=== PATIENT | female | born 1960 | race Two or more races ===

== ENCOUNTER 2022-07-31 13:35 | Observation (INO) | payer OTHER, SELFPAY ==
--- NOTE | ~2022-07-31 | US_ITS ---
EXAMINATION: US VENOUS ULTRASOUND WITH DOPPLER LOWER EXTREMITY, BILATERAL CLINICAL INFORMATION: Pain COMPARISON: None TECHNIQUE: Ultrasound of the deep veins is performed from the hip to the calf with compression sonography and color and pulse Doppler assessment. Spectral analysis with color-flow imaging is performed. FINDINGS: RIGHT: There is normal venous compression and respiratory variation and augmented flow. The visualized common femoral vein, superficial femoral vein, profunda femoral vein, popliteal vein, and the trifurcation region shows no evidence of deep venous thrombosis. The right peroneal vein in the calf is not visualized. Status post left [id number] amputation. There is no significant popliteal fossa cyst. LEFT: There is normal venous compression and respiratory variation and augmented flow. The visualized common femoral vein, superficial femoral vein, profunda femoral vein, popliteal vein, and the trifurcation region shows no evidence of deep venous thrombosis. There is no significant popliteal fossa cyst. If the patient's symptoms persist, followup ultrasound in 5 days 7 days might be of value to exclude proximal propagation from a non-visualized calf vein. US/US venous duplex LE BI IMPRESSION: No DVT demonstrated in the bilateral lower extremity.
--- NOTE | 2022-07-31 13:24 | ECG_ITS ---
Test Reason : HYPER K Blood Pressure : / mmHG Vent. Rate : 070 BPM Atrial Rate : 070 BPM P-R Int : 152 ms QRS Dur : 076 ms QT Int : 378 ms P-R-T Axes : 040 069 035 degrees QTc Int : 408 ms Normal sinus rhythm Normal ECG No previous ECGs available Referred By: Etelvina Estes Electronically Signed By:BHARATI MURILLO
--- NOTE | 2022-07-31 13:26 | ED.RECABL ---
HPI - Recheck/Abnormal Lab/Rx General Chief Complaint: Recheck/Abnormal Lab/Rx Stated Complaint: ABNORMAL LABS,INCREASED POTASSIUM Time Seen by Provider: 07/31/22 13:47 Source: patient and EMS Mode of arrival: EMS Limitations: other (poor historian ) History of Present Illness HPI narrative: This is a 61-year-old female hx of diabetes presenting to the emergency department for abnormal labs. According to EMS and patient her potassium yesterday was 6.1 and today was 7.1. Patient tells me she has been feeling more tired than usual, however has no other complaints. She does mention to me that she currently is being treated for right lower extremity cellulitis and she is on antibiotics (bactrim) however not really helping, this is the only new medication she has started recently. Patient tells me that paramedics go to her house and check her blood, and this is how she found out that her potassium was elevated. She also tells me that her doctor has mentioned this to her in the past as well. Patient denies chest pain, shortness of breath, nausea, vomiting, abdominal pain, headache, dizziness, vision changes, changes in urination, changes in bowel habits, palpitations. Patient has no significant cardiac history. To note patient is on ACEI enalapril. Related Data Home Medications Medication Instructions Recorded Confirmed Saccharomyces boulardii 250 mg 1 cap PO BID 07/31/22 capsule (Probiotic (S.boulardii)) albuterol sulfate 90 mcg/actuation 2 puff inhalation Q4-6H PRN 07/31/22 aerosol inhaler Shortness Of Breath aspirin 81 mg chewable tablet 1 tab PO DAILY 07/31/22 betamethasone dipropionate 0.05 % 1 applic topical BID 07/31/22 topical cream betamethasone, augmented 0.05 % 1 appl topical DAILY 07/31/22 topical cream budesonide-formoterol HFA 80 2 puff inhalation BID 07/31/22 mcg-4.5 mcg/actuation aerosol inhaler (Symbicort) clotrimazole 1 % topical cream 1 appl topical BID 07/31/22 diclofenac sodium 1 % topical gel 2 g topical TID 07/31/22 empagliflozin 10 mg tablet 1 tab PO DAILY 07/31/22 (Jardiance) enalapril maleate 20 mg tablet 1 tab PO BID 07/31/22 fexofenadine 180 mg tablet 1 tab PO DAILY 07/31/22 fluticasone furoate 100 1 puff inhalation DAILY 07/31/22 mcg-vilanterol 25 mcg/dose inhalation powder (Breo Ellipta) fluticasone furoate 100 1 puff inhalation DAILY 07/31/22 mcg-vilanterol 25 mcg/dose inhalation powder (Breo Ellipta) gabapentin 300 mg capsule 1 cap PO DAILY 07/31/22 gabapentin 800 mg tablet 800 mg PO BID 07/31/22 hydrocortisone 2.5 % topical 1 appl topical BID 07/31/22 ointment hydroxyzine pamoate 25 mg capsule 1 cap PO TID 07/31/22 insulin aspart U-100 100 unit/mL 10 - 24 unit subcut DIRECTED 07/31/22 subcutaneous solution (Novolog U-100 Insulin aspart) insulin glargine 100 unit/mL (3 70 unit subcut DAILY 07/31/22 mL) subcutaneous pen (Lantus Solostar U-100 Insulin) liraglutide 0.6 mg/0.1 mL (18 mg/3 1.8 mg subcut DAILY 07/31/22 mL) subcutaneous pen injector ([employer] 3-Paco) metformin 500 mg tablet,extended 1 tab PO DAILY 07/31/22 release 24 hr metoprolol succinate 50 mg 1 tab PO DAILY 07/31/22 tablet,extended release 24 hr naproxen 500 mg tablet 1 tab PO Q12H 07/31/22 olopatadine 0.1 % eye drops 1 drp ophthalmic (eye) BID PRN 07/31/22 allergies omeprazole 20 mg capsule,delayed 1 cap PO DAILY 07/31/22 release simvastatin 20 mg tablet 1 tab PO BEDTIME 07/31/22 sulfamethoxazole 800 1 tab PO BID 07/31/22 mg-trimethoprim 160 mg tablet tramadol 50 mg tablet 1 tab PO BID PRN severe pain 07/31/22 trazodone 50 mg tablet 1 tab PO BEDTIME 07/31/22 Allergies Allergy/AdvReac Type Severity Reaction Status Date / Time ciprofloxacin Allergy Severe Anaphylaxis Verified 07/31/22 17:41 kiwi Allergy Severe Angioedema Verified 07/31/22 17:41 morphine Allergy Intermediate Itching Verified 07/31/22 17:41 atorvastatin [From Lipitor] AdvReac Mild myalgia Verified 07/31/22 17:41 metformin AdvReac Mild Abdominal Verified 07/31/22 17:41 Pain Review of Systems Review of Systems: Constitutional : No Weight loss, No Fever, No Chills, + Fatigue, No Malaise ENT/Mouth : No sore throat, No Rhinorrhea Eyes: No Eye Pain, No Swelling, No Redness Cardiovascular : No Chest Pain, No SOB, No Dyspnea on Exertion, No Orthopnea, No Edema, No Palpitations Respiratory : No Cough, No Sputum, No Wheezing Gastrointestinal : No Nausea, No Vomiting, No Diarrhea, No Constipation, No abdominal Pain, No Hematochezia, No Melena Genitourinary : No Dysuria, No Urinary Frequency, No Hematuria, Musculoskeletal : No joint pain, No Myalgias, No Joint Swelling Skin : No Skin Lesions, No rash Neuro : No Weakness, No Numbness, No Dizziness, No Headache Psych : No Anxiety/Panic, No Depression All other systems reviewed and are negative Yes all other systems are reviewed and are negative [facility] Past Medical History Attestation statement: The following information was validated with the patient. Source: old records reviewed and nursing notes reviewed Medical History (Updated 07/31/22 @ 17:19 by Rj Nelson MD) Diabetes mellitus HLD (hyperlipidemia) HTN (hypertension) Morbid obesity Renal tubular acidosis, type 4 Surgical History (Updated 07/31/22 @ 17:19 by Rj Nelson MD) Below-knee amputation of left lower extremity S/P S/P cholecystectomy Family History Family History (Updated 07/31/22 @ 17:20 by Rj Nelson MD) Mother Dementia Diabetes Father Dementia Diabetes Social History Social History (Updated 07/31/22 @ 17:20 by Rj Nelson MD) Alcohol intake: never Patient Tobacco Use Status: Former Tobacco user Quit Date: 2007 Use of substances other than those prescribed or required for medical reasons: No Advance Directives: No Advance Directives Information Provided: Yes Physical Exam Vital Signs: Vital Signs: Last Vital Signs Temp 97.2 F 07/31/22 13:56 Pulse 74 07/31/22 15:30 Resp 16 07/31/22 15:30 BP 122/47 L 07/31/22 13:56 Pulse Ox 97 07/31/22 13:56 O2 Del Method 07/31/22 13:56 BMI result Body Mass Index 43.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 Oriented X3.? No acute distress.? Head: Normocephalic, atraumatic, no step-offs or deformities Eyes: Pupils equal, round and reactive to light.? ENT: Pharynx normal.? Neck: Normal inspection.? Neck supple.? CVS: Normal heart rate and rhythm.? Pulses normal.? Respiratory: No respiratory distress.? Breath sounds normal.? Abdomen: Soft and nontender.? Skin: Skin warm and dry.? Normal skin color.? Normal skin turgor.? Extremities: No lower extremity edema.? No calf ttp. 5/5 strength to bilateral upper and right lower extremity. BKA on LLE. + erythema and warmth to RLE covered w/ dressing. Right lower extremity with 2+ dorsalis pedis, posterior tibialis and anterior tibialis pulses equal bilateral. Normal sensation to lower extremities. Back: No midline tenderness, no C-spine tenderness, full range of motion, no CVA tenderness bilaterally Neuro: Oriented X 3.? No motor deficit.? No sensory deficit. CN 2-12 intact Course Reevaluation(s) Reevaluation #1: CBC without leukocytosis, there is a slight microcytic anemia noted, initial potassium 6.2, repeat potassium 5.4. No EKG changes at this time. Ethanol negative. COVID negative. Due to patients allergies will give vancomycin for right lower extremity cellulitis. Patient tells me that her cellulitis has not improve much after Bactrim. Therefore I believe patient needs to be admitted to the hospitalist team for evaluation of cellulitis and hyperkalemia. Time: 16:45 Reevaluation #2: Patient not meeting any sepsis criteria, will initiate vancomycin. Discuss this case with hospitalist who will admit patient for further evaluation and intervention. Time: 17:21 MDM - Recheck/Abnormal Lab/Rx MDM Narrative Medical decision making narrative: 1350 61-year-old female presents for evaluation of abnormal labs, was told she had an elevated potassium of 7.1 today. Physical examination with significant cellulitis to the right lower extremity. Cellulitis to right lower extremity currently being treated with antibiotics. Upon review of medication list patient on ACEI likely contributing to hyperkalemia as well as bactrim. Plan at this time is to obtain basic labs, EKG, cardiac monitoring. Will rule out the elevated potassium is not secondary to hemolysis. Will treat potassium of still elevated here in the emergency department. Medical Records Attestation: I reviewed the patient's medical records. Lab Data Attestation: I reviewed the patient's lab results. Result diagrams: 07/31/22 13:46 07/31/22 16:18 Labs: Lab Results 07/31/22 07/31/22 07/31/22 Range/Units 13:46 13:46 13:46 WBC 9.3 (4.8-10.8) X10*3/uL RBC 4.64 (4.20-5.50) X10*6/uL Hgb 10.6 L (12.0-16.0) g/dl Hct 35.9 L (37.0-47.0) % MCV 77.4 L (80.0-98.0) fL MCH 22.8 L (27.0-33.0) pg MCHC 29.5 L (31.0-35.0) g/dl RDW 17.7 H (11.0-16.0) % Plt Count 187 (160-400) X10*3/uL MPV 10.1 (9.4-12.3) fL Immature Gran % (Auto) 0.3 (0.0-0.4) % Neut % (Auto) 72.7 (45-73) % Lymph % (Auto) 19.7 L (20-40) % [place] % (Auto) 5.2 (2-11) % Eos % (Auto) 1.6 (0-4) % Baso % (Auto) 0.5 (0-2) % Lymph # (Auto) 1.8 (1.2-4.9) X10*3/uL [place] # (Auto) 0.5 (0.1-1.2) X10*3/uL Eos # (Auto) 0.2 (0.0-0.4) X10*3/uL Baso # (Auto) 0.1 (0.0-0.2) X10*3/uL Abs Immat Gran (auto) 0.03 (0.00-0.03) X10*3/uL Absolute Neuts (auto) 6.7 (2.0-8.3) x10*3/uL Absolute Nucleated RBC 0.000 (0.0-0.012) X10*3/uL Nucleated RBC % (auto) 0.0 (0.0-0.2) /100WBC Sodium 134 L (135-145) mmol/L Potassium 6.2 H* (3.3-5.1) mmol/L Chloride 104 (96-108) mmol/L Carbon Dioxide 24 (22-29) mmol/L Anion Gap 12 (12-20) BUN 19 H (9-16) mg/dL Creatinine 0.99 (0.5-1.4) mg/dL Estim Creat Clear Calc 73.7 Estimated GFR 57 POC Glucose (60-115) mg/dL Random Glucose 250 H (60-115) mg/dL Calcium 9.0 (8.4-10.2) mg/dL Magnesium 1.6 (1.6-2.6) mg/dL Total Bilirubin 0.2 (0.0-1.0) mg/dL AST 23 (5-31) U/L ALT 22 (0-31) U/L Alkaline Phosphatase 128 H (39-117) U/L Troponin I High Sens < 3.5 (<3.5-17.0) ng/L Total Protein 8.3 H (6.5-8.0) g/dL Albumin 3.6 (3.5-5.0) g/dL Ethyl Alcohol < 10 mg/dL COVID-19 (TALIA) (Negative) COVID-19 Clin Com 07/31/22 07/31/22 07/31/22 Range/Units 13:49 15:49 16:18 WBC (4.8-10.8) X10*3/uL RBC (4.20-5.50) X10*6/uL Hgb (12.0-16.0) g/dl Hct (37.0-47.0) % MCV (80.0-98.0) fL MCH (27.0-33.0) pg MCHC (31.0-35.0) g/dl RDW (11.0-16.0) % Plt Count (160-400) X10*3/uL MPV (9.4-12.3) fL Immature Gran % (Auto) (0.0-0.4) % Neut % (Auto) (45-73) % Lymph % (Auto) (20-40) % [place] % (Auto) (2-11) % Eos % (Auto) (0-4) % Baso % (Auto) (0-2) % Lymph # (Auto) (1.2-4.9) X10*3/uL [place] # (Auto) (0.1-1.2) X10*3/uL Eos # (Auto) (0.0-0.4) X10*3/uL Baso # (Auto) (0.0-0.2) X10*3/uL Abs Immat Gran (auto) (0.00-0.03) X10*3/uL Absolute Neuts (auto) (2.0-8.3) x10*3/uL Absolute Nucleated RBC (0.0-0.012) X10*3/uL Nucleated RBC % (auto) (0.0-0.2) /100WBC Sodium 134 L (135-145) mmol/L Potassium 5.4 H (3.3-5.1) mmol/L Chloride 103 (96-108) mmol/L Carbon Dioxide 20 L (22-29) mmol/L Anion Gap 16 (12-20) BUN 18 H (9-16) mg/dL Creatinine 0.95 (0.5-1.4) mg/dL Estim Creat Clear Calc 76.8 Estimated GFR 60 POC Glucose 231 H (60-115) mg/dL Random Glucose 235 H (60-115) mg/dL Calcium 9.1 (8.4-10.2) mg/dL Magnesium (1.6-2.6) mg/dL Total Bilirubin 0.2 (0.0-1.0) mg/dL AST 24 (5-31) U/L ALT 22 (0-31) U/L Alkaline Phosphatase 121 H (39-117) U/L Troponin I High Sens (<3.5-17.0) ng/L Total Protein 8.3 H (6.5-8.0) g/dL Albumin 3.5 (3.5-5.0) g/dL Ethyl Alcohol mg/dL COVID-19 (TALIA) Negative (Negative) COVID-19 Clin Com See Note Critical Care Time Critical Care Time Critical Care Time: No Discharge Plan Discharge Clinical Impression: Acute hyperkalemia, Fatigue, Cellulitis Patient Disposition: Admitted As Inpatient Instructions: Cellulitis (ED), Hyperkalemia (ED), Fatigue (ED) Additional Instructions: Take your medications as prescribed. If you were prescribed antibiotics today, it is important that you take your medication to their entirety, do not skip any doses, do not finish them early. Follow-up with your primary care provider this week. Follow-up with wound care. Return to the emergency department with new or worsening symptoms. Such as fevers, chills, chest pain, shortness of breath, nausea, vomiting, dizziness, headache, vision changes, lethargy In case of emergency call 911 Please stop taking Bactrim. Start taking doxycycline a different antibiotic instead. Prescriptions: No Action trazodone 50 mg tablet 1 tab PO BEDTIME metoprolol succinate 50 mg tablet extended release 24 hr 1 tab PO DAILY enalapril maleate 20 mg tablet 1 tab PO BID betamethasone, augmented 0.05 % cream 1 appl topical DAILY fexofenadine 180 mg tablet 1 tab PO DAILY tramadol 50 mg tablet 1 tab PO BID PRN (Reason: severe pain) gabapentin 800 mg tablet 800 mg PO BID insulin aspart U-100 [Novolog U-100 Insulin aspart] 100 unit/mL solution 10 - 24 unit subcut DIRECTED simvastatin 20 mg tablet 1 tab PO BEDTIME olopatadine 0.1 % drops 1 drp ophthalmic (eye) BID PRN (Reason: allergies) betamethasone dipropionate 0.05 % cream 1 applic topical BID gabapentin 300 mg capsule 1 cap PO DAILY omeprazole 20 mg capsule,delayed release(DR/EC) 1 cap PO DAILY aspirin 81 mg tablet,chewable 1 tab PO DAILY albuterol sulfate 90 mcg/actuation HFA aerosol inhaler 2 puff inhalation Q4-6H PRN (Reason: Shortness Of Breath) hydrocortisone 2.5 % ointment 1 appl topical BID Rx Instructions: apply to affected skin and gently rub in metformin 500 mg tablet extended release 24 hr 1 tab PO DAILY clotrimazole 1 % cream 1 appl topical BID naproxen 500 mg tablet 1 tab PO Q12H hydroxyzine pamoate 25 mg capsule 1 cap PO TID Saccharomyces boulardii [Probiotic (S.boulardii)] 250 mg capsule 1 cap PO BID budesonide-formoterol [Symbicort] 80-4.5 mcg/actuation HFA aerosol inhaler 2 puff inhalation BID insulin glargine [Lantus Solostar U-100 Insulin] 100 unit/mL (3 mL) insulin pen 70 unit subcut DAILY diclofenac sodium 1 % gel 2 g topical TID Rx Instructions: apply topically to affected area Victoza 3-Paco 0.6 mg/0.1 mL (18 mg/3 mL) pen injector 1.8 mg subcut DAILY fluticasone furoate-vilanterol [Breo Ellipta] 100-25 mcg/dose blister with device 1 puff inhalation DAILY fluticasone furoate-vilanterol [Breo Ellipta] 100-25 mcg/dose blister with device 1 puff inhalation DAILY Jardiance 10 mg tablet 1 tab PO DAILY
[2022-07-31 13:43] VITALS: BP 170/64; PULSE 75; O2SAT 98
[2022-07-31 13:47] VITALS: TEMP 36.8; BMI 43.9
[2022-07-31 13:51] LABS: MANUAL DIFF FLAG NO
[2022-07-31 13:56] VITALS: BP 122/47; PULSE 70; TEMP 36.2; O2SAT 97
[2022-07-31 14:09] LABS: Basophils Absolute Auto 0.1 X10*3/uL (0.0-0.2); Basophils Percent Auto 0.5 % (0-2); Eosinophils Absolute Auto 0.2 X10*3/uL (0.0-0.4); Eosinophils Percent Auto 1.6 % (0-4); Hematocrit 35.9 % (37.0-47.0); Hemoglobin 10.6 g/dl (12.0-16.0); Imm Gran Abs Auto 0.03 X10*3/uL (0.00-0.03); Imm Gran Pct Auto 0.3 % (0.0-0.4); Lymphocytes Absolute Auto 1.8 X10*3/uL (1.2-4.9); Lymphocytes Percent Auto 19.7 % (20-40); Mean Corpuscular HGB Conc 29.5 g/dl (31.0-35.0); Mean Corpuscular Hemoglobin 22.8 pg (27.0-33.0); Mean Corpuscular Volume 77.4 fL (80.0-98.0); Mean Platelet Volume 10.1 fL (9.4-12.3); Monocytes Absolute Auto 0.5 X10*3/uL (0.1-1.2); Monocytes Percent Auto 5.2 % (2-11); Neutrophils Absolute Auto 6.7 x10*3/uL (2.0-8.3); Neutrophils Percent Auto 72.7 % (45-73); Platelet Count 187 X10*3/uL (160-400); Red Blood Count 4.64 X10*6/uL (4.20-5.50); Red Cell Distribution Width 17.7 % (11.0-16.0); White Blood Count 9.3 X10*3/uL (4.8-10.8)
[2022-07-31 14:11] LABS: COVID-19 Test Negative (Negative); IDNOW Serial# 16C4AD1C
[2022-07-31 14:23] LABS: Alanine Aminotransferase 22 U/L (0-31); Albumin Level 3.6 g/dL (3.5-5.0); Alkaline Phosphatase 128 U/L (39-117); Anion Gap 12 (12-20); Aspartate Amino Transferase 23 U/L (5-31); Bilirubin Total 0.2 mg/dL (0.0-1.0); Blood Urea Nitrogen 19 mg/dL (9-16); Carbon Dioxide 24 mmol/L (22-29); Chloride 104 mmol/L (96-108); Creatinine Clr Calc Pharmacy 73.7; Estimated Glomerular Filt Rate 57; Ethanol < 10 mg/dL; Glucose Random 250 mg/dL (60-115); Magnesium 1.6 mg/dL (1.6-2.6); Potassium 6.2 mmol/L (3.3-5.1); Sodium 134 mmol/L (135-145); Total Protein 8.3 g/dL (6.5-8.0)
[2022-07-31 14:32] LABS: Troponin-I High Sensitivity < 3.5 ng/L (<3.5-17.0)
[2022-07-31] MEDS: Insulin Regular, Human 100 UNIT/ML 3 ML VIAL 10 UNIT IVPUSH (14:46)
[2022-07-31] MEDS: Sodium Bicarbonate 8.4% 50 MEQ/50 ML SYRINGE IVPUSH (14:46)
[2022-07-31] MEDS: Calcium Gluconate/NaCl,Iso-Osm 1 GM/50 ML PLAST..BAG IV (14:50)
[2022-07-31] MEDS: Dextrose 50 % 25 GM/50 ML SYRINGE IVPUSH (14:50)
[2022-07-31] MEDS: Sodium Zirconium Cyclosilicate 10 GM POWD.PACK PO (14:51)
[2022-07-31] MEDS: Albuterol Sulfate 7.5 MG, Albuterol Sulfate (0.083%) 2.5 MG 10 MG INHALE (15:29)
[2022-07-31 15:30] VITALS: PULSE 74; RESP 16; O2SAT 98
[2022-07-31 15:55] LABS: Glucose, Whole Blood 231 mg/dL (60-115)
[2022-07-31] MEDS: 0.9 % Sodium Chloride 1,000 ML 999 ML IV (16:39)
[2022-07-31 16:44] LABS: Alanine Aminotransferase 22 U/L (0-31); Albumin Level 3.5 g/dL (3.5-5.0); Alkaline Phosphatase 121 U/L (39-117); Anion Gap 16 (12-20); Aspartate Amino Transferase 24 U/L (5-31); Bilirubin Total 0.2 mg/dL (0.0-1.0); Blood Urea Nitrogen 18 mg/dL (9-16); Calcium 9.1 mg/dL (8.4-10.2); Carbon Dioxide 20 mmol/L (22-29); Chloride 103 mmol/L (96-108); Creatinine Clr Calc Pharmacy 76.8; Estimated Glomerular Filt Rate 60; Glucose Random 235 mg/dL (60-115); Potassium 5.4 mmol/L (3.3-5.1); Sodium 134 mmol/L (135-145); Total Protein 8.3 g/dL (6.5-8.0)
[2022-07-31 17:48] LABS: Iron 56 mcg/dL (30-160); Percent Iron Saturation 13 % (15-50); Total Iron Binding Capacity 448 mcg/dL (228-428); Unsaturated Iron Binding 392 ug/dL
--- NOTE | 2022-07-31 17:49 | P.HPHOSP_ITS ---
History of Present Illness Date of Service: 07/31/22 Chief Complaint: hyperkalemia 61F with pmh of DM2, HTN, HLD, LLE BKA, chronic diastolic chf, morbid obesity, copd/asthma, sent in for hyperkalemia on outapatient labs of 7.2. patient has had RLE erythema and ulceration for about 1 month. was recently admitted to [facility], treated with iv vancomycin and zosyn, discharged to follow up with wound care and was started on course of bactrim. patient was also recently started on enalapril. outpatient labs revelaed severe hyperkalemia, so she was sent to ED, in ED potassium was 6.2, no EKG changes, patient was given lokelma, insulin, calcium, sodium bicarb, repeat potassium now 5.4. patient still with RLE erythema, denies fever, chills, sob, chest pain. Review of Systems Review of Systems: Constitutional: Denies fever, denies Chills Eyes: denies blurry vision ENT: denies sore throat CVS: denies chest pain Respiratory: Denies dyspnea GI: no abdominal pain : denies dysuria MSK: denies neck pain Skin: rle erythema Neuro: denies specific motor weakness Psych: denies suicidal ideation Endocrine: denies heat/cold intolerance Hematologic: denies easy bleeding Allergy: denies hives [facility] Medical History Asthma-COPD overlap syndrome Chronic diastolic CHF (congestive heart failure) Diabetes mellitus HLD (hyperlipidemia) HTN (hypertension) Morbid obesity Functional capacity: wheelchair bound (can pivot, has LLE prosthesis but cant ambulate with it) Family History Mother Dementia Diabetes Father Dementia Diabetes Surgical History Below-knee amputation of left lower extremity S/P S/P cholecystectomy Social History Alcohol intake: never Patient Tobacco Use Status: Former Tobacco user Quit Date: 2007 Use of substances other than those prescribed or required for medical reasons: No Advance Directives: No Advance Directives Information Provided: Yes Meds Allergies Allergy/AdvReac Type Severity Reaction Status Date / Time ciprofloxacin Allergy Severe Anaphylaxis Verified 07/31/22 18:12 kiwi Allergy Severe Angioedema Verified 07/31/22 18:12 morphine Allergy Intermediate Itching Verified 07/31/22 18:12 atorvastatin [From Lipitor] AdvReac Mild myalgia Verified 07/31/22 18:12 metformin AdvReac Mild Abdominal Verified 07/31/22 18:12 Pain Active Medications: Current Medications Acetaminophen (Acetaminophen 325 Mg Tablet) 650 mg PO Q6H PRN PRN Reason: Pain, Mild (Pain Scale 1-3) Enoxaparin Sodium (Enoxaparin Sodium 40 Mg/0.4 Ml Syringe) 40 mg SUBCUT Q24H [facility] Vancomycin HCl (Vancomycin/Ns) 2,000 mg in 520 mls @ 260 mls/hr IV ONCE ONE Stop: 07/31/22 19:04 Last Admin: 07/31/22 17:35 Dose: 260 mls/hr Vancomycin HCl 1,000 mg/ (Sodium Chloride) 270 mls @ 270 mls/hr IV Q12H [facility] Pharmacy Consult (Consult Rx Vancomycin Dosing) 1 each MISCELLANE DAILY PRN PRN Reason: Consult order Pharmacy Consult (Consult Rx Perform Med Rec) 1 each MISCELLANE ONCE PRN PRN Reason: Consult order Pharmacy Consult (Consult Rx Vancomycin Dosing) 1 each MISCELLANE DAILY PRN PRN Reason: Consult order Home Medications Medication Instructions Recorded Confirmed Last Taken Type Saccharomyces boulardii 250 mg 1 cap PO BID 07/31/22 07/31/22 07/31/22 History capsule (Probiotic (S.boulardii)) albuterol sulfate 90 mcg/actuation 2 puff inhalation Q4-6H PRN 07/31/22 07/31/22 Unknown History aerosol inhaler Shortness Of Breath aspirin 81 mg chewable tablet 1 tab PO DAILY 07/31/22 07/31/22 07/31/22 History betamethasone dipropionate 0.05 % 1 applic topical BID 07/31/22 07/31/22 07/31/22 History topical cream clotrimazole 1 % topical cream 1 appl topical BID 07/31/22 07/31/22 07/31/22 History diclofenac sodium 1 % topical gel 2 g topical TID 07/31/22 07/31/22 07/31/22 History diphenhydramine HCl 2 % topical 1 appl topical TID PRN Itching 07/31/22 07/31/22 Unknown History gel (Benadryl) enalapril maleate 20 mg tablet 1 tab PO BID 07/31/22 07/31/22 07/31/22 History fexofenadine 180 mg tablet 1 tab PO DAILY 07/31/22 07/31/22 07/31/22 History gabapentin 300 mg capsule 1 cap PO BEDTIME 07/31/22 07/31/22 07/30/22 History gabapentin 800 mg tablet 800 mg PO BID 07/31/22 07/31/22 07/31/22 History hydroxyzine pamoate 25 mg capsule 1 cap PO TID PRN Anxiety 07/31/22 07/31/22 07/31/22 History insulin aspart U-100 100 unit/mL 10 - 24 unit subcut DIRECTED 07/31/22 07/31/22 07/31/22 History subcutaneous solution (Novolog U-100 Insulin aspart) insulin glargine 100 unit/mL (3 45 unit subcut BID 07/31/22 07/31/22 07/31/22 History mL) subcutaneous pen (Lantus Solostar U-100 Insulin) liraglutide 0.6 mg/0.1 mL (18 mg/3 1.8 mg subcut DAILY 07/31/22 07/31/22 07/31/22 History mL) subcutaneous pen injector ([employer]za 3-Paco) metoprolol succinate 50 mg 1 tab PO DAILY 07/31/22 07/31/22 07/31/22 History tablet,extended release 24 hr naproxen 500 mg tablet 1 tab PO Q12H PRN Pain 07/31/22 07/31/22 Unknown History olopatadine 0.1 % eye drops 1 drp ophthalmic (eye) BID PRN 07/31/22 07/31/22 Unknown History allergies omeprazole 20 mg capsule,delayed 1 cap PO DAILY@0630 07/31/22 07/31/22 07/31/22 History release trazodone 50 mg tablet 1 tab PO BEDTIME 07/31/22 07/31/22 07/30/22 History Physical Exam Vital Signs and Narrative: Vital Signs: Last Vital Signs Temp 97.2 F 07/31/22 13:56 Pulse 74 07/31/22 15:30 Resp 16 07/31/22 15:30 BP 122/47 L 07/31/22 13:56 Pulse Ox 97 07/31/22 13:56 O2 Del Method 07/31/22 13:56 BMI result Body Mass Index 43.9 General: no acute distress HEENT: atraumatic Neck: normal to visual inspection CVS: S1, S2, RRR Resp: CTA bilateral Chest: non tender GI: soft, non tender, non distended : no CVA tenderness Skin: RLE erythema, LLE bka (see pic from ED note) Extremities: no edema Neuro: Oriented X3, grossly intact Psych: cooperative Results Labs CBC and Chem 7: 07/31/22 13:46 07/31/22 16:18 Labs: Laboratory Results - last 24 hr 07/31/22 07/31/22 07/31/22 13:46 13:46 13:49 MCV 77.4 L MCH 22.8 L MCHC 29.5 L RDW 17.7 H Plt Count 187 MPV 10.1 Immature Gran % (Auto) 0.3 Neut % (Auto) 72.7 Lymph % (Auto) 19.7 L [place] % (Auto) 5.2 Eos % (Auto) 1.6 Baso % (Auto) 0.5 Lymph # (Auto) 1.8 [place] # (Auto) 0.5 Eos # (Auto) 0.2 Baso # (Auto) 0.1 Abs Immat Gran (auto) 0.03 Absolute Neuts (auto) 6.7 Absolute Nucleated RBC 0.000 Nucleated RBC % (auto) 0.0 Anion Gap 12 Estim Creat Clear Calc 73.7 Estimated GFR 57 POC Glucose Random Glucose 250 H Calcium 9.0 Magnesium 1.6 Iron TIBC % Saturation Unsat Iron Binding Total Bilirubin 0.2 AST 23 ALT 22 Alkaline Phosphatase 128 H Total Protein 8.3 H Albumin 3.6 Ethyl Alcohol < 10 COVID-19 (TALIA) Negative COVID-19 Clin Com See Note 07/31/22 07/31/22 15:49 16:18 MCV MCH MCHC RDW Plt Count MPV Immature Gran % (Auto) Neut % (Auto) Lymph % (Auto) [place] % (Auto) Eos % (Auto) Baso % (Auto) Lymph # (Auto) [place] # (Auto) Eos # (Auto) Baso # (Auto) Abs Immat Gran (auto) Absolute Neuts (auto) Absolute Nucleated RBC Nucleated RBC % (auto) Anion Gap 16 Estim Creat Clear Calc 76.8 Estimated GFR 60 POC Glucose 231 H Random Glucose 235 H Calcium 9.1 Magnesium Iron 56 TIBC 448 H % Saturation 13 L Unsat Iron Binding 392 Total Bilirubin 0.2 AST 24 ALT 22 Alkaline Phosphatase 121 H Total Protein 8.3 H Albumin 3.5 Ethyl Alcohol COVID-19 ([facility]ALIA) COVID-19 Clin Com Assessment and Plan (1) Cellulitis: Status: Acute Plan 61F with pmh of DM2, HTN, HLD, LLE BKA, chronic diastolic chf, morbid obesity, copd/asthma, sent in for hyperkalemia on outapatient labs of 7.2, noted to have RLE cellulitis hyperkalemia due to GUILLERMINA-I, bactrim, possible underlying rta IV now 5.4 stopped guillermina-i, bactrim monitor RLE cellulitis due to DM2 iv [facility] DM2 basal bolus insulin microcytic anemia check iron studies moderate persistent asthma/copd overlap continue inhalers, stable chronic diastolic chf euvolemic, avoid fluid overload HTN stopped guillermina-i continue toprol morbid obesity weight loss hld does not tolerate lipitor can restart zocor on discharge dvt prophylaxis - lovenox full code Quality Stroke Does the patient have a stroke diagnosis?: No VTE Prior VTE?: No VTE Risk Level:: Medical - moderate - high VTE Device Contraindication: Treatment Not Indicated VTE Drug Contraindication: N/A - Med Ordered
[2022-07-31 18:08] LABS: Ferritin 35 ng/mL (10-250)
--- NOTE | 2022-07-31 19:34 | PHA.PROG ---
Admission Date/Time: July 31, 2022 17:46 Indication: Cellulitis Weight in k.12 kg Adjusted body weight in K.2 kg [facility] body weight in K.7 kg Obesity Dosing Indication % IBW: 212% Serum Creatinine - Last 168 Hours 07/31/22 07/31/22 13:46 16:18 Creatinine 0.99 0.95 Estimated CrCl and GFR - Last 168 Hours 07/31/22 07/31/22 13:46 16:18 Estim Creat Clear Calc 73.7 76.8 Estimated GFR 57 60 Vancomycin Loading Dose: 2000 mg Current Vancomycin Dosing Regimen: 750 mg Q12H Date and Time for next Vancomycin Level to be drawn: 08/02/2022 Pharmacist Comments on Vancomycin Plan: Patient is morbidly obese therefore requires careful monitoring Received loading dose vanco 2000 mg on 07/31 @ 1735 Will start maintenance dose vanco 750 mg Q12H on 08/01 @ 0600. Expected AUC 526 with a trough of 16.5 Trough to be drawn prior to 4th dose. Ilana Quesada, ZachariahD Vancomycin dosing will take advantage of [id number] as a clinical decision support tool that uses Bayesian modeling to calculate individual patient's pharmacokinetic parameters and forecast the patient's drug concentration time course with the target goal AUC 24 range of 400 - 600 mg/L/hr.
[2022-07-31 21:42] VITALS: BP 162/65; PULSE 75; RESP 18; TEMP 36.6; O2SAT 97
[2022-07-31 21:44] LABS: Glucose, Whole Blood 178 mg/dL (60-115)
[2022-07-31] MEDS: Gabapentin 400 MG CAPSULE 800 MG PO (21:49)
[2022-07-31] MEDS: hydrOXYzine HCL 25 MG TABLET PO (21:49)
[2022-07-31] MEDS: Ferrous Sulfate 324 MG TABLET.DR PO (21:49)
[2022-07-31] MEDS: Acetaminophen 325 MG TABLET 650 MG PO (21:50)
[2022-07-31] MEDS: Gabapentin 300 MG CAPSULE PO (21:50)
[2022-07-31] MEDS: traZODone HCL 50 MG TABLET PO (21:50)
[2022-07-31] MEDS: Insulin Lispro 100 UNIT/ML 3 ML VIAL SUBCUT ×2 (21:51)
[2022-07-31] MEDS: Insulin Glargine,Hum.rec.anlog 100 UNIT/ML 10 ML VIAL 45 UNIT SUBCUT (21:55)
[2022-07-31 23:55] VITALS: BP 144/49; PULSE 76; RESP 20; O2SAT 96
[2022-08-01] MEDS: Ketorolac Tromethamine 15 MG/ML VIAL IVPUSH (02:05)
[2022-08-01 04:43] VITALS: BP 142/76; PULSE 77; RESP 18; O2SAT 98
--- NOTE | 2022-08-01 05:24 | PC.NURSE ---
Patient transfers self onto the commode easily. She sat upright in chair for a few hours in the evening. Patient wrapped and dressed her leg wounds independently at her request but later removed dressing. Slept the majority of the overnight. medicated x1 for burning sensation in right calf with good effect as evidence by falling asleep shortly after.
[2022-08-01] MEDS: vancomycin HCL 750 MG in 0.9 % Sodium Chloride 250 ML 265 MG IV (06:41)
[2022-08-01] MEDS: Omeprazole 20 MG CAPSULE.DR PO (06:42)
[2022-08-01] MEDS: Enoxaparin Sodium 40 MG/0.4 ML SYRINGE SUBCUT (06:42)
[2022-08-01 07:05] LABS: Hematocrit 35.6 % (37.0-47.0); Hemoglobin 10.3 g/dl (12.0-16.0); Mean Corpuscular HGB Conc 28.9 g/dl (31.0-35.0); Mean Corpuscular Hemoglobin 22.6 pg (27.0-33.0); Mean Corpuscular Volume 78.1 fL (80.0-98.0); Mean Platelet Volume 10.2 fL (9.4-12.3); Platelet Count 192 X10*3/uL (160-400); Red Blood Count 4.56 X10*6/uL (4.20-5.50); Red Cell Distribution Width 17.8 % (11.0-16.0); White Blood Count 7.8 X10*3/uL (4.8-10.8)
[2022-08-01 07:25] VITALS: BP 159/61; PULSE 68; TEMP 36.6; O2SAT 94
[2022-08-01 07:34] LABS: Glucose, Whole Blood 110 mg/dL (60-115)
[2022-08-01 07:36] LABS: Anion Gap 15 (12-20); Blood Urea Nitrogen 16 mg/dL (9-16); Calcium 8.9 mg/dL (8.4-10.2); Carbon Dioxide 22 mmol/L (22-29); Chloride 107 mmol/L (96-108); Creatinine Clr Calc Pharmacy 87.9; Estimated Glomerular Filt Rate > 60; Glucose Fasting 121 mg/dL (60-99); Potassium 5.3 mmol/L (3.3-5.1); Sodium 139 mmol/L (135-145)
--- NOTE | 2022-08-01 07:57 | PHA.MEDREC ---
Pharmacy Consult ? Medication Reconciliation Pharmacy has completed the medication reconciliation.
--- NOTE | 2022-08-01 08:20 | PC.NURSE ---
Pt reports discomfort and pain to the right leg as sheets and bed linen rub against the leg. Dressing applied to right leg to decrease discomfort.
[2022-08-01 08:47] LABS: Appearance Urine Clear; Color Urine Yellow; Glucose Urine UA Negative (Negative); Leukocyte Esterase Urine Moderate (2+) (Negative); Nitrite Urine Negative (Negative); Specific Gravity - Urine 1.015 (1.005-1.025); UMIC TRIGGER UACC YES; Urine Blood Negative (Negative); Urine Ketones Negative (Negative); Urine Protein Negative (Neg-Trace)
[2022-08-01 08:52] LABS: Bacteria Urine None Seen (None Seen); Hyaline Casts Urine 0-2 /LPF (0-2); RBC Urine 0-2 /HPF (0-2); Squamous Epithelial Cell Urine 0-2 /HPF (0-2); UACC Culture Trigger YES
[2022-08-01 09:00] LABS: Amphetamine Screen Urine Not Detected (Not Detect); Barbiturates, Urine Not Detected (Not Detect); Benzodiazepines Screen Urine Not Detected (Not Detect); Cannabinoid Screen Urine Not Detected (Not Detect); Cocaine Screen Urine Not Detected (Not Detect); Fentanyl, urine POSITIVE (Not Detect); Opiate Screen Urine Not Detected (Not Detect); Phencyclidine Screen Urine Not Detected (Not Detect)
--- NOTE | 2022-08-01 09:36 | P.DS_ITS ---
DS: Providers Provider Date of Service: 08/01/22 Date of admission: 07/31/22 17:46 Primary care physician: Milady Carmne MD DS: Diagnosis Discharge Diagnosis (1) Cellulitis: Status: Acute DS: Summary Hospital Course Hospital Course: from initial hpi: Chief Complaint: hyperkalemia 61F with pmh of DM2, HTN, HLD, LLE BKA, chronic diastolic chf, morbid obesity, copd/asthma, sent in for hyperkalemia on outapatient labs of 7.2. patient has had RLE erythema and ulceration for about 1 month. was recently admitted [place] [facility] treated with iv vancomycin and zosyn, discharged to follow up with wound care and was started on course of bactrim. patient was also recently started on enalapril. outpatient labs revelaed severe hyperkalemia, so she was sent to ED, in ED potassium was 6.2, no EKG changes, patient was given lokelma, insulin, calcium, sodium bicarb, repeat potassium now 5.4. patient still with RLE erythema, denies fever, chills, sob, chest pain. 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 GUILLERMINA-inhibitor has been held, Bactrim discontinued. She received potassium lowering medications as above. Potassium discharge is 5.3. Will continue to hold GUILLERMINA-inhibitor for another couple days and then restart at discretion of primary care physician with close lab monitoring. For her right lower extremity cellulitis due to diabetes mellitus type 2 she was given IV vancomycin, local care, she will be discharged on 7 more days of p.o. doxycycline. Patient was also found to have microcytic anemia due to iron deficiency, she was started on p.o. iron, she will be referred to GI for further workup. For diabetes she was continue basal bolus insulin, for moderate persistent asthma/COPD overlap she was continued on inhalers. For chronic diastolic CHF she appeared euvolemic. For hypertension she will continue on Toprol, and can restart enalapril in about 2 days with close monitoring. For morbid obesity weight loss is recommended. For hyperlipidemia she can restart Zocor on discharge. Time Spent with Patient Time attestation: Total time spent providing and/or coordinating discharge services: Discharge coordination time: Greater than 30 minutes Quality: Safe Use of Opioids Does Pt have an Active Cancer Diagnosis on the Problem List?: No Quality: Stroke Does the patient have a stroke diagnosis?: No Physical Exam Vital Signs: Vital Signs: Last Vital Signs Temp 97.8 F 08/01/22 07:25 Pulse 68 08/01/22 07:25 Resp 18 08/01/22 04:43 BP 159/61 H 08/01/22 07:25 Pulse Ox 94 08/01/22 07:25 O2 Del Method 08/01/22 07:25 BMI result Body Mass Index 43.9 General: AO X 3, no acute distress Resp: CTA bilateral, no accessory muscles used CVS: S1,S2,RRR GI: soft, non tender, non distended Neuro: motor grossly intact, alert Psych: appropriate affect, appropriate insight LLE BKA RLE erythema, mostly chronic changes DS: Data Data Completed and Pending Labs on day of discharge: Laboratory Results - last 24 hr 07/31/22 07/31/22 07/31/22 13:46 13:46 13:46 WBC 9.3 RBC 4.64 Hgb 10.6 L Hct 35.9 L MCV 77.4 L MCH 22.8 L MCHC 29.5 L RDW 17.7 H Plt Count 187 MPV 10.1 Immature Gran % (Auto) 0.3 Neut % (Auto) 72.7 Lymph % (Auto) 19.7 L [place] % (Auto) 5.2 Eos % (Auto) 1.6 Baso % (Auto) 0.5 Lymph # (Auto) 1.8 [place] # (Auto) 0.5 Eos # (Auto) 0.2 Baso # (Auto) 0.1 Abs Immat Gran (auto) 0.03 Absolute Neuts (auto) 6.7 Absolute Nucleated RBC 0.000 Nucleated RBC % (auto) 0.0 Sodium 134 L Potassium 6.2 H* Chloride 104 Carbon Dioxide 24 Anion Gap 12 BUN 19 H Creatinine 0.99 Estim Creat Clear Calc 73.7 Estimated GFR 57 POC Glucose Random Glucose 250 H Fasting Glucose Calcium 9.0 Magnesium 1.6 Iron TIBC % Saturation Unsat Iron Binding Ferritin Total Bilirubin 0.2 AST 23 ALT 22 Alkaline Phosphatase 128 H Troponin I High Sens < 3.5 Total Protein 8.3 H Albumin 3.6 Urine Color Urine Appearance Urine pH Ur Specific [place] Urine Protein Urine Glucose (UA) Urine Ketones Urine Blood Urine Nitrite Ur Leukocyte Esterase Urine RBC Urine WBC Ur Squamous Epith Cells Urine Bacteria Hyaline Casts Urine Opiates Screen Urine Fentanyl Screen Ur Barbiturates Screen Ur Phencyclidine Scrn Ur Amphetamines Screen U Benzodiazepines Scrn Urine Cocaine Screen U Marijuana (THC) Screen Ethyl Alcohol < 10 COVID-19 ([facility]ALIA) COVID-19 Clin Com 07/31/22 07/31/22 07/31/22 13:49 15:49 16:18 WBC RBC Hgb Hct MCV MCH MCHC RDW Plt Count MPV Immature Gran % (Auto) Neut % (Auto) Lymph % (Auto) [place] % (Auto) Eos % (Auto) Baso % (Auto) Lymph # (Auto) [place] # (Auto) Eos # (Auto) Baso # (Auto) Abs Immat Gran (auto) Absolute Neuts (auto) Absolute Nucleated RBC Nucleated RBC % (auto) Sodium 134 L Potassium 5.4 H Chloride 103 Carbon Dioxide 20 L Anion Gap 16 BUN 18 H Creatinine 0.95 Estim Creat Clear Calc 76.8 Estimated GFR 60 POC Glucose 231 H Random Glucose 235 H Fasting Glucose Calcium 9.1 Magnesium Iron 56 TIBC 448 H % Saturation 13 L Unsat Iron Binding 392 Ferritin 35 Total Bilirubin 0.2 AST 24 ALT 22 Alkaline Phosphatase 121 H Troponin I High Sens Total Protein 8.3 H Albumin 3.5 Urine Color Urine Appearance Urine pH Ur Specific [place] Urine Protein Urine Glucose (UA) Urine Ketones Urine Blood Urine Nitrite Ur Leukocyte Esterase Urine RBC Urine WBC Ur Squamous Epith Cells Urine Bacteria Hyaline Casts Urine Opiates Screen Urine Fentanyl Screen Ur Barbiturates Screen Ur Phencyclidine Scrn Ur Amphetamines Screen U Benzodiazepines Scrn Urine Cocaine Screen U Marijuana (THC) Screen Ethyl Alcohol COVID-19 (TALIA) Negative COVID-19 Clin Com See Note 07/31/22 08/01/22 08/01/22 21:40 05:51 05:51 WBC 7.8 RBC 4.56 Hgb 10.3 L Hct 35.6 L MCV 78.1 L MCH 22.6 L MCHC 28.9 L RDW 17.8 H Plt Count 192 MPV 10.2 Immature Gran % (Auto) Neut % (Auto) Lymph % (Auto) [place] % (Auto) Eos % (Auto) Baso % (Auto) Lymph # (Auto) [place] # (Auto) Eos # (Auto) Baso # (Auto) Abs Immat Gran (auto) Absolute Neuts (auto) Absolute Nucleated RBC 0.000 Nucleated RBC % (auto) 0.0 Sodium 139 Potassium 5.3 H Chloride 107 Carbon Dioxide 22 Anion Gap 15 BUN 16 Creatinine 0.83 Estim Creat Clear Calc 87.9 Estimated GFR > 60 POC Glucose 178 H Random Glucose Fasting Glucose 121 H Calcium 8.9 Magnesium Iron TIBC % Saturation Unsat Iron Binding Ferritin Total Bilirubin AST ALT Alkaline Phosphatase Troponin I High Sens Total Protein Albumin Urine Color Urine Appearance Urine pH Ur Specific [place] Urine Protein Urine Glucose (UA) Urine Ketones Urine Blood Urine Nitrite Ur Leukocyte Esterase Urine RBC Urine WBC Ur Squamous Epith Cells Urine Bacteria Hyaline Casts Urine Opiates Screen Urine Fentanyl Screen Ur Barbiturates Screen Ur Phencyclidine Scrn Ur Amphetamines Screen U Benzodiazepines Scrn Urine Cocaine Screen U Marijuana (THC) Screen Ethyl Alcohol COVID-19 ([place]IA) COVIDCrunchbutton 08/01/22 08/01/22 08/01/22 07:27 08:38 08:38 WBC RBC Hgb Hct MCV MCH MCHC RDW Plt Count MPV Immature Gran % (Auto) Neut % (Auto) Lymph % (Auto) [place] % (Auto) Eos % (Auto) Baso % (Auto) Lymph # (Auto) [place] # (Auto) Eos # (Auto) Baso # (Auto) Abs Immat Gran (auto) Absolute Neuts (auto) Absolute Nucleated RBC Nucleated RBC % (auto) Sodium Potassium Chloride Carbon Dioxide Anion Gap BUN Creatinine Estim Creat Clear Calc Estimated GFR POC Glucose 110 Random Glucose Fasting Glucose Calcium Magnesium Iron TIBC % Saturation Unsat Iron Binding Ferritin Total Bilirubin AST ALT Alkaline Phosphatase Troponin I High Sens Total Protein Albumin Urine Color Yellow Urine Appearance Clear Urine pH 6.0 Ur Specific [place] 1.015 Urine Protein Negative Urine Glucose (UA) Negative Urine Ketones Negative Urine Blood Negative Urine Nitrite Negative Ur Leukocyte Esterase Moderate (2+) H Urine RBC 0-2 Urine WBC 6-10 H Ur Squamous Epith Cells 0-2 Urine Bacteria None Seen Hyaline Casts 0-2 Urine Opiates Screen Not Detected Urine Fentanyl Screen POSITIVE H Ur Barbiturates Screen Not Detected Ur Phencyclidine Scrn Not Detected Ur Amphetamines Screen Not Detected U Benzodiazepines Scrn Not Detected Urine Cocaine Screen Not Detected U Marijuana (THC) Screen Not Detected Ethyl Alcohol COVID-19 (TALIA) COVID-19 [facility] Com Discharge Plan Discharge Patient Disposition: Home, Self-Care Discharge Diagnosis: hyperkalemia, iron defeciency anemia, RLE cellulitis Referrals: Milady Carmen MD [Primary Care Provider] - 1 Week Aminata Cook MD [Physician] - 1 Week (iron defeciency anemia) Discharge Medications: New ferrous sulfate 324 mg (65 mg iron) Tablet,Delayed Release (Dr/Ec) 324 mg PO DAILY Qty: 30 0RF doxycycline hyclate 100 mg capsule 100 mg PO BID Qty: 14 0RF Continued trazodone 50 mg tablet 1 tab PO BEDTIME metoprolol succinate 50 mg tablet extended release 24 hr 1 tab PO DAILY fexofenadine 180 mg tablet 1 tab PO DAILY gabapentin 800 mg tablet 800 mg PO BID insulin aspart U-100 [Novolog U-100 Insulin aspart] 100 unit/mL solution 10 - 24 unit subcut DIRECTED Rx Instructions: SLIDING SCALE; before meals olopatadine 0.1 % drops 1 drp ophthalmic (eye) BID PRN (Reason: allergies) betamethasone dipropionate 0.05 % cream 1 applic topical BID gabapentin 300 mg capsule 1 cap PO BEDTIME omeprazole 20 mg capsule,delayed release(DR/EC) 1 cap PO DAILY@0630 aspirin 81 mg tablet,chewable 1 tab PO DAILY albuterol sulfate 90 mcg/actuation HFA aerosol inhaler 2 puff inhalation Q4-6H PRN (Reason: Shortness Of Breath) clotrimazole 1 % cream 1 appl topical BID naproxen 500 mg tablet 1 tab PO Q12H PRN (Reason: Pain) hydroxyzine pamoate 25 mg capsule 1 cap PO TID PRN (Reason: Anxiety) Saccharomyces boulardii [Probiotic (S.boulardii)] 250 mg capsule 1 cap PO BID insulin glargine [Lantus Solostar U-100 Insulin] 100 unit/mL (3 mL) insulin pen 45 unit subcut BID diclofenac sodium 1 % gel 2 g topical TID Rx Instructions: apply topically to affected area Victoza 3-Paco 0.6 mg/0.1 mL (18 mg/3 mL) pen injector 1.8 mg subcut DAILY Benadryl 2 % Gel 1 appl TOPICAL TID PRN (Reason: Itching) Held enalapril maleate 20 mg tablet 1 tab PO BID Hold Instructions: Resume on 08/03/22. follow up with pcp for restarting enalpril, will need close lab monitoring Discharge Orders: Discharge Order (Routine); Ordered 08/01/22 Ordered By: Rj Nelson Diet: Diabetic diet Activity on Discharge: As tolerated Stand Alone Forms: Patient Portal Discharge page Care Plan Goals: recovery Health Concerns: iron defeciency, cellulitis, hyperkalemia Plan of Treatment: iron supplement, follow up with gi, 7 days doxy, wound care, hold enealpril, restart with direction of pcp and close lab monitoring Assessment: see above Patient Instructions: Cellulitis (ED), Hyperkalemia (ED), Fatigue (ED)
[2022-08-01] MEDS: Aspirin 81 MG TAB.CHEW PO (09:41)
[2022-08-01] MEDS: Metoprolol Succinate ER 50 MG TAB.ER.24H PO (09:41)
[2022-08-01] MEDS: Insulin Glargine,Hum.rec.anlog 100 UNIT/ML 10 ML VIAL 45 UNIT SUBCUT (09:41)
[2022-08-01] MEDS: Ferrous Sulfate 324 MG TABLET.DR PO (09:41)
[2022-08-01] MEDS: Gabapentin 400 MG CAPSULE 800 MG PO (09:41)
[2022-08-01] MEDS: Sodium Zirconium Cyclosilicate 10 GM POWD.PACK PO (09:42)
--- NOTE | 2022-08-01 12:21 | MHC.CM.PN ---
Patient discharged home before being seen by case management.
== END 2022-08-01 10:10 | disposition home or self-care (01) ==
LOC: HO.ED 17:43 → HO.EDOVER 17:55
PROVIDERS: Physician Assistant; Admitting Provider Internal Medicine; Emergency Provider Internal Medicine; PCP Internal Medicine; Visit Provider Internal Medicine
DX: L03.115 Cellulitis of right lower limb (principal); D50.9 Iron deficiency anemia, unspecified; E23.2 Diabetes insipidus; R60.0 Localized edema; M79.662 Pain in left lower leg; M79.661 Pain in right lower leg; E11.9 Type 2 diabetes mellitus without complications; I10 Essential (primary) hypertension; J44.9 Chronic obstructive pulmonary disease, unspecified; Z20.822 Contact with and (suspected) exposure to COVID-19; Z79.899 Other long term (current) drug therapy; Z79.4 Long term (current) use of insulin
CPT/HCPCS: 36415; 80048; 80053; 80307; 81001; 82077; 82728; 82947; 83540; 83735; 84484; 85025; 85027; 87086; 87635; 93005; 93970; 94640; 96365; 96375; 96376; 99219; 99285; J0610; J1650; J1885; J3370

== ENCOUNTER 2023-02-02 10:00 | Outpatient (RCR) | payer OTHER, SELFPAY | END 2023-04-05 13:46 | disposition home or self-care (01) | LOC: HO.PTCHIC 10:00 | PROVIDERS: PCP Internal Medicine; Visit Provider Internal Medicine | DX: R26.89 Other abnormalities of gait and mobility (principal); Z89.512 Acquired absence of left leg below knee | CPT/HCPCS: 97110; 97116; 97162; 97530 ==

== ENCOUNTER → 2024-02-03 08:53 | Outpatient (BNVA) | payer OTHER, SELFPAY | PROVIDERS: PCP Internal Medicine; Visit Provider Physician Assistant ==

== ENCOUNTER 2024-03-03 16:19 | Inpatient (IN) | payer OTHER, SELFPAY ==
[2024-03-03] VITALS (9 sets, daily range): BP systolic 120–166; BP diastolic 42–75; PULSE 84–105; RESP 16–20; TEMP 36.7–37.8; O2SAT 88–94; BMI 25.6
--- NOTE | ~2024-03-03 | XR_ITS ---
EXAMINATION: XR CHEST CLINICAL INFORMATION: Cough, shortness of breath COMPARISON: None available. TECHNIQUE: 2 views of the chest were obtained. FINDINGS: The cardiac silhouette is normal. There is mild diffuse bronchial wall thickening. There are no areas of consolidation. There are no pleural effusions or pneumothoraces. The bones and soft tissues are unremarkable for the patient's age. XR/XR chest 2V IMPRESSION: Bronchial wall thickening may be infectious and/or inflammatory in etiology.
--- NOTE | 2024-03-03 16:25 | ED.URI ---
HPI - URI/Sore Throat General Chief Complaint: Asthma Stated Complaint: Asthma Time Seen by Provider: 03/03/24 18:07 Source: patient Mode of arrival: ambulatory Limitations: no limitations History of Present Illness HPI Narrative: Patient comes to the emergency room complaining of 4 days of cough, productive cough. Patient states that she has been using her nebulization treatments with minimal relief. Patient states that her daughter at home who has pneumonia. Patient denies any shortness of breath, patient states that she has simultaneous chest pain and back pain when she coughs only. No lower extremity edema. No nausea vomiting or diarrhea. Related Data Home Medications ?Medication ?Instructions ?Recorded ?Confirmed Saccharomyces boulardii 250 mg 1 cap PO BID 07/31/22 07/31/22 capsule (Probiotic (S.boulardii)) albuterol sulfate 90 mcg/actuation 2 puff inhalation Q4-6H PRN 07/31/22 07/31/22 aerosol inhaler Shortness Of Breath aspirin 81 mg chewable tablet 1 tab PO DAILY 07/31/22 07/31/22 betamethasone dipropionate 0.05 % 1 applic topical BID 07/31/22 07/31/22 topical cream clotrimazole 1 % topical cream 1 appl topical BID 07/31/22 07/31/22 diclofenac sodium 1 % topical gel 2 g topical TID 07/31/22 07/31/22 diphenhydramine HCl 2 % topical 1 appl topical TID PRN Itching 07/31/22 07/31/22 gel (Benadryl) enalapril maleate 20 mg tablet 1 tab PO BID 07/31/22 07/31/22 fexofenadine 180 mg tablet 1 tab PO DAILY 07/31/22 07/31/22 gabapentin 300 mg capsule 1 cap PO BEDTIME 07/31/22 07/31/22 gabapentin 800 mg tablet 800 mg PO BID 07/31/22 07/31/22 hydroxyzine pamoate 25 mg capsule 1 cap PO TID PRN Anxiety 07/31/22 07/31/22 insulin aspart U-100 100 unit/mL 10 - 24 unit subcut DIRECTED 07/31/22 07/31/22 subcutaneous solution (Novolog U-100 Insulin aspart) insulin glargine 100 unit/mL (3 45 unit subcut BID 07/31/22 07/31/22 mL) subcutaneous pen (Lantus Solostar U-100 Insulin) liraglutide 0.6 mg/0.1 mL (18 mg/3 1.8 mg subcut DAILY 07/31/22 07/31/22 mL) subcutaneous pen injector (Victoza 3-Paco) naproxen 500 mg tablet 1 tab PO Q12H PRN Pain 07/31/22 07/31/22 olopatadine 0.1 % eye drops 1 drp ophthalmic (eye) BID PRN 07/31/22 07/31/22 allergies omeprazole 20 mg capsule,delayed 1 cap PO DAILY@0630 07/31/22 07/31/22 release trazodone 50 mg tablet 1 tab PO BEDTIME 07/31/22 07/31/22 metoprolol succinate 50 mg 100 mg PO DAILY 01/24/23 tablet,extended release 24 hr Previous Rx's ?Medication ?Instructions ?Recorded doxycycline hyclate 100 mg capsule 100 mg PO BID #14 caps 08/01/22 ferrous sulfate 324 mg (65 mg 324 mg PO DAILY #30 tabs 08/01/22 iron) tablet,delayed release cephalexin 500 mg capsule 500 mg PO QID 7 days #28 caps 01/24/23 erythromycin 5 mg/gram (0.5 %) eye 0.5 inch ophthalmic (eye) BID 7 01/24/23 ointment days #3.5 grams Allergies Allergy/AdvReac Type Severity Reaction Status Date / Time ciprofloxacin Allergy Severe Anaphylaxis Verified 03/03/24 16:29 kiwi Allergy Severe Angioedema Verified 03/03/24 16:29 morphine Allergy Intermediate Itching Verified 03/03/24 16:29 atorvastatin [From Lipitor] AdvReac Mild myalgia Verified 03/03/24 16:29 metformin AdvReac Mild Abdominal Verified 03/03/24 16:29 Pain Review of Systems Review of Systems: Constitutional : No Weight loss, No Fever, No Chills, No Night Sweats, No Fatigue, No Malaise ENT/Mouth : No Hearing loss, No Ear Pain, No Nasal Congestion, No Sinus Pain, No Hoarseness, No sore throat, No Rhinorrhea, No Swallowing Difficulty Eyes: No Eye Pain, No Swelling, No Redness, No Foreign Body, No Discharge, No Vision Changes Cardiovascular : No Chest Pain, No SOB, No Dyspnea on Exertion, No Orthopnea, No Edema, No Palpitations Respiratory : Complaining of productive cough, complaining of Wheezing, No Smoke Exposure, No Dyspnea Gastrointestinal : No Nausea, No Vomiting, No Diarrhea, No Constipation, No abdominal Pain, No Hematochezia, No Melena Genitourinary : no irregular bleeding, No Dysuria, No Urinary Frequency, No Hematuria, No Urinary Incontinence, No Urgency, No Flank Pain, No Urinary Flow Changes, No Hesitancy Musculoskeletal : No joint pain, No Myalgias, No Joint Swelling Skin : No Skin Lesions, No rash Neuro : No Weakness, No Numbness, No Paresthesias, No Loss of Consciousness, No Dizziness, No Headache Psych : No Anxiety/Panic, No Depression, No SI/HI/AH/VH, No Social Issues, Heme/Lymph: No Bruising, No Bleeding,No Lymphadenopathy Endocrine : No Polyuria, No Polydipsia, No Temperature Intolerance PMFSH Past Medical History Medical History Asthma-COPD overlap syndrome Chronic diastolic CHF (congestive heart failure) HLD (hyperlipidemia) HTN (hypertension) Morbid obesity Diabetes mellitus Surgical History Below-knee amputation of left lower extremity S/P S/P cholecystectomy Family History Family History Mother Dementia Diabetes Father Dementia Diabetes Social History Social History Alcohol intake: never Comment: D/C to home Patient Tobacco Use Status: Former Tobacco user Quit Date: 2007 Advance Directives: No Advance Directives Information Provided: No Physical Exam Vital Signs: Vital Signs: Last Vital Signs Temp 99.8 F 03/03/24 20:08 Pulse 100 03/03/24 20:57 Resp 20 03/03/24 20:57 BP 120/42 L 03/03/24 20:08 Pulse Ox 93 03/03/24 20:40 O2 Del Method Nasal Cannula 03/03/24 20:40 O2 Flow Rate 2 03/03/24 20:40 BMI result Body Mass Index 25.6 Const: Other: Appearance: Alert. Oriented X3. No acute distress. Eyes: Pupils equal, round and reactive to light. ENT: Pharynx normal. Neck: Normal inspection. Neck supple. No lymph nodes noted. No crepitus CVS: Normal heart rate and rhythm. Pulses normal. Normal S1 and S2 Respiratory: No respiratory distress. Bilateral rales and wheezing, no crackles, moderate air movement Abdomen: Soft and nontender. No rigidity. No distention. Skin: Skin warm and dry. Normal skin color. Normal skin turgor. Extremities: No lower extremity edema. No Lacerations. No Rash Neuro: Oriented X 3. No motor deficit. No sensory deficit. Moving all extremities. No slurred speech. CN 2 through 12 grossly intact Psych: calm, cooperative, normal affect Course Course Course Narrative: This is a rapid medical exam. Deferred additional HPI, ROS, PE to primary provider. 63 yo female with history of asthma, COPD, CHF, HLD, HTN, DM here with complaints of cough, shortness of breath. No CP. Granddaughter has PNA at home. Will obtain labs, viral testing, CXR VSS Medications Administered Generic Name Dose Route Start Last Admin Trade Name Freq PRN Reason Stop Dose Admin Magnesium Sulfate 2 gm in 50 mls @ 25 mls/hr 03/03/24 20:10 03/03/24 20:32 Magnesium Sulfate/H2o IV 03/03/24 22:09 25 mls/hr ONCE ONE Administration Discontinued Medications Generic Name Dose Route Start Last Admin Trade Name Freq PRN Reason Stop Dose Admin Albuterol Sulfate 5 mg 03/03/24 18:12 03/03/24 18:25 Albuterol Sulfate (0.083%) 2.5 Mg/3 Ml Vial.Neb INHALE 03/03/24 18:13 5 mg ONCE ONE Administration Albuterol Sulfate 2.5 mg/ 5 mg 03/03/24 20:53 03/03/24 20:56 Albuterol Sulfate 2.5 mg INHALE 03/03/24 20:54 5 mg ONCE ONE Administration Benzonatate 100 mg 03/03/24 18:12 03/03/24 18:17 Benzonatate 100 Mg Capsule PO 03/03/24 18:13 100 mg ONCE ONE Administration Methylprednisolone Sodium Succinate 125 mg 03/03/24 20:10 03/03/24 20:32 Methylprednisolone Sod Succ 125 Mg/2 Ml Vial IVPUSH 03/03/24 20:11 125 mg ONCE ONE Administration Prednisone 60 mg 03/03/24 18:12 03/03/24 18:17 Prednisone 20 Mg Tablet PO 03/03/24 18:13 60 mg ONCE ONE Administration Medical Decision Making Medical Decision Making [facility] Narrative: -initially, patient was given p.o. prednisone and a nebulization treatment. However, patient's oxygen saturation dropped to 88% on room air without exertion. Patient can not be ambulated, has a BKA and is wheelchair dependent. -patient is now on 2 L of oxygen. Patient receiving no IV magnesium, steroids and more nebulization treatments. -given patient's past medical history, we will empirically treat with antibiotics. Sepsis is not suspected. -discussed the patient with Dr. Silva from the Medicine team, patient being admitted Differential Diagnosis Differential Diagnoses: The differential diagnosis associated with the presentation includes (Asthma, CHF, chronic lung disease) Admission/Observation Consideration of admission/observation: Escalation of care including admission/observation considered Consult Healthcare Provider Management of the patient was discussed with: Hospitalist Lab Data [facility] Lab Attestation statement: I reviewed the patient's lab results. 03/03/24 17:26 03/03/24 17:26 Labs: Lab Results 03/03/24 03/03/24 Range/Units 17:26 20:10 WBC 5.8 (4.8-10.8) X10*3/uL RBC 5.08 (4.20-5.50) X10*6/uL Hgb 11.8 L (12.0-16.0) g/dl Hct 39.2 (37.0-47.0) % MCV 77.2 L (80.0-98.0) fL MCH 23.2 L (27.0-33.0) pg MCHC 30.1 L (31.0-35.0) g/dl RDW 16.5 H (11.0-16.0) % Plt Count 188 (160-400) X10*3/uL MPV 10.0 (9.4-12.3) fL Immature Gran % (Auto) 0.5 H (0.0-0.4) % Neut % (Auto) 69.7 (45-73) % Lymph % (Auto) 17.3 L (20-40) % Campbell % (Auto) 7.9 (2-11) % Eos % (Auto) 4.3 H (0-4) % Baso % (Auto) 0.3 (0-2) % Lymph # (Auto) 1.0 L (1.2-4.9) X10*3/uL Campbell # (Auto) 0.5 (0.1-1.2) X10*3/uL Eos # (Auto) 0.3 (0.0-0.4) X10*3/uL Baso # (Auto) 0.0 (0.0-0.2) X10*3/uL Abs Immat Gran (auto) 0.03 (0.00-0.03) X10*3/uL Absolute Neuts (auto) 4.1 (2.0-8.3) x10*3/uL Absolute Nucleated RBC 0.000 (0.0-0.012) X10*3/uL Nucleated RBC % (auto) 0.0 (0.0-0.2) /100WBC Sodium 141 (135-145) mmol/L Potassium 4.5 (3.3-5.1) mmol/L Chloride 107 (96-108) mmol/L Carbon Dioxide 27 (22-29) mmol/L Anion Gap 12 (12-20) BUN 13 (9-16) mg/dL Creatinine 0.78 (0.5-1.4) mg/dL Estim Creat Clear Calc 74.5 Estimated GFR > 60 POC Glucose 121 H (60-115) mg/dL Random Glucose 99 (60-115) mg/dL Calcium 9.6 D (8.4-10.2) mg/dL Total Bilirubin 0.2 (0.0-1.0) mg/dL Direct Bilirubin < 0.2 (0.0-0.5) mg/dL AST 24 (5-31) U/L ALT 21 (0-31) U/L Alkaline Phosphatase 128 H (39-117) U/L B-Natriuretic Peptide 19 (<100) pg/mL Total Protein 7.9 (6.5-8.0) g/dL Albumin 3.8 (3.5-5.0) g/dL Influenza Type A (PCR) NEGATIVE (Negative) Influenza Type B (PCR) NEGATIVE (Negative) RSV RNA Qual (PCR) NEGATIVE (Negative) SARS-CoV-2 RNA (RT-PCR) NEGATIVE (Negative) Independent Interpretation I performed an independent interpretation of an: Plain X-Ray Radiology Impression Discussion of test interpretation with radiology: I have reviewed the radiologist's reading. Radiologist Impression: The cardiac silhouette is normal. There is mild diffuse bronchial wall thickening. There are no areas of consolidation. There are no pleural effusions or pneumothoraces. The bones and soft tissues are unremarkable for the patient's age. XR/XR chest 2V IMPRESSION: Bronchial wall thickening may be infectious and/or inflammatory in etiology. Critical Care Time Critical Care Time Critical Care Time: Yes Total Critical Care Time: 75 Attestation: I have personally provided critical care time. Time includes review of lab data, radiology results, discussion with consultants, and monitoring for potential decompensation. Intervention performed as documented. Discharge Plan Discharge Clinical Impression: Asthma-COPD overlap syndrome Patient Disposition: Admitted As Inpatient Prescriptions: No Action trazodone 50 mg tablet 1 tab PO BEDTIME enalapril maleate 20 mg tablet 1 tab PO BID Hold Instructions: Resume on 08/03/22. follow up with pcp for restarting enalpril, will need close lab monitoring fexofenadine 180 mg tablet 1 tab PO DAILY gabapentin 800 mg tablet 800 mg PO BID insulin aspart U-100 [Novolog U-100 Insulin aspart] 100 unit/mL solution 10 - 24 unit subcut DIRECTED Rx Instructions: SLIDING SCALE; before meals olopatadine 0.1 % drops 1 drp ophthalmic (eye) BID PRN (Reason: allergies) betamethasone dipropionate 0.05 % cream 1 applic topical BID gabapentin 300 mg capsule 1 cap PO BEDTIME omeprazole 20 mg capsule,delayed release(DR/EC) 1 cap PO DAILY@0630 aspirin 81 mg tablet,chewable 1 tab PO DAILY albuterol sulfate 90 mcg/actuation HFA aerosol inhaler 2 puff inhalation Q4-6H PRN (Reason: Shortness Of Breath) clotrimazole 1 % cream 1 appl topical BID naproxen 500 mg tablet 1 tab PO Q12H PRN (Reason: Pain) hydroxyzine pamoate 25 mg capsule 1 cap PO TID PRN (Reason: Anxiety) Saccharomyces boulardii [Probiotic (S.boulardii)] 250 mg capsule 1 cap PO BID insulin glargine [Lantus Solostar U-100 Insulin] 100 unit/mL (3 mL) insulin pen 45 unit subcut BID diclofenac sodium 1 % gel 2 g topical TID Rx Instructions: apply topically to affected area Victoza 3-Paco 0.6 mg/0.1 mL (18 mg/3 mL) pen injector 1.8 mg subcut DAILY Benadryl 2 % Gel 1 appl TOPICAL TID PRN (Reason: Itching) ferrous sulfate 324 mg (65 mg iron) Tablet,Delayed Release (Dr/Ec) 324 mg PO DAILY Qty: 30 0RF doxycycline hyclate 100 mg capsule 100 mg PO BID Qty: 14 0RF metoprolol succinate 50 mg tablet extended release 24 hr 100 mg PO DAILY cephalexin 500 mg capsule 500 mg PO QID 7 Days Qty: 28 0RF erythromycin 5 mg/gram (0.5 %) ointment 0.5 inch ophthalmic (eye) BID 7 Days Qty: 3.5 0RF Print Language: Montserratian
[2024-03-03 17:32] LABS: MANUAL DIFF FLAG NO
[2024-03-03 17:59] LABS: Basophils Percent Auto 0.3 % (0-2); Eosinophils Absolute Auto 0.3 X10*3/uL (0.0-0.4); Eosinophils Percent Auto 4.3 % (0-4); Hematocrit 39.2 % (37.0-47.0); Hemoglobin 11.8 g/dl (12.0-16.0); Imm Gran Abs Auto 0.03 X10*3/uL (0.00-0.03); Imm Gran Pct Auto 0.5 % (0.0-0.4); Lymphocytes Percent Auto 17.3 % (20-40); Mean Corpuscular HGB Conc 30.1 g/dl (31.0-35.0); Mean Corpuscular Hemoglobin 23.2 pg (27.0-33.0); Mean Corpuscular Volume 77.2 fL (80.0-98.0); Monocytes Absolute Auto 0.5 X10*3/uL (0.1-1.2); Monocytes Percent Auto 7.9 % (2-11); Neutrophils Absolute Auto 4.1 x10*3/uL (2.0-8.3); Neutrophils Percent Auto 69.7 % (45-73); Platelet Count 188 X10*3/uL (160-400); Red Blood Count 5.08 X10*6/uL (4.20-5.50); Red Cell Distribution Width 16.5 % (11.0-16.0); White Blood Count 5.8 X10*3/uL (4.8-10.8)
[2024-03-03 18:12] LABS: Alanine Aminotransferase 21 U/L (0-31); Albumin Level 3.8 g/dL (3.5-5.0); Alkaline Phosphatase 128 U/L (39-117); Anion Gap 12 (12-20); Aspartate Amino Transferase 24 U/L (5-31); Bilirubin Direct < 0.2 mg/dL (0.0-0.5); Bilirubin Total 0.2 mg/dL (0.0-1.0); Blood Urea Nitrogen 13 mg/dL (9-16); Calcium 9.6 mg/dL (8.4-10.2); Carbon Dioxide 27 mmol/L (22-29); Chloride 107 mmol/L (96-108); Creatinine Clr Calc Pharmacy 74.5; Estimated Glomerular Filt Rate > 60; Glucose Random 99 mg/dL (60-115); Potassium 4.5 mmol/L (3.3-5.1); Sodium 141 mmol/L (135-145); Total Protein 7.9 g/dL (6.5-8.0)
[2024-03-03 18:15] LABS: B Type Natriuretic Peptide 19 pg/mL (<100)
[2024-03-03] MEDS: Benzonatate 100 MG CAPSULE PO (18:17)
[2024-03-03] MEDS: predniSONE 20 MG TABLET 60 MG PO (18:17)
[2024-03-03] MEDS: Albuterol Sulfate (0.083%) 2.5 MG/3 ML VIAL.NEB 5 MG INHALE (18:25)
[2024-03-03 18:49] LABS: Influenza A PCR NEGATIVE (Negative); Influenza B PCR NEGATIVE (Negative); Resp Syncy Virus RNA Qual PCR NEGATIVE (Negative); SARS COV2 PCR INHOUSE NEGATIVE (Negative)
[2024-03-03 20:14] LABS: Glucose, Whole Blood 121 mg/dL (60-115)
[2024-03-03] MEDS: Magnesium Sulfate/H2O 2 GM/50 ML PIGGYBACK IV (20:32)
[2024-03-03] MEDS: methylPREDNISolone Sod Succ 125 MG/2 ML VIAL IVPUSH (20:32)
--- NOTE | 2024-03-03 20:41 | PC.NURSE ---
patient awake and alert. skin pwd, resp even and non labored. speaking in full, clear sentences. non productive cough noted, i/e wheezes throughout. O2 sat 88% on air, provider aware. supplemental O2 placed on patient w/ order from physician. IV established and patient medicated as ordered.
[2024-03-03] MEDS: Albuterol Sulfate 2.5 MG, Albuterol Sulfate (0.083%) 2.5 MG 5 MG INHALE (20:56)
[2024-03-03 22:53] LABS: Glucose, Whole Blood 217 mg/dL (60-115)
[2024-03-03] MEDS: cefTRIAXone sodium 1 GM in 0.9 % Sodium Chloride 50 ML IV (22:53)
[2024-03-03] MEDS: Insulin Glargine,Hum.rec.anlog 100 UNIT/ML 10 ML VIAL 50 UNIT SUBCUT (22:54)
[2024-03-03] MEDS: Insulin Lispro 100 UNIT/ML 3 ML VIAL SUBCUT (23:01)
[2024-03-03] MEDS: Azithromycin 500 MG in 0.9 % Sodium Chloride 250 ML 125 MG IV (23:56)
[2024-03-04] VITALS (12 sets, daily range): BP systolic 136–176; BP diastolic 41–83; PULSE 65–91; RESP 16–20; TEMP 36.1–37.1; O2SAT 93–97; BMI 42.3
--- NOTE | 2024-03-04 00:21 | P.HPHOSP_ITS ---
History of Present Illness Date of Service: 03/03/24 Attending physician on admission: Christina Nunez Chief Complaint: Shortness on breath Yolanda Arshad is a 63 years old woman with past medical history significant for CHF, asthma -no home oxygen, essential hypertension, morbid obesity, type 2 diabetes diabetes on insulin and hyperlipidemia presents to the emergency department complaining of 4 days' history of worsening shortness of breath, wheezing and mildly productive cough of clear sputum. She denies fevers or chills. She did report headache. Denies dizziness, palpitations or chest pain. Patient denied any acute gastrointestinal or genitourinary pain. She denied tobacco smoking, alcohol abuse or illicit drug use. In the ED, she was found to have mild degree of tachycardia, tachypnea and low oxygen saturation, 88% on room air. Blood pressure is stable. Max temperature is 100 degrees. Blood workup showed no leukocytosis. Hemoglobin is at baseline. There is no thrombocytopenia or bandemia. There are no electrolyte imbalances. LFTs are unremarkable. Troponin is negative and BNP is normal. Viral testing is negative for COVID-19, influenza or RSV. CXR showed bronchial wall thickening. ED tx: Prednisone cystic, Solu-Medrol 125, this alone 100 mg p.o., ceftriaxone 1 g IV, azithromycin 5 mg IV, albuterol X2 Review of Systems 2 Review of Systems: All 12 systems were reviewed and normal except as noted in HPI. REPLACED BY [facility] Medical History Asthma-COPD overlap syndrome Chronic diastolic CHF (congestive heart failure) HLD (hyperlipidemia) HTN (hypertension) Morbid obesity Diabetes mellitus Family History Mother Dementia Diabetes Father Dementia Diabetes Surgical History Below-knee amputation of left lower extremity S/P S/P cholecystectomy Social History Alcohol intake: never Comment: D/C to home Patient Tobacco Use Status: Former Tobacco user Quit Date: 2007 Advance Directives: No Advance Directives Information Provided: No Meds Allergies Allergy/AdvReac Type Severity Reaction Status Date / Time ciprofloxacin Allergy Severe Anaphylaxis Verified 03/03/24 16:29 kiwi Allergy Severe Angioedema Verified 03/03/24 16:29 morphine Allergy Intermediate Itching Verified 03/03/24 16:29 atorvastatin [From Lipitor] AdvReac Mild myalgia Verified 03/03/24 16:29 metformin AdvReac Mild Abdominal Verified 03/03/24 16:29 Pain Active Medications: Current Medications Acetaminophen (Acetaminophen 325 Mg Tablet) 975 mg PO Q6H PRN PRN Reason: mild pain, fever and headche Albuterol/Ipratropium (Albuterol/Iprat 2.5/0.5mg 3 Ml Ampul.Neb) 3 ml INHALE RQ4H WHILE AWAKE [facility] Last Admin: 03/03/24 22:34 Dose: Not Given Aspirin (Aspirin 81 Mg Tab.Chew) 81 mg PO DAILY [facility] Azithromycin (Azithromycin 500 Mg Tablet) 500 mg PO Q24H [facility] Fluticasone Propionate (Fluticasone Propionate Nasal 16 Gm [place]) 50 spray NOSTRIL-B BID [facility] Fluticasone/Vilanterol (Fluticasone/Vilanterol 100/25 Blst.W.Dev) 1 puff INHALE RDAILY [facility] Gabapentin (Gabapentin 400 Mg Capsule) 800 mg PO BID [facility] Glucose (Glucose Gel 15 Gm Gel..Gram.) 15 gm PO Q15M PRN; Protocol PRN Reason: per Hypoglycemia Standing Ord. Dextrose (D10) 250 mls @ 750 mls/hr IV Q15M PRN; Protocol PRN Reason: per Hypoglycemia Standing Ord. Insulin Glargine (Insulin Glargine,Hum.Rec.Anlog 100 Unit/Ml 10 Ml Vial) 50 unit SUBCUT BID [facility] Last Admin: 03/03/24 22:54 Dose: 50 unit Insulin Human Lispro (Insulin Lispro 100 Unit/Ml 3 Ml Vial) 0 unit SUBCUT QIDACHS [facility]; Protocol Last Admin: 03/03/24 23:01 Dose: 6 unit Loratadine (Loratadine 10 Mg Tablet) 10 mg PO DAILY [facility] Methylprednisolone Sodium Succinate (Methylprednisolone Sod Succ 40 Mg/Ml Vial) 40 mg IVPUSH Q12H [facility] Metoprolol Succinate (Metoprolol Succinate Er 100 Mg Tab.Er.24h) 100 mg PO DAILY [facility]; Protocol Non-Formulary Medication (Liraglutide [Victoza 3-Paco]) 1.8 mg SUBCUT DAILY [facility] Non-Formulary Medication (Rosuvastatin) 20 mg PO BEDTIME [facility] Sacubitril/Valsartan (Sacubitril/Valsartan 1 Tab Tablet) 1 tab PO BID [facility]; Protocol Sodium Chloride (0.9 % Sodium Chloride Flush 3 Ml Syringe) 3 ml IVFLUSH QSHIFT [facility] Home Medications ?Medication ?Instructions ?Recorded ?Confirmed ?Last Taken ?Type Saccharomyces boulardii 250 mg 1 cap PO BID 07/31/22 07/31/22 07/31/22 History capsule (Probiotic (S.boulardii)) albuterol sulfate 90 mcg/actuation 2 puff inhalation Q4-6H PRN 07/31/22 03/03/24 Unknown History aerosol inhaler Shortness Of Breath aspirin 81 mg chewable tablet 1 tab PO DAILY 07/31/22 03/03/24 07/31/22 History betamethasone dipropionate 0.05 % 1 applic topical BID 07/31/22 07/31/22 07/31/22 History topical cream clotrimazole 1 % topical cream 1 appl topical BID 07/31/22 07/31/22 07/31/22 History diclofenac sodium 1 % topical gel 2 g topical TID 07/31/22 07/31/22 07/31/22 History diphenhydramine HCl 2 % topical 1 appl topical TID PRN Itching 07/31/22 07/31/22 Unknown History gel (Benadryl) enalapril maleate 20 mg tablet 1 tab PO BID 07/31/22 07/31/22 07/31/22 History fexofenadine 180 mg tablet 1 tab PO DAILY 07/31/22 07/31/22 07/31/22 History gabapentin 300 mg capsule 1 cap PO BEDTIME 07/31/22 07/31/22 07/30/22 History gabapentin 800 mg tablet 800 mg PO BID 07/31/22 07/31/22 07/31/22 History hydroxyzine pamoate 25 mg capsule 1 cap PO TID PRN Anxiety 07/31/22 07/31/22 07/31/22 History insulin aspart U-100 100 unit/mL 10 - 24 unit subcut DIRECTED 07/31/22 07/31/22 07/31/22 History subcutaneous solution (Novolog U-100 Insulin aspart) insulin glargine 100 unit/mL (3 45 unit subcut BID 07/31/22 07/31/22 07/31/22 History mL) subcutaneous pen (Lantus Solostar U-100 Insulin) liraglutide 0.6 mg/0.1 mL (18 mg/3 1.8 mg subcut DAILY 07/31/22 07/31/22 07/31/22 History mL) subcutaneous pen injector (Victoza 3-Paco) naproxen 500 mg tablet 1 tab PO Q12H PRN Pain 07/31/22 07/31/22 Unknown History olopatadine 0.1 % eye drops 1 drp ophthalmic (eye) BID PRN 07/31/22 07/31/22 Unknown History allergies omeprazole 20 mg capsule,delayed 1 cap PO DAILY@0630 07/31/22 07/31/22 07/31/22 History release trazodone 50 mg tablet 1 tab PO BEDTIME 07/31/22 07/31/22 07/30/22 History metoprolol succinate 50 mg 100 mg PO DAILY 01/24/23 Unknown History tablet,extended release 24 hr fexofenadine 180 mg tablet 180 mg PO DAILY 03/03/24 03/03/24 Unknown History fluticasone furoate 100 1 ea inhalation DAILY 03/03/24 03/03/24 Unknown History mcg-vilanterol 25 mcg/dose inhalation powder (Breo Ellipta) fluticasone propionate 50 50 spray intranasal BID 03/03/24 03/03/24 Unknown History mcg/actuation nasal spray,suspension gabapentin 800 mg tablet 800 mg PO BID 03/03/24 03/03/24 Unknown History insulin glargine 100 unit/mL 50 unit subcut BID 03/03/24 03/03/24 Unknown History subcutaneous solution (Lantus U-100 Insulin) liraglutide 0.6 mg/0.1 mL (18 mg/3 See Rx Instructions .Route .COMPLEX 03/03/24 03/03/24 Unknown History mL) subcutaneous pen injector (Victoza 3-Paco) metoprolol succinate 100 mg 100 mg PO DAILY 03/03/24 03/03/24 Unknown History tablet,extended release 24 hr rosuvastatin 20 mg tablet 20 mg PO BEDTIME 03/03/24 03/03/24 Unknown History sacubitril 24 mg-valsartan 26 mg 1 tab PO BID 03/03/24 03/03/24 Unknown History tablet (Entresto) Physical Exam 2 Vital Signs and Narrative: Vital Signs: Last Vital Signs Temp 99.0 F 03/03/24 22:45 Pulse 91 03/03/24 22:45 Resp 16 03/03/24 22:45 BP 141/64 H 03/03/24 22:45 Pulse Ox 93 03/03/24 22:45 O2 Del Method Nasal Cannula 03/03/24 22:45 O2 Flow Rate 2 03/03/24 22:45 BMI result Body Mass Index 25.6 Constitutional - Awake and Alert, No apparent distress. Obese. HEENT - PERRLA, EOMI. Dry oral mucosa. Heart - S1S2, RRR. Lungs - Normal lung expansion, Normal respiratory effort, No respiratory distress. Tachypnea. Bilateral wheezing. No rhonchi. No crackles. Abdomen - NT / ND; +BS; No rebound or guarding Extremities - Right leg: no calf tenderness bilaterally, no swelling. Left BKA. Musculoskeletal - Normal inspection, normal ROM Skin - Warm/Dry. No pallor. No jaundice. Neurological - Alert & oriented x3. No focal weakness. Normal speech. Psychological - Appropriate affect Results Labs 03/03/24 17:26 03/03/24 17:26 Labs: Laboratory Results - last 24 hr 03/03/24 03/03/24 03/03/24 17:26 20:10 22:50 MCV 77.2 L MCH 23.2 L MCHC 30.1 L RDW 16.5 H Plt Count 188 MPV 10.0 Immature Gran % (Auto) 0.5 H Neut % (Auto) 69.7 Lymph % (Auto) 17.3 L [place] % (Auto) 7.9 Eos % (Auto) 4.3 H Baso % (Auto) 0.3 Lymph # (Auto) 1.0 L [place] # (Auto) 0.5 Eos # (Auto) 0.3 Baso # (Auto) 0.0 Abs Immat Gran (auto) 0.03 Absolute Neuts (auto) 4.1 Absolute Nucleated RBC 0.000 Nucleated RBC % (auto) 0.0 Anion Gap 12 Estim Creat Clear Calc 74.5 Estimated GFR > 60 POC Glucose 121 H 217 H Random Glucose 99 Calcium 9.6 D Total Bilirubin 0.2 Direct Bilirubin < 0.2 AST 24 ALT 21 Alkaline Phosphatase 128 H B-Natriuretic Peptide 19 Total Protein 7.9 Albumin 3.8 Influenza Type A (PCR) NEGATIVE Influenza Type B (PCR) NEGATIVE RSV RNA Qual (PCR) NEGATIVE SARS-CoV-2 RNA (RT-PCR) NEGATIVE Imaging Radiologist's Impressions: Impressions Chest X-Ray 03/03/24 16:40 IMPRESSION: Bronchial wall thickening may be infectious and/or inflammatory in etiology. Assessment and Plan (1) Hypoxic respiratory failure: Qualifiers: Chronicity: acute Qualified Code(s): J96.01 - Acute respiratory failure with hypoxia Status: Acute (2) Chronic diastolic CHF (congestive heart failure): Status: Acute (3) HLD (hyperlipidemia): Qualifiers: Hyperlipidemia type: unspecified Qualified Code(s): E78.5 - Hyperlipidemia, unspecified Status: Acute (4) HTN (hypertension): Qualifiers: Hypertension type: primary hypertension Qualified Code(s): I10 - Essential (primary) hypertension Status: Acute (5) Morbid obesity: Status: Acute (6) Diabetes mellitus: Qualifiers: Diabetes mellitus type: type 2 Diabetes mellitus guest experience specialist insulin use: with guest experience specialist use Diabetes mellitus complication status: with other specified complication Qualified Code(s): E11.69 - Type 2 diabetes mellitus with other specified complication; Z79.4 - raise miner (current) use of insulin Status: Acute Plan Yolanda Arshad is a 63 years old woman admitted with: * Hypoxic respiratory failure secondary to acute asthma exacerbation + acute bronchitis in the setting of obesity + likely underlying obstructive sleep apnea. Admit to hospitalist service. Telemetry. Pulse oximetry. Supplemental O2 to keep O2 sats > 90%. Continue bronchodilator therapy, IV steroids and azithromycin. Continue loratadine. * Type 2 diabetes mellitus. BG monitoring before meals at bedtime. Lantus, insulin sliding scale, Victoza (NF, pt will bring her own). * Essential hypertension. Continue metoprolol. * Hyperlipidemia. Continue statin. * Neuropathy. Continue gabapentin. * CHF. Not decompensated. Continue Entresto. Not taking furosemide. * Morbid obesity. BMI 42.3 kg/m2. Weight loss. * Left BKA. DVT prophylaxis: Heparin Code status: Full Patient will need hospitalization for at least 2 midnights for hypoxic respiratory failure secondary to asthma exacerbation treatment with supplemental oxygen, bronchodilator therapy and IV antibiotics. She will need also close monitoring of vital signs. Quality Stroke Does the patient have a stroke diagnosis?: No VTE Prior VTE?: No VTE Risk Level:: Medical - moderate - high VTE Device Contraindication: N/A - Device Ordered VTE Drug Contraindication: N/A - Med Ordered
--- NOTE | 2024-03-04 00:33 | MHC.EDTECH ---
This tech took over care of patient at 2300,hourly rounds and vitals completed.patient refused to put gown on for admission,RN made aware Belongings list completed.
[2024-03-04 01:25] LABS: Glucose, Whole Blood 391 mg/dL (60-115)
[2024-03-04] MEDS: Insulin Lispro 100 UNIT/ML 3 ML VIAL 10 UNIT SUBCUT (02:05)
[2024-03-04] MEDS: Acetaminophen 325 MG TABLET 975 MG PO (02:06)
[2024-03-04 02:43] LABS: Glucose, Whole Blood 460 mg/dL (60-115)
[2024-03-04] MEDS: Insulin Regular, Human 100 UNIT/ML 3 ML VIAL 10 UNIT IVPUSH (03:10)
[2024-03-04] MEDS: traZODone HCL 50 MG TABLET PO ×2 (03:11→20:56)
[2024-03-04] MEDS: 0.9 % Sodium Chloride 1,000 ML 999 ML IV (03:11)
[2024-03-04 05:25] LABS: Glucose, Whole Blood 349 mg/dL (60-115)
[2024-03-04 07:03] LABS: Glucose, Whole Blood 377 mg/dL (60-115)
[2024-03-04 07:15] LABS: Basophils Percent Auto 0.2 % (0-2); Eosinophils Percent Auto 0.2 % (0-4); Hematocrit 34.9 % (37.0-47.0); Hemoglobin 10.6 g/dl (12.0-16.0); Imm Gran Abs Auto 0.02 X10*3/uL (0.00-0.03); Imm Gran Pct Auto 0.3 % (0.0-0.4); Lymphocytes Absolute Auto 0.9 X10*3/uL (1.2-4.9); Lymphocytes Percent Auto 14.5 % (20-40); MANUAL DIFF FLAG SCAN; Mean Corpuscular HGB Conc 30.4 g/dl (31.0-35.0); Mean Corpuscular Hemoglobin 23.2 pg (27.0-33.0); Mean Corpuscular Volume 76.4 fL (80.0-98.0); Mean Platelet Volume 10.7 fL (9.4-12.3); Monocytes Absolute Auto 0.1 X10*3/uL (0.1-1.2); Monocytes Percent Auto 2.3 % (2-11); Neutrophils Percent Auto 82.5 % (45-73); PLT CLUMP 1; Red Blood Count 4.57 X10*6/uL (4.20-5.50); Red Cell Distribution Width 16.4 % (11.0-16.0); SCAN SMEAR FLAG 1
[2024-03-04 07:40] LABS: Anion Gap 13 (12-20); Blood Urea Nitrogen 17 mg/dL (9-16); Calcium 8.7 mg/dL (8.4-10.2); Carbon Dioxide 20 mmol/L (22-29); Chloride 107 mmol/L (96-108); Creatinine Clr Calc Pharmacy 75.2; Estimated Glomerular Filt Rate 56; Platelet Count 160 X10*3/uL (160-400); Potassium 4.7 mmol/L (3.3-5.1); Sodium 135 mmol/L (135-145)
[2024-03-04 07:41] LABS: SLIDE REVIEW VERIFIED
[2024-03-04] MEDS: Albuterol/Iprat 2.5/0.5MG 3 ML AMPUL.NEB INHALE ×4 (07:41→19:49)
[2024-03-04 07:53] LABS: Estimated Average Glucose 192 mg/dL; Hemoglobin A1c % 8.3 % (<6.0)
[2024-03-04] MEDS: Insulin Lispro 100 UNIT/ML 3 ML VIAL SUBCUT ×4 (07:55→20:39)
[2024-03-04] MEDS: Insulin Lispro 100 UNIT/ML 3 ML VIAL 7 UNIT SUBCUT ×4 (07:56→20:39)
[2024-03-04] MEDS: 0.9 % Sodium Chloride Flush 3 ML SYRINGE IVFLUSH ×3 (07:57→20:46)
[2024-03-04 08:08] LABS: Glucose Random 433 mg/dL (60-115)
--- NOTE | 2024-03-04 08:11 | MHC.CM.PN ---
CM met with Patient at bedside and addressed IMM with her, providing Patient with the original and a copy has been placed on the chart. CM assisted Patient with the completion of a HCP; she named her Daughter/RICHARD/Milady as her Agent. 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 Milady Carmen.
[2024-03-04] MEDS: Fluticasone Propionate Nasal 16 GM SPRAY 50 SPRAY NOSTRIL-B ×2 (09:40→20:38)
[2024-03-04] MEDS: Metoprolol Succinate ER 100 MG TAB.ER.24H PO (09:41)
[2024-03-04] MEDS: Sacubitril/Valsartan 24/26 1 TAB TABLET PO ×2 (09:41→20:37)
[2024-03-04] MEDS: Insulin Glargine,Hum.rec.anlog 100 UNIT/ML 10 ML VIAL 50 UNIT SUBCUT ×2 (09:42→20:40)
[2024-03-04] MEDS: Loratadine 10 MG TABLET PO (09:42)
[2024-03-04] MEDS: methylPREDNISolone Sod Succ 40 MG/ML VIAL IVPUSH (09:42)
[2024-03-04] MEDS: Gabapentin 400 MG CAPSULE 800 MG PO ×2 (09:42→20:38)
[2024-03-04] MEDS: Aspirin 81 MG TAB.CHEW PO (09:42)
--- NOTE | 2024-03-04 10:17 | PHA.MEDREC ---
Pharmacy Consult ? Medication Reconciliation Pharmacy has completed the medication reconciliation. Patient states that they have stopped taking statin medications because of a reaction she had with rosuvastatin (muscle shaking).
[2024-03-04 10:53] LABS: Glucose, Whole Blood 388 mg/dL (60-115)
[2024-03-04] MEDS: Fluticasone/Vilanterol 100/25 BLST.W.DEV 1 PUFF INHALE (11:40)
--- NOTE | 2024-03-04 13:29 | HO.PM.IMPN ---
Subjective Subjective Date of Service: 03/04/24 Interval History: seen and examined this morning follow up for bronchitis breathing better still with productive cough, has not been ambulating much no fever +chills Review of Systems Review of Systems: Yes all other systems are reviewed and are negative Constitutional Constitutional: Denies chills and Denies fever(s) Cardiovascular Cardiovascular: Denies chest pain and Denies dyspnea Respiratory Respiratory: Reports cough and Denies dyspnea Gastrointestinal Gastrointestinal: Denies abdominal pain Physical Exam Vital Signs: Vital Signs: Last Vital Signs Temp 97.6 F 03/04/24 10:52 Pulse 74 03/04/24 11:41 Resp 18 03/04/24 11:41 BP 168/77 H 03/04/24 10:52 Pulse Ox 94 03/04/24 10:52 O2 Del Method Room Air 03/04/24 10:52 O2 Flow Rate 2 03/04/24 02:33 BMI result Body Mass Index 42.3 Const: General: comfortable, no acute distress, alert, awake and Physically active Nutritional Appearance: obese Orientation/consciousness: patient oriented x3 Resp: Effort & Inspection: normal respiratory effort, able to speak in complete sentences, no respiratory distress and no use of accessory muscles Cardio: Rate: regular rate Heart sounds: S1 normal heart sound present and S2 normal heart sound present GI: Inspection: No distended Palpation (GI): Soft to palpation and nontender Neuro: General: patient oriented x3, moves all extremities and CN's II-XI intact bilaterally Extrem: General: Yes no pedal edema Objective Data Active Medications Acetaminophen (Acetaminophen 325 Mg Tablet) 975 mg PO Q6H PRN PRN Reason: mild pain, fever and headche Last Admin: 03/04/24 02:06 Dose: 975 mg Documented By: LUIS Albuterol/Ipratropium (Albuterol/Iprat 2.5/0.5mg 3 Ml Ampul.Neb) 3 ml INHALE RQ4H WHILE AWAKE [facility] Last Admin: 03/04/24 11:40 Dose: 3 ml Documented By: SHANTAL Aspirin (Aspirin 81 Mg Tab.Chew) 81 mg PO DAILY [facility] Last Admin: 03/04/24 09:42 Dose: 81 mg Documented By: ASH Azithromycin (Azithromycin 500 Mg Tablet) 500 mg PO Q24H [facility] Fluticasone Propionate (Fluticasone Propionate Nasal 16 Gm [place]) 50 spray NOSTRIL-B BID [facility] Last Admin: 03/04/24 09:40 Dose: 50 spray Documented By: ASH Fluticasone/Vilanterol (Fluticasone/Vilanterol 100/25 Blst.W.Dev) 1 puff INHALE RDAILY [facility] Last Admin: 03/04/24 11:40 Dose: 1 puff Documented By: SHANTAL Gabapentin (Gabapentin 400 Mg Capsule) 800 mg PO BID [facility] Last Admin: 03/04/24 09:42 Dose: 800 mg Documented By: ASH Glucose (Glucose Gel 15 Gm Gel..Gram.) 15 gm PO Q15M PRN; Protocol PRN Reason: per Hypoglycemia Standing Ord. Hydroxyzine HCl (Hydroxyzine Hcl 25 Mg Tablet) 25 mg PO TID PRN PRN Reason: Anxiety Dextrose (D10) 250 mls @ 750 mls/hr IV Q15M PRN; Protocol PRN Reason: per Hypoglycemia Standing Ord. Insulin Glargine (Insulin Glargine,Hum.Rec.Anlog 100 Unit/Ml 10 Ml Vial) 50 unit SUBCUT BID [facility] Last Admin: 03/04/24 09:42 Dose: 50 unit Documented By: ASH Insulin Human Lispro (Insulin Lispro 100 Unit/Ml 3 Ml Vial) 0 unit SUBCUT QIDACHS [facility]; Protocol Last Admin: 03/04/24 11:26 Dose: 12 unit Documented By: ASH Insulin Human Lispro (Insulin Lispro 100 Unit/Ml 3 Ml Vial) 7 unit SUBCUT QIDACHS [facility] Last Admin: 03/04/24 11:26 Dose: 7 unit Documented By: ASH Loratadine (Loratadine 10 Mg Tablet) 10 mg PO DAILY [facility] Last Admin: 03/04/24 09:42 Dose: 10 mg Documented By: ASH Methylprednisolone Sodium Succinate (Methylprednisolone Sod Succ 40 Mg/Ml Vial) 40 mg IVPUSH DAILY [facility] Metoprolol Succinate (Metoprolol Succinate Er 100 Mg Tab.Er.24h) 100 mg PO DAILY [facility]; Protocol Last Admin: 03/04/24 09:41 Dose: 100 mg Documented By: ASH Montelukast Sodium (Montelukast Sodium 10 Mg Tablet) 10 mg PO DAILY [facility] Omeprazole (Omeprazole 20 Mg Capsule.Dr) 20 mg PO DAILY@0630 [facility] Sacubitril/Valsartan (Sacubitril/Valsartan 1 Tab Tablet) 1 tab PO BID [facility]; Protocol Last Admin: 03/04/24 09:41 Dose: 1 tab Documented By: ASH Sodium Chloride (0.9 % Sodium Chloride Flush 3 Ml Syringe) 3 ml IVFLUSH QSHIFT [facility] Last Admin: 03/04/24 07:57 Dose: 3 ml Documented By: ASH Trazodone HCl (Trazodone Hcl 50 Mg Tablet) 50 mg PO BEDTIME [facility] Last Admin: 03/04/24 03:11 Dose: 50 mg Documented By: GABRIEL Labs 03/04/24 06:22 03/04/24 06:22 Labs: Laboratory Results - last 24 hr 03/03/24 03/03/24 03/03/24 17:26 20:10 22:50 MCV 77.2 L MCH 23.2 L MCHC 30.1 L RDW 16.5 H Plt Count 188 MPV 10.0 Immature Gran % (Auto) 0.5 H Neut % (Auto) 69.7 Lymph % (Auto) 17.3 L [place] % (Auto) 7.9 Eos % (Auto) 4.3 H Baso % (Auto) 0.3 Lymph # (Auto) 1.0 L [place] # (Auto) 0.5 Eos # (Auto) 0.3 Baso # (Auto) 0.0 Abs Immat Gran (auto) 0.03 Absolute Neuts (auto) 4.1 Absolute Nucleated RBC 0.000 Nucleated RBC % (auto) 0.0 Smear Tech's Comments Anion Gap 12 Estim Creat Clear Calc 74.5 Estimated GFR > 60 POC Glucose 121 H 217 H Random Glucose 99 Estimat Average Glucose Hemoglobin A1c % Calcium 9.6 D Total Bilirubin 0.2 Direct Bilirubin < 0.2 AST 24 ALT 21 Alkaline Phosphatase 128 H B-Natriuretic Peptide 19 Total Protein 7.9 Albumin 3.8 Influenza Type A (PCR) NEGATIVE Influenza Type B (PCR) NEGATIVE RSV RNA Qual (PCR) NEGATIVE SARS-CoV-2 RNA (RT-PCR) NEGATIVE 03/04/24 03/04/24 03/04/24 00:55 02:39 05:21 MCV MCH MCHC RDW Plt Count MPV Immature Gran % (Auto) Neut % (Auto) Lymph % (Auto) [place] % (Auto) Eos % (Auto) Baso % (Auto) Lymph # (Auto) [place] # (Auto) Eos # (Auto) Baso # (Auto) Abs Immat Gran (auto) Absolute Neuts (auto) Absolute Nucleated RBC Nucleated RBC % (auto) Smear Tech's Comments Anion Gap Estim Creat Clear Calc Estimated GFR POC Glucose 391 H* 460 H* 349 H Random Glucose Estimat Average Glucose Hemoglobin A1c % Calcium Total Bilirubin Direct Bilirubin AST ALT Alkaline Phosphatase B-Natriuretic Peptide Total Protein Albumin Influenza Type A (PCR) Influenza Type B (PCR) RSV RNA Qual (PCR) SARS-CoV-2 RNA (RT-PCR) 03/04/24 03/04/24 03/04/24 06:22 06:53 10:46 MCV 76.4 L MCH 23.2 L MCHC 30.4 L RDW 16.4 H Plt Count 160 MPV 10.7 Immature Gran % (Auto) 0.3 Neut % (Auto) 82.5 H Lymph % (Auto) 14.5 L [place] % (Auto) 2.3 Eos % (Auto) 0.2 Baso % (Auto) 0.2 Lymph # (Auto) 0.9 L [place] # (Auto) 0.1 Eos # (Auto) 0.0 Baso # (Auto) 0.0 Abs Immat Gran (auto) 0.02 Absolute Neuts (auto) 5.0 Absolute Nucleated RBC 0.000 Nucleated RBC % (auto) 0.0 Smear Tech's Comments VERIFIED Anion Gap 13 Estim Creat Clear Calc 75.2 Estimated GFR 56 POC Glucose 377 H* 388 H* Random Glucose 433 H* Estimat Average Glucose 192 Hemoglobin A1c % 8.3 H Calcium 8.7 D Total Bilirubin Direct Bilirubin AST ALT Alkaline Phosphatase B-Natriuretic Peptide Total Protein Albumin Influenza Type A (PCR) Influenza Type B (PCR) RSV RNA Qual (PCR) SARS-CoV-2 RNA (RT-PCR) Microbiology Microbiology Results: Microbiology 03/03/24 22:35 Blood Culture - Final Blood - Venous 03/03/24 22:43 Blood Culture - Final Blood - Venous Assessment and Plan (1) Morbid obesity: Status: Acute (2) Asthma-COPD overlap syndrome: Status: Acute Plan This is a 63 year old woman with history of CHF, hypertension, hyperlipidemia, diabetes Hypoxic respiratory failure secondary to acute asthma exacerbation + acute bronchitis in the setting of obesity + likely underlying obstructive sleep apnea pt reports h/o of allergic asthma Supplemental O2 to keep O2 sats > 90%. wean as tolerated Continue bronchodilator therapy, IV steroids and azithromycin Type 2 diabetes mellitus with hyperglycemia due to steroids SSI, POCs, ADA diet Lantus, insulin sliding scale, Victoza NF and unable to be continued inpatient as it needs to be refrigerated scheduled premeal insulin Essential hypertension. Continue metoprolol. Hyperlipidemia. Continue statin. Neuropathy. Continue gabapentin. CHF, unspecified compensated. Continue Entresto. Not taking furosemide. Morbid obesity. BMI 42.3 kg/m2. Weight loss encouraged likely contributing to current respiratory symptoms and hypoxia DVT prophylaxis: Heparin Code status: Full Patient will need hospitalization for at least 2 midnights for hypoxic respiratory failure secondary to asthma exacerbation treatment with supplemental oxygen, bronchodilator therapy and IV antibiotics. She will need also close monitoring of vital signs. Quality Stroke Does the patient have a stroke diagnosis?: No VTE Prior VTE?: No VTE Risk Level:: Medical - moderate - high VTE Device Contraindication: N/A - Device Ordered VTE Drug Contraindication: N/A - Med Ordered
[2024-03-04] MEDS: Heparin Sodium,Porcine 5,000 UNIT/ML VIAL 5000 UNIT SUBCUT (13:56)
[2024-03-04 15:37] LABS: Glucose, Whole Blood 405 mg/dL (60-115)
[2024-03-04 16:04] LABS: Glucose, Whole Blood 407 mg/dL (60-115)
--- NOTE | 2024-03-04 17:21 | PC.NURSE ---
BS [address] PA [place] notified
[2024-03-04 19:47] LABS: Glucose, Whole Blood 486 mg/dL (60-115)
[2024-03-04] MEDS: Azithromycin 500 MG TABLET PO (20:37)
[2024-03-05] VITALS (12 sets, daily range): BP systolic 151–173; BP diastolic 59–81; PULSE 59–76; RESP 18–20; TEMP 36.1–36.7; O2SAT 93–100
[2024-03-05] MEDS: Heparin Sodium,Porcine 5,000 UNIT/ML VIAL 5000 UNIT SUBCUT ×2 (02:13→14:16)
[2024-03-05] MEDS: guaiFENesin DM 200/20/10 ML 10 ML SYRUP PO ×4 (03:41→20:31)
[2024-03-05] MEDS: Albuterol Sulfate (0.083%) 2.5 MG/3 ML VIAL.NEB INHALE (03:44)
[2024-03-05] MEDS: Omeprazole 20 MG CAPSULE.DR PO (05:44)
[2024-03-05 07:14] LABS: Adenovirus PCR Not Detected (Not Detect.); Bordetella parapertussis PCR Not Detected (Not Detect.); Bordetella pertussis PCR Not Detected (Not Detect.); Chlamydia pneumoniae PCR Not Detected (Not Detect.); Coronavirus 229E PCR Not Detected (Not Detect.); Coronavirus HKU1 PCR Not Detected (Not Detect.); Coronavirus NL63 PCR Not Detected (Not Detect.); Coronavirus OC43 PCR Not Detected (Not Detect.); Human metapneumovirus PCR Detected (Not Detect.); Influenza A PCR Not Detected (Not Detect.); Influenza B PCR Not Detected (Not Detect.); Mycoplasma pneumoniae PCR Not Detected (Not Detect.); Parainfluenza 1 PCR Not Detected (Not Detect.); Parainfluenza 2 PCR Not Detected (Not Detect.); Parainfluenza 3 PCR Not Detected (Not Detect.); Parainfluenza 4 PCR Not Detected (Not Detect.); RSV PCR Not Detected (Not Detect.); Rhino/Enterovirus PCR Not Detected (Not Detect.); SARS-CoV-2 PCR Not Detected (Not Detect.)
[2024-03-05 07:26] LABS: Glucose, Whole Blood 273 mg/dL (60-115)
[2024-03-05] MEDS: Fluticasone/Vilanterol 100/25 BLST.W.DEV 1 PUFF INHALE (07:30)
[2024-03-05] MEDS: Albuterol/Iprat 2.5/0.5MG 3 ML AMPUL.NEB INHALE ×4 (07:30→19:55)
[2024-03-05] MEDS: methylPREDNISolone Sod Succ 40 MG/ML VIAL IVPUSH (08:49)
[2024-03-05] MEDS: Gabapentin 400 MG CAPSULE 800 MG PO ×2 (08:49→20:31)
[2024-03-05] MEDS: Insulin Lispro 100 UNIT/ML 3 ML VIAL 7 UNIT SUBCUT ×4 (08:50→20:33)
[2024-03-05] MEDS: Insulin Lispro 100 UNIT/ML 3 ML VIAL SUBCUT ×4 (08:50→20:32)
[2024-03-05] MEDS: Montelukast Sodium 10 MG TABLET PO (08:50)
[2024-03-05] MEDS: Sacubitril/Valsartan 24/26 1 TAB TABLET PO ×2 (08:50→20:32)
[2024-03-05] MEDS: Metoprolol Succinate ER 100 MG TAB.ER.24H PO (08:50)
[2024-03-05] MEDS: Loratadine 10 MG TABLET PO (08:50)
[2024-03-05] MEDS: Aspirin 81 MG TAB.CHEW PO (08:50)
[2024-03-05] MEDS: 0.9 % Sodium Chloride Flush 3 ML SYRINGE IVFLUSH ×3 (08:51→20:34)
[2024-03-05] MEDS: Insulin Glargine,Hum.rec.anlog 100 UNIT/ML 10 ML VIAL 50 UNIT SUBCUT ×2 (08:51→20:33)
[2024-03-05] MEDS: Fluticasone Propionate Nasal 16 GM SPRAY 50 SPRAY NOSTRIL-B ×2 (09:00→20:34)
[2024-03-05 11:24] LABS: Glucose, Whole Blood 331 mg/dL (60-115)
--- NOTE | 2024-03-05 11:41 | HO.PM.IMPN ---
Subjective Subjective Date of Service: 03/05/24 Interval History: seen and examined this morning follow up for bronchitis breathing better still with productive cough, has not been ambulating much no fever +chills Review of Systems Review of Systems: Yes all other systems are reviewed and are negative Constitutional Constitutional: Denies chills and Denies fever(s) Cardiovascular Cardiovascular: Denies chest pain and Denies dyspnea Respiratory Respiratory: Reports cough and Denies dyspnea Gastrointestinal Gastrointestinal: Denies abdominal pain Physical Exam Vital Signs: Vital Signs: Last Vital Signs Temp 98.0 F 03/05/24 11:12 Pulse 75 03/05/24 11:25 Resp 18 03/05/24 11:25 BP 163/73 H 03/05/24 11:12 Pulse Ox 93 03/05/24 11:12 O2 Del Method Room Air 03/05/24 11:12 O2 Flow Rate 2 03/04/24 02:33 BMI result Body Mass Index 42.3 Appearing in no acute distress lung sounds are clear to auscultation heart regular rate rhythm, clear S1, S2 positive bowel sounds, abdomen is soft, nontender neuro patient is alert x3, no focal deficits Objective Data Active Medications Acetaminophen (Acetaminophen 325 Mg Tablet) 975 mg PO Q6H PRN PRN Reason: mild pain, fever and headche Last Admin: 03/04/24 02:06 Dose: 975 mg Documented By: LUIS Albuterol Sulfate (Albuterol Sulfate (0.083%) 2.5 Mg/3 Ml Vial.Neb) 2.5 mg INHALE Q3H PRN PRN Reason: Shortness of Breath/Wheezing Last Admin: 03/05/24 03:44 Dose: 2.5 mg Documented By: JEFFREY Albuterol/Ipratropium (Albuterol/Iprat 2.5/0.5mg 3 Ml Ampul.Neb) 3 ml INHALE RQ4H WHILE AWAKE [facility] Last Admin: 03/05/24 11:23 Dose: 3 ml Documented By: SAL Aspirin (Aspirin 81 Mg Tab.Chew) 81 mg PO DAILY [facility] Last Admin: 03/05/24 08:50 Dose: 81 mg Documented By: ART Azithromycin (Azithromycin 500 Mg Tablet) 500 mg PO Q24H [facility] Last Admin: 03/04/24 20:37 Dose: 500 mg Documented By: KAREN Fluticasone Propionate (Fluticasone Propionate Nasal 16 Gm Tarkio) 50 spray NOSTRIL-B BID [facility] Last Admin: 03/05/24 09:00 Dose: 50 spray Documented By: ART Fluticasone/Vilanterol (Fluticasone/Vilanterol 100/25 Blst.W.Dev) 1 puff INHALE RDAILY [facility] Last Admin: 03/05/24 07:30 Dose: 1 puff Documented By: ROMELIA Gabapentin (Gabapentin 400 Mg Capsule) 800 mg PO BID [facility] Last Admin: 03/05/24 08:49 Dose: 800 mg Documented By: ART Glucose (Glucose Gel 15 Gm Gel..Gram.) 15 gm PO Q15M PRN; Protocol PRN Reason: per Hypoglycemia Standing Ord. Guaifenesin/Dextromethorphan (Guaifenesin Dm 200/20/10 Ml 10 Ml Syrup) 10 ml PO Q6H [facility] Last Admin: 03/05/24 08:50 Dose: 10 ml Documented By: ART Heparin Sodium (Porcine) (Heparin Sodium,Porcine 5,000 Unit/Ml Vial) 5,000 unit SUBCUT Q12H [facility] Last Admin: 03/05/24 02:13 Dose: 5,000 unit Documented By: KAREN Hydroxyzine HCl (Hydroxyzine Hcl 25 Mg Tablet) 25 mg PO TID PRN PRN Reason: Anxiety Dextrose (D10) 250 mls @ 750 mls/hr IV Q15M PRN; Protocol PRN Reason: per Hypoglycemia Standing Ord. Insulin Glargine (Insulin Glargine,Hum.Rec.Anlog 100 Unit/Ml 10 Ml Vial) 50 unit SUBCUT BID [facility] Last Admin: 03/05/24 08:51 Dose: 50 unit Documented By: ART Insulin Human Lispro (Insulin Lispro 100 Unit/Ml 3 Ml Vial) 0 unit SUBCUT QIDACHS [facility]; Protocol Last Admin: 03/05/24 11:28 Dose: 10 unit Documented By: ART Insulin Human Lispro (Insulin Lispro 100 Unit/Ml 3 Ml Vial) 7 unit SUBCUT QIDACHS [facility] Last Admin: 03/05/24 11:27 Dose: 7 unit Documented By: ART Loratadine (Loratadine 10 Mg Tablet) 10 mg PO DAILY [facility] Last Admin: 03/05/24 08:50 Dose: 10 mg Documented By: RAT Methylprednisolone Sodium Succinate (Methylprednisolone Sod Succ 40 Mg/Ml Vial) 40 mg IVPUSH DAILY [facility] Last Admin: 03/05/24 08:49 Dose: 40 mg Documented By: ART Metoprolol Succinate (Metoprolol Succinate Er 100 Mg Tab.Er.24h) 100 mg PO DAILY [facility]; Protocol Last Admin: 03/05/24 08:50 Dose: 100 mg Documented By: ART Montelukast Sodium (Montelukast Sodium 10 Mg Tablet) 10 mg PO DAILY [facility] Last Admin: 03/05/24 08:50 Dose: 10 mg Documented By: ART Omeprazole (Omeprazole 20 Mg Capsule.Dr) 20 mg PO DAILY@0630 [facility] Last Admin: 03/05/24 05:44 Dose: 20 mg Documented By: KAREN Sacubitril/Valsartan (Sacubitril/Valsartan 1 Tab Tablet) 1 tab PO BID [facility]; Protocol Last Admin: 03/05/24 08:50 Dose: 1 tab Documented By: ART Sodium Chloride (0.9 % Sodium Chloride Flush 3 Ml Syringe) 3 ml IVFLUSH QSHIFT [facility] Last Admin: 03/05/24 08:51 Dose: 3 ml Documented By: ART Trazodone HCl (Trazodone Hcl 50 Mg Tablet) 50 mg PO BEDTIME [facility] Last Admin: 03/04/24 20:56 Dose: 50 mg Documented By: KAREN Labs 03/04/24 06:22 03/04/24 06:22 Labs: Laboratory Results - last 24 hr 03/04/24 03/04/24 03/04/24 14:00 15:06 16:00 POC Glucose 405 H* 407 H* Respiratory Panel [facility] See Note Adenovirus (Rapid PCR) Not Detected B.pert (TEM-PCR) Not Detected B.parapertussis DNA PCR Not Detected C. pneumoniae DNA (PCR) Not Detected Coronavirus OC43 (PCR) Not Detected Coronavirus HKU1 (PCR) Not Detected Coronavirus 229E (PCR) Not Detected Coronavirus NL63 (PCR) Not Detected Human Metapneumovir PCR Detected A Influenza A (RT-PCR) Not Detected Influenza B (RT-PCR) Not Detected M. pneumoniae (PCR) Not Detected Parainfluenza 1 (PCR) Not Detected Parainfluenza 2 (PCR) Not Detected Parainfluenza 3 (PCR) Not Detected Parainfluenza 4 (PCR) Not Detected RSV (PCR) Not Detected Entero/Rhino (PCR) Not Detected SARS-CoV-2 RNA (RT-PCR) Not Detected 03/04/24 03/05/24 03/05/24 19:40 07:20 11:10 POC Glucose 486 H* 273 H 331 H Respiratory Panel [facility] Adenovirus (Rapid PCR) B.pert (TEM-PCR) B.parapertussis DNA PCR C. pneumoniae DNA (PCR) Coronavirus OC43 (PCR) Coronavirus HKU1 (PCR) Coronavirus 229E (PCR) Coronavirus NL63 (PCR) Human Metapneumovir PCR Influenza A (RT-PCR) Influenza B (RT-PCR) M. pneumoniae (PCR) Parainfluenza 1 (PCR) Parainfluenza 2 (PCR) Parainfluenza 3 (PCR) Parainfluenza 4 (PCR) RSV (PCR) Entero/Rhino (PCR) SARS-CoV-2 RNA (RT-PCR) Microbiology Microbiology Results: Microbiology 03/03/24 22:43 Blood Culture - Preliminary Blood - Venous Prelim: GPC Gram Stain only 03/03/24 22:35 Blood Culture - Final Blood - Venous 03/03/24 22:35 Blood Culture - Preliminary Blood - Venous No growth after 24 hours. 03/03/24 Unknown Blood Culture - Final Blood - Venous Assessment and Plan (1) Morbid obesity: Status: Acute (2) Asthma-COPD overlap syndrome: Status: Acute Plan This is a 63 year old woman with history of CHF, hypertension, hyperlipidemia, diabetes GPC positive blood cx 1/2 check nasal MRSA swab follow final cx Hypoxic respiratory failure secondary to acute asthma exacerbation + acute bronchitis in the setting of obesity + likely underlying obstructive sleep apnea pt reports h/o of allergic asthma Supplemental O2 to keep O2 sats > 90%. wean as tolerated Continue bronchodilator therapy, IV steroids and azithromycin Type 2 diabetes mellitus with hyperglycemia due to steroids SSI, POCs, ADA diet Lantus, insulin sliding scale, Victoza NF and unable to be continued inpatient as it needs to be refrigerated scheduled premeal insulin Essential hypertension. Continue metoprolol. Hyperlipidemia. Continue statin. Neuropathy. Continue gabapentin. CHF, unspecified compensated. Continue Entresto. Not taking furosemide. Morbid obesity. BMI 42.3 kg/m2. Weight loss encouraged likely contributing to current respiratory symptoms and hypoxia DVT prophylaxis: Heparin Attending Dr. Roman Code status: Full continue hospital stay for hypoxic respiratory failure secondary to asthma exacerbation treatment with supplemental oxygen, bronchodilator therapy and IV antibiotics. She will need also close monitoring of vital signs. Quality Stroke Does the patient have a stroke diagnosis?: No VTE Prior VTE?: No VTE Risk Level:: Medical - moderate - high VTE Device Contraindication: N/A - Device Ordered VTE Drug Contraindication: N/A - Med Ordered
--- NOTE | 2024-03-05 15:32 | MHC.CM.PN ---
EMR reviewed and per MD rounds, pt is not medically cleared for D/C due to management of hypoxic respiratory failure secondary to asthma exacerbation, and PT eval pending.
[2024-03-05 15:55] LABS: MRSA Nasal PCR NEGATIVE (Negative); SA Nasal PCR NEGATIVE (Negative)
[2024-03-05 16:21] LABS: Glucose, Whole Blood 397 mg/dL (60-115)
[2024-03-05 20:06] LABS: Glucose, Whole Blood 436 mg/dL (60-115)
[2024-03-05] MEDS: Azithromycin 500 MG TABLET PO (20:31)
[2024-03-05] MEDS: traZODone HCL 50 MG TABLET PO (20:32)
[2024-03-06] VITALS: BP 155/64; PULSE 73; RESP 20; TEMP 36.3; O2SAT 92
[2024-03-06 00:07] LABS: Glucose, Whole Blood 297 mg/dL (60-115)
[2024-03-06] MEDS: Heparin Sodium,Porcine 5,000 UNIT/ML VIAL 5000 UNIT SUBCUT (03:35)
[2024-03-06] MEDS: guaiFENesin DM 200/20/10 ML 10 ML SYRUP PO ×2 (03:35→08:54)
[2024-03-06 03:43] VITALS: BP 153/79; PULSE 77; RESP 20; TEMP 36.3; O2SAT 96
[2024-03-06] MEDS: Omeprazole 20 MG CAPSULE.DR PO (05:53)
[2024-03-06 07:32] LABS: Glucose, Whole Blood 130 mg/dL (60-115)
[2024-03-06 07:34] VITALS: BP 162/74; PULSE 62; RESP 19; TEMP 36.3; O2SAT 95
[2024-03-06] MEDS: Albuterol/Iprat 2.5/0.5MG 3 ML AMPUL.NEB INHALE ×2 (08:20→12:05)
[2024-03-06 08:22] VITALS: PULSE 71; RESP 17; O2SAT 97
[2024-03-06] MEDS: Insulin Lispro 100 UNIT/ML 3 ML VIAL SUBCUT ×2 (08:53→12:31)
[2024-03-06] MEDS: methylPREDNISolone Sod Succ 40 MG/ML VIAL IVPUSH (08:54)
[2024-03-06] MEDS: Insulin Glargine,Hum.rec.anlog 100 UNIT/ML 10 ML VIAL 50 UNIT SUBCUT (08:54)
[2024-03-06] MEDS: Sacubitril/Valsartan 24/26 1 TAB TABLET PO (08:55)
[2024-03-06] MEDS: Montelukast Sodium 10 MG TABLET PO (08:55)
[2024-03-06] MEDS: Loratadine 10 MG TABLET PO (08:55)
[2024-03-06] MEDS: Metoprolol Succinate ER 100 MG TAB.ER.24H PO (08:55)
[2024-03-06] MEDS: 0.9 % Sodium Chloride Flush 3 ML SYRINGE IVFLUSH (08:55)
[2024-03-06] MEDS: Gabapentin 400 MG CAPSULE 800 MG PO (08:55)
[2024-03-06] MEDS: Fluticasone Propionate Nasal 16 GM SPRAY 50 SPRAY NOSTRIL-B (09:04)
--- NOTE | 2024-03-06 10:30 | P.CDIM_ITS ---
PROVIDER RESPONSE TEXT: To clarify, the appropriate diagnosis supported by the clinical indicators: Acute QUERY TEXT: PHYSICIAN'S DOCUMENTATION REQUEST Date of Query: 03/06/2024 09:28 AM EDT Patient Name: Yolanda Nash Admit Date: 03/04/2024 Dear Stephie Grey, A review of the medical record indicates additional documentation may be needed. Please review below and update the documentation accordingly. Clinical Indicators: Per Hospitalist Progress Note 03/05/24: hypoxic respiratory failure secondary to asthma exacerbation treatment with supplemental oxygen, bron chodilator therapy and IV antibiotics. She will need also close monitoring of vital signs. Clarify which of the following accurately represents the acuity of the hypoxic respiratory failure. Possible options might include: Acute Acute on chronic Compensated Chronic stable condition Remission Other (explain) Clinically unable to determine (explain) Thank you, Fanta Brito RN Use of terms such as suspected, likely, concern for, or probable (associated with a specific diagnosi s that is being evaluated, monitored, or treated as if it exists) are acceptable and can be coded in the inpatient se tting, when documented at the time of discharge. Please use your independent medical judgment in providing your response. THIS QUERY IS PART OF THE PERMANENT MEDICAL RECORD
--- NOTE | 2024-03-06 11:48 | P.DS_ITS ---
DS: Providers Provider Date of Service: 03/06/24 Date of admission: 03/03/24 22:26 Primary care physician: Milady Carmen MD DS: Diagnosis Discharge Diagnosis (1) Morbid obesity: Status: Acute (2) Asthma-COPD overlap syndrome: Status: Acute DS: Summary Hospital Course Hospital Course: History and physical as per admitting provider. Yolanda Arshad is a 63 years old woman with past medical history significant for CHF, asthma -no home oxygen, essential hypertension, morbid obesity, type 2 diabetes diabetes on insulin and hyperlipidemia presents to the emergency department complaining of 4 days' history of worsening shortness of breath, wheezing and mildly productive cough of clear sputum. She denies fevers or chills. She did report headache. Denies dizziness, palpitations or chest pain. Patient denied any acute gastrointestinal or genitourinary pain. She denied tobacco smoking, alcohol abuse or illicit drug use. In the ED, she was found to have mild degree of tachycardia, tachypnea and low oxygen saturation, 88% on room air. Blood pressure is stable. Max temperature is 100 degrees. Blood workup showed no leukocytosis. Hemoglobin is at baseline. There is no thrombocytopenia or bandemia. There are no electrolyte imbalances. LFTs are unremarkable. Troponin is negative and BNP is normal. Viral testing is negative for COVID-19, influenza or RSV. CXR showed bronchial wall thickening.ED tx: Prednisone cystic, Solu-Medrol 125, this alone 100 mg p.o., ceftriaxone 1 g IV, azithromycin 5 mg IV, albuterol X2 63-year-old woman treated for acute hypoxic respiratory failure secondary to asthma exacerbation and acute bronchitis. Treated with scheduled DuoNebs and IV steroids as well as azithromycin. Patient was initially on supplemental oxygen but was able to wean successfully, now on room air. Plan is to send home with very short course of prednisone and 2 more days of azithromycin. Patient is in agreement with this. Patient requested updraft machine, ordered through [employer]. Albuterol neb medication sent to patient's pharmacy. Type 2 diabetes mellitus with hyperglycemia. Secondary to IV steroids. Treated with sliding scale and mealtime insulin successfully. Continue home insulin Hypertension. Continue metoprolol Hyperlipidemia. Continue statin Neuropathy. Continue gabapentin Congestive heart failure, unspecified. Compensated, no exacerbation during hos pitalization. Continue Entresto Morbid obesity. Discussed importance of weight management as this may be contributing to worsening of other comorbidities Time Attestation Discharge Coordination Time (in mins): 40 Quality: Safe Use of Opioids Does Pt have an Active Cancer Diagnosis on the Problem List?: No Quality: Stroke Does the patient have a stroke diagnosis?: No Physical Exam Vital Signs: Vital Signs: Last Vital Signs Temp 97.4 F 03/06/24 07:34 Pulse 71 03/06/24 08:22 Resp 17 03/06/24 08:22 BP 162/74 H 03/06/24 07:34 Pulse Ox 95 03/06/24 07:34 O2 Del Method Room Air 03/06/24 07:34 O2 Flow Rate 2 03/04/24 02:33 BMI result Body Mass Index 42.3 Appearing in no acute distress head is normocephalic atraumatic eyes pupils are PERRLA sclera is anicteric mouth throat mucous membranes are intact and moist neck is supple no lymphadenopathy, no JVD noted lung sounds are clear to auscultation heart regular rate rhythm, clear S1, S2 positive bowel sounds, abdomen is soft, nontender neuro patient is alert x3, no focal deficits DS: Data Data Completed and Pending Labs on day of discharge: Laboratory Results - last 24 hr 03/05/24 03/05/24 03/05/24 14:21 16:15 20:01 POC Glucose 397 H* 436 H* Nasal Screen MRSA (PCR) NEGATIVE Nasal S. aureus Screen NEGATIVE Nasal MRSA/S.aureus Interp SEE NOTE 03/05/24 03/06/24 23:59 07:08 POC Glucose 297 H 130 H Nasal Screen MRSA (PCR) Nasal S. aureus Screen Nasal MRSA/S.aureus Interp Preliminary micro results at discharge 03/03/24 22:35 Blood Culture - Preliminary Blood - Venous No growth after 48 hours. Discharge Plan Discharge Anticipated Discharge Date/Time: 03/06/24 11:40 Patient Disposition: Home, Self-Care Discharge Diagnosis: Acute hypoxic respiratory failure secondary to acute asthma exacerbation, acute bronchitis Hyperglycemia secondary to steroids Referrals: Milady Carmen MD [Primary Care Provider] - 1 Week Discharge Medications: New ipratropium-albuterol 0.5 mg-3 mg(2.5 mg base)/3 mL Solution For Nebulization 3 ml inhalation RQ4H WHILE AWAKE Qty: 180 0RF azithromycin 500 mg Tablet 500 mg PO Q24H Qty: 2 0RF prednisone 10 mg tablet 40 mg PO DIRECTED Qty: 20 0RF Rx Instructions: see taper instructions Continued insulin aspart U-100 [Novolog U-100 Insulin aspart] 100 unit/mL solution 1 sliding scale dose subcut TIDAC Rx Instructions: SLIDING SCALE; before meals olopatadine 0.1 % drops 1 drp ophthalmic (eye) BID PRN (Reason: allergies) gabapentin 300 mg capsule 1 cap PO BEDTIME omeprazole 20 mg capsule,delayed release(DR/EC) 1 cap PO DAILY@0630 aspirin 81 mg tablet,chewable 1 tab PO DAILY albuterol sulfate 90 mcg/actuation HFA aerosol inhaler 2 puff inhalation Q4-6H PRN (Reason: Shortness Of Breath) hydroxyzine pamoate 25 mg capsule 1 cap PO TID PRN (Reason: Anxiety) Saccharomyces boulardii [Probiotic (S.boulardii)] 250 mg capsule 1 cap PO DAILY diclofenac sodium 1 % gel 2 g topical TID PRN (Reason: Inflammation) Rx Instructions: apply topically to affected area Victoza 3-Paco 0.6 mg/0.1 mL (18 mg/3 mL) pen injector 1.8 mg subcut DAILY Benadryl 2 % Gel 1 appl TOPICAL TID PRN (Reason: Itching) fluticasone furoate-vilanterol [Breo Ellipta] 100-25 mcg/dose blister with device 1 ea inhalation DAILY Entresto 24-26 mg tablet 1 tab PO BID fexofenadine 180 mg tablet 180 mg PO DAILY fluticasone propionate 50 mcg/actuation spray,suspension 1 spray intranasal BID PRN (Reason: Allergy Symptoms) gabapentin 800 mg tablet 800 mg PO BID insulin glargine [Lantus U-100 Insulin] 100 unit/mL solution 50 unit subcut BID metoprolol succinate 100 mg tablet extended release 24 hr 100 mg PO DAILY trazodone 50 mg tablet 50 mg PO BEDTIME acetaminophen 325 mg tablet 650 mg PO Q6H PRN (Reason: Pain) naproxen 375 mg tablet 375 mg PO DAILY PRN (Reason: Pain) montelukast 10 mg tablet 10 mg PO DAILY Discharge Orders: Discharge Order (Routine); Ordered 03/06/24 Ordered By: Stephie Grey Diet: Advance to usual diet Activity on Discharge: As tolerated Stand Alone Forms: Patient Portal Discharge page Print Language: Urdu Care Plan Goals: Complete 4 more days of prednisone and 2 more days of azithromycin A [employer] machine has been ordered and will be delivered through [employer] Concerns: Acute hypoxic respiratory failure secondary to acute asthma exacerbation, acute bronchitis Hyperglycemia secondary to steroids Plan of Treatment: Follow-up with primary care provider as needed Take all medications as prescribed Assessment: See discharge summary
[2024-03-06 11:56] VITALS: BP 162/79; PULSE 70; RESP 19; TEMP 36.5; O2SAT 95
[2024-03-06 12:05] LABS: Glucose, Whole Blood 269 mg/dL (60-115)
[2024-03-06] MEDS: Fluticasone/Vilanterol 100/25 BLST.W.DEV 1 PUFF INHALE (12:07)
[2024-03-06 12:08] VITALS: PULSE 70; RESP 19; O2SAT 96
--- NOTE | 2024-03-06 12:18 | MHC.CM.PN ---
Pt is medically cleared for D/C home self-care with resumption of previous [employer] services, pts daughter will transport her home.
[2024-03-06] MEDS: Insulin Lispro 100 UNIT/ML 3 ML VIAL 7 UNIT SUBCUT (12:31)
== END 2024-03-06 14:24 | disposition home or self-care (01) | DRG 190 ==
LOC: HO.ED 21:30 → HO.EDOVER 22:28 → HO.IMC 03-04 00:15
PROVIDERS: Nurse Practitioner Family; Physician Assistant Medical; Admitting Provider Internal Medicine; Emergency Provider Emergency Medicine; PCP Internal Medicine; Visit Provider Nurse Practitioner Acute Care
DX: J44.0 Chronic obstructive pulmonary disease with (acute) lower respiratory infection (principal); J96.01 Acute respiratory failure with hypoxia; I50.32 Chronic diastolic (congestive) heart failure; Z68.41 Body mass index [BMI] 40.0-44.9, adult; J45.901 Unspecified asthma with (acute) exacerbation; E11.65 Type 2 diabetes mellitus with hyperglycemia; J20.9 Acute bronchitis, unspecified; G47.33 Obstructive sleep apnea (adult) (pediatric); E11.40 Type 2 diabetes mellitus with diabetic neuropathy, unspecified; Z71.3 Dietary counseling and surveillance; I11.0 Hypertensive heart disease with heart failure; E66.01 Morbid (severe) obesity due to excess calories; E78.5 Hyperlipidemia, unspecified; Z20.822 Contact with and (suspected) exposure to COVID-19; Z89.512 Acquired absence of left leg below knee; Z79.51 Long term (current) use of inhaled steroids; Z79.82 Long term (current) use of aspirin; Z79.899 Other long term (current) drug therapy
CPT/HCPCS: 0241U; 36415; 71046; 80048; 80076; 82947; 83036; 83880; 85025; 87040; 87147; 87205; 87633; 87640; 87641; 94640; 99285; J0456; J0696; J1644; J2919; J3475

== ENCOUNTER → 2024-03-03 22:26 | Outpatient (BNV) | payer OTHER, SELFPAY | PROVIDERS: Admitting Provider Internal Medicine; Emergency Provider Emergency Medicine; PCP Internal Medicine; Visit Provider Internal Medicine | DX: J96.01 Acute respiratory failure with hypoxia (principal); J02.9 Acute pharyngitis, unspecified; E66.01 Morbid (severe) obesity due to excess calories; Z68.41 Body mass index [BMI] 40.0-44.9, adult | CPT/HCPCS: 99223; 99232; 99239; 99499 ==

== ENCOUNTER 2024-03-23 08:01 | Outpatient (AMB) | payer OTHER, SELFPAY ==
--- NOTE | 2024-03-23 10:41 | MHC.OFFVISWM ---
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 Allergies ciprofloxacin Allergy (Severe, Verified 03/23/24 10:41) Anaphylaxis kiwi Allergy (Severe, Verified 03/23/24 10:41) Angioedema morphine Allergy (Intermediate, Verified 03/23/24 10:41) Itching atorvastatin [From Lipitor] Adverse Reaction (Mild, Verified 03/23/24 10:41) myalgia metformin Adverse Reaction (Mild, Verified 03/23/24 10:41) Abdominal Pain Medication List - Last Reconciled 03/23/24 by Josh Patton MD acetaminophen 650 mg PO Q6H PRN albuterol sulfate 90 mcg/actuation 2 puffs inhalation Q4-6H PRN diclofenac sodium 1% 2 grams topical TID PRN diphenhydramine HCl 2% (Benadryl) 1 appl topical TID PRN fexofenadine 180 mg PO DAILY fluticasone furoate-vilanterol 100-25 mcg/dose (Breo Ellipta) 1 ea inhalation DAILY fluticasone propionate 50 mcg/actuation 1 spray intranasal BID PRN gabapentin 1 cap PO BEDTIME gabapentin 800 mg PO BID hydroxyzine pamoate 1 cap PO TID PRN insulin aspart U-100 (Novolog U-100 Insulin aspart) 1 sliding scale dose subcut TIDAC insulin glargine (Lantus U-100 Insulin) 50 units subcut BID ipratropium-albuterol 0.5 mg-3 mg(2.5 mg base)/3 mL 3 mL inhalation RQ4H WHILE AWAKE liraglutide (Victoza 3-Paco) 1.8 mg subcut DAILY metoprolol succinate ER 100 mg PO DAILY montelukast 10 mg PO DAILY naproxen 375 mg PO DAILY PRN olopatadine 0.1% 1 drp ophthalmic (eye) BID PRN omeprazole 1 cap PO DAILY@0630 Saccharomyces boulardii (Probiotic (S.boulardii)) 1 cap PO DAILY sacubitril-valsartan 24-26 mg (Entresto) 1 tab PO BID trazodone 50 mg PO BEDTIME HPI 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: Details: Start time: 10.30am, End time: 11.22am ?I spent 47 minutes speaking with the patient on the phone plus an additional 5 minutes reviewing and updating records for a total of 52 minutes HPI Comments Details: Previous weight loss efforts: protein shakes Wakes up: 7am, Sleeps: 12am Breakfast: 9-10am (eggs and bread, juice) Lunch: 2pm (rice, pasta) Dinner: 5-6pm (rice, pasta, potatoes) Exercise: has a bike Fluids: Coffee (1 cup/day milk and cream), tea: occasionally, soda: none, juice: daily, ETOH: none PFSH Medical History (Updated 03/23/24 @ 10:52 by Josh Patton MD) Asthma-COPD overlap syndrome Chronic diastolic CHF (congestive heart failure) HTN (hypertension) Morbid obesity Carpal tunnel syndrome GERD (gastroesophageal reflux disease) Insomnia Neuropathy Sleep apnea Insulin dependent type 2 diabetes mellitus HLD (hyperlipidemia) Diabetes mellitus Surgical History S/P S/P cholecystectomy Below-knee amputation of left lower extremity Family History Mother Dementia Diabetes Father Dementia Diabetes Social History Household Members: Children Housing: Apartment Do you presently have visiting nurse or other home services: No Alcohol intake: never Comment: D/C to home Patient Tobacco Use Status: Former Tobacco user Quit Date: 2007 service: No Telehealth Telehealth Telehealth Platform: Telephone Location of provider rendering services: practice address Location of patient: address on file Patient Identification confirmed using: Name, : Yes Telehealth method: voice only Patient verbally consented to treatment: Yes Patient verbally consented to billing insurance company: Yes Patient informed of any privacy concerns related to visit: Yes Minutes spent on Phone/Video with Pt.: 52 Assessment & Plan Assessment & Plan (1) Morbid obesity: Code(s): E66.01 - Morbid (severe) obesity due to excess calories Category: Medical Plan: 1.? Plan for lap sleeve gastrectomy. If diaphragmatic or ventral hernias are present at time of surgery, these will be repaired laparoscopically as well. Risks and complications were discussed in detail including possible conversion to an open procedure, anastomotic leak, bleeding requiring transfusion, small bowel obstruction, , DVT and pulmonary embolism, cardiac, or pulmonary complications, as salvage determiner complications such as anastomotic ulcer, insufficient weight loss and vitamin deficiencies. I emphasized the importance of close follow-up, adherence to instructions and good communication. 2. Nutritional counseling. Start with 2 CELEBRATE REBUILD protein (buy at [facility] [employer]) shakes (ONE scoop EACH in 8oz low fat unsweetened almond milk each) at 8am-10am and 11am-1pm, 1 protein bar (CELEBRATE protein bars, buy at [facility] [employer]) at 2pm-4pm, dinner at 5pm (10 forks of protein and 10 forks of salad/vegetables) AND TWO more protein bars after dinner at 7pm-9pm and 10pm-12am. So you do 2 protein shakes, 3 protein bars and one meal per day. Meal to include lean meat (beef, fish, pork, turkey, chicken), or turkmen yogurt, or egg whites, or beans with a salad with olive oil and fruits (berries, pears, apples, kiwi). Avoid salt, breads, potatoes, rice, pasta, desserts. 3. Each shake would be drunk slowly, like coffee in a period of 2 hours. 4. Cut each bar in 4 pieces and eat each piece in 30min ?to make each bar last 2 hours. 5. I emphasized the importance of measuring accurately the food portion and measure it when serving the food in plate 6. The meal portions include 10 full-size forks of meat and 10 full-size forks of salad. You always eat the meat portion but you can replace up to 5 forks for salad/vegetables with rice, potatoes or pasta, or a fruit ?if you like. The less you do it the better weight loss will be. 7. One full-size fork is what it can be scooped on the fork without falling aside and not what can be bit with the fork. Use regular forks like those you find in a typical restaurant. 8.? Please send me weight measurements as soon as possible and then once a week. Always include your diet and exercise plan. 9. Start using the bike you have daily, 3 times per day for 20 minutes at a time for a total of 1 hour per day 10. Check your blood sugar daily and let me know immediately if it is below 100 11. Buy a blood pressure monitor and check your blood pressure daily in the morning and let me know if it is below 120/70 12. Goal is to lose at least 1.5-2lbs per week 13. Goal to lose 10% of your weight before surgery, which is about 26lbs. Ultimate weight goal: 236lbs before surgery 14. Please follow the diet plan exactly without any change. If you don't like something about the plan or you feel hungry you need to communicate with me so I can help you revise the plan. You should not change the plan yourself. Orders: Orders Insulin Today E11.9 - Type 2 diabetes mellitus without complications, E66.01 - Morbid (severe) obesity due to excess calories, G47.30 - Sleep apnea, unspecified, I10 - Essential (primary) hypertension, I50.32 - Chronic diastolic (congestive) heart failure, J44.9 - Chronic obstructive pulmonary disease, unspecified, K21.9 - Gastro-esophageal reflux disease without esophagitis, Z79.4 - ocean transportation intermediary (current) use of insulin Hemoglobin A1c Today E11.9 - Type 2 diabetes mellitus without complications, E66.01 - Morbid (severe) obesity due to excess calories, G47.30 - Sleep apnea, unspecified, I10 - Essential (primary) hypertension, I50.32 - Chronic diastolic (congestive) heart failure, J44.9 - Chronic obstructive pulmonary disease, unspecified, K21.9 - Gastro-esophageal reflux disease without esophagitis, Z79.4 - ocean transportation intermediary (current) use of insulin Complete Blood Count Auto Diff Today E11.9 - Type 2 diabetes mellitus without complications, E66.01 - Morbid (severe) obesity due to excess calories, G47.30 - Sleep apnea, unspecified, I10 - Essential (primary) hypertension, I50.32 - Chronic diastolic (congestive) heart failure, J44.9 - Chronic obstructive pulmonary disease, unspecified, K21.9 - Gastro-esophageal reflux disease without esophagitis, Z79.4 - senior care (current) use of insulin Lipid Panel Today E11.9 - Type 2 diabetes mellitus without complications, E66.01 - Morbid (severe) obesity due to excess calories, G47.30 - Sleep apnea, unspecified, I10 - Essential (primary) hypertension, I50.32 - Chronic diastolic (congestive) heart failure, J44.9 - Chronic obstructive pulmonary disease, unspecified, K21.9 - Gastro-esophageal reflux disease without esophagitis, Z79.4 - ocean transportation intermediary (current) use of insulin Vitamin B12 and Folate Today E11.9 - Type 2 diabetes mellitus without complications, E66.01 - Morbid (severe) obesity due to excess calories, G47.30 - Sleep apnea, unspecified, I10 - Essential (primary) hypertension, I50.32 - Chronic diastolic (congestive) heart failure, J44.9 - Chronic obstructive pulmonary disease, unspecified, K21.9 - Gastro-esophageal reflux disease without esophagitis, Z79.4 - ocean transportation intermediary (current) use of insulin Vitamin B1 Today E11.9 - Type 2 diabetes mellitus without complications, E66.01 - Morbid (severe) obesity due to excess calories, G47.30 - Sleep apnea, unspecified, I10 - Essential (primary) hypertension, I50.32 - Chronic diastolic (congestive) heart failure, J44.9 - Chronic obstructive pulmonary disease, unspecified, K21.9 - Gastro-esophageal reflux disease without esophagitis, Z79.4 - ocean transportation intermediary (current) use of insulin ECG 12 lead EKG Today E11.9 - Type 2 diabetes mellitus without complications, E66.01 - Morbid (severe) obesity due to excess calories, G47.30 - Sleep apnea, unspecified, I10 - Essential (primary) hypertension, I50.32 - Chronic diastolic (congestive) heart failure, J44.9 - Chronic obstructive pulmonary disease, unspecified, K21.9 - Gastro-esophageal reflux disease without esophagitis, Z79.4 - senior care (current) use of insulin H Pylori Breath Test Today E11.9 - Type 2 diabetes mellitus without complications, E66.01 - Morbid (severe) obesity due to excess calories, G47.30 - Sleep apnea, unspecified, I10 - Essential (primary) hypertension, I50.32 - Chronic diastolic (congestive) heart failure, J44.9 - Chronic obstructive pulmonary disease, unspecified, K21.9 - Gastro-esophageal reflux disease without esophagitis, Z79.4 - senior care (current) use of insulin IRON PROFILE Today E11.9 - Type 2 diabetes mellitus without complications, E66.01 - Morbid (severe) obesity due to excess calories, G47.30 - Sleep apnea, unspecified, I10 - Essential (primary) hypertension, I50.32 - Chronic diastolic (congestive) heart failure, J44.9 - Chronic obstructive pulmonary disease, unspecified, K21.9 - Gastro-esophageal reflux disease without esophagitis, Z79.4 - ocean transportation intermediary (current) use of insulin Comprehensive Met. Panel Today E11.9 - Type 2 diabetes mellitus without complications, E66.01 - Morbid (severe) obesity due to excess calories, G47.30 - Sleep apnea, unspecified, I10 - Essential (primary) hypertension, I50.32 - Chronic diastolic (congestive) heart failure, J44.9 - Chronic obstructive pulmonary disease, unspecified, K21.9 - Gastro-esophageal reflux disease without esophagitis, Z79.4 - ocean transportation intermediary (current) use of insulin Zinc Today E11.9 - Type 2 diabetes mellitus without complications, E66.01 - Morbid (severe) obesity due to excess calories, G47.30 - Sleep apnea, unspecified, I10 - Essential (primary) hypertension, I50.32 - Chronic diastolic (congestive) heart failure, J44.9 - Chronic obstructive pulmonary disease, unspecified, K21.9 - Gastro-esophageal reflux disease without esophagitis, Z79.4 - senior care (current) use of insulin C Reactive Protein Today E11.9 - Type 2 diabetes mellitus without complications, E66.01 - Morbid (severe) obesity due to excess calories, G47.30 - Sleep apnea, unspecified, I10 - Essential (primary) hypertension, I50.32 - Chronic diastolic (congestive) heart failure, J44.9 - Chronic obstructive pulmonary disease, unspecified, K21.9 - Gastro-esophageal reflux disease without esophagitis, Z79.4 - senior care (current) use of insulin Vitamin A Today E11.9 - Type 2 diabetes mellitus without complications, E66.01 - Morbid (severe) obesity due to excess calories, G47.30 - Sleep apnea, unspecified, I10 - Essential (primary) hypertension, I50.32 - Chronic diastolic (congestive) heart failure, J44.9 - Chronic obstructive pulmonary disease, unspecified, K21.9 - Gastro-esophageal reflux disease without esophagitis, Z79.4 - ocean transportation intermediary (current) use of insulin TSH reflex Free T4 Today E11.9 - Type 2 diabetes mellitus without complications, E66.01 - Morbid (severe) obesity due to excess calories, G47.30 - Sleep apnea, unspecified, I10 - Essential (primary) hypertension, I50.32 - Chronic diastolic (congestive) heart failure, J44.9 - Chronic obstructive pulmonary disease, unspecified, K21.9 - Gastro-esophageal reflux disease without esophagitis, Z79.4 - senior care (current) use of insulin Ferritin Today E11.9 - Type 2 diabetes mellitus without complications, E66.01 - Morbid (severe) obesity due to excess calories, G47.30 - Sleep apnea, unspecified, I10 - Essential (primary) hypertension, I50.32 - Chronic diastolic (congestive) heart failure, J44.9 - Chronic obstructive pulmonary disease, unspecified, K21.9 - Gastro-esophageal reflux disease without esophagitis, Z79.4 - ocean transportation intermediary (current) use of insulin Vitamin D 25-OH Total Today E11.9 - Type 2 diabetes mellitus without complications, E66.01 - Morbid (severe) obesity due to excess calories, G47.30 - Sleep apnea, unspecified, I10 - Essential (primary) hypertension, I50.32 - Chronic diastolic (congestive) heart failure, J44.9 - Chronic obstructive pulmonary disease, unspecified, K21.9 - Gastro-esophageal reflux disease without esophagitis, Z79.4 - ocean transportation intermediary (current) use of insulin US abdomen comp w elastography Today E11.9 - Type 2 diabetes mellitus without complications, E66.01 - Morbid (severe) obesity due to excess calories, G47.30 - Sleep apnea, unspecified, I10 - Essential (primary) hypertension, I50.32 - Chronic diastolic (congestive) heart failure, J44.9 - Chronic obstructive pulmonary disease, unspecified, K21.9 - Gastro-esophageal reflux disease without esophagitis, Z79.4 - senior care (current) use of insulin XR chest 2V Today E11.9 - Type 2 diabetes mellitus without complications, E66.01 - Morbid (severe) obesity due to excess calories, G47.30 - Sleep apnea, unspecified, I10 - Essential (primary) hypertension, I50.32 - Chronic diastolic (congestive) heart failure, J44.9 - Chronic obstructive pulmonary disease, unspecified, K21.9 - Gastro-esophageal reflux disease without esophagitis, Z79.4 - ocean transportation intermediary (current) use of insulin FL upper GI w air Today E11.9 - Type 2 diabetes mellitus without complications, E66.01 - Morbid (severe) obesity due to excess calories, G47.30 - Sleep apnea, unspecified, I10 - Essential (primary) hypertension, I50.32 - Chronic diastolic (congestive) heart failure, J44.9 - Chronic obstructive pulmonary disease, unspecified, K21.9 - Gastro-esophageal reflux disease without esophagitis, Z79.4 - ocean transportation intermediary (current) use of insulin Referrals Nutrition/Dietitian Referral E11.9 - Type 2 diabetes mellitus without complications, E66.01 - Morbid (severe) obesity due to excess calories, G47.30 - Sleep apnea, unspecified, I10 - Essential (primary) hypertension, I50.32 - Chronic diastolic (congestive) heart failure, J44.9 - Chronic obstructive pulmonary disease, unspecified, K21.9 - Gastro-esophageal reflux disease without esophagitis, Z79.4 - ocean transportation intermediary (current) use of insulin Behavioral Health Referral E11.9 - Type 2 diabetes mellitus without complications, E66.01 - Morbid (severe) obesity due to excess calories, G47.30 - Sleep apnea, unspecified, I10 - Essential (primary) hypertension, I50.32 - Chronic diastolic (congestive) heart failure, J44.9 - Chronic obstructive pulmonary disease, unspecified, K21.9 - Gastro-esophageal reflux disease without esophagitis, Z79.4 - senior care (current) use of insulin
[2024-03-23 11:02] VITALS: BMI 43.0
== END 2024-03-23 11:23 | disposition home or self-care (01) ==
PROVIDERS: PCP Internal Medicine; Visit Provider Surgery
DX: E66.01 Morbid (severe) obesity due to excess calories (principal); Z68.41 Body mass index [BMI] 40.0-44.9, adult
CPT/HCPCS: 99443

== ENCOUNTER → 2024-03-23 08:01 | Outpatient (BNVA) | payer OTHER, SELFPAY | PROVIDERS: PCP Internal Medicine; Visit Provider Surgery ==

== ENCOUNTER 2024-04-17 10:36 | Outpatient (REF) | payer OTHER, SELFPAY ==
[2024-04-17 10:58] LABS: MANUAL DIFF FLAG NO
[2024-04-17 11:16] LABS: Basophils Absolute Auto 0.1 X10*3/uL (0.0-0.2); Basophils Percent Auto 0.7 % (0-2); Eosinophils Absolute Auto 0.1 X10*3/uL (0.0-0.4); Eosinophils Percent Auto 1.6 % (0-4); Hematocrit 36.4 % (37.0-47.0); Hemoglobin 11.3 g/dl (12.0-16.0); Imm Gran Abs Auto 0.05 X10*3/uL (0.00-0.03); Imm Gran Pct Auto 0.7 % (0.0-0.4); Lymphocytes Absolute Auto 1.8 X10*3/uL (1.2-4.9); Lymphocytes Percent Auto 26.3 % (20-40); Mean Corpuscular Hemoglobin 24.1 pg (27.0-33.0); Mean Corpuscular Volume 77.8 fL (80.0-98.0); Mean Platelet Volume 10.1 fL (9.4-12.3); Monocytes Absolute Auto 0.5 X10*3/uL (0.1-1.2); Monocytes Percent Auto 6.6 % (2-11); Neutrophils Absolute Auto 4.4 x10*3/uL (2.0-8.3); Neutrophils Percent Auto 64.1 % (45-73); Platelet Count 220 X10*3/uL (160-400); Red Blood Count 4.68 X10*6/uL (4.20-5.50); Red Cell Distribution Width 16.1 % (11.0-16.0); White Blood Count 6.9 X10*3/uL (4.8-10.8)
[2024-04-17 11:27] LABS: Estimated Average Glucose 200 mg/dL; Hemoglobin A1c % 8.6 % (<6.0)
[2024-04-17 11:58] LABS: Alanine Aminotransferase 25 U/L (0-31); Albumin Level 3.6 g/dL (3.5-5.0); Alkaline Phosphatase 109 U/L (39-117); Anion Gap 11 (12-20); Aspartate Amino Transferase 31 U/L (5-31); Bilirubin Total 0.2 mg/dL (0.0-1.0); Blood Urea Nitrogen 12 mg/dL (9-16); C Reactive Protein 0.98 mg/dL (< or = 0.50); Calcium 9.4 mg/dL (8.4-10.2); Carbon Dioxide 27 mmol/L (22-29); Chloride 108 mmol/L (96-108); Cholesterol 174 mg/dL (<200); Estimated Glomerular Filt Rate > 60; Glucose Random 144 mg/dL (60-115); HDL Cholesterol 44 mg/dL (>40); Iron 45 mcg/dL (30-160); LDL Cholesterol Calculated 99 mg/dL (<100); Percent Iron Saturation 12 % (15-50); Sodium 142 mmol/L (135-145); Total Iron Binding Capacity 378 mcg/dL (228-428); Total Protein 6.9 g/dL (6.5-8.0); Triglycerides 156 mg/dL (<150); Unsaturated Iron Binding 333 ug/dL
[2024-04-17 12:07] LABS: Ferritin 26 ng/mL (10-250); Insulin 96 uU/mL (2-29); TSH reflex Free T4 1.35 uIU/mL (0.32-4.0); Vitamin D 25-OH Total 19.5 ng/mL (>30)
[2024-04-17 12:17] LABS: Folate 14.1 ng/mL (> or = 4.0); Vitamin B12 690 pg/mL (200-900)
[2024-04-20 13:38] LABS: Zinc 63 mcg/dL (60-130)
[2024-04-21 20:24] LABS: Vitamin A 39 mcg/dL (38-98)
[2024-04-22 15:13] LABS: Vitamin B1 9 nmol/L (8-30)
== END 2024-04-17 10:37 | disposition home or self-care (01) ==
LOC: HO.LAB 10:36
PROVIDERS: PCP Internal Medicine; Visit Provider Surgery
DX: E66.01 Morbid (severe) obesity due to excess calories (principal); I10 Essential (primary) hypertension; I50.32 Chronic diastolic (congestive) heart failure; K21.9 Gastro-esophageal reflux disease without esophagitis; E11.9 Type 2 diabetes mellitus without complications; Z79.4 Long term (current) use of insulin; G47.30 Sleep apnea, unspecified
CPT/HCPCS: 36415; 80053; 80061; 82306; 82607; 82728; 82746; 83036; 83525; 83540; 84425; 84443; 84590; 84630; 85025; 86140

== ENCOUNTER 2024-04-18 10:22 | Outpatient (AMB) | payer OTHER, SELFPAY ==
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
== END 2024-04-18 11:00 | disposition home or self-care (01) ==
LOC: HO.HBST 10:22
PROVIDERS: PCP Internal Medicine; Visit Provider Counselor Mental Health
DX: F43.25 Adjustment disorder with mixed disturbance of emotions and conduct (principal); F50.9 Eating disorder, unspecified
CPT/HCPCS: 90837

== ENCOUNTER → 2024-04-18 10:22 | Outpatient (BNVA) | payer OTHER, SELFPAY | PROVIDERS: PCP Internal Medicine; Visit Provider Counselor Mental Health ==

== ENCOUNTER 2024-05-02 10:17 | Outpatient (REF) | payer OTHER, SELFPAY ==
--- NOTE | ~2024-05-02 | XR_ITS ---
EXAMINATION: XR CHEST CLINICAL INFORMATION: Severe morbid obesity due to excess calories. COMPARISON: 03/03/2024 TECHNIQUE: 2 views of the chest were obtained. FINDINGS: There is no gross pneumothorax. Heart size within normal limits. No pleural effusion. Redemonstration of mild diffuse interstitial opacities with mild diffuse bronchial wall thickening. Redemonstration of prominent bilateral perihilar regions. Mild degenerative changes in the thoracic spine. XR/XR chest 2V IMPRESSION: Redemonstration of mild diffuse interstitial opacities with mild diffuse bronchial wall thickening. Redemonstration of prominent bilateral perihilar regions.
--- NOTE | ~2024-05-02 | US_ITS ---
EXAMINATION: US COMPLETE ABDOMEN WITH LIVER ELASTOGRAPHY CLINICAL INFORMATION: Morbid obesity. COMPARISON: None available. TECHNIQUE: Real-time imaging of the abdominal viscera. Noninvasive ultrasound liver fibrosis assessment is performed using Kyle ElastPQ point quantification shear wave elastography (2D-SWE) with a C5-2 MHz transducer. Multiple elastography samples are obtained. FINDINGS: PANCREAS: . The visualized pancreatic head and body are normal in appearance. The remainder of the pancreas is obscured from visualization by the overlying bowel gas. ABDOMINAL AORTA: The proximal, middle, and distal aortic segments are normal in caliber. INFERIOR VENA CAVA: Visualized portions are normal. LIVER: The liver is enlarged at 20 cm with increased echogenicity consistent with hepatic steatosis. No focal lesion or intrahepatic biliary duct dilatation. The right lobe measures 20.0 cm in length. The left lobe measures 15.0 cm in length. Portal flow is towards the liver (hepatopetal). Shear wave liver elastography median stiffness is 1.74 m/s (reference: normal median stiffness is 1.3 m/s or less). IQR/median stiffness to assess sampling precision is 0.08 (reference: good quality data set is IQR/median stiffness of 0.15 or less). GALLBLADDER: Status post cholecystectomy. COMMON BILE DUCT: Normal in caliber measuring 0.4 cm in diameter. RIGHT KIDNEY: No hydronephrosis. No renal calculi or focal parenchymal lesions. The kidney measures 11.6 cm in maximum dimension. LEFT KIDNEY: No hydronephrosis. No renal calculi or focal parenchymal lesions. The kidney measures 10.5 cm in maximum dimension. SPLEEN:. The spleen is mildly enlarged measuring 12.8 cm in maximum dimension. FREE FLUID: None. US/US abdomen comp w elastography IMPRESSION: 1. Enlarged fatty liver 2. Liver elastography: Although measurements are suggestive of compensated advanced chronic liver disease, there is statistical variability of the sampling which decreases accuracy. REFERENCE: Society of Radiologists in Ultrasound Liver Stiffness Thresholds (2020): LIVER STIFFNESS THRESHOLDS: *Liver Stiffness equal or less than 1.3 m/s: High probability of being normal. *Liver Stiffness less than 1.7 m/s: In the absence of other known clinical signs, rules out compensated advanced chronic liver disease. *Liver Stiffness 1.7-2.1 m/s: Suggestive of compensated advanced chronic liver disease but need further test for confirmation. *Liver Stiffness over 2.1 m/s: Rules in compensated advanced chronic liver disease. *Liver Stiffness over 2.4 m/s: Suggestive of clinically significant portal hypertension. QUALITY OF DATA SET: *IQR/Median value equal or less than 0.15 implies a quality data set. *IQR/Median value over 0.15 implies a poor quality data set. SIGNIFICANT CHANGE FROM PRIOR EXAM: Significant change if liver stiffness measurement is 10% or greater from prior exam. OTHER CONSIDERATIONS: The stage of liver fibrosis may be overestimated in the setting of acute hepatitis, liver inflammation, elevated liver function tests, hepatic vascular congestion, obstructive cholestasis, non-fasting state, and infiltrative diseases such as amyloidosis and lymphoma. In some patients with NAFLD, the liver stiffness thresholds for compensated advanced chronic liver disease may be lower. In causes other than viral hepatitis and NAFLD, liver stiffness thresholds are not well established.
== END 2024-05-02 10:18 | disposition home or self-care (01) ==
LOC: HO.US 10:17
PROVIDERS: PCP Internal Medicine; Visit Provider Surgery
DX: E66.01 Morbid (severe) obesity due to excess calories (principal); J44.9 Chronic obstructive pulmonary disease, unspecified; I11.0 Hypertensive heart disease with heart failure; I50.32 Chronic diastolic (congestive) heart failure; K21.9 Gastro-esophageal reflux disease without esophagitis; E11.9 Type 2 diabetes mellitus without complications; Z79.4 Long term (current) use of insulin; G47.30 Sleep apnea, unspecified
CPT/HCPCS: 71046; 76700; 76981

== ENCOUNTER 2024-05-08 09:44 | Outpatient (AMB) | payer OTHER, SELFPAY ==
--- NOTE | 2024-05-08 09:46 | A.OFFVIS_ITS ---
Vital Signs 05/08/24 09:49 Height 5 ft 5.5 in BMI Reason not done Patient refused/unable BP 162/80 H Pulse 78 Intake Visit Reasons: Type 2 DM-confirmed Intake Note: NEW Patient presents today to established treatment for Type 2 DM: Most recent Eye Exam: 12/2023 Most recent Podriatry Exam: Does not see a Food And Beverage Operations Manager Most recent HbA1c: 8.6% 04/17/2024 Random Glucose- 163 mg/dL Today Ballet Soloist Required: No Allergies ciprofloxacin Allergy (Severe, Verified 03/23/24 10:41) Anaphylaxis kiwi Allergy (Severe, Verified 03/23/24 10:41) Angioedema morphine Allergy (Intermediate, Verified 03/23/24 10:41) Itching atorvastatin [From Lipitor] Adverse Reaction (Mild, Verified 03/23/24 10:41) myalgia metformin Adverse Reaction (Mild, Verified 03/23/24 10:41) Abdominal Pain HPI Comments Details: [63] YO [M/F] who is seen in consultation for T2DM at the request of PCP. Most recent Eye Exam: 12/2023 Most recent Podriatry Exam: Does not see a Food And Beverage Operations Manager Most recent A1C 04/17/24 8.6% Random Glucose- 163 mg/dL Initially diagnosed with T2DM in 1980 with gestational . Was initially started on treatment with insulin while in [place]. 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 She was recently seen by the Bariatric Surgeon at [facility]. She followed the prescribed bariatric diet for a week and then stopped. Current regimen . Lantus 50 units bid Novolog sliding scale: 20-35 units since stating steroids this past spring 6-12 units if she is on bariatric diet of 3 protein bars, 2 shakes and a small supper of 10 bites of protein/10 bites of salad/veg Victoza 1.8mg daily Checks sugars 2 times per day over last week Prior to this she was on a G7 which she will resume today when she picks up the sensor. Average sugar: [240] Range: [167-225] Per the CGM:Data not available. Patient to restart sensor today. The patient's blood sugars were in target[22% of the time, above target 78% of the time, and below target 0% of the time Reports low sugars [none]. Treats lows with 3 tablets. Checks sugar after to ensure it is rising. Has eyes checked yearly, last eye exam [01/07], [denies] retinopathy. [Denies ] neuropathy, does not sees podiatry. No protein on random urine. Will need microalbumin ordered at next visit. She is on valsartan. She is not on a statin.LDL:She has a history of CHF and is followed by cardiology at [facility]. She denies CAD.She would like to transfer her care to [facility]. Last LDL [99] as measured on [05/07]. Diet: [as above] She denies CP, cramps in her legs. She has some minimal swelling. She has been tired since starting new cardiac med. No recent diabetes education. [facility] Medical History Asthma-COPD overlap syndrome Chronic diastolic CHF (congestive heart failure) HTN (hypertension) Morbid obesity Carpal tunnel syndrome GERD (gastroesophageal reflux disease) Insomnia Neuropathy Sleep apnea Insulin dependent type 2 diabetes mellitus HLD (hyperlipidemia) Diabetes mellitus Surgical History S/P S/P cholecystectomy Below-knee amputation of left lower extremity Family History Mother Dementia Diabetes Father Dementia Diabetes Social History Household Members: Children Housing: Apartment Do you presently have visiting nurse or other home services: No Alcohol intake: never Comment: D/C to home Patient Tobacco Use Status: Former Tobacco user service: No Physical Exam Vital Signs: Last Vital Signs Pulse 78 05/08/24 09:49 BP 162/80 H 05/08/24 09:49 Absence of Cushingoid features. Absence of acromegalic features. Neck exam reveals nl size thyroid about 15 gms. No thyroid nodules palpable. No carotid bruits present. Lungs CTA. Heart S1 S2, Reg R/R. No M/R/ G. Skin exam reveals absence of vitiligo or acanthosis nigricans. Abdominal exam reveals Soft NT/ND with NA BS. No organomegaly present. Const General: cooperative and no acute distress Nutritional Appearance: overweight Orientation/consciousness: oriented to person Limitations: wheelchair Neck Other: Acanthosis nigricans Neck: Yes positive Kernig's sign Neuro General: oriented to person Extrem Other: Visual exam of foot performed. No ulcerations or open lesions. No onchomycosis, no callouses. Sensation intact to monofilament exam. Vibratory sensation is normal with 128 Hz tuning fork. Minimal edema. Results Reviewed Results Reviewed: Laboratory Last Values Glucose (Clinic) 163 mg/dL (60-115) H 05/08/24 10:11 Laboratory Tests 04/17/24 10:55 Creatinine 0.73 Estimated GFR > 60 Triglycerides 156 H Cholesterol 174 LDL Cholesterol, Calc 99 HDL Cholesterol 44 25-OH Vitamin D Total 19.5 L Folate 14.1 TSH 1.35 Assessment & Plan Assessment & Plan (1) Insulin dependent type 2 diabetes mellitus: Code(s): E11.9 - Type 2 diabetes mellitus without complications; Z79.4 - terminal make up operator (current) use of insulin Category: Medical Plan: She will attempt to restart the bariatric diet. She will be continue Lantus 50 units b.i.d. she will continue her sliding scale at the lower doses while she has following the bariatric diet. Discontinue Victoza 1.8 and start on Mounjaro. She was advised to continue Victoza until Mounjaro is received and she was given training on Mounjaro pen and possible side effects. She will meet with both the diabetic chef concierge and Kristen LOW. She is potentially interested in going on a pump. She will restart her Dexcom. She was advised to contact her current cooler tender to discuss the side effects she is having on her new medication (2) Low vitamin D level: Comment: will prescribe tablet daily 25 mcg. Code(s): R79.89 - Other specified abnormal findings of blood chemistry Category: Medical Plan: see above Orders: Referrals Compensation Manager Nutrition Referral E11.9 - Type 2 diabetes mellitus without complications, Z79.4 - retirement (current) use of insulin Diabetes Education Referral E11.9 - Type 2 diabetes mellitus without complications, Z79.4 - retirement (current) use of insulin Medications: New tirzepatide (Mounjaro) 2.5 mg (0.5 mL) subcut QWEEK 2 mL 0RF 4 weeks E11.9 - Type 2 diabetes mellitus without complications, Z79.4 - terminal make up operator (current) use of insulin cholecalciferol (vitamin D3) 25 mcg PO DAILY 30 caps 0RF 1 month Coding Level of Care Code New Pt Level 5 (88593) Complex EM visit Add On G2211 Diagnoses Insulin dependent type 2 diabetes mellitus E11.9; Z79.4 Low vitamin D level R79.89 Time Spent (min) 75 Comment I spent 75 minutes reviewing labs and diagnostic reports, reviewing notes and documenting
[2024-05-08 09:49] VITALS: BP 162/80; PULSE 78
[2024-05-08 10:16] LABS: Glucose, Whole Blood 163 mg/dL (60-115)
== END 2024-05-08 10:55 | disposition home or self-care (01) ==
PROVIDERS: PCP Internal Medicine; Visit Provider Nurse Practitioner Adult Health
DX: E11.9 Type 2 diabetes mellitus without complications (principal); Z79.4 Long term (current) use of insulin; R79.89 Other specified abnormal findings of blood chemistry
CPT/HCPCS: 99205; G2211; G2212

== ENCOUNTER → 2024-05-08 09:44 | Outpatient (BNVA) | payer OTHER, SELFPAY | PROVIDERS: PCP Internal Medicine; Visit Provider Nurse Practitioner Adult Health | DX: E11.9 Type 2 diabetes mellitus without complications (principal); E55.9 Vitamin D deficiency, unspecified; Z79.4 Long term (current) use of insulin | CPT/HCPCS: 82947; 99202 ==

== ENCOUNTER 2024-05-23 11:00 | Outpatient (RCR) | payer OTHER, SELFPAY | END 2024-08-20 11:41 | disposition home or self-care (01) | LOC: HO.PT 11:00 | PROVIDERS: PCP Internal Medicine; Visit Provider Registered Nurse | DX: R26.89 Other abnormalities of gait and mobility (principal) | CPT/HCPCS: 97110; 97112; 97116; 97162 ==

== ENCOUNTER 2024-05-24 10:40 | Outpatient (AMB) | payer OTHER, SELFPAY ==
--- NOTE | 2024-05-24 10:57 | A.OFFVIS_ITS ---
VS Expanded 05/31/24 09:26 Height 5 ft 5.5 in Weight 266 lb BMI 43.6 Intake Visit Reasons: T2DM/CONFIRMED Allergies ciprofloxacin Allergy (Severe, Verified 05/29/24 14:50) Anaphylaxis kiwi Allergy (Severe, Verified 05/29/24 14:50) Angioedema morphine Allergy (Intermediate, Verified 05/29/24 14:50) Itching atorvastatin [From Lipitor] Adverse Reaction (Mild, Verified 05/29/24 14:50) myalgia metformin Adverse Reaction (Mild, Verified 05/29/24 14:50) Abdominal Pain Nutrition Presentation Details: PT presents for MNT for T2DM, insulin dependent. Pt was referred by Franky Drake , internet application developer specialist Pt reports doing well typical meal 7 am : fruits crackers 2pm: Mc and cheese or white and cornbeef and water or ice tea regular 6pm : rice/chicken or sand , water or tea reg physical activity: sedentary etoh/smoking: denies BS Monitoring Most Recent Diabetes Results: Creatinine 0.84 mg/dL (0.5-1.4) 05/29/24 Blood Urea Nitrogen 20 mg/dL (9-16) H 05/29/24 Sodium 141 mmol/L (135-145) 05/29/24 Potassium 4.7 mmol/L (3.3-5.1) 05/29/24 Chloride 113 mmol/L (96-108) H 05/29/24 Carbon Dioxide 17 mmol/L (22-29) L 05/29/24 Calcium 8.8 mg/dL (8.4-10.2) 05/29/24 AST 33 U/L (5-31) H 05/29/24 ALT 21 U/L (0-31) 05/29/24 Total Protein 7.1 g/dL (6.5-8.0) 05/29/24 Albumin 3.5 g/dL (3.5-5.0) 05/29/24 ZOK-Taejxeb-Kz.Jeor Equation Height: 5 ft 5.5 in Weight: 266 lb Resting Metabolic Rate: 1769.28 Calculated Activity Level: Sedentary Calories Needed to Maintain Weight: 2123.14 Diagnosis Nutrition problem #1: food nutri know defi (related to high fiber foods) As related to (etiology) #1: diagnosis As evidenced by (sign/symptom) #1: knowledge deficit of diet [facility] Medical History Asthma-COPD overlap syndrome Chronic diastolic CHF (congestive heart failure) HTN (hypertension) Morbid obesity Carpal tunnel syndrome GERD (gastroesophageal reflux disease) Insomnia Neuropathy Sleep apnea Insulin dependent type 2 diabetes mellitus HLD (hyperlipidemia) Diabetes mellitus Surgical History S/P S/P cholecystectomy Below-knee amputation of left lower extremity Family History Mother Dementia Diabetes Father Dementia Diabetes Social History Household Members: Children Housing: Apartment Do you presently have visiting nurse or other home services: No Alcohol intake: never Comment: D/C to home Patient Tobacco Use Status: Former Tobacco user Advance Directives: Yes Advance Directives on File: Yes Advance Directives Date on File: 03/07/24 Do you have a plan to hurt others: No Plan service: No Assessment & Plan Assessment & Plan (1) Insulin dependent type 2 diabetes mellitus: Code(s): E11.9 - Type 2 diabetes mellitus without complications; Z79.4 - snf (current) use of insulin Category: Medical Plan: Wt: 121 Kg ( ) Est kcal needs as per MSJ: 2100 (40% carb, 30% protein/fat) Est fluid needs as per 25-30 ml/d: 3600 Est prot per day as per 1 g/kg bw: 121 Recommend fiber intake : 8-10 g per day and gradually increase to 25-28 g per day for women and 35-38 g for men or as tolerated Recommend sodium intake per day : less than 2000 mg Educated patient on: ( R = reviewed V = verbalizes understanding N/R = needs review N/A = not applicable * Food sources of carbohydrate, adequate serving sizes and its role in various health conditions: R V N/R * Differences between complex carbohydrates a simple carbohydrates, role of fiber in diet: R V N/R * Lean protein sources of foods: R V NR * Differences between types of fats and role in diet (mono on saturated fat fatty acids, saturated fatty acids, trans fats): R V N/R * Food sources of sodium in salt and healthy modifications for heart health in kidney health: R V R/V * Vitamins and minerals: R V N/R * Healthy plate method concept: R V N/R * Physical activity: Benefits a precaution: R V N/R * Hypoglycemia protocol (rule of 15): R V N/R * Dietary prevention of Hyperglycemia: R V R/V Patient Instructions: Choose whole grain foods , increasing on fiber in your diet Reduce total carb at meal to 60 or less at dinner by -having a fruit in place of sugary beverages (est 20 g carb) -Reduce portion of starch (pasta/rice/root veg) to 2/3 cup serving (est 30 g carb) -Include 1 cup of non starchy vegetable (10 g carb) Have 3-4 oz of lean protein of your choice Coding Level of Care Code Nutr Indiv Intake (04391) Diagnoses Insulin dependent type 2 diabetes mellitus E11.9; Z79.4 Time Spent (min) 30
[2024-05-31 09:26] VITALS: BMI 43.6
== END 2024-05-24 13:12 | disposition home or self-care (01) ==
PROVIDERS: PCP Internal Medicine; Visit Provider Dietitian, Registered
DX: E11.9 Type 2 diabetes mellitus without complications (principal); Z79.4 Long term (current) use of insulin

== ENCOUNTER → 2024-05-24 10:40 | Outpatient (BNVA) | payer OTHER, SELFPAY | PROVIDERS: PCP Internal Medicine; Visit Provider Dietitian, Registered | DX: E11.9 Type 2 diabetes mellitus without complications (principal); Z79.4 Long term (current) use of insulin | CPT/HCPCS: 97802 ==

== ENCOUNTER 2024-05-29 12:36 | Outpatient (AMB) | payer OTHER, SELFPAY ==
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
[2024-05-29 13:33] VITALS: BP 142/84; PULSE 96
[2024-05-29 13:52] LABS: Glucose, Whole Blood 89 mg/dL (60-115)
== END 2024-05-29 14:08 | disposition home or self-care (01) ==
PROVIDERS: PCP Internal Medicine; Visit Provider Nurse Practitioner Adult Health
DX: E11.9 Type 2 diabetes mellitus without complications (principal); Z79.4 Long term (current) use of insulin
CPT/HCPCS: 99214; G2211

== ENCOUNTER 2024-05-29 12:36 | Outpatient (AMB) | payer OTHER, SELFPAY ==
--- NOTE | 2024-05-29 13:24 | A.OFFVIS_ITS ---
Intake Intake Visit Reasons: Type 2 DM/CONFIRMED Account Support Analyst Required: No Accompanied by: Self / Same As Patient Allergies ciprofloxacin Allergy (Severe, Verified 05/29/24 14:50) Anaphylaxis kiwi Allergy (Severe, Verified 05/29/24 14:50) Angioedema morphine Allergy (Intermediate, Verified 05/29/24 14:50) Itching atorvastatin [From Lipitor] Adverse Reaction (Mild, Verified 05/29/24 14:50) myalgia metformin Adverse Reaction (Mild, Verified 05/29/24 14:50) Abdominal Pain HPI Comprehensive Diabetes Asmnt Most Recent Diabetes Results: No Data to Display [facility] Medical History Asthma-COPD overlap syndrome Chronic diastolic CHF (congestive heart failure) HTN (hypertension) Morbid obesity Carpal tunnel syndrome GERD (gastroesophageal reflux disease) Insomnia Neuropathy Sleep apnea Insulin dependent type 2 diabetes mellitus HLD (hyperlipidemia) Diabetes mellitus Surgical History S/P S/P cholecystectomy Below-knee amputation of left lower extremity Family History Mother Dementia Diabetes Father Dementia Diabetes Social History Household Members: Children Housing: Apartment Do you presently have visiting nurse or other home services: No Alcohol intake: never Comment: D/C to home Patient Tobacco Use Status: Former Tobacco user Do you have a plan to hurt others: No Plan service: No Assessment & Plan Assessment & Plan (1) Insulin dependent type 2 diabetes mellitus: Code(s): E11.9 - Type 2 diabetes mellitus without complications; Z79.4 - nursing home (current) use of insulin Plan: Pump Assessment: Type of DM: Type 2 Dx at age: 20 y/o Previous DKA: Denies Current Insulin Rx: MDI Patient takes insulin as prescribed: yes Patient? checks BG Dexcom G7 Downloaded meter today? yes Patient's average glucose for the past 14 days 212 mg/dL Patient above target 58% Patient at target 42% Patient below target 0% Patient? reports glycemic control as: fair Most recent Hgb A1C: 8.6% on 04/17/2024 Frequency of low BG: Rare Low BG treatment: Glucose tabs Frequency of high BG: Daily Does patient check Ketones? No, reviewed rules for testing for ketones Has pt been on a pump in the past? no, patient did mention that she had cartridge is sent to her house, with a monitor. Instructed patient to bring in what she has, if it is an insulin pump she may not be able to change to a different insulin pump for 5 years Reviewed insulin pump basics today with Patient. Explained pros and cons of insulin pumps. Showed pt various pumps, infusion sets, and cgms currently available. Reviewed need to wear pump / and need to change infusion set every 3 days. Also stressed importance of frequent BG checks, 4x daily minimum or use pump that is integrated with CGM.? TDD:145 units Patient demonstrated motivation for continued insulin pump education and understands the need to complete education prior to starting insulin pump for best outcome. Patient will follow-up with gem cutter in 1 week Portions of this note were created using voice recognition software, please excuse any words or phrases that may have been misinterpreted. Patient Instructions: DIABETES PROBLEMS HOMECARE INSTRUCTIONS? for High Blood Sugar and When to Test for Ketones Hyperglycemia is the technical term for high blood glucose (blood sugar). High blood sugar happens when the body has too little insulin or when the body can't use insulin properly. What causes hyperglycemia? A number of things can cause hyperglycemia: * If you have type 1, you may not have given yourself enough insulin. ? If you have type 2, your body may have enough insulin, but it is not as effective as it should be. * You ate more than planned or exercised less than planned. * You have stress from an illness, such as a cold or flu. * You have other stress, such as family conflicts or school or dating problems. How to lower your blood sugar level. ? Take medications as directed by physician. ? Drink extra water or noncaffeinated, nonsugared drinks to prevented hydration. ? Exercise if you are not sick However, if your blood sugar is above 250 mg/dl, check your urine for ketones. If you have ketones, do not exercise Exercising when ketones are present may make your blood sugar level go even higher. You'll need to work with your doctor to find the safest way for you to lower your blood sugar level. Regularly check blood sugar or urine for sugar and acetone during illness. Diabetic ketoacidosis (DKA) Is serious condition that can lead to diabetic coma (passing out for a long time) or even . When your cells don't get the glucose they need for energy, your body begins to burn fat for energy, which produces ketones. Ketones are chemicals that the body creates when it breaks down fat to use for energy. The body does this when it doesn?t have enough insulin to use glucose, the body?s normal source of energy. When ketones build up in the blood, they make it more acidic. They are a warning sign that your diabetes is out of control or that you are getting sick. Symptoms of Diabetic Ketoacidosis (DKA) ? DKA usually develops slowly. But when vomiting occurs, this life- threatening condition can develop in a few hours. Early symptoms include the following: ? Thirst or a very dry mouth ? Frequent urination ? High blood glucose (blood sugar) levels ? High levels of ketones in the urine ? Then, other symptoms appear: ? Constantly feeling tired ? Dry or flushed skin ? Nausea, vomiting, or abdominal pain ? (Vomiting can be caused by many illnesses, not just ketoacidosis. If vomiting continues for more than 2 hours, contact your health care provider.) ? Difficulty breathing ? Fruity odor on breath ? A hard time paying attention, or confusion When should you test for ketones? It is advisable to check for ketones under the following conditions when: Your blood glucose is higher than 250mg/dl. Feeling nauseated, throwing up, or have pains in your abdominal region. Have a cold or flu. Have general body fatigue. Feel thirsty or have a very dry mouth. Have flushed skin. Have a fruity breath or a hard time breathing. You feel perplexed or in fog. How to Test Urine for Ketones You can detect ketones with a simple urine test using a test strip, similar to a blood testing strip. Ask your health care provider when and how you should test for ketones. Many experts advise to check your urine for ketones when your blood glucose is more than 250 mg/dl. When you are ill (when you have a cold or the flu, for example), check for ketones every 4 to 6 hours. And check every 4 to 6 hours when your blood sugar is more than 250 mg/dl. Also, check for ketones when you have any symptoms of DKA. How to lower your blood sugar level. ? Take medications as directed by physician. ? Drink extra water or noncaffeinated, nonsugared drinks to prevented hydration. ? Exercise if you are not sick However, if your blood sugar is above 250 mg/dl, check your urine for ketones. If you have ketones, do not exercise Exercising when ketones are present may make your blood sugar level go even higher. You'll need to work with your doctor to find the safest way for you to lower your blood sugar level. Regularly check blood sugar or urine for sugar and acetone during illness Coding Level of Care Code Est Pt Level 1 (35046) Diagnoses Insulin dependent type 2 diabetes mellitus E11.9; Z79.4
== END 2024-05-29 14:07 | disposition home or self-care (01) ==
PROVIDERS: PCP Internal Medicine; Visit Provider Registered Nurse Diabetes Educator
DX: E11.9 Type 2 diabetes mellitus without complications (principal); Z79.4 Long term (current) use of insulin

== ENCOUNTER → 2024-05-29 12:36 | Outpatient (BNVA) | payer OTHER, SELFPAY | PROVIDERS: PCP Internal Medicine; Visit Provider Registered Nurse Diabetes Educator | DX: E11.9 Type 2 diabetes mellitus without complications (principal); Z79.4 Long term (current) use of insulin | CPT/HCPCS: 82947; 99211; 99212 ==

== ENCOUNTER 2024-05-29 14:37 | Emergency (ER) | payer OTHER, SELFPAY ==
--- NOTE | ~2024-05-29 | XR_ITS ---
EXAMINATION: XR CHEST CLINICAL INFORMATION: Chest pain COMPARISON: 05/02/2024 TECHNIQUE: Frontal view of the chest was obtained. FINDINGS: Increased interstitial markings bilaterally with mild peribronchial thickening. No evidence of consolidation. There is low lung volume. Cardiomediastinal silhouette is mildly prominent. XR/XR chest 1V IMPRESSION: There is interstitial markings. No acute abnormality
--- NOTE | 2024-05-29 14:38 | ECG_ITS ---
Test Reason : CHEST PAIN Blood Pressure : / mmHG Vent. Rate : 066 BPM Atrial Rate : 066 BPM P-R Int : 148 ms QRS Dur : 078 ms QT Int : 416 ms P-R-T Axes : 037 004 072 degrees QTc Int : 436 ms Normal sinus rhythm Cannot rule out Anterior infarct , age undetermined Abnormal ECG When compared to the previous EKG of Poor R wave progression present, ? lead placement Referred By: Generic ED Physician Electronically Signed By:LAUREEN MEI MD
--- NOTE | 2024-05-29 14:47 | ED.CHESTPAIN ---
HPI - Chest Pain General Chief Complaint: Chest Pain Stated Complaint: CP Time Seen by Provider: 05/29/24 16:47 Source: patient, RN notes reviewed and old records reviewed Mode of arrival: ambulatory Limitations: no limitations History of Present Illness ED Provider: Jonathan HPI narrative: 63-year-old female with past medical history significant for GERD, COPD, congestive heart failure, diabetes, sleep apnea, hypertension morbid obesity presents for evaluation of chest pain. Patient reports burning epigastric pain that radiates to her chest no started very early this morning She reports she has still having the burning pain. Denies any nausea vomiting. She states that she also has associated pressure in her chest Patient endorses leg swelling on the right side, she has a left BKA The patient states that she was recently put on Lasix 40 mg daily due to leg swelling She denies any history of DVT/PE Currently the patient rates her chest pain and abdominal pain as 6/10 and burning in nature. Related Data Home Medications ?Medication ?Instructions ?Recorded ?Confirmed Saccharomyces boulardii 250 mg 1 cap PO DAILY 07/31/22 03/23/24 capsule (Probiotic (S.boulardii)) albuterol sulfate 90 mcg/actuation 2 puff inhalation Q4-6H PRN 07/31/22 03/23/24 aerosol inhaler Shortness Of Breath diclofenac sodium 1 % topical gel 2 g topical TID PRN Inflammation 07/31/22 03/23/24 diphenhydramine HCl 2 % topical 1 appl topical TID PRN Itching 07/31/22 03/23/24 gel (Benadryl) gabapentin 300 mg capsule 1 cap PO BEDTIME 07/31/22 03/23/24 hydroxyzine pamoate 25 mg capsule 1 cap PO TID PRN Anxiety 07/31/22 03/23/24 olopatadine 0.1 % eye drops 1 drp ophthalmic (eye) BID PRN 07/31/22 03/23/24 allergies omeprazole 20 mg capsule,delayed 1 cap PO DAILY@0630 07/31/22 03/23/24 release fexofenadine 180 mg tablet 180 mg PO DAILY 03/03/24 03/23/24 fluticasone furoate 100 1 ea inhalation DAILY 03/03/24 03/23/24 mcg-vilanterol 25 mcg/dose inhalation powder (Breo Ellipta) fluticasone propionate 50 1 spray intranasal BID PRN Allergy 03/03/24 03/23/24 mcg/actuation nasal Symptoms spray,suspension gabapentin 800 mg tablet 800 mg PO BID 03/03/24 03/23/24 insulin glargine 100 unit/mL 50 unit subcut BID 03/03/24 03/23/24 subcutaneous solution (Lantus U-100 Insulin) metoprolol succinate 100 mg 100 mg PO DAILY 03/03/24 03/23/24 tablet,extended release 24 hr sacubitril 24 mg-valsartan 26 mg 1 tab PO BID 03/03/24 03/23/24 tablet (Entresto) acetaminophen 325 mg tablet 650 mg PO Q6H PRN Pain 03/04/24 03/23/24 montelukast 10 mg tablet 10 mg PO DAILY 03/04/24 03/23/24 naproxen 375 mg tablet 375 mg PO DAILY PRN Pain 03/04/24 03/23/24 trazodone 50 mg tablet 50 mg PO BEDTIME 03/04/24 03/23/24 carvedilol 12.5 mg tablet 12.5 mg PO BID 05/08/24 spironolactone 25 mg tablet 25 mg PO DAILY 05/08/24 insulin aspart U-100 100 unit/mL See Rx Instructions .Route .COMPLEX 05/29/24 subcutaneous solution (Novolog U-100 Insulin aspart) Previous Rx's ?Medication ?Instructions ?Recorded ipratropium 0.5 mg-albuterol 3 mg 3 ml inhalation RQ4H WHILE AWAKE 03/06/24 (2.5 mg base)/3 mL nebulization #180 mL soln cholecalciferol (vitamin D3) 25 25 mcg PO DAILY 1 month #30 caps 05/08/24 mcg (1,000 unit) capsule tirzepatide 2.5 mg/0.5 mL 2.5 mg (0.5 mL) subcut QWEEK 4 05/08/24 subcutaneous pen injector weeks #2 mL (Amalia) Allergies Allergy/AdvReac Type Severity Reaction Status Date / Time ciprofloxacin Allergy Severe Anaphylaxis Verified 05/29/24 14:50 kiwi Allergy Severe Angioedema Verified 05/29/24 14:50 morphine Allergy Intermediate Itching Verified 05/29/24 14:50 atorvastatin [From Lipitor] AdvReac Mild myalgia Verified 05/29/24 14:50 metformin AdvReac Mild Abdominal Verified 05/29/24 14:50 Pain Review of Systems Constitutional: Constitutional: Denies body ache(s), Denies chills, Denies fever(s) and Denies headache(s) Eyes: Eyes: Denies blurry vision ENT: Denies headache(s) and Denies sore throat Cardiovascular: Cardiovascular: Reports chest pain and Denies dyspnea Respiratory: Respiratory: Denies cough and Denies dyspnea Gastrointestinal: Gastrointestinal: Reports abdominal pain, Denies nausea and Denies vomiting Musculoskeletal: Musculoskeletal: Denies back pain Integumentary/Breasts: Skin/Breast: Denies rash Neurologic: Denies headache(s) Psychiatric: Psychiatric: Denies anxiety PMFSH Past Medical History Medical History Asthma-COPD overlap syndrome Chronic diastolic CHF (congestive heart failure) HTN (hypertension) Morbid obesity Carpal tunnel syndrome GERD (gastroesophageal reflux disease) Insomnia Neuropathy Sleep apnea Insulin dependent type 2 diabetes mellitus HLD (hyperlipidemia) Diabetes mellitus Surgical History S/P S/P cholecystectomy Below-knee amputation of left lower extremity Family History Family History Mother Dementia Diabetes Father Dementia Diabetes Social History Social History Household Members: Children Housing: Apartment Do you presently have visiting nurse or other home services: No Alcohol intake: never Comment: D/C to home Patient Tobacco Use Status: Former Tobacco user Advance Directives: Yes Advance Directives on File: Yes Advance Directives Date on File: 03/07/24 Do you have a plan to hurt others: No Plan service: No Physical Exam Vital Signs: Vital Signs: Last Vital Signs Temp 97.6 F 05/29/24 16:12 Pulse 72 05/29/24 16:12 Resp 14 05/29/24 16:12 BP 152/54 H 05/29/24 16:12 Pulse Ox 93 05/29/24 16:12 O2 Del Method Room Air 05/29/24 16:12 BMI result Body Mass Index 42.9 Const: General: healthy appearing, comfortable, no acute distress, alert and awake Nutritional Appearance: well nourished Orientation/consciousness: patient oriented x3 HEENT: Head: Yes normocephalic and Yes atraumatic Eyes: Eyelids: Yes eyelids normal Conjunctivae: conjunctivae normal Sclerae: sclerae normal Corneas: corneas normal Pupils: Equal, round and reactive pupils present EOM: EOMs intact bilaterally Neck: Neck: Yes full ROM Resp: Effort & Inspection: normal respiratory effort, able to speak in complete sentences, no audible wheezes and not labored Auscultation: clear to auscultation bilaterally Cardio: Other: 2+ pitting edema to the right lower extremity. Rate: regular rate Rhythm: regular rhythm GI: Inspection: No distended Palpation (GI): Soft to palpation, not firm, nontender, no guarding and not rigid Skin: General skin exam: elasticity normal Neuro: General: patient oriented x3 Cranial nerves: Yes Equal, round and reactive pupils present and Yes Bilaterally intact EOM present Cognition (Neuro): normal cognition Extrem: Other: Left BKA Course Course Course Narrative: This is a Rapid Medical Examination (RME) performed by Devang Klein PA-C in triage. Full HPI, ROS, assessment and treatment plan per primary provider in the Main ED. 63 yo female with history of DAVEY, GERD, CHF, HTN, morbid obesity, DM2 w/ neuropathy who presents to the ER for evaluation of intermittent central, nonradiating chest pains that started yesterday at 3am & burning upper abdominal pains. +SOB. No N/V. She reports headache. Plan: Medical Decision Making Medical Decision Making [facility] Narrative: 63-year-old female with past medical history as documented above presents for evaluation of burning abdominal pain with associated chest pain. Clinically her symptoms are most likely related to GERD. The patient does not believe this is the cause of her pain and she has never been diagnosed with GERD in the past. Her lungs are clear to auscultation, she has not hypoxic. Her chest x-ray shows no acute pathology. Patient's EKG shows a sinus rhythm with a rate of 66 beats per minute, no ST segment elevations or depressions to suggest ischemic event. Patient's troponin is negative at 3.6 and she rules out for ACS since her symptoms started around 3:00 a.m., over 12 hours prior to labs being drawn. Patient's BNP is upper limits of normal at 91, but there are no pleural effusions on x-ray. She does have lower extremity edema and will encourage her to continue her Lasix. Differential Diagnosis Differential Diagnoses: The differential diagnosis associated with the presentation includes Chest pain ACS PE less likely CHF Bronchitis Chest wall pain GERD Admission/Observation Consideration of admission/observation: Escalation of care including admission/observation considered 63-year-old female with multiple comorbidities presents for evaluation of chest pain. She ruled out for ACS vitals are stable and she is ultimately stable for discharge Lab Data MDM Lab Attestation statement: I reviewed the patient's lab results. No leukocytosis. The patient does have chronic anemia with a hemoglobin today of 9.4 hematocrit 31.9. This is a normocytic anemia with an MCV of 82.4. Platelet count is just below normal at 138 K. There is no left shift. Patient's chemistries are significant for a chloride elevated to 113 CO2 which was low at 17. Sodium potassium within normal limits. There is no anion gap. The patient's BUN is very slightly elevated 20 with a normal creatinine 0.84. Glucose is elevated to 175. She has a known diabetic. As mentioned above, troponin negative, BNP upper limits of normal. LFTs within limits with exception of an AST that is just barely above normal at 33 05/29/24 15:47 05/29/24 15:47 Labs: Lab Results 05/29/24 Range/Units 15:47 WBC 7.0 (4.8-10.8) X10*3/uL RBC 3.87 L (4.20-5.50) X10*6/uL Hgb 9.4 L (12.0-16.0) g/dl Hct 31.9 L (37.0-47.0) % MCV 82.4 (80.0-98.0) fL MCH 24.3 L (27.0-33.0) pg MCHC 29.5 L (31.0-35.0) g/dl RDW 17.4 H (11.0-16.0) % Plt Count 138 L D (160-400) X10*3/uL MPV 11.1 (9.4-12.3) fL Immature Gran % (Auto) 0.9 H (0.0-0.4) % Neut % (Auto) 70.7 (45-73) % Lymph % (Auto) 18.8 L (20-40) % [place] % (Auto) 6.3 (2-11) % Eos % (Auto) 2.9 (0-4) % Baso % (Auto) 0.4 (0-2) % Lymph # (Auto) 1.3 (1.2-4.9) X10*3/uL [place] # (Auto) 0.4 (0.1-1.2) X10*3/uL Eos # (Auto) 0.2 (0.0-0.4) X10*3/uL Baso # (Auto) 0.0 (0.0-0.2) X10*3/uL Abs Immat Gran (auto) 0.06 H (0.00-0.03) X10*3/uL Absolute Neuts (auto) 4.9 (2.0-8.3) x10*3/uL Absolute Nucleated RBC 0.000 (0.0-0.012) X10*3/uL Nucleated RBC % (auto) 0.0 (0.0-0.2) /100WBC Sodium 141 (135-145) mmol/L Potassium 4.7 (3.3-5.1) mmol/L Chloride 113 H (96-108) mmol/L Carbon Dioxide 17 L (22-29) mmol/L Anion Gap 16 (12-20) BUN 20 H (9-16) mg/dL Creatinine 0.84 (0.5-1.4) mg/dL Estim Creat Clear Calc 89.5 Estimated GFR > 60 Random Glucose 175 H (60-115) mg/dL Calcium 8.8 D (8.4-10.2) mg/dL Magnesium 2.0 (1.6-2.6) mg/dL Total Bilirubin 0.5 (0.0-1.0) mg/dL Direct Bilirubin 0.1 (0.0-0.5) mg/dL AST 33 H (5-31) U/L ALT 21 (0-31) U/L Alkaline Phosphatase 109 (39-117) U/L Troponin I High Sens 3.6 (<3.5-17.0) ng/L B-Natriuretic Peptide 91 (<100) pg/mL Total Protein 7.1 (6.5-8.0) g/dL Albumin 3.5 (3.5-5.0) g/dL Lipase 27 (8-78) U/L Discharge Plan Discharge Clinical Impression: Chest pain Patient Disposition: Home, Self-Care Instructions: Chest Pain (ED) Additional Instructions: Your workup in the ER today was reassuring. This includes your vital signs, blood work, EKG, chest x-ray. I do recommend taking all of your medications as prescribed including her Lasix This will help with her leg swelling Avoid excessive salt and fluid consumption Follow-up with your outpatient providers, return for new or worsening symptoms Prescriptions: No Action olopatadine 0.1 % drops 1 drp ophthalmic (eye) BID PRN (Reason: allergies) gabapentin 300 mg capsule 1 cap PO BEDTIME omeprazole 20 mg capsule,delayed release(DR/EC) 1 cap PO DAILY@0630 albuterol sulfate 90 mcg/actuation HFA aerosol inhaler 2 puff inhalation Q4-6H PRN (Reason: Shortness Of Breath) hydroxyzine pamoate 25 mg capsule 1 cap PO TID PRN (Reason: Anxiety) Saccharomyces boulardii [Probiotic (S.boulardii)] 250 mg capsule 1 cap PO DAILY diclofenac sodium 1 % gel 2 g topical TID PRN (Reason: Inflammation) Rx Instructions: apply topically to affected area Benadryl 2 % Gel 1 appl TOPICAL TID PRN (Reason: Itching) insulin aspart U-100 [Novolog U-100 Insulin aspart] 100 unit/mL solution See Rx Instructions .ROUTE .COMPLEX Rx Instructions: SLIDING SCALE; before meals; fluticasone furoate-vilanterol [Breo Ellipta] 100-25 mcg/dose blister with device 1 ea inhalation DAILY Entresto 24-26 mg tablet 1 tab PO BID fexofenadine 180 mg tablet 180 mg PO DAILY fluticasone propionate 50 mcg/actuation spray,suspension 1 spray intranasal BID PRN (Reason: Allergy Symptoms) gabapentin 800 mg tablet 800 mg PO BID insulin glargine [Lantus U-100 Insulin] 100 unit/mL solution 50 unit subcut BID metoprolol succinate 100 mg tablet extended release 24 hr 100 mg PO DAILY trazodone 50 mg tablet 50 mg PO BEDTIME acetaminophen 325 mg tablet 650 mg PO Q6H PRN (Reason: Pain) naproxen 375 mg tablet 375 mg PO DAILY PRN (Reason: Pain) montelukast 10 mg tablet 10 mg PO DAILY ipratropium-albuterol 0.5 mg-3 mg(2.5 mg base)/3 mL Solution For Nebulization 3 ml inhalation RQ4H WHILE AWAKE Qty: 180 0RF spironolactone 25 mg tablet 25 mg PO DAILY carvedilol 12.5 mg tablet 12.5 mg PO BID Mounjaro 2.5 mg/0.5 mL pen injector 2.5 mg subcut QWEEK 28 Days Qty: 2 0RF cholecalciferol (vitamin D3) 25 mcg (1,000 unit) capsule 25 mcg PO DAILY 30 Days Qty: 30 0RF Print Language: [place]
[2024-05-29 14:50] VITALS: BP 174/67; PULSE 71; RESP 18; TEMP 37; O2SAT 92; BMI 42.9
[2024-05-29 15:53] LABS: MANUAL DIFF FLAG NO
[2024-05-29 15:57] LABS: Basophils Percent Auto 0.4 % (0-2); Eosinophils Absolute Auto 0.2 X10*3/uL (0.0-0.4); Eosinophils Percent Auto 2.9 % (0-4); Hematocrit 31.9 % (37.0-47.0); Hemoglobin 9.4 g/dl (12.0-16.0); Imm Gran Abs Auto 0.06 X10*3/uL (0.00-0.03); Imm Gran Pct Auto 0.9 % (0.0-0.4); Lymphocytes Absolute Auto 1.3 X10*3/uL (1.2-4.9); Lymphocytes Percent Auto 18.8 % (20-40); Mean Corpuscular HGB Conc 29.5 g/dl (31.0-35.0); Mean Corpuscular Hemoglobin 24.3 pg (27.0-33.0); Mean Corpuscular Volume 82.4 fL (80.0-98.0); Mean Platelet Volume 11.1 fL (9.4-12.3); Monocytes Absolute Auto 0.4 X10*3/uL (0.1-1.2); Monocytes Percent Auto 6.3 % (2-11); Neutrophils Absolute Auto 4.9 x10*3/uL (2.0-8.3); Neutrophils Percent Auto 70.7 % (45-73); Platelet Count 138 X10*3/uL (160-400); Red Blood Count 3.87 X10*6/uL (4.20-5.50); Red Cell Distribution Width 17.4 % (11.0-16.0)
[2024-05-29 16:12] VITALS: BP 152/54; PULSE 72; RESP 14; TEMP 36.4; O2SAT 93
[2024-05-29 16:15] LABS: Alanine Aminotransferase 21 U/L (0-31); Albumin Level 3.5 g/dL (3.5-5.0); Alkaline Phosphatase 109 U/L (39-117); Anion Gap 16 (12-20); Aspartate Amino Transferase 33 U/L (5-31); Bilirubin Direct 0.1 mg/dL (0.0-0.5); Bilirubin Total 0.5 mg/dL (0.0-1.0); Blood Urea Nitrogen 20 mg/dL (9-16); Calcium 8.8 mg/dL (8.4-10.2); Carbon Dioxide 17 mmol/L (22-29); Chloride 113 mmol/L (96-108); Creatinine Clr Calc Pharmacy 89.5; Estimated Glomerular Filt Rate > 60; Glucose Random 175 mg/dL (60-115); Lipase 27 U/L (8-78); Potassium 4.7 mmol/L (3.3-5.1); Sodium 141 mmol/L (135-145); Total Protein 7.1 g/dL (6.5-8.0)
[2024-05-29 16:19] LABS: B Type Natriuretic Peptide 91 pg/mL (<100)
[2024-05-29 16:21] LABS: Troponin-I High Sensitivity 3.6 ng/L (<3.5-17.0)
--- NOTE | 2024-05-29 17:21 | PC.NURSE ---
pt ambulated independently. Stand-by assist their for precautions. No walker or cane, pt with steady gait
[2024-05-29 17:55] VITALS: BP 150/62; PULSE 75; RESP 18; TEMP 36.6; O2SAT 94
== END 2024-05-29 17:56 | disposition home or self-care (01) ==
PROVIDERS: Physician Assistant; Emergency Provider Emergency Medicine; PCP Internal Medicine
DX: R07.89 Other chest pain (principal); R06.02 Shortness of breath; Z79.899 Other long term (current) drug therapy
CPT/HCPCS: 36415; 71045; 80048; 80076; 83690; 83735; 83880; 84484; 85025; 93005; 99283; 99284

== ENCOUNTER → 2024-05-29 14:38 | Outpatient (BNV) | payer OTHER, SELFPAY | PROVIDERS: Emergency Provider Emergency Medicine; PCP Internal Medicine; Visit Provider Internal Medicine Cardiovascular Disease | DX: R94.31 Abnormal electrocardiogram [ECG] [EKG] (principal); R07.9 Chest pain, unspecified | CPT/HCPCS: 93010 ==

== ENCOUNTER → 2024-06-18 11:58 | Outpatient (BNVA) | payer OTHER, SELFPAY | PROVIDERS: PCP Internal Medicine; Visit Provider Registered Nurse Diabetes Educator ==

== ENCOUNTER 2024-06-29 13:48 | Outpatient (AMB) | payer OTHER, SELFPAY ==
--- NOTE | 2024-06-29 13:49 | A.OFFVIS_ITS ---
Vital Signs 06/29/24 13:50 Height 5 ft 6 in BMI Reason not done Patient refused/unable BP 148/78 H Blood Pressure Location Rt brachial Pulse 96 Pulse Source Pulse Oximeter Intake Visit Reasons: T2DM Intake Note: Patient presents today for a follow-up on Diabetes Type 2: Most recent Eye Exam: DUE Most recent Podiatry Exam: Does not see a Tobacco Sorter Most recent HbA1c: 8.6%, 04/17/2024 Random Glucose- 141mg/dL, Today Director Orange Required: No Accompanied by: Self / Same As Patient Allergies ciprofloxacin Allergy (Severe, Verified 05/29/24 14:50) Anaphylaxis kiwi Allergy (Severe, Verified 05/29/24 14:50) Angioedema morphine Allergy (Intermediate, Verified 05/29/24 14:50) Itching atorvastatin [From Lipitor] Adverse Reaction (Mild, Verified 05/29/24 14:50) myalgia metformin Adverse Reaction (Mild, Verified 05/29/24 14:50) Abdominal Pain Medication List - Last Reconciled 06/29/24 by Destinee Drake NP acetaminophen 650 mg PO Q6H PRN acetone (urine) test (Ketone Urine Test strips) As directed: When should you test for ketones? It is advisable to check for ketones under the following con ditions when: Your blood glucose is higher than 250mg/dl. Feeling nauseated, throwing up, or have pains in your abdominal region. Have a cold or flu. Have general body fatigue. Feel thirsty or have a very dry mouth. Have flushed skin. Have a fruity breath or a hard time breathing. You feel perplexed or in fog. albuterol sulfate 90 mcg/actuation 2 puffs inhalation Q4-6H PRN carvedilol 12.5 mg PO BID cholecalciferol (vitamin D3) 25 mcg PO DAILY 1 month diclofenac sodium 1% 2 grams topical TID PRN diphenhydramine HCl 2% (Benadryl) 1 appl topical TID PRN dulaglutide (Trulicity) 0.75 mg (0.5 mL) subcut QWEEK 30 days fexofenadine 180 mg PO DAILY fluticasone furoate-vilanterol 100-25 mcg/dose (Breo Ellipta) 1 ea inhalation DAILY fluticasone propionate 50 mcg/actuation 1 spray intranasal BID PRN gabapentin 1 cap PO BEDTIME gabapentin 800 mg PO BID glucagon 3 mg/actuation (Baqsimi) 3 mg intranasal .prn PRN 30 days MDD 6mg hydroxyzine pamoate 1 cap PO TID PRN insulin aspart U-100 (Novolog U-100 Insulin aspart) 120 units (1.2 mL) continuous subcutaneous infusion QAM 30 days insulin aspart U-100 (Novolog U-100 Insulin aspart) SLIDING SCALE; before meals; insulin glargine (Lantus U-100 Insulin) 50 units subcut BID ipratropium-albuterol 0.5 mg-3 mg(2.5 mg base)/3 mL 3 mL inhalation RQ4H WHILE AWAKE lisinopril 20 mg PO DAILY metoprolol succinate ER 100 mg PO DAILY montelukast 10 mg PO DAILY naproxen 375 mg PO DAILY PRN olopatadine 0.1% 1 drp ophthalmic (eye) BID PRN omeprazole 1 cap PO DAILY@0630 Saccharomyces boulardii (Probiotic (S.boulardii)) 1 cap PO DAILY spironolactone 25 mg PO DAILY trazodone 50 mg PO BEDTIME HPI Comments Details: 63 year old female presents for follow-up visit. She was last seen 3 weeks ago at which time she started back on a G7 sensor. Initially diagnosed with T2DM in 1980 with gestational . Was initially started on treatment with insulin while in [place]. 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 She has been seen by the Bariatric Surgeon at [facility]. She followed the prescribed bariatric diet for a week and then stopped. At her last visit she was changed from Victoza 1.8 mg daily to Mounjaro 0.25 mg weekly. She has not yet started the Mounjaro as she is finishing up with her previous Victoza prescription and was not able to get mounjaro. She plans to try to go back on a bariatric diet. She had pump supplies shipped to her in the past which she did not use. She has met with Kristen LOW and he is interested in going on a pump. She reports she understands how to count carbohydrates. Current regimen:Lantus 50 units am 54 units pm Novolog sliding scale: 20-30 unit tid and at times takes a 4th shot in the evening She reports no recent lows. She ran out of sensors and has been checking her sugars 1.7 times per day with a average of 197. Sugars are running higher after lunch. [facility] Medical History (Updated 06/07/24 @ 15:00 by Destinee Drake NP) Type 2 diabetes mellitus Asthma-COPD overlap syndrome Chronic diastolic CHF (congestive heart failure) HTN (hypertension) Morbid obesity Carpal tunnel syndrome GERD (gastroesophageal reflux disease) Insomnia Neuropathy Sleep apnea Insulin dependent type 2 diabetes mellitus HLD (hyperlipidemia) Diabetes mellitus Surgical History S/P S/P cholecystectomy Below-knee amputation of left lower extremity Family History Mother Dementia Diabetes Father Dementia Diabetes Social History Household Members: Children Housing: Apartment Do you presently have visiting nurse or other home services: No Alcohol intake: never Comment: D/C to home Patient Tobacco Use Status: Former Tobacco user Advance Directives Date on File: 03/07/24 service: No Physical Exam Vital Signs: Last Vital Signs Pulse 96 06/29/24 13:50 BP 148/78 H 06/29/24 13:50 Const Other: Absence of Cushingoid features. Absence of acromegalic features. Neck exam reveals nl size thyroid about 15 gms. No thyroid nodules palpable. No carotid bruits present. Lungs CTA. Wearing home O2 Heart S1 S2, Reg R/R. No M/R G. Skin exam reveals absence of vitiligo or acanthosis nigricans. Minimal edema. Results Reviewed Results Reviewed: Laboratory Last Values Glucose (Clinic) 141 mg/dL (60-115) H 06/29/24 13:56 Assessment & Plan Assessment & Plan (1) Type 2 diabetes mellitus: Code(s): E11.9 - Type 2 diabetes mellitus without complications Category: Medical Plan: Type 2 diabetic on basal bolus insulin and Victoza with poor control. Her average sugar has shown some improvement. She is working with the simulation educator for pre pump pump training. She will contact [employer] to arrange for replacement of several sensors that fell off early. She was advised to increase her insulin dosing for lunch by 4 units and was also asked to record all doses of insulin until she sees Kristen LOW so that we have a better understanding of her insulin requirements. She has been unable to get Mounjaro and requires a PA. She has been on Victoza for an extended timeframe. Will try for Trulicity. She is not appropriate to be on metformin due to her cardiac status. Medications: New dulaglutide (Trulicity) 0.75 mg (0.5 mL) subcut QWEEK 30 days 2.5 mL 6RF E11.9 - Type 2 diabetes mellitus without complications Discontinued tirzepatide (Mounjaro) Discontinued Reason: Insurance Denied 2.5 mg (0.5 mL) subcut QWEEK 4 weeks 2 mL 0RF E11.9 - Type 2 diabetes mellitus without complications, Z79.4 - jail (current) use of insulin tirzepatide (Mounjaro) Discontinued Reason: Insurance Denied 5 mg (0.5 mL) subcut QWEEK 30 days 2.5 mL 2RF E11.9 - Type 2 diabetes mellitus without complications Coding Level of Care Code Est Pt Level 4 (36998) Complex EM visit Add On G2211 Diagnoses Type 2 diabetes mellitus E11.9
[2024-06-29 13:50] VITALS: BP 148/78; PULSE 96
[2024-06-29 14:01] LABS: Glucose, Whole Blood 141 mg/dL (60-115)
== END 2024-06-29 14:54 | disposition home or self-care (01) ==
PROVIDERS: PCP Internal Medicine; Visit Provider Nurse Practitioner Adult Health
DX: E11.9 Type 2 diabetes mellitus without complications (principal)
CPT/HCPCS: 99214; G2211

== ENCOUNTER → 2024-06-29 13:48 | Outpatient (BNVA) | payer OTHER, SELFPAY | PROVIDERS: PCP Internal Medicine; Visit Provider Nurse Practitioner Adult Health | DX: E11.9 Type 2 diabetes mellitus without complications (principal); Z79.4 Long term (current) use of insulin | CPT/HCPCS: 82947; 99212 ==

== ENCOUNTER 2024-07-09 15:00 | Outpatient (AMB) | payer OTHER, SELFPAY ==
--- NOTE | 2024-07-09 15:38 | A.OFFVIS_ITS ---
Intake Intake Visit Reasons: Pump training-call back again later Vertical Roll Operator Required: No Accompanied by: Self / Same As Patient Allergies ciprofloxacin Allergy (Severe, Verified 05/29/24 14:50) Anaphylaxis kiwi Allergy (Severe, Verified 05/29/24 14:50) Angioedema morphine Allergy (Intermediate, Verified 05/29/24 14:50) Itching atorvastatin [From Lipitor] Adverse Reaction (Mild, Verified 05/29/24 14:50) myalgia metformin Adverse Reaction (Mild, Verified 05/29/24 14:50) Abdominal Pain HPI Comprehensive Diabetes Asmnt Most Recent Diabetes Results: Creatinine 0.84 mg/dL (0.5-1.4) 05/29/24 Blood Urea Nitrogen 20 mg/dL (9-16) H 05/29/24 Sodium 141 mmol/L (135-145) 05/29/24 Potassium 4.7 mmol/L (3.3-5.1) 05/29/24 Chloride 113 mmol/L (96-108) H 05/29/24 Carbon Dioxide 17 mmol/L (22-29) L 05/29/24 Calcium 8.8 mg/dL (8.4-10.2) 05/29/24 AST 33 U/L (5-31) H 05/29/24 ALT 21 U/L (0-31) 05/29/24 Total Protein 7.1 g/dL (6.5-8.0) 05/29/24 Albumin 3.5 g/dL (3.5-5.0) 05/29/24 [facility] Medical History (Updated 06/07/24 @ 15:00 by Destinee Drake NP) Type 2 diabetes mellitus Asthma-COPD overlap syndrome Chronic diastolic CHF (congestive heart failure) HTN (hypertension) Morbid obesity Carpal tunnel syndrome GERD (gastroesophageal reflux disease) Insomnia Neuropathy Sleep apnea Insulin dependent type 2 diabetes mellitus HLD (hyperlipidemia) Diabetes mellitus Surgical History S/P S/P cholecystectomy Below-knee amputation of left lower extremity Family History Mother Dementia Diabetes Father Dementia Diabetes Social History Household Members: Children Housing: Apartment Do you presently have visiting nurse or other home services: No Alcohol intake: never Comment: D/C to home Patient Tobacco Use Status: Former Tobacco user Advance Directives Date on File: 03/07/24 service: No Assessment & Plan Assessment & Plan (1) Insulin dependent type 2 diabetes mellitus: Code(s): E11.9 - Type 2 diabetes mellitus without complications; Z79.4 - half-way (current) use of insulin Plan: Patient presents for pump training for t-Slim X2 pump and Dexcom G7 training today. The following topics were reviewed today: -Pump therapy basic concepts: Basal/bolus, insulin to carb ratio, correction factor, insulin on board -Device settings: Bluetooth/mobile connection (if applicable), correct date and time, sound volume -CGM settings(if integrated system): CGM graft views and trend arrows, alerts and alarms, Start new sensor ??? High Alert: 250 mg/dl ??? Low Alert: 70 mg/dl ? Insulin delivery settings Program insulin to carb ratio, correction factor, target blood glucose, suspend or resume insulin delivery, bolus limit and basal limit settings Instructed patient to only use room temperature insulin, how to load cartridge or fill pod, with insulin. Fill tubing and cannula (if applicable) Inserting infusion set or starting pod Troubleshooting after starting new pod or inserting new insulin set: Occlusion, adhesive tape sensitivity, redness Check BG 2 hours after site change Safety information: Importance of a backup plan, for manual injections, proper prescriptions and emergency supplies ketone strips, and rules for testing for ketones Patient was able to insert insulin set today without difficulty. Patient understands the basic concepts of pump therapy, how to give insulin for meals and snacks, how to troubleshoot for hyper and hypoglycemia. Setting verified by [facility] Basal rate(s) (units/hour) : 12 AM? to 12 AM? 2.3 units / hr Bolus setting Insulin Carbohydrate Ratio (s) 12 AM? to 12 AM? 1:4 Correction Factor / Sensitivity Factor 12 AM? to 12 AM? 1:14 Active Insulin Time:?5 hours Target(s): 12 AM? to 12 AM? 110 mg/dL Patient will follow up with [facility] as instructed Patient will contact [facility] with questions or concerns, patient given IT number to support in any technical issues related to insulin pump Portions of this note were created using voice recognition software, please excuse any words or phrases that may have been misinterpreted. Coding Level of Care Code Est Pt Level 1 (19866) Diagnoses Insulin dependent type 2 diabetes mellitus E11.9; Z79.4
== END 2024-07-09 16:35 | disposition home or self-care (01) ==
PROVIDERS: PCP Internal Medicine; Visit Provider Registered Nurse Diabetes Educator
DX: E11.9 Type 2 diabetes mellitus without complications (principal); Z79.4 Long term (current) use of insulin

== ENCOUNTER → 2024-07-09 15:00 | Outpatient (BNVA) | payer OTHER, SELFPAY | PROVIDERS: PCP Internal Medicine; Visit Provider Registered Nurse Diabetes Educator | DX: E11.9 Type 2 diabetes mellitus without complications (principal); Z79.4 Long term (current) use of insulin; Z96.41 Presence of insulin pump (external) (internal); Z46.81 Encounter for fitting and adjustment of insulin pump | CPT/HCPCS: 99211 ==

== ENCOUNTER 2024-07-27 12:02 | Outpatient (AMB) | payer OTHER, SELFPAY ==
--- NOTE | 2024-07-27 09:21 | A.OFFVIS_ITS ---
Vital Signs 07/27/24 12:47 Height 5 ft 6 in BMI Reason not done Patient refused/unable BP 120/60 Blood Pressure Location Lt brachial Position Sitting Pulse 71 Pulse Source Pulse Oximeter Intake Visit Reasons: T2DM (NEEDS ROOM 5)/CONFIRMED Intake Note: Patient presents today for a follow-up on Type 2 Diabetes Mellitus: Last Diabetic eye exam was on: DUE Last Podiatry exam was on: Does not see a Loom Fixer Most recent HbA1c: 8.0%, 07/27/2024 Random Glucose- 191 mg/dL, Today Milling Machine Operator Gear Required: Yes Milling Machine Operator Gear Language: [place] Worker Services: Milling Machine Operator Gear Offered & Declined Accompanied by: Self / Same As Patient Allergies ciprofloxacin Allergy (Severe, Verified 05/29/24 14:50) Anaphylaxis kiwi Allergy (Severe, Verified 05/29/24 14:50) Angioedema morphine Allergy (Intermediate, Verified 05/29/24 14:50) Itching atorvastatin [From Lipitor] Adverse Reaction (Mild, Verified 05/29/24 14:50) myalgia metformin Adverse Reaction (Mild, Verified 05/29/24 14:50) Abdominal Pain HPI Comments Details: 63 year old female presents for follow-up visit for type 2 diabetes. She was last seen by Kristen LOW see on 07/09/24 to initiate tandem insulin pump. I saw her in clinic earlier in June. Initially diagnosed with T2DM in 1980 with gestational . Was initially started on treatment with insulin while in [place]. 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 She has been seen by the Bariatric Surgeon at [facility] earlier this year and followed the diet for 1 week but had difficulties with this. Current regimen: Tandem insulin pump Mounjaro 5 mg weekly Backup insulin plan for pump failure: Lantus 50 units am 54 units pm Novolog sliding scale: 20-30 Dexcom average glucose: [192 ] 14 day continuous glucose monitor report reviewed Glucose Managment indicator [ ] % Days with CGM data 65% TIme in ranges: [ 21] % very high (above 250) Twenty % high ?(181-250) 51 % in range ?(70-180] 0 % low (69-55) 0 % ?very low (below 54) [ 71] Standard Deviation Interpretation [average overnight in reasonable range numbers increase after 12 meal ] Average daily dose of insulin 130 In addition to this she has been self injecting with humalog once daily 20 units to bring her glucose down Basal 54.7 units 42% Bolus 75 0.47 58% Total daily carb g 229 Settings had been changed since last visit Basal rate(s) (units/hour) : 12 AM? to 12 AM? 2.0 units / hr NEW 2.2 Bolus setting Insulin Carbohydrate Ratio (s) 12 AM? to 12 AM? 1:14 new 1:10 Correction Factor / Sensitivity Factor 12 AM? to 12 AM? 1:4.0 Active Insulin Time:?5 hours new 4 hours Target(s): 12 AM? to 12 AM? 110 mg/dL Last eye exam: due Nephropathy: None last EGFR > 60 measured on 06/06 no microalbumin in EHR Neuropathy: on gabapentin numbness, tingling, cramping podiatry: HLD: on statin last LDL 99 measured on 04/17/24 CHF: Followed by Cardiology Seen by GI today and will be having upcoming endoscopy/colonscopy [facility] Prior Imaging: Date of Service: 05/02/24 EXAMINATION: US COMPLETE ABDOMEN WITH LIVER ELASTOGRAPHY Real-time imaging of the abdominal viscera. Noninvasive ultrasound liver fibrosis assessment is performed using Kyle ElastPQ point quantification shear wave elastography (2D-SWE) with a C5-2 MHz transducer. Multiple elastography samples are obtained. FINDINGS: LIVER: The liver is enlarged at 20 cm with increased echogenicity consistent with hepatic steatosis. No focal lesion or intrahepatic biliary duct dilatation. The right lobe measures 20.0 cm in length. The left lobe measures 15.0 cm in length. Portal flow is towards the liver (hepatopetal). Shear wave liver elastography median stiffness is 1.74 m/s (reference: normal median stiffness is 1.3 m/s or less). IQR/median stiffness to assess sampling precision is 0.08 (reference: good quality data set is IQR/median stiffness of 0.15 or less). GALLBLADDER: Status post cholecystectomy. COMMON BILE DUCT: Normal in caliber measuring 0.4 cm in diameter. RIGHT KIDNEY: No hydronephrosis. No renal calculi or focal parenchymal lesions. The kidney measures 11.6 cm in maximum dimension. LEFT KIDNEY: No hydronephrosis. No renal calculi or focal parenchymal lesions. The kidney measures 10.5 cm in maximum dimension. SPLEEN:. The spleen is mildly enlarged measuring 12.8 cm in maximum dimension. FREE FLUID: None. US/US abdomen comp w elastography IMPRESSION: 1. Enlarged fatty liver 2. Liver elastography: Although measurements are suggestive of compensated advanced chronic liver disease, there is statistical variability of the sampling which decreases accuracy. Action Plan: [] rescreen two years from date of screening labs[ ] [facility] Medical History (Updated 06/07/24 @ 15:00 by Destinee Drake NP) Type 2 diabetes mellitus Asthma-COPD overlap syndrome Chronic diastolic CHF (congestive heart failure) HTN (hypertension) Morbid obesity Carpal tunnel syndrome GERD (gastroesophageal reflux disease) Insomnia Neuropathy Sleep apnea Insulin dependent type 2 diabetes mellitus HLD (hyperlipidemia) Diabetes mellitus Surgical History S/P S/P cholecystectomy Below-knee amputation of left lower extremity Family History Mother Dementia Diabetes Father Dementia Diabetes Social History Household Members: Children Housing: Apartment Do you presently have visiting nurse or other home services: No Alcohol intake: never Comment: D/C to home Patient Tobacco Use Status: Former Tobacco user Advance Directives Date on File: 03/07/24 service: No Physical Exam Vital Signs: Last Vital Signs Pulse 71 07/27/24 12:47 BP 120/60 07/27/24 12:47 Const Other: Absence of Cushingoid features. Absence of acromegalic features. Neck exam reveals nl size thyroid about 15 gms. No thyroid nodules palpable. Heart S1 S2, Reg R/R. No M/R G. Skin exam reveals absence of vitiligo or acanthosis nigricans. + edema prosthesis left leg Office Procedures Glucose Monitoring Details Details: see hpi [id number] - Glucose monitoring, continuous-physician I&R Procedure code (CPT) selection complete Results AMB Hemoglobin A1c AMB Hemoglobin A1c 8.0 % Last Edit by PAULINO Jimenez on 07/27/24 12:56 Results Reviewed Results Reviewed: Laboratory Last Values Glucose (Clinic) 191 mg/dL (60-115) H 07/27/24 12:43 Hgb A1c (Clinic) 8.0 % (4.0-6.0) H 07/27/24 12:48 Laboratory Tests 03/04/24 04/17/24 05/29/24 06:22 10:55 15:47 Plt Count 160 220 D 138 L D Potassium 4.7 Creatinine 0.84 Estim Creat Clear Calc 89.5 Estimated GFR > 60 Calcium 8.8 D AST 33 H ALT 21 Triglycerides 156 H Cholesterol 174 LDL Cholesterol, Calc 99 HDL Cholesterol 44 25-OH Vitamin D Total 19.5 L TSH 1.35 Assessment & Plan Assessment & Plan (1) Type 2 diabetes mellitus: Code(s): E11.9 - Type 2 diabetes mellitus without complications Category: Medical Plan: Type 2 diabetic with complications of neuropathy presents for initial follow up pump visit. Her glucose average is 192 and she has been needing to supplement her pump with a an extra 20 units by injection x1 per day. I advised her that she should no longer need this unless she is concerned she has a insert problem in needed to change her site. Today I reduced active insulin time to 4 hours, increase the background basal rate and adjusted the correction factor to lower her glucose readings. She was asked to closely track her sugars and if having any lows contact us immediately. She will continue Mounjaro. She has an appointment with the Kristen LOW in 2 weeks and I will see you back 2 weeks after that. Orders: Orders AMB Hemoglobin A1c Today E11.9 - Type 2 diabetes mellitus without complications AMB Glucose Monitoring Today E11.9 - Type 2 diabetes mellitus without complications Medications: Changed From insulin aspart U-100 (Novolog U-100 Insulin aspart) 120 units (1.2 mL) continuous subcutaneous infusion QAM 30 days 40 mL 11RF E11.9 - Type 2 diabetes mellitus without complications To insulin aspart U-100 (Novolog U-100 Insulin aspart) up to 150 units per day via continuous infusion via continuous subcutaneous infusion every morning; 50 mL 11RF 30 days MDD 150 units E11.9 - Type 2 diabetes mellitus without complications Coding Level of Care Code Est Pt Level 4 (37649) Complex EM visit Add On G2211 Diagnoses Type 2 diabetes mellitus E11.9 CPT Codes Details - CPT: 55824 - Glucose monitoring, continuous-physician I&R ([id number]) Time Spent (min) 30 Comment Reviewing labs/provider notes, glucose sensor/pump reports, face to face, chart doc
[2024-07-27 12:47] VITALS: BP 120/60; PULSE 71
[2024-07-27 12:48] LABS: Glucose, Whole Blood 191 mg/dL (60-115)
== END 2024-07-27 12:54 | disposition home or self-care (01) ==
PROVIDERS: PCP Internal Medicine; Visit Provider Nurse Practitioner Adult Health
DX: E11.9 Type 2 diabetes mellitus without complications (principal)
CPT/HCPCS: 95251; 99214; G2211

== ENCOUNTER → 2024-07-27 12:02 | Outpatient (BNVA) | payer OTHER, SELFPAY | PROVIDERS: PCP Internal Medicine; Visit Provider Nurse Practitioner Adult Health | DX: E11.9 Type 2 diabetes mellitus without complications (principal); Z46.81 Encounter for fitting and adjustment of insulin pump; Z79.4 Long term (current) use of insulin | CPT/HCPCS: 82947; 83036; 99212 ==

== ENCOUNTER 2024-08-17 11:08 | Outpatient (AMB) | payer OTHER, SELFPAY ==
--- NOTE | 2024-08-17 07:17 | A.OFFVIS_ITS ---
Intake Visit Reasons: T2DM/TH ok per Destinee Intake Note: Patient presents today via video call for a follow-up on Type 2 Diabetes Mellitus: Last Diabetic eye exam was on: DUE Last Podiatry exam was on: Does not see a Industrial Energy Engineer Most recent HbA1c: 8.0%, 07/27/2024 Order To Delivery Supervisor Required: Yes Order To Delivery Supervisor Language: Engineering Job Titles Services: Order To Delivery Supervisor Offered & Declined Accompanied by: Self / Same As Patient Allergies ciprofloxacin Allergy (Severe, Verified 05/29/24 14:50) Anaphylaxis kiwi Allergy (Severe, Verified 05/29/24 14:50) Angioedema morphine Allergy (Intermediate, Verified 05/29/24 14:50) Itching atorvastatin [From Lipitor] Adverse Reaction (Mild, Verified 05/29/24 14:50) myalgia metformin Adverse Reaction (Mild, Verified 05/29/24 14:50) Abdominal Pain HPI Comments Details: 64 year old female presents for telehealth visit for type 2 diabetes via [employer]ximity. She was last seen by Kristen LOW see on 07/09/24 to initiate tandem insulin pump. I saw her in clinic 3 weeks ago and adjusted insulin pump settings (active insulin time decreased, changed carb ratio and sensitivity to give more pre meal and correction insulin) to bring her in target range. A1C was 8.6% 04/24/24, 8% 07/25/24 Initially diagnosed with T2DM in 1980 with gestational . Was initially started on treatment with insulin while in [place]. 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 She has been seen by the Bariatric Surgeon at [facility] earlier this year and followed the diet for 1 week but had difficulties with this. Current regimen: Tandem insulin pump Mounjaro 5 mg weekly Backup insulin plan for pump failure: Lantus 50 units am 54 units pm Novolog sliding scale: 20-30 Dexcom average glucose: 218 14 day continuous glucose monitor report reviewed TIme in ranges: Thirty % very high (above 250) 35 % high ?(181-250) 35 % in range ?(70-180] 0 % low (69-55) 0 % ?very low (below 54) Sensory use 71% of the time Interpretation [readings overall 40 points over target with increase sugars after lunch and dinner ] Basal rate(s) (units/hour) : 12 AM? to 12 AM? 2.2 units Bolus setting Insulin Carbohydrate Ratio (s) 12 AM? to 12 AM? 1:4 Correction Factor / Sensitivity Factor 12 AM? to 12 AM? 1:14 1:12 new Active Insulin Time:?4 hours Target(s): 12 AM? to 12 AM? 110 mg/dL Last eye exam: due Nephropathy: None last EGFR > 60 measured on 06/06 no microalbumin in EHR Neuropathy: on gabapentin numbness, tingling, cramping podiatry: HLD:not on statin had myalgias to atorvastatin, last LDL 99 measured on 04/17/24 CHF: Followed by Cardiology Followed by GI Medicine [facility] Prior Imaging: Date of Service: 05/02/24 EXAMINATION: US COMPLETE ABDOMEN WITH LIVER ELASTOGRAPHY Real-time imaging of the abdominal viscera. Noninvasive ultrasound liver fibrosis assessment is performed using Kyle ElastPQ point quantification shear wave elastography (2D-SWE) with a C5-2 MHz transducer. Multiple elastography samples are obtained. FINDINGS: LIVER: The liver is enlarged at 20 cm with increased echogenicity consistent with hepatic steatosis. No focal lesion or intrahepatic biliary duct dilatation. The right lobe measures 20.0 cm in length. The left lobe measures 15.0 cm in length. Portal flow is towards the liver (hepatopetal). Shear wave liver elastography median stiffness is 1.74 m/s (reference: normal median stiffness is 1.3 m/s or less). IQR/median stiffness to assess sampling precision is 0.08 (reference: good quality data set is IQR/median stiffness of 0.15 or less). GALLBLADDER: Status post cholecystectomy. COMMON BILE DUCT: Normal in caliber measuring 0.4 cm in diameter. RIGHT KIDNEY: No hydronephrosis. No renal calculi or focal parenchymal lesions. The kidney measures 11.6 cm in maximum dimension. LEFT KIDNEY: No hydronephrosis. No renal calculi or focal parenchymal lesions. The kidney measures 10.5 cm in maximum dimension. SPLEEN:. The spleen is mildly enlarged measuring 12.8 cm in maximum dimension. FREE FLUID: None. US/US abdomen comp w elastography IMPRESSION: 1. Enlarged fatty liver 2. Liver elastography: Although measurements are suggestive of compensated advanced chronic liver disease, there is statistical variability of the sampling which decreases accuracy. Patient is on GLP-1 agonist. [facility] Medical History (Updated 06/07/24 @ 15:00 by Destinee Drake NP) Type 2 diabetes mellitus Asthma-COPD overlap syndrome Chronic diastolic CHF (congestive heart failure) HTN (hypertension) Morbid obesity Carpal tunnel syndrome GERD (gastroesophageal reflux disease) Insomnia Neuropathy Sleep apnea Insulin dependent type 2 diabetes mellitus HLD (hyperlipidemia) Diabetes mellitus Surgical History S/P S/P cholecystectomy Below-knee amputation of left lower extremity Family History Mother Dementia Diabetes Father Dementia Diabetes Social History Household Members: Children Housing: Apartment Do you presently have visiting nurse or other home services: No Alcohol intake: never Comment: D/C to home Patient Tobacco Use Status: Former Tobacco user Advance Directives Date on File: 03/07/24 service: No Office Procedures Glucose Monitoring Details Details: See HPI [id number] - Glucose monitoring, continuous-physician I&R Procedure code (CPT) selection complete Telehealth Telehealth Telehealth [facility]: [facility] Location of provider rendering services: practice address Patient Identification confirmed using: Name, : Yes Telehealth method: video Patient verbally consented to treatment: Yes Patient verbally consented to billing insurance company: Yes Patient informed of any privacy concerns related to visit: Yes Minutes spent on Phone/Video with Pt.: 30 Results Reviewed Results Reviewed: Laboratory Tests 04/17/24 05/29/24 07/27/24 10:55 15:47 12:48 Potassium 4.7 Creatinine 0.84 Estimated GFR > 60 Hgb A1c (Clinic) 8.0 H Calcium 8.8 D Triglycerides 156 H Cholesterol 174 LDL Cholesterol, Calc 99 HDL Cholesterol 44 Laboratory Tests 04/17/24 10:55 TSH 1.35 Assessment & Plan Assessment & Plan (1) Type 2 diabetes mellitus: Code(s): E11.9 - Type 2 diabetes mellitus without complications Category: Medical Plan: Type 2 diabetic with an average glucose of 218 on an insulin pump along with Mounjaro 5 mg. Insulin pump settings were adjusted to give her more correction when she is high. She will schedule another telehealth visit next week so that we can review her continuous glucose sensor. And Orders: Orders AMB Glucose Monitoring Today E11.9 - Type 2 diabetes mellitus without complications Coding Level of Care Code Tele Est Pt Level 4 (84532) Diagnoses Type 2 diabetes mellitus E11.9 CPT Codes Details - CPT: 70298 - Glucose monitoring, continuous-physician I&R ([id number])
== END 2024-08-17 12:31 | disposition home or self-care (01) ==
LOC: HO.ENCR 11:08
PROVIDERS: PCP Internal Medicine; Visit Provider Nurse Practitioner Adult Health
DX: E11.9 Type 2 diabetes mellitus without complications (principal)
CPT/HCPCS: 95251; 99214

== ENCOUNTER → 2024-08-17 11:08 | Outpatient (BNVA) | payer OTHER, SELFPAY | PROVIDERS: PCP Internal Medicine; Visit Provider Nurse Practitioner Adult Health ==

== ENCOUNTER 2024-08-23 14:39 | Outpatient (AMB) | payer OTHER, SELFPAY ==
--- NOTE | 2024-08-23 14:40 | A.OFFVIS_ITS ---
Intake Visit Reasons: T2DM/TH ok per Destinee/CONFIRMED Intake Note: Patient presents today via video call for a follow-up on Type 2 Diabetes Mellitus: Last Diabetic eye exam was on: DUE Last Podiatry exam was on: Does not see a Physician Vice President Most recent HbA1c: 8.0%, 07/27/2024 Manager Of Global Required: Yes Manager Of Global Language: Hand Assembler Services: Manager Of Global Offered & Declined Accompanied by: Self / Same As Patient Allergies ciprofloxacin Allergy (Severe, Verified 05/29/24 14:50) Anaphylaxis kiwi Allergy (Severe, Verified 05/29/24 14:50) Angioedema morphine Allergy (Intermediate, Verified 05/29/24 14:50) Itching atorvastatin [From Lipitor] Adverse Reaction (Mild, Verified 05/29/24 14:50) myalgia metformin Adverse Reaction (Mild, Verified 05/29/24 14:50) Abdominal Pain HPI Comments Details: 64 year old female presents for telehealth visit for type 2 diabetes via [employer]. Today we had difficulty with connectivity and completed the visit by phone. She was last seen by Kristen LOW on 07/09/24 to initiate tandem insulin pump. I had a telehealth visit one week ago at which time her insulin pump settings were changed to give her more correction with high sugars. range. A1C was 8.6% 04/24/24, 8% 07/25/24 Initially diagnosed with T2DM in 1980 with gestational . Was initially started on treatment with insulin while in [place]. 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 She has been seen by the Bariatric Surgeon at [facility] [place] earlier this year and followed the diet for 1 week but had difficulties with this. Current regimen: Tandem insulin pump Mounjaro 5 mg weekly tolerating well and would like to increase to 7.5 mg weekly Backup insulin plan for pump failure: Lantus 50 units am 54 units pm Novolog sliding scale 20-23 Dexcom average glucose: [209 ] 14 day continuous glucose monitor report reviewed Glucose Managment indicator 8.3 % Days with CGM data 100 % TIme in ranges: Twenty-eight % very high (above 250) 29 % high ?(181-250) 43 % in range ?(70-180] 0 % low (69-55) 0 % ?very low (below 54) 78 Standard Deviation Interpretation [in good range overnight we will some increases throughout the day ] Tandem Pump Settings Basal rate(s) (units/hour) : 12 AM? to 12 AM? 2.2 units Bolus setting Insulin Carbohydrate Ratio (s) 12 AM? to 12 AM? 1:4 Correction Factor / Sensitivity Factor 12 AM? to 12 AM? 1:12 Active Insulin Time:?4 hours Target(s): 12 AM? to 12 AM? 110 mg/dL Last eye exam: due Nephropathy: None last EGFR > 60 measured on 06/06 no microalbumin in EHR Neuropathy: on gabapentin numbness, tingling, cramping podiatry: HLD:not on statin had myalgias to atorvastatin, last LDL 99 measured on 04/17/24 CHF: Followed by Cardiology [facility] Prior Imaging: Date of Service: 05/02/24 EXAMINATION: US COMPLETE ABDOMEN WITH LIVER ELASTOGRAPHY Real-time imaging of the abdominal viscera. Noninvasive ultrasound liver fibrosis assessment is performed using Kyle ElastPQ point quantification shear wave elastography (2D-SWE) with a C5-2 MHz transducer. Multiple elastography samples are obtained. FINDINGS: LIVER: The liver is enlarged at 20 cm with increased echogenicity consistent with hepatic steatosis. No focal lesion or intrahepatic biliary duct dilatation. The right lobe measures 20.0 cm in length. The left lobe measures 15.0 cm in length. Portal flow is towards the liver (hepatopetal). Shear wave liver elastography median stiffness is 1.74 m/s (reference: normal median stiffness is 1.3 m/s or less). IQR/median stiffness to assess sampling precision is 0.08 (reference: good quality data set is IQR/median stiffness of 0.15 or less). GALLBLADDER: Status post cholecystectomy. COMMON BILE DUCT: Normal in caliber measuring 0.4 cm in diameter. RIGHT KIDNEY: No hydronephrosis. No renal calculi or focal parenchymal lesions. The kidney measures 11.6 cm in maximum dimension. LEFT KIDNEY: No hydronephrosis. No renal calculi or focal parenchymal lesions. The kidney measures 10.5 cm in maximum dimension. SPLEEN:. The spleen is mildly enlarged measuring 12.8 cm in maximum dimension. FREE FLUID: None. US/US abdomen comp w elastography IMPRESSION: 1. Enlarged fatty liver 2. Liver elastography: Although measurements are suggestive of compensated advanced chronic liver disease, there is statistical variability of the sampling which decreases accuracy. Patient is on GLP-1 agonist. [facility] Medical History (Updated 06/07/24 @ 15:00 by Destinee Drake NP) Type 2 diabetes mellitus Asthma-COPD overlap syndrome Chronic diastolic CHF (congestive heart failure) HTN (hypertension) Morbid obesity Carpal tunnel syndrome GERD (gastroesophageal reflux disease) Insomnia Neuropathy Sleep apnea Insulin dependent type 2 diabetes mellitus HLD (hyperlipidemia) Diabetes mellitus Surgical History S/P S/P cholecystectomy Below-knee amputation of left lower extremity Family History Mother Dementia Diabetes Father Dementia Diabetes Social History Household Members: Children Housing: Apartment Do you presently have visiting nurse or other home services: No Alcohol intake: never Comment: D/C to home Patient Tobacco Use Status: Former Tobacco user Advance Directives Date on File: 03/07/24 service: No Office Procedures Glucose Monitoring Details Details: see hpi 15190 - Glucose monitoring, continuous-physician I&R Procedure code (CPT) selection complete Telehealth Telehealth Telehealth Platform: Telephone Location of provider rendering services: practice address Location of patient: address on file Patient Identification confirmed using: Name, : Yes Telehealth method: voice only Patient verbally consented to treatment: Yes Patient verbally consented to billing insurance company: Yes Patient informed of any privacy concerns related to visit: Yes Minutes spent on Phone/Video with Pt.: 15 Assessment & Plan Assessment & Plan (1) Type 2 diabetes mellitus: Code(s): E11.9 - Type 2 diabetes mellitus without complications Category: Medical Plan: Type 2 diabetic with GMI (a1c equivalent off dexcom sensor) of 8.3%. Settings were not changed today but she is tolerating Mounjaro 5.0 mg weekly well so I will increase that dose to 7.5 mg and have another telehealth visit in 4 weeks to assess the impact on glucose readings Orders: Orders AMB Glucose Monitoring Today E11.9 - Type 2 diabetes mellitus without complications Medications: New tirzepatide (Mounjaro) 7.5 mg (0.5 mL) subcut QWEEK 28 days 2 mL 8RF E11.9 - Type 2 diabetes mellitus without complications Coding Level of Care Code Tele New Pt Level 2 (50706) Diagnoses Type 2 diabetes mellitus E11.9 CPT Codes Details - CPT: 01875 - Glucose monitoring, continuous-physician I&R ([id number]) Time Spent (min) 15 Comment Time spent reviewing labs/provider notes, glucose,sensor reports, face to face, chart doc
== END 2024-08-23 15:30 | disposition home or self-care (01) ==
LOC: HO.ENCR 14:39
PROVIDERS: PCP Internal Medicine; Visit Provider Nurse Practitioner Adult Health
DX: E11.9 Type 2 diabetes mellitus without complications (principal)
CPT/HCPCS: 95251; 99442

== ENCOUNTER → 2024-08-23 14:39 | Outpatient (BNVA) | payer OTHER, SELFPAY | PROVIDERS: PCP Internal Medicine; Visit Provider Nurse Practitioner Adult Health ==

== ENCOUNTER 2024-09-13 15:24 | Outpatient (AMB) | payer OTHER, SELFPAY ==
--- NOTE | 2024-09-13 14:33 | A.OFFVIS_ITS ---
Intake Visit Reasons: T2DM/Telehealth, per Destinee/CONFIRMED Allergies ciprofloxacin Allergy (Severe, Verified 05/29/24 14:50) Anaphylaxis kiwi Allergy (Severe, Verified 05/29/24 14:50) Angioedema morphine Allergy (Intermediate, Verified 05/29/24 14:50) Itching atorvastatin [From Lipitor] Adverse Reaction (Mild, Verified 05/29/24 14:50) myalgia metformin Adverse Reaction (Mild, Verified 05/29/24 14:50) Abdominal Pain HPI Comments Details: 64 year old female presents for telehealth visit for type 2 diabetes via [employer]. Today we had difficulty with connectivity and completed the visit by phone. She was last seen by Kristen LOW on 07/09/24 to initiate tandem insulin pump She has had several telehealth appointments to adjust insulin. A1C was 8.6% 04/24/24, 8% 07/25/24. Mounjaro was increased to 7.5mg weekly several weeks ago. Two week sensor download today shows decrease in average from 209 to 185. Time in range has increased from 38% to 58%. Initially diagnosed with T2DM in 1980 with gestational . Was initially started on treatment with insulin while in [place]. 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 She has been seen by the Bariatric Surgeon at [facility] [place] earlier this year and followed the diet for 1 week but had difficulties with this. Current regimen: Tandem insulin pump Mounjaro 7.5 mg weekly Backup insulin plan for pump failure: Lantus 50 units am 54 units pm Novolog sliding scale 20-23 Dexcom average glucose: [185 ] 14 day continuous glucose monitor report reviewed Glucose Managment indicator 7.7 % Days with CGM data 93 % TIme in ranges: 17 % very high (above 250) 25 % high ?(181-250) 58 % in range ?(70-180] 0 % low (69-55) 0 % ?very low (below 54) 78 Standard Deviation Interpretation [in target range overnight, some post prandial highs after lunch and supper Tandem Pump Settings: confirmed by patient Basal rate(s) (units/hour) : 12 AM? to 12 AM? 2.2 units Bolus setting Insulin Carbohydrate Ratio (s) 12 AM? to 12 AM? 1:3.5 Correction Factor / Sensitivity Factor 12 AM? to 12 AM? 1:9 new 1:8 Active Insulin Time:?4 hours new 3.3 Target(s): 12 AM? to 12 AM? 110 mg/dL Last eye exam: due Nephropathy: None last EGFR > 60 measured on 06/06 no microalbumin in EHR Neuropathy: on gabapentin numbness, tingling, cramping podiatry: HLD:not on statin had myalgias to atorvastatin, last LDL 99 measured on 04/17/24 CHF: Followed by Cardiology Followed by GI Medicine [facility] Prior Imaging: Date of Service: 05/02/24 EXAMINATION: US COMPLETE ABDOMEN WITH LIVER ELASTOGRAPHY Real-time imaging of the abdominal viscera. Noninvasive ultrasound liver fibrosis assessment is performed using Kyle ElastPQ point quantification shear wave elastography (2D-SWE) with a C5-2 MHz transducer. Multiple elastography samples are obtained. FINDINGS: LIVER: The liver is enlarged at 20 cm with increased echogenicity consistent with hepatic steatosis. No focal lesion or intrahepatic biliary duct dilatation. The right lobe measures 20.0 cm in length. The left lobe measures 15.0 cm in length. Portal flow is towards the liver (hepatopetal). Shear wave liver elastography median stiffness is 1.74 m/s (reference: normal median stiffness is 1.3 m/s or less). IQR/median stiffness to assess sampling precision is 0.08 (reference: good quality data set is IQR/median stiffness of 0.15 or less). GALLBLADDER: Status post cholecystectomy. COMMON BILE DUCT: Normal in caliber measuring 0.4 cm in diameter. RIGHT KIDNEY: No hydronephrosis. No renal calculi or focal parenchymal lesions. The kidney measures 11.6 cm in maximum dimension. LEFT KIDNEY: No hydronephrosis. No renal calculi or focal parenchymal lesions. The kidney measures 10.5 cm in maximum dimension. SPLEEN:. The spleen is mildly enlarged measuring 12.8 cm in maximum dimension. FREE FLUID: None. US/US abdomen comp w elastography IMPRESSION: 1. Enlarged fatty liver 2. Liver elastography: Although measurements are suggestive of compensated advanced chronic liver disease, there is statistical variability of the sampling which decreases accuracy. Patient is on GLP-1 agonist. [facility] Medical History (Updated 06/07/24 @ 15:00 by Destinee Drake NP) Type 2 diabetes mellitus Asthma-COPD overlap syndrome Chronic diastolic CHF (congestive heart failure) HTN (hypertension) Morbid obesity Carpal tunnel syndrome GERD (gastroesophageal reflux disease) Insomnia Neuropathy Sleep apnea Insulin dependent type 2 diabetes mellitus HLD (hyperlipidemia) Diabetes mellitus Surgical History S/P S/P cholecystectomy Below-knee amputation of left lower extremity Family History Mother Dementia Diabetes Father Dementia Diabetes Social History Household Members: Children Housing: Apartment Do you presently have visiting nurse or other home services: No Alcohol intake: never Comment: D/C to home Patient Tobacco Use Status: Former Tobacco user Advance Directives Date on File: 03/07/24 service: No Office Procedures Glucose Monitoring Details Details: see hpi [id number] - Glucose monitoring, continuous-physician I&R Procedure code (CPT) selection complete Telehealth Telehealth Telehealth Platform: [facility] Location of provider rendering services: practice address Location of patient: address on file Patient Identification confirmed using: Name, : Yes Telehealth method: voice only Patient verbally consented to treatment: Yes Patient verbally consented to billing insurance company: Yes Patient informed of any privacy concerns related to visit: Yes Minutes spent on Phone/Video with Pt.: 30 Assessment & Plan Assessment & Plan (1) Type 2 diabetes mellitus: Code(s): E11.9 - Type 2 diabetes mellitus without complications Category: Medical Plan: 64year old type 2 diabetic on an insulin pump with improving glucose numbers. Settings on pump were changed to lower glucose readings to target. She has a f/u with CDE and I will see her back in November. Orders: Orders AMB Glucose Monitoring Today E11.9 - Type 2 diabetes mellitus without complications Coding Level of Care Code Tele Est Pt Level 3 (29526) Diagnoses Type 2 diabetes mellitus E11.9 CPT Codes Details - CPT: 17954 - Glucose monitoring, continuous-physician I&R ([id number]) Time Spent (min) 30 Comment chart, pump review, lab review and making adjust to pump with patient
== END 2024-09-13 15:25 | disposition home or self-care (01) ==
LOC: HO.ENCR 15:24
PROVIDERS: PCP Internal Medicine; Visit Provider Nurse Practitioner Adult Health
DX: E11.9 Type 2 diabetes mellitus without complications (principal)
CPT/HCPCS: 95251; 99443

== ENCOUNTER → 2024-09-13 15:24 | Outpatient (BNVA) | payer OTHER, SELFPAY | PROVIDERS: PCP Internal Medicine; Visit Provider Nurse Practitioner Adult Health | DX: E11.9 Type 2 diabetes mellitus without complications (principal) ==

== ENCOUNTER 2024-10-02 10:51 | Outpatient (AMB) | payer OTHER, SELFPAY ==
--- NOTE | 2024-10-02 11:34 | MHC.AMDMED ---
Intake Intake Visit Reasons: 60 min/Bariatric dept. per [facility]-confirmed Optical Worker Required: No Optical Worker Services: Optical Worker Offered & Declined Accompanied by: Self / Same As Patient Allergies ciprofloxacin Allergy (Severe, Verified 05/29/24 14:50) Anaphylaxis kiwi Allergy (Severe, Verified 05/29/24 14:50) Angioedema morphine Allergy (Intermediate, Verified 05/29/24 14:50) Itching atorvastatin [From Lipitor] Adverse Reaction (Mild, Verified 05/29/24 14:50) myalgia metformin Adverse Reaction (Mild, Verified 05/29/24 14:50) Abdominal Pain HPI Comprehensive Diabetes Asmnt Most Recent Diabetes Results: Cholesterol 174 mg/dL (<200) 04/17/24 HDL Cholesterol 44 mg/dL (>40) 04/17/24 Triglycerides 156 mg/dL (<150) H 04/17/24 Creatinine 0.84 mg/dL (0.5-1.4) 05/29/24 Blood Urea Nitrogen 20 mg/dL (9-16) H 05/29/24 Sodium 141 mmol/L (135-145) 05/29/24 Potassium 4.7 mmol/L (3.3-5.1) 05/29/24 Chloride 113 mmol/L (96-108) H 05/29/24 Carbon Dioxide 17 mmol/L (22-29) L 05/29/24 Calcium 8.8 mg/dL (8.4-10.2) 05/29/24 AST 33 U/L (5-31) H 05/29/24 ALT 21 U/L (0-31) 05/29/24 Total Protein 7.1 g/dL (6.5-8.0) 05/29/24 Albumin 3.5 g/dL (3.5-5.0) 05/29/24 [facility] Medical History (Updated 06/07/24 @ 15:00 by Dsetinee Drake NP) Type 2 diabetes mellitus Asthma-COPD overlap syndrome Chronic diastolic CHF (congestive heart failure) HTN (hypertension) Morbid obesity Carpal tunnel syndrome GERD (gastroesophageal reflux disease) Insomnia Neuropathy Sleep apnea Insulin dependent type 2 diabetes mellitus HLD (hyperlipidemia) Diabetes mellitus Surgical History S/P S/P cholecystectomy Below-knee amputation of left lower extremity Family History Mother Dementia Diabetes Father Dementia Diabetes Social History Household Members: Children Housing: Apartment Do you presently have visiting nurse or other home services: No Alcohol intake: never Comment: D/C to home Patient Tobacco Use Status: Former Tobacco user Advance Directives Date on File: 03/07/24 service: No Assessment & Plan Assessment & Plan (1) Insulin dependent type 2 diabetes mellitus: Code(s): E11.9 - Type 2 diabetes mellitus without complications; Z79.4 - keno terminal operator (current) use of insulin Plan: Patient presents for pump training for t-Slim X2 pump and Dexcom G7 training today. Tandem ID: [email or web address] Password: [email or web address] The following topics were reviewed today: -Pump therapy basic concepts: Basal/bolus, insulin to carb ratio, correction factor, insulin on board -Device settings: Bluetooth/mobile connection, reconnected patient's insulin pump to cellphone -taking correction doses, in between meals through insulin pump ??? High Alert: 250 mg/dl ??? Low Alert: 70 mg/dl Sensor data: Hypoglycemia: ? 0% Hyperglycemia:? 45% Time in Range:? 55% Average glucose for the last 2 weeks? 188 mg/dL ?Overnight patient's glucose is well controlled but currently having postprandial hyperglycemia. No episodes of hypoglycemia in the last 2 weeks Discussed with patient taking manual correction through pump instead of waiting for micro boluses to bring down high blood sugar See changes to pump settings below Insulin delivery settings Program insulin to carb ratio, correction factor, target blood glucose, suspend or resume insulin delivery, bolus limit and basal limit settings Instructed patient to only use room temperature insulin, how to load cartridge or fill pod, with insulin. Fill tubing and cannula (if applicable) Inserting infusion set or starting pod Troubleshooting after starting new pod or inserting new insulin set: Occlusion, adhesive tape sensitivity, redness Check BG 2 hours after site change Safety information: Importance of a backup plan, for manual injections, proper prescriptions and emergency supplies ketone strips, and rules for testing for ketones Patient was able to insert insulin set today without difficulty. Patient understands the basic concepts of pump therapy, how to give insulin for meals and snacks, how to troubleshoot for hyper and hypoglycemia. Setting verified by [facility] [place]NOTE 2], see changes made to patient's insulin Basal rate(s) (units/hour) : 12 AM? to 12 AM? 2.2 units / hr Bolus setting Insulin Carbohydrate Ratio (s) 12 AM? to 12 AM? 1:3.5 New 12 AM? to 12 AM? 1:3 Correction Factor / Sensitivity Factor 12 AM? to 12 AM? 1:8 New 12 AM? to 12 AM? 1:7 Active Insulin Time:?5 hours Target(s): 12 AM? to 12 AM? 110 mg/dL Patient will follow up with [facility] [place] 2] as instructed Patient will contact [facility] [place] 2] with questions or concerns, patient given IT number to support in any technical issues related to insulin pump Coding Level of Care Code Tele Est Pt Level 1 (25274) Diagnoses Insulin dependent type 2 diabetes mellitus E11.9; Z79.4
== END 2024-10-02 13:20 | disposition home or self-care (01) ==
PROVIDERS: PCP Internal Medicine; Visit Provider Registered Nurse Diabetes Educator
DX: E11.9 Type 2 diabetes mellitus without complications (principal); Z79.4 Long term (current) use of insulin
CPT/HCPCS: 99211

== ENCOUNTER 2024-11-20 12:41 | Outpatient (AMB) | payer OTHER, SELFPAY ==
--- NOTE | 2024-11-20 10:35 | A.OFFVIS_ITS ---
Vital Signs 11/20/24 12:56 Height 5 ft 6 in BMI Reason not done Patient refused/unable BP 116/70 Blood Pressure Location Rt brachial Position Sitting Pulse 63 Pulse Source Pulse Oximeter Intake Visit Reasons: T2DM Intake Note: Patient presents today via video call for a follow-up on Type 2 Diabetes Mellitus: Last Diabetic eye exam was on: DUE Last Podiatry exam was on: Does not see a Lead Cashier Most recent HbA1c: 8.5%, 11/20/2024 Random Glucose- 75 mg/dL, Today RECHECK- 98 mg/dL 1:19 PM Aviation Safety Officer Required: Yes Aviation Safety Officer Language: Lens Grinder Rough Services: Aviation Safety Officer Offered & Declined Accompanied by: Self / Same As Patient Allergies ciprofloxacin Allergy (Severe, Verified 11/20/24 12:58) Anaphylaxis kiwi Allergy (Severe, Verified 11/20/24 12:58) Angioedema morphine Allergy (Intermediate, Verified 11/20/24 12:58) Itching atorvastatin [From Lipitor] Adverse Reaction (Mild, Verified 11/20/24 12:58) myalgia metformin Adverse Reaction (Mild, Verified 11/20/24 12:58) Abdominal Pain Medication List - Last Reconciled 11/20/24 by Destinee Drake NP acetaminophen 650 mg PO Q6H PRN acetone (urine) test (Ketone Urine Test strips) As directed: When should you test for ketones? It is advisable to check for ketones under the following conditions when: Your blood glucose is higher than 250mg/dl. Feeling nauseated, throwing up, or have pains in your abdominal region. Have a cold or flu. Have general body fatigue. Feel thirsty or have a very dry mouth. Have flushed skin. Have a fruity breath or a hard time breathing. You feel perplexed or in fog. albuterol sulfate 90 mcg/actuation 2 puffs inhalation Q4-6H PRN cholecalciferol (vitamin D3) 25 mcg PO DAILY 1 month diclofenac sodium 1% 2 grams topical TID PRN diphenhydramine HCl 2% (Benadryl) 1 appl topical TID PRN fexofenadine 180 mg PO DAILY fluticasone furoate-vilanterol 100-25 mcg/dose (Breo Ellipta) 1 ea inhalation DAILY fluticasone propionate 50 mcg/actuation 1 spray intranasal BID PRN gabapentin 800 mg PO BID glucagon 3 mg/actuation (Baqsimi) 3 mg intranasal .prn PRN 30 days MDD 6mg hydroxyzine pamoate 1 cap PO TID PRN insulin aspart U-100 (Novolog U-100 Insulin aspart) up to 150 units per day via continuous infusion via continuous subcutaneous infusion every morning; 30 days MDD 150 units insulin glargine (Lantus U-100 Insulin) 50 units subcut BID ipratropium-albuterol 0.5 mg-3 mg(2.5 mg base)/3 mL 3 mL inhalation RQ4H WHILE AWAKE lisinopril 20 mg PO DAILY metoprolol succinate ER 100 mg PO DAILY montelukast 10 mg PO DAILY naproxen 375 mg PO DAILY PRN olopatadine 0.1% 1 drp ophthalmic (eye) BID PRN omeprazole 1 cap PO DAILY@0630 spironolactone 25 mg PO DAILY tirzepatide (Mounjaro) 7.5 mg (0.5 mL) subcut QWEEK 28 days trazodone 50 mg PO BEDTIME HPI Comments Details: 64 year old female presents for f/u visit for type 2 diabetes. She was last seen by Kristen LOW on at which time tandem insulin pump settings were adjusted to give her more pre meal insulin. Additionally she has had several telehelath visits at which time her pump settings were changed to give more pre meal insulin. A1C 11/20/24: A1C was 8.6% 04/24/24, 8% 07/25/24. Initially diagnosed with T2DM in 1980 with gestational . Was initially started on treatment with insulin while in [place]. 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 [place] [facility] [place] and followed the diet for 1 week but had difficulties with this. Current regimen: Tandem insulin pump Mounjaro 7.5 mg weekly Lantus 70 units twice daily Novolog 15-20 units tid Basal rate(s) (units/hour) : 12 AM? to 12 AM? 2.2 units / hr Bolus setting Insulin Carbohydrate Ratio (s) 12 AM? to 12 AM? 1:3 Correction Factor / Sensitivity Factor 12 AM? to 12 AM? 1:7 Active Insulin Time:?5 hours Target(s): 12 AM? to 12 AM? 110 mg/dL Backup insulin plan for pump failure: Lantus 50 units am 54 units pm Novolog sliding scale 20-23 Dexcom average glucose: [ ] 14 day continuous glucose monitor report reviewed Glucose Managment indicator [ ] % Days with CGM data [ ] % TIme in ranges: [ ] % very high (above 250) [ ] % high ?(181-250) [ ] % in range ?(70-180] [ ] % low (69-55) [ ] % ?very low (below 54) [ ] Standard Deviation Interpretation [ ] Last eye exam: due 03/07 needs to make appt has had injections in the past but she reports last exam in February no rx needed Nephropathy: None last EGFR > 60 measured on 06/06 no microalbumin in EHR Neuropathy: on gabapentin no numbness, tingling, cramping podiatry: HLD:not on statin had myalgias to atorvastatin, last LDL 99 measured on 04/17/24 CHF: Followed by Cardiology Followed by GI Medicine [facility] Medical History (Updated 06/07/24 @ 15:00 by Destinee Drake NP) Type 2 diabetes mellitus Asthma-COPD overlap syndrome Chronic diastolic CHF (congestive heart failure) HTN (hypertension) Morbid obesity Carpal tunnel syndrome GERD (gastroesophageal reflux disease) Insomnia Neuropathy Sleep apnea Insulin dependent type 2 diabetes mellitus HLD (hyperlipidemia) Diabetes mellitus Surgical History S/P S/P cholecystectomy Below-knee amputation of left lower extremity Family History Mother Dementia Diabetes Father Dementia Diabetes Social History Household Members: Children Housing: Apartment Do you presently have visiting nurse or other home services: No Alcohol intake: never Comment: D/C to home Patient Tobacco Use Status: Former Tobacco user Advance Directives Date on File: 03/07/24 service: No Physical Exam Vital Signs: Last Vital Signs Pulse 63 11/20/24 12:56 BP 116/70 11/20/24 12:56 Const Other: Absence of Cushingoid features. Absence of acromegalic features. Neck exam reveals nl size thyroid about 15 gms. No thyroid nodules palpable. Heart S1 S2, Reg R/R. No M/R G. Skin exam reveals absence of vitiligo or acanthosis nigricans. Visual exam of foot performed. No ulcerations or open lesions. No inter digit maceration or fissuring. No onychomycosis, no callouses. Sensation intact to monofilament exam. Vibratory sensation is normal with 128 Hz tuning fork. Results AMB Hemoglobin A1c AMB Hemoglobin A1c 8.5 % Last Edit by PAULINO Jimneez on 11/20/24 12:59 Results Reviewed Results Reviewed: Laboratory Last Values Glucose (Clinic) 75 mg/dL (60-115) 11/20/24 12:48 Hgb A1c (Clinic) 8.5 % (4.0-6.0) H 11/20/24 12:58 Assessment & Plan Assessment & Plan (1) Insulin dependent type 2 diabetes mellitus: Code(s): E11.9 - Type 2 diabetes mellitus without complications; Z79.4 - senior care (current) use of insulin Category: Medical Plan: 64-year-old type 2 diabetic with neuropathy on an insulin pump with an A1c in the office today of: The patient had an opportunity to ask questions regarding treatment plan. The patient expressed understanding and agreement with the above treatment plan. The patient is aware they should contact our office by phone for worsening glucose readings or for any low blood sugars which may warrant a change in diabetes medication. Compliance is encouraged with medications and any followup testing/consults which may have been ordered. Orders: Orders AMB Hemoglobin A1c Today E11.9 - Type 2 diabetes mellitus without complications, Z79.4 - senior care (current) use of insulin Medications: Refilled cholecalciferol (vitamin D3) 25 mcg PO DAILY 1 month 30 caps 11RF Scribe Plan - Not visible on output: The patient was counseled to always carry a source of sugar and on the rule of 15's: Take 3 glucose tablets and repeat again in 15 minutes if blood sugar is not in normal range. Continue to repeat every 15 minutes until blood sugar is normal. The patient was counseled to achieve a target A1C of 7% (154 avg). Fasting blood sugars should be 90-130 in the morning and less than 180 two hours after meals. Reviewed the relationship between poor diabetic control and the development of complications. Check your feet daily looking for any signs of infection, ulceration and seek medical attention if this occurs. Break in shoes gradually and do not wear open-toed shoes or walk barefooted. Symptoms of DKA (diabetic ketoacidosis): early: frequent urination, dry mouth, fatigue, feeling ill, severe symptoms: ketones in the urine, abdominal pain, nausea, vomiting and weakness. It is important to hydrate with sugar free liquids every 15-30 minutes and bring the sugars down to normal levels. If you are moderate or severe with ketones or unable to bring glucose to less than 200, go to the emergency room. Troubleshooting after starting new pod or inserting new insulin set: Occlusion, adhesive tape sensitivity, redness Check BG 2 hours after site change Safety information: Importance of a backup plan, for manual injections, proper prescriptions and emergency supplies ketone strips, and rules for testing for ketones Coding Diagnoses Insulin dependent type 2 diabetes mellitus E11.9; Z79.4
[2024-11-20 12:54] LABS: Glucose, Whole Blood 75 mg/dL (60-115)
[2024-11-20 12:56] VITALS: BP 116/70; PULSE 63
[2024-11-20 13:30] LABS: Glucose, Whole Blood 98 mg/dL (60-115)
== END 2024-11-20 13:24 | disposition home or self-care (01) ==
PROVIDERS: PCP Internal Medicine; Visit Provider Nurse Practitioner Adult Health
DX: E11.9 Type 2 diabetes mellitus without complications (principal); Z79.4 Long term (current) use of insulin

== ENCOUNTER → 2024-11-20 12:41 | Outpatient (BNVA) | payer OTHER, SELFPAY | PROVIDERS: PCP Internal Medicine; Visit Provider Nurse Practitioner Adult Health | DX: E11.9 Type 2 diabetes mellitus without complications (principal); Z79.4 Long term (current) use of insulin; Z96.41 Presence of insulin pump (external) (internal) | CPT/HCPCS: 82947; 83036; 99212 ==

== ENCOUNTER 2025-01-09 11:24 | Outpatient (AMB) | payer OTHER, SELFPAY ==
--- NOTE | 2025-01-09 11:25 | A.OFFVIS_ITS ---
Vital Signs 01/09/25 11:32 Height 5 ft 6 in BMI Reason not done Patient refused/unable BP 110/72 Blood Pressure Location Rt brachial Position Sitting Pulse 74 Pulse Source Pulse Oximeter Pulse Oximetry (%) 96 Intake Visit Reasons: T2DM Intake Note: Patient presents today for a follow-up on Type 2 Diabetes Mellitus: Last Diabetic eye exam was on: DUE Last Podiatry exam was on: Does not see a Furrier Apprentice Most recent HbA1c: 8.5%, 11/20/2024 Random Glucose- 261 mg/dL, Today Office Agent Required: Yes Office Agent Language: Musical Instrument Maker Or Repairer Services: Office Agent Offered & Declined Accompanied by: Self / Same As Patient Allergies ciprofloxacin Allergy (Severe, Verified 01/09/25 11:43) Anaphylaxis kiwi Allergy (Severe, Verified 01/09/25 11:43) Angioedema morphine Allergy (Intermediate, Verified 01/09/25 11:43) Itching atorvastatin [From Lipitor] Adverse Reaction (Mild, Verified 01/09/25 11:43) myalgia metformin Adverse Reaction (Mild, Verified 01/09/25 11:43) Abdominal Pain HPI Comments Details: 64 year old female presents for f/u visit for type 2 diabetes. She was last seen 11/20/24 A1C 11/20/24: A1C was 8.6% 04/24/24, 8% 07/25/24. Initially diagnosed with T2DM in 1980 with gestational . Was initially started on treatment with insulin while in [place]. 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 She has been seen by the Bariatric Surgeon [place] [facility] [place] this year and followed the diet for 1 week but had difficulties with this. Current regimen: Mounjaro 7.5 mg weekly Back up pump failure plan Lantus 50-60 units twice daily Novolog 15-20 units tid Previous PUMP settings Basal rate(s) (units/hour) : 12 AM? to 12 AM? 2.2 units / hr Bolus setting Insulin Carbohydrate Ratio (s) 12 AM? to 12 AM? 1:3 Correction Factor / Sensitivity Factor 12 AM? to 12 AM? 1:7 Active Insulin Time:?5 hours Target(s): 12 AM? to 12 AM? 110 mg/dL Backup insulin plan for pump failure: Lantus 50 units am 54 units pm Novolog sliding scale 20-23 Sensor data not available Last eye exam: due 03/07 needs to make appt has had injections in the past but she reports last exam in February no rx needed Nephropathy: None last EGFR > 60 measured on 06/06 no microalbumin in EHR Neuropathy: on gabapentin no numbness, tingling, cramping podiatry: HLD:not on statin had myalgias to atorvastatin, last LDL 99 measured on 04/17/24 CHF: Followed by Cardiology Followed by GI Medicine [facility] Medical History Type 2 diabetes mellitus Asthma-COPD overlap syndrome Chronic diastolic CHF (congestive heart failure) HTN (hypertension) Morbid obesity Carpal tunnel syndrome GERD (gastroesophageal reflux disease) Insomnia Neuropathy Sleep apnea Insulin dependent type 2 diabetes mellitus HLD (hyperlipidemia) Diabetes mellitus Surgical History S/P S/P cholecystectomy Below-knee amputation of left lower extremity Family History Mother Dementia Diabetes Father Dementia Diabetes Social History Household Members: Children Housing: Apartment Do you presently have visiting nurse or other home services: No Alcohol intake: never Comment: D/C to home Patient Tobacco Use Status: Former Tobacco user Advance Directives Date on File: 03/07/24 service: No Physical Exam Vital Signs: Last Vital Signs Pulse 74 01/09/25 11:32 BP 110/72 01/09/25 11:32 Pulse Ox 96 01/09/25 11:32 Const Other: Absence of Cushingoid features. Absence of acromegalic features. Neck exam reveals nl size thyroid about 15 gms. No thyroid nodules palpable. Heart S1 S2, Reg R/R. No M/R G. Skin exam reveals absence of vitiligo or acanthosis nigricans. Trace edema, compression stockings on Foot exam deferred per patient request Results Reviewed Results Reviewed: Laboratory Last Values Glucose (Clinic) 261 mg/dL (60-115) H 01/09/25 11:37 Assessment & Plan Assessment & Plan (1) Type 2 diabetes mellitus: Code(s): E11.9 - Type 2 diabetes mellitus without complications Category: Medical Plan: see below Plan 64-year-old type 2 diabetic with stable retinopathy and neuropathy with recent A1c of 8.5%. She is now back on an insulin pump. She was set up an appointment with Kristen LOW as we are having difficulty downloading her sensor today. She reports her numbers have been much better without hypoglycemia since going back on the pump. The patient had an opportunity to ask questions regarding treatment plan. The patient expressed understanding and agreement with the above treatment plan. The patient is aware they should contact our office by phone for worsening glucose readings or for any low blood sugars which may warrant a change in diabetes medication. Compliance is encouraged with medications and any followup testing/consults which may have been ordered. Patient Instructions: Take 15 carb carbohydrate grams to treat a low sugar (3-4 glucose tablets, half a glass of juice or 15 carbohydrate grams of soft candy such as gummie snacks). Recheck your sugar in 15 minutes and re-treat again with 15 carbohydrate grams if low or still with symptoms. Do not drive a car or operate machinery if you do not know what your blood sugar is, if it is low or in excess of 300. The patient was counseled to achieve a target A1C of 7% (154 avg). Fasting blood sugars should be 90-130 in the morning and less than 180 two hours after meals. Reviewed the relationship between poor diabetic control and the development of complications. Check your feet daily looking for any signs of infection, drainage, redness, ulceration and seek medical attention if this occurs. Break in shoes gradually and do not wear open-toed shoes or walk stocking footed or barefooted. Coding Level of Care Code Est Pt Level 4 (36004) Complex EM visit Add On G2211 Diagnoses Type 2 diabetes mellitus E11.9 Time Spent (min) 30 Comment Time spent reviewing labs/provider notes, face to face, chart doc
[2025-01-09 11:32] VITALS: BP 110/72; PULSE 74; O2SAT 96
[2025-01-09 11:51] LABS: Glucose, Whole Blood 261 mg/dL (60-115)
--- OUTSIDE RECORDS SUMMARY | 2025-01-09 14:20 | XMS_ITS | Clinical Summary ---
Author Organization [facility] ity Address [address] [place] [address] Care Team Providers Care Motorcycle Builder Name Role Phone Milady Carmen MD Primary Care Provider + Social History Tobacco Use Types Packs/Day Years Used Date Smoking Tobacco: Never Assessed Comments Unknown Sex and Gender Information Value Date Recorded Sex Assigned at Not on file Legal Sex Female 5:36 AM EST Gender Identity Not on file Sexual Orientation Not on file Plan of Treatment Health Maintenance Due Date Last Done Comments Breast Cancer Screening 1959 DTaP,Tdap,and Td Vaccines (1 - Tdap) 1978 Cervical Cancer Screening: P ap Smear 1980 Pneumococcal Vaccine: 50+ Ye ars (1 of 1 - PCV) 2009 Zoster Vaccines (1 of 2) 2009 Colorectal Cancer Screening: Colonoscopy 01/10/2024 Depression Screening 01/10/2024 Hepatitis C Screening 01/10/2024 Osteoporosis Screening (Bone Density Screening) 01/10/2024 Social Influencers of Health Screening 01/10/2024 COVID-19 Vaccine ( - 2023-2 5 season) 2024 Influenza Vaccine (#1) 2024 Falls Risk Assessment 2024 RSV Immunization Patients 60 + Years Old (1 - 1-dose 75+ series) 2034 HIB Vaccines Aged Out No longer eligi ble based on patient's age to complete this topic HPV Vaccines Aged Out No longer eligi ble based on patient's age to complete this topic Hepatitis A Vaccines Aged Out No long er eligible based on patient's age to complete this topic Hepatitis B Vaccines Aged Out No long er eligible based on patient's age to complete this topic IPV Vaccines Aged Out No longer eligi ble based on patient's age to complete this topic MMR Vaccines Aged Out No longer eligi ble based on patient's age to complete this topic Meningococcal ACWY Vaccine Aged Out N o longer eligible based on patient's age to complete this topic Meningococcal B Vacine Aged Out No lo nger eligible based on patient's age to complete this topic Pneumococcal Vaccine: Pediat rics (0 to 5 Years) and At-Risk Patients (6 to 64 Years) Aged Out No longer eligible b ased on patient's age to complete this topic RSV Immunization Patients Un naheed 20 months Aged Out No longer eligible b ased on patient's age to complete this topic Varicella Vaccines Aged Out No longer eligible based on patient's age to complete this topic Care Teams Motorcycle Builder Relationship Specialty Start Date End Date Milady Carmen MD [facility] [address] [place] [id number] PCP - General 06/21/23
--- OUTSIDE RECORDS SUMMARY | 2025-01-09 14:20 | XMS_ITS | Data Portability ---
Author Organization [facility] Address [address] [place] [id number] Care Team Providers Care Yield Improvement Engineer Name Role Phone HIM CCA OTHER Assessment Encounter Date Assessment Date Assessment LastModified by Organization Details LastModified Time 10/13/2023 10/13/2023 I provided real -time medical direction via phone for this encounter, and was available for additional phone based assistance as needed. I have reviewed and agree with the Assessment and Plan as documented by the Washroom Operator. Patient given the opportunity to ask questions. Advised if develops ability to swallow or drooling/ CP/severe SOB/turning blue/uncontrolle d n/v/d / AMS/ syncope/ hi fever unresponsive to APAP to call 911- verbalized understanding of instructions Not available 10/13/2023 16:16:05 01/09/2024 01/09/2024 I provided real -time medical direction via phone for this encounter, and was available for additional phone based assistance as needed. I have reviewed and agree with the Assessment and Plan as documented by the Washroom Operator. We discussed the diagnostic uncertainty of home visits and the risk associated with this. I felt this to be an acceptable and reasonable amount of risk given the benefit of avoiding an ED visit. Patient in agreement. The patient given the opportunity to ask questions. Advised if develops increasing CP/severe SOB/turning blue/uncontrolle d n/v/d or black/bloody emesis or stool/ AMS/ syncope/ hi fever to call 911- she verbalized understanding of instructions to the medic [email or web address] Not available 01/09/2024 16:20:17 05/08/2024 05/08/2024 service called for LE edema found 64 michelle without hx CHF c/o b/l LE edema denies chest pain/pressure/SO B furosemide naive VSS reported CTAB neg neuro deficit #LE edema trial 40mg PO furosemide x1 and x1 tomorrow AM f/up LE edema, electrolytes [email or web address] Not available 05/09/2024 00:10:37 Plan of Treatment Reminders Order Date Submit Date Provider Last Modified By Organization Details Last Modified Time Details Appointments None recorded. Lab BMP, serum or plasma 2023 024 VALENTIN [facility], [address] [place] [address], [id number], 4 18:02:39 rapid SARS CoV 2 Ag, QL IA, respiratory specimen 2023 024 [email or web address] [facility], [address] [place] [address], [id number], 4 16:18:58 rapid flu (A+B) 2023 024 [email or web address] [facility], [address] [place] [address], [id number], 4 16:19:00 rapid strep group A, throat 2023 024 [email or web address] [facility], [address] [place] [address], [id number], 4 16:19:01 rapid SARS CoV 2 Ag, QL IA, respiratory specimen 2023 024 [email or web address] [facility], [address] [place] [address], [id number], 4 19:21:10 rapid flu (A+B) 2023 024 [email or web address] [facility], [address] [place] [address], [id number], 4 19:21:08 rapid strep group A, throat 2022 023 [email or web address] [facility], [address] [place] [address], [id number], 3 16:22:31 rapid SARS CoV 2 Ag, QL IA, respiratory specimen 2022 023 [email or web address] [facility], [address] [place], [phone], 3 16:22:34 rapid flu (A+B) 2022 023 [email or web address] 0 [facility], [address] [place], [phone], 3 16:22:36 Referral None recorded. Procedures None recorded. Surgeries None recorded. Imaging electrocard iogram 2023 024 [email or web address] 0 [facility], [address] [place], [phone], 4 16:18:55 Medication Orders furosemide 40 mg tablet 2023 024 [facility], [address] [place] [address], [id number], 4 17:58:55 furosemide 40 mg tablet 2023 024 [email or web address] [facility], [address] [place] [address], [id number], 4 16:51:43 azithromyci n 250 mg tablet 2023 024 [facility], [address] [place] [address], [id number], 4 16:19:50 azithromyci n 250 mg tablet 2023 024 [email or web address] 0 [facility], [address] [place] [address], [id number], 4 16:13:02 albuterol sulfate HFA 90 mcg/actuati on aerosol inhaler 2023 024 [facility], [address] [place] [address], [id number], 4 16:19:49 Mucinex DM 60 mg-1,200 mg tablet,exte nded release 12 hr 2023 024 [facility], [address] [place] [address], [address], [id number], 4 16:19:47 Flonase Allergy Relief 50 mcg/actuati on nasal spray,suspe nsion 2023 024 [facility], [address] [place] [address], [address], [id number], 4 19:28:26 Augmentin 875 mg-125 mg tablet 2022 023 [facility], [address] [place] [address], [address], [id number], 3 16:28:28 Mucinex DM 60 mg-1,200 mg tablet,exte nded release 12 hr 2022 023 [facility], [address] [place] [address], [address], [id number], 3 16:28:29 Patient TargetsNo targets recorded. Patient InstructionsNo instructions recorded. Reason for Referral None Reported. Results Created Date Observation Date Name Description Value Unit Range Abnormal Flag Note LastModifiedBy Organization Detail LastModifiedTime 10/13/2010/13/2023 rapid flu (A+B) Flu negati ve Not Available [facility] [address] [place] [address], [id number], 10/13/2023 16:19:01 10/13/20 23 10/13/2023 rapid SARS CoV 2 Ag, QL IA, respi rator y speci men rapid SARS CoV 2 Ag, QL IA, respiratory specimen negati ve Not Available [facility] [address] [place] [address], [id number], 10/13/2023 16:18:59 10/13/20 23 10/13/2023 rapid strep group A, throa t Strep positi ve Not Available [facility] - [facility] ed [address] [place] [address], [phone], 10/13/2023 16:18:57 01/04/20 24 01/04/2024 rapid flu (A+B) Flu negati ve Not Available [facility] - [facility] ed [address] [place] [address], [phone], 01/04/2024 19:20:54 01/04/20 24 01/04/2024 rapid SARS CoV 2 Ag, QL IA, respi rator y speci men rapid SARS CoV 2 Ag, QL IA, respiratory specimen negati ve Not Available [facility] - [facility] ed [address] [place] [address], [phone], 01/04/2024 19:20:49 01/09/20 24 01/09/2024 rapid strep group A, throa t Strep negati ve Not Available [facility] - [facility] ed [address] [place] [address], [phone], 01/09/2024 16:16:41 01/09/20 24 01/09/2024 rapid flu (A+B) Flu negati ve Not Available [facility] - [facility] [address] [place] [address], [phone], 01/09/2024 16:16:40 01/09/20 24 01/09/2024 rapid SARS CoV 2 Ag, QL IA, respi rator y speci men rapid SARS CoV 2 Ag, QL IA, respiratory specimen negati ve Not Available [facility] - [facility] ed [address] [place] [address], [phone], 01/09/2024 16:16:39 01/09/20 24 01/09/2024 dino mariscal am No observ ation record ed. [email or web address] [facility] [address] [place] [address], [phone], 01/09/2024 16:18:51 Result Notes None recorded. Problems Name Problem SNOMED Code Status Onset Date Resolution Date Notes Provider Name and Address Organization Details Recorded Time Increased frequency of urination [id number] Active 023 Dick Nj MD [address] [place] [address],[address], [place], [phone], [employer] 3 15:17:33 Problem Notes None recorded. Procedures Surgical History None recorded. Imaging Results Imaging Date Name Status LastModified by Organization Details LastModified Time 01/09/2024 electrocardiogram completed [email or web address], [phone], 01/09/2024 16:18:51 Procedure Notes None recorded. Medical Equipment None Reported. Allergies Allergen ID Allergen Name Allergen Category Reaction Reaction Severity Criticality Documentation Date Start Date Code Code System Note Provider Name and Address Organization Details Recorded Time 1091 ciproflox acin medicatio n Not available Not available Not available 08/06/2022 2551 RxNorm Not Available [facility] - production 4 03:38:56 1092 levofloxa camilo medicatio n Not available Not available Not available 08/06/2022 85501 RxNorm Not Available [facility] - production 4 03:38:56 1093 metformin medicatio n Not available Not available Not available 08/06/2022 6809 RxNorm Gayatri Myers MD [address] [place] [address],[address], [place], [phone], [employer] 2 16:50:48 1094 morphine medicatio n Not available Not available Not available 08/06/2022 7052 RxNorm Not Available [facility] - production 4 03:38:56 1095 Farxiga medicatio n Not available Not available Not available 08/06/2022 63829 72 RxNorm Gayatri Myers MD [address] [place] [address],[address], [place], [phone], [employer] 2 16:51:51 1096 Silvadene medicatio n Not available Not available Not available 08/06/2022 28645 6 RxNorm Not Available [facility] - production 4 03:38:56 7664 Bactrim medicatio n Not available Not available Not available 09/11/2024 38929 9 RxNorm Not Available [facility] - production 03:38:56 Medications Name Sig Start Date Stop Date Status Note LastModified by Organization Details LastModified Time Prescription - Renewal active Not Available Not Available No t Available vitamin d3 25mcg cap TAKE 1 CAPSULE BY MOUTH ONCE DAILY active Not Available Not Available No t Available comfrt touch pad alc prep active Not Available Not Available Not Available comfort tch mis lanc 30g active Not Available Not Available Not Available comfort tch mis lanc 30g eaches PT TO CHECK BLOOD SUGAR 5X DAILY DIRECTED active Not Available Not Available No t Available med sync [facility] active Not Available Not Available Not Available amoxicillin 500 mg capsule TAKE 1 TABLET 3 TIMES A DAY UNTIL FINISHED active Not Available Not Available No t Available furosemide 40 mg tablet Take 1 tablet every day by oral route for 1 day. active Not Available Not Available No t Available nystatin 100,000 unit/mL oral suspension TAKE 5 ML BY MOUTH 4 TIMES DAILY active Not Available Not Available Not Available clonidine HCl 0.1 mg tablet TAKE 1 TABLET BY MOUTH ONCE A DAY NEEDED NEEDED FOR ANXIETY. BE CAREFUL WHEN YOU CHANGE POSITIONS FROM LYING DOWN TO SITTING, FOR POSS active Not Available Not Available No t Available acetaminophe n 325 mg tablet active Not Available Not Available Not Available prednisone 10 mg tablet TAKE 4 TABLETS BY MOUTH ONCE DAILY DIRECTED SEE TAPER INSTRUCTION S PROVIDED BY OFFICE active Not Available Not Available No t Available doxycycline hyclate 100 mg capsule TAKE 1 CAPSULE BY MOUTH TWICE DAILY active Not Available Not Available No t Available carvedilol 12.5 mg tablet TAKE 1 TABLET BY MOUTH TWICE DAILY active Not Available Not Available No t Available naproxen 375 mg tablet active Not Available Not Available No t Available ipratropium 0.5 mg-albuterol 3 mg (2.5 mg base)/3 mL nebulization soln USE 3 ML IN NEBULIZER EVERY 4 HOURS WHILE AWAKE active Not Available Not Available No t Available trazodone 50 mg tablet TAKE 1 TABLET BY MOUTH AT BEDTIME active Not Available Not Available No t Available azithromycin 250 mg tablet TAKE 2 TABLETS (500 MG) BY ORAL ROUTE ONCE active Not Available Not Available No t Available tizanidine 4 mg tablet active Not Available Not Available No t Available metoprolol succinate ER 50 mg tablet,exten ded release 24 hr TAKE 1 TABLET BY MOUTH EVERY DAY (IN ADDITION TO 50MG TABLET IN PACK) FOR TOTAL OF 100MG active Not Available Not Available No t Available enalapril maleate 20 mg tablet TAKE 1 TABLET BY MOUTH TWICE A DAY active Not Available Not Available No t Available senna 8.6 mg tablet TAKE 2 TABLETS BY MOUTH DAILY AT BEDTIME NEEDED active Not Available Not Available No t Available lisinopril 20 mg tablet active Not Available Not Available Not Available betamethason e, augmented 0.05 % topical cream APPLY TO THE AFFECTED AREA EVERY DAY DIRECTED active Not Available Not Available No t Available metoprolol succinate ER 100 mg tablet,exten ded release 24 hr active Not Available Not Available Not Available Pyridium 200 mg tablet Take 1 tablet 3 times a day by oral route for 3 days. 2022 active Not Available Not Available Not Avai lable simethicone 125 mg capsule active Not Available Not Available Not Available Lantus U-100 Insulin 100 unit/mL subcutaneous solution active Not Available Not Available Not Available fexofenadine 180 mg tablet TAKE 1 TABLET SWALLOW WHOLE WITH WATER; DO NOT TAKE WITH FRUIT JUICES. ORALLY ONCE A DAY 30 DAY(S) active Not Available Not Available No t Available amlodipine 5 mg tablet active Not Available Not Available No t Available sulfamethoxa zole 800 mg-trimethop rim 160 mg tablet TAKE 1 TABLET BY MOUTH 2 TIMES A DAY,X10 DAYS active Not Available Not Available No t Available SPS (with sorbitol) 15 gram-20 gram/60 mL oral suspension TAKE 120ML BY MOUTH ONCE active Not Available Not Available No t Available tramadol 50 mg tablet TAKE 1 TABLET NEEDED FOR SEVERE PAIN ORALLY TWICE A DAY 14 DAYS active Not Available Not Available No t Available acetaminophe n 500 mg tablet MICHEAL 1 TABLETA POR LA BOCA CADA 6 HORAS CUANDO SEA NECESARIO PARA EL DOLOR. (NO MICHEAL MAS DE 4 TABLETAS AL HUMBERTO) active Not Available Not Available No t Available triamcinolon e acetonide 0.1 % topical cream active Not Available Not Available Not Available spironolacto ne 25 mg tablet TAKE 1 TABLET BY MOUTH ONCE DAILY active Not Available Not Available No t Available amoxicillin 500 mg tablet TAKE 1 TABLET 3 TIMES A DAY UNTIL FINISHED active Not Available Not Available No t Available pravastatin 10 mg tablet active Not Available Not Available Not Available lidocaine HCl 4 % (40 mg/mL) mucosal solution active Not Available Not Available Not Available gabapentin 800 mg tablet TAKE 1 TABLET BY MOUTH TWICE DAILY WITH 300MG CAPSULE active Not Available Not Available No t Available cephalexin 500 mg capsule Take 1 capsule every 6 hours by oral route for 10 days. active Not Available Not Available No t Available simvastatin 20 mg tablet TAKE 1 TABLET BY MOUTH EVERY DAY active Not Available Not Available No t Available erythromycin 5 mg/gram (0.5 %) eye ointment active Not Available Not Available Not Available olopatadine 0.1 % eye drops PLACE 1 DROP INTO AFFECTED EYE TWICE DAILY NEEDED FOR ALLERGIC SYMPTOMS. 25 active Not Available Not Available No t Available lisinopril 10 mg tablet TAKE 1 TABLET BY MOUTH EVERY DAY active Not Available Not Available No t Available nitroglyceri n 0.4 mg sublingual tablet active Not Available Not Available Not Available betamethason e dipropionate 0.05 % topical cream active Not Available Not Available Not Available gabapentin 300 mg capsule TAKE 1 CAPSULE ORALLY ONCE A DAY IN ADDITION TO 800MG 30 DAY(S) active Not Available Not Available No t Available omeprazole 20 mg capsule,morales yed release TAKE 1 CAPSULE BY MOUTH DAILY FOR 30 DAYS NEEDED FOR DYSPEPSIA active Not Available Not Available No t Available aspirin 81 mg chewable tablet TAKE 1 TABLET BY MOUTH EVERY DAY active Not Available Not Available No t Available simethicone 125 mg chewable tablet active Not Available Not Available Not Available montelukast 10 mg tablet active Not Available Not Available Not Available lisinopril 5 mg tablet active Not Available Not Available No t Available furosemide 20 mg tablet active Not Available Not Available Not Available Novolog U-100 Insulin aspart 100 unit/mL subcutaneous solution DIRECTED SUBCUTANEOU S 10-24 UNITS SLIDING SCALE WITH MEALS active Not Available Not Available No t Available alclometason e 0.05 % topical ointment active Not Available Not Available Not Available nystatin 100,000 unit/gram topical powder active Not Available Not Available Not Available fluocinolone 0.01 % topical solution 1 APPLICATION TO SCALP EXTERNALLY ONCE A DAY 28 DAYS active Not Available Not Available No t Available epinephrine 0.3 mg/0.3 mL injection, auto-injecto r active Not Available Not Available Not Available ibuprofen 600 mg tablet active Not Available Not Available Not Available albuterol sulfate HFA 90 mcg/actuatio n aerosol inhaler Inhale 2 puffs every 4 hours by inhalation route as needed. active Not Available Not Available No t Available hydrocortiso ne 2.5 % topical ointment APPLY IN A THIN FILM TO THE AFFECTED SKIN AND RUB IN GENTLY AND COMPLETELY TWICE DAILY active Not Available Not Available Not Available lisinopril 40 mg tablet active Not Available Not Available Not Available fluticasone propionate 50 mcg/actuatio n nasal spray,suspen concha [place] 1 spray every day by intranasal route for 5 days. active Not Available Not Available No t Available metformin ER 500 mg tablet,exten ded release 24 hr TAKE 1 TABLET BY MOUTH EVERY EVENING WITH FOOD active Not Available Not Available No t Available clotrimazole 1 % topical cream APPLY THIN LAYER TO RASH OF GROIN FOLDS EXTERNALLY TWICE A DAY active Not Available Not Available Not Available dicyclomine 10 mg capsule active Not Available Not Available Not Available naproxen 500 mg tablet TAKE 1 TABLET BY MOUTH EVERY 12 HOURS WITH FOOD OR MILK active Not Available Not Available No t Available spironolacto ne 50 mg tablet active Not Available Not Available Not Available amoxicillin 875 mg-potassium clavulanate 125 mg tablet Take 1 tablet every 12 hours by oral route after meals for 10 days. active Not Available Not Available No t Available amoxicillin 500 mg-potassium clavulanate 125 mg tablet MICHEAL 1 TABLETA POR LA BOCA CADA 8 HORAS POR 4 CAMP active Not Available Not Available No t Available oxycodone 5 mg tablet active Not Available Not Available No t Available hydroxyzine pamoate 25 mg capsule TAKE 1 CAPSULE BY MOUTH THREE TIMES A DAY NEEDED ANXIETY AND SLEEP active Not Available Not Available No t Available azithromycin 500 mg tablet TAKE 1 TABLET BY MOUTH EVERY 24 HOURS active Not Available Not Available No t Available Novolog FlexPen U-100 Insulin aspart 100 unit/mL (3 mL) subcutaneous INJECT THREE TIMES DAILY BEFORE MEALS PER SLIDING SCALE. BLOOD SUGAR 100-149: 18 UNITS, 150-199: 20 UNITS, 200-249: 22 UNITS, 250-299: 24 UNITS, 300-349: 26 UNITS, 350-399: 28 UNITS, OVER 400 30UNITS, CALL DOCTOR. MAX OF 90 UNITS A DAY active Not Available Not Available No t Available rosuvastatin 10 mg tablet active Not Available Not Available Not Available rosuvastatin 20 mg tablet active Not Available Not Available Not Available Saccharomyce s boulardii 250 mg capsule TAKE 1 CAPSULE BY MOUTH TWICE DAILY active Not Available Not Available No t Available Alcohol Prep Pads active Not Available Not Available Not Available Xopenex HFA 45 mcg/actuatio n aerosol inhaler active Not Available Not Available Not Available budesonide-f ormoterol HFA 80 mcg-4.5 mcg/actuatio n aerosol inhaler active Not Available Not Available Not Available peg 3350-electro lytes 236 gram-22.74 gram-6.74 gram-5.86 gram solution active Not Available Not Available Not Available FreeStyle Lite Strips PT TO CHECK BLOOD SUGAR 5X DAILY DIRECTED active Not Available Not Available No t Available ferrous sulfate 324 mg (65 mg iron) tablet,delay ed release active Not Available Not Available N ot Available Lantus Solostar U-100 Insulin 100 unit/mL (3 mL) subcutaneous pen INJECT 45 UNITS SUBCUTANEOU SLY TWICE DAILY active Not Available Not Available No t Available Mucinex DM 60 mg-1,200 mg tablet,exten ded release 12 hr Take 1 tablet every 12 hours by oral route as needed. 2023 active Not Available Not Available Not Avai lable diclofenac 1 % topical gel APPLY GEL TOPICALLY TO AFFECTED AREA THREE TIMES DAILY NEEDED FOR PAIN active Not Available Not Available No t Available Desitin Rapid Relief 13 % topical cream active Not Available Not Available Not Available Comfort EZ Pen Kinzers 31 gauge x 1/4 USE WITH INSULIN PENS 4 TIMES A DAY, 90 DAY SUPPLY active Not Available Not Available No t Available Lenore Alvarez [facility] spacer active Not Available Not Available Not Available Victoza 3-Paco 0.6 mg/0.1 mL (18 mg/3 mL) subcutaneous pen injector INJECT 1.8 MG SUBCUTANEOU SLY ONCE DAILY active Not Available Not Available No t Available Breo Ellipta 100 mcg-25 mcg/dose powder for inhalation TAKE 1 PUFF INHALATION ONCE A DAY active Not Available Not Available N ot Available Easy Comfort Pen Kinzers 31 gauge x 5/16 active Not Available Not Available Not Available Comfort EZ Pen Kinzers 33 gauge x 1/4 DIRECTED WITH INSULIN AND OZEMPIC active Not Available Not Available No t Available Farxiga 10 mg tablet active Not Available Not Available No t Available Jardiance 10 mg tablet active Not Available Not Available No t Available Entresto 97 mg-103 mg tablet active Not Available Not Available Not Available Entresto 49 mg-51 mg tablet active Not Available Not Available Not Available Entresto 24 mg-26 mg tablet active Not Available Not Available Not Available Ultracare Insulin Syringe 1 mL 30 gauge x 5/16 active Not Available Not Available Not Available Easy Comfort Pen Kinzers 33 gauge x 3/16 active Not Available Not Available Not Available Pure Comfort Safety Lancets 30 gauge active Not Available Not Available Not Available FreeStyle Franca 2 Sensor kit APPLY 1 SENSOR, AND LEAVE IN PLACE FOR 14 DAYS, TO MONITOR BLOOD SUGAR AT LEAST EVERY 8 HOURS. CHANGE SENSOR EVERY 14 DAYS. active Not Available Not Available No t Available FreeStyle Franca 2 [place] active Not Available Not Available Not Available Comfort Touch Pen Needle 31 gauge x 3/16 USE FOUR TIMES DAILY active Not Available Not Available Not Available Flowflex COVID-19 Antigen Home Test kit active Not Available Not Available Not Available Paxlovid 300 mg (150 mg x 2)-100 mg tablets in a dose pack Take 1 dose pk by oral route. active Not Available Not Available No t Available Mounjaro 2.5 mg/0.5 mL subcutaneous pen injector INJECT 1 SYRINGE SUBCUTANEOU SLY ONCE A WEEK active Not Available Not Available No t Available Dexcom G7 Mowing Machine Operator USE TO CONTINUOUSL Y CHECK GLUCOSE DIRECTED FOR TYPE 2 DIABETES WHILE ON BASAL INSULIN active Not Available Not Available No t Available Dexcom G7 Sensor device USE ONE SENSOR TO CONTINUOUSL Y CHECK GLUCOSE DIRECTED FOR TYPE 2 DIABETES WHILE ON BASAL INSULIN. CHANGE SENSOR EVERY 10 DAYS active Not Available Not Available No t Available Vitals Date Recorded Body weight Body mass index (BMI) Body height Provider Name and Address Organization Details Last Updated DateTime 10/13/2023 388846.57 g 41.7 kg/m2 170.18 cm Gayatri Myers MD [address] [place] [address],[address], [place], [phone], [place] - [employer] 10/13/2023 16:15:12 Date Recorded Heart rate Respiratory rate Oxygen saturation Oxygen saturation in Arterial blood by Pulse oximetry Body temperature Systolic blood pressure Diastolic blood pressure Provider Name and Address Organization Details Last Updated DateTime 82 /min 18 /min 96 % 96 % 98.1 [degF] 166 mm[Hg] 74 mm[Hg] Not Available [facility] - production 16:13:39 Date Recorded Oxygen saturation Oxygen saturation in Arterial blood by Pulse oximetry Body temperature Respiratory rate Heart rate Systolic blood pressure Diastolic blood pressure Provider Name and Address Organization Details Last Updated DateTime 4 97 % 97 % 98.9 [degF] 16 /min 80 /min 160 mm[Hg] 90 mm[Hg] Not Available [facility] - production 4 19:19:40 Date Recorded Oxygen saturation Oxygen saturation in Arterial blood by Pulse oximetry Respiratory rate Body temperature Body height Body weight Heart rate Systolic blood pressure Diastolic blood pressure Provider Name and Address Organization Details Last Updated DateTime 4 95 % 95 % 16 /min 98.5 [degF] 167.64 cm 395684. 472 g 72 /min 161 mm[Hg] 78 mm[Hg] Not Available [employer] - production 4 15:26:25 Date Recorded Oxygen saturation Oxygen saturation in Arterial blood by Pulse oximetry Respiratory rate Body temperature Heart rate Systolic blood pressure Diastolic blood pressure Provider Name and Address Organization Details Last Updated DateTime 4 95 % 95 % 16 /min 97.1 [degF] 78 /min 189 mm[Hg] 79 mm[Hg] Not Available [employer] 4 18:38:38 Date Recorded Body temperature Respiratory rate Heart rate Oxygen saturation Oxygen saturation in Arterial blood by Pulse oximetry Systolic blood pressure Diastolic blood pressure Provider Name and Address Organization Details Last Updated DateTime 4 98.2 [degF] 18 /min 72 /min 96 % 96 % 186 mm[Hg] 100 mm[Hg] Not Available [employer] 4 14:32:47 Social History None recorded. Functional Status None recorded. Mental Status None recorded. Family History Nothing Reported. Medical History No medical history recorded. Gynecological HistoryNo gynecological history recorded. Obstetrics History GPAL:G 0 P 0 0 0 0 Past Encounters Encounter ID Performer Location Encounter Start Date Encounter Closed Date Diagnosis/Indication Diagnosis SNOMED-CT Code Diagnosis ICD10 Code Diagnosis Note [id number] Dick Nj MD [facility] - [facility] [address] [place] [address] [id number] 0 07/30/2022 11:07:20 07/30/2022 11:13:09 [id number] Lela Asencio MD Main - [facility] [address] [place] [address] [id number] 07/31/2022 12:32:00 08/10/2022 13:49:16 Hyperkalemia 45151253 E87.5 [facility] sent for hyperkalem ia check following kayexelate . potassium increased to 7 from 6.1 yesterday. EKG with question of peaked T waves. sending to ED. Pt amenable. [id number] Gayatri Myers MD Main - [facility] [address] [place], [place] [id number] 0 08/06/2022 16:34:18 08/16/2022 13:48:08 Hyperkalemia [id number] E87.5 RESOLVED- improving cellulitis RLE- pat advised to continue doxycyclin e/ stay hydrated- avoid sun exposure on antibioitc s and f/u pcp next week. [id number] Anuja Nieves MD Main - [facility] [address] [place] [address] 0 09/08/2022 20:44:28 09/14/2022 15:20:07 Fatigue [id number] R53.83 [id number] Gayatri Myers MD Main - [facility] [address] [place] [address] 0 11/22/2022 19:35:33 11/24/2022 10:38:51 Acute urinary tract infection [id number] N39.0 patient unable to void after > 1 hr with po fluids- straight cath performed with patient's verbal permission - 75 cc cloudy urine obtainedU A reflex to C & S sent to [facility] as per Solo Saravia JOB SETTER request-si nce patient symptomati c will start antibiotic - advised team will call if culture reveals need to change atb/ push fluids- offered tylenol- pat declines as she has plenty( advised given stated weight may have 1000 mg 3-4 x per day/. Having significan t dysuria- will rx 3 days pyridium( pat. aware can stain underwear) Recheck BS 19:41 by cgm 288- patient took SS insulin and was about to eat dinnerHas immodium if needs /aware to limit diet [id number] Naif Keating MD Main - [facility] [address] [place] [address] 0 02/14/2023 15:19:54 02/15/2023 22:49:34 Headache [id number] R51.9 As noted, we were called to see this patient regarding concerns of headache and hypertensi on. Evaluation in the field was performed by my tube rebuilder colleague, as noted above, I provided real-time direction and supervisio n for this visit. The evaluation revealed a well-appea ring and conversant patient with no focal deficits or overtly concerning findings. She reported HEALY was 7-8/10, without photophobi a, nausea, vomiting, vision changes, or weakness/n umbness/ti ngling, and not waking her from sleep or worse supine. It responded to 1000 mg of tylenol, decreasing to about 2/10. It has also responded to naproxen 350 (per her) in past. She was concerned about this being related to BP/BP med change. Metoprolol recently decreased to 50 mg from 100 mg. Meds reviewed and also on lisinopril 20. Denies excessive stress. Endorsed some chest pressure on questionin g from medic and this was mild and non-exerti onal, with no clear associatio ns. EKG shows NSR with no acute ischemic findings and poor voltages on lateral leads. Impression :Headache without concerning features suggestive of serious causes, likely tension vs migraine (perhaps beta edgardo decrease a factor) vs other (e.g. allergies) . BP is elevated and though patients often attribute HEALY to this, my impression is the opposite. No e/o serious complicati ons and BP high but not dangerousl y so. Plan:Reass uranceCont inue PRN HEALY medsBP should be monitored and can consider adjusting meds if persistent ly high Primary care, considerch dom-in call and BP check, HEALY virtual or in-person visit. Dispositio n:Review of notes shows patient requested EMS activation to ED after our visit concluded. [id number] Dick Nj MD Main - [facility] [address] [place] [address] [id number] 0 03/17/2023 15:09:59 03/18/2023 10:59:45 Increased frequency of urination [id number] R35.0 This 62-year-ol d female called instED with a four day history of dark urine. Yesterday she developed urine frequency and some flank pain. She took pyridium today so her urne was dark and the U/A was hard to read. I ordered a urine culture. She will maintain a high fluid intake and called back with any fever or systemic symptoms. The patient agreed with this plan. [id number] Katey Owusu MD Main - [facility] [address] [place] [address] [id number] 0 06/14/2023 19:38:03 06/15/2023 11:06:12 Abdominal pain [id number] R10.9 [id number] Lela Asencio MD Main - [facility] [address] [place] [address] [id number] 0 07/26/2023 20:28:55 07/28/2023 10:15:01 COVID-19 [id number] U07.1 I provided real -time medical direction via phone for this encounter, and was available for additional phone based assistance as needed. I have reviewed and agree with the Assessment and Plan as documented by the Washroom Operator. Patient given the opportunit y to ask questions. 63 yo w/ URI sx, tested positive for covid today. Rapid test positive as well. Reviewed labs (nl renal function) and medication list for paxlovid safety. Pt agreeable to take paxlovid. Discussed warning signs/sx. [id number] Gayatri Myers MD Main - [facility] [address] [place] [address] [phone] 0 10/13/2023 16:13:37 10/15/2023 11:39:43 Acute bacterial bronchitis [id number] J20.9 Antibiotic s indicated due to dark green productive mucus -Augmentin as below-advi sed to use her albuterol inhaler 2 puffs 4 times a day while ill.- BS from her M 291 postprandi al-patient not wheezing steroids not indicated at this time & as this will adversely affect her blood sugar Streptococ ken sore throat [id number] J02.0 Patient has Tylenol 500 mg at home -advised given stated weight she may have Tylenol 500 mg - 2 pills q 6 h prn pain/fever /gargle with warm salt water-stay well-hydra brock.-Medic does not have any amoxicilli n derivative s.Patient has tolerated amoxicilli n and Augmentin in the past/I prefer Augmentin due to need to cover her lungs as well-saeed nt reports her daughter can picker and packer the prescripti on this evening. Advised her to call CRC if she is unable to get the prescripti on by tomorrow morning or if she is not feeling better in 48 hours to call for another visit -she verbalized understand ing to the medic ORALIA APONTE MD Main - [facility] [address] [place] [address] [phone] 0 01/04/2024 19:19:38 01/05/2024 09:31:05 Viral upper respiratory tract infection [id number] J06.9 Evaluation in the field was performed by my tube rebuilder colleague, as noted above, I provided real-time direction and supervisio n for this visit. The evaluation revealed 63 year old female with diabetes complicate d by hyperglyce claudia, previous foot ulceration s with LLE BKA, neuropathy , retinopath y, and cataracts as well as HTN, HTL, diastolic heart failure, obesity, asthma, allergies, GERD, arthritis, depression , and insomnia. C/o nasal congestion x3 days, mild cough with known Covid exposure. Denies fever, chills, myalgia, sore throat, SOB, wheezing . Has been using Flonase but per tube rebuilder, has .VS S, afebrile, saturating 97 % on RACovid and Flu negativeLu ngs clear with good aeration, no wheezing Impression :URI, viral Plan:-Rx for new Flonase sent to pharmacy-A dvised to continue using her Albuterol every 4 hrs for the next 3-4 days and her Breo-Red flags discussed Primary care, consider__ _ Dispositio n: We discussed the diagnostic uncertaint y of home visits and the risk associated with this. In this case, the patient and I felt this to be an acceptable and reasonable amount of risk given the benefit of avoiding an ED visit. We discussed the need to seek care urgently/e mergently in the setting of any new or worsening serious symptoms, particular ly fever, chills, SOB, worsening congestion , myalgia, weakness, wheezing or any other concerns Gayatri Myers MD Main - [facility] [address] [place] [address] [id number] 0 01/09/2024 15:26:20 01/10/2024 10:39:43 Mild chronic obstructive pulmonary disease [id number] J44.9 with possible sinusitis- advised to continue using her Flonase as directed/p rescribedD o not use her Symbicort as a rescue inhaler is to be used once daily as prescribed , will give her an albuterol rescue inhaler.Pa tient is to just stop the [facility] cough cold medicine due to the phenylephr ine which is affecting her blood pressure and could affect her heart, Mucinex DM is safer prescripti on sent/patie nt informed. I suggested she stay well-hydra brock and warm compresses to her sinuses as well as sleeping upright might relieve some of her nasal congestion and coughing. Advised close follow-up with her PCP and she verbalized understand ing. [id number] Anuja Nieves MD Main - [facility] [address] [place] [address] [phone] 0 05/08/2024 18:38:33 05/09/2024 20:15:30 Edema of lower extremity [id number] R60.0 [id number] Velasquez Eric MD Main - [facility] [address] [place] [address] [phone] 0 05/10/2024 14:32:45 05/11/2024 17:38:07 Edema of lower extremity [id number] R60.0 Patient with mild edema in lower extremity on right side (has L BKA). No SOB or other signs of acute CHF exacerbati on. No known weight changes. Hypertensi ve of exam though no s/s of hypertensi ve urgency or emergency. 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 WIll give Lasix 40mg x1 now and then for an additional day. Advised to have close f/u with PCP to evaluate longer term plan for edema and likely a repeat ECHO. Discussed red flag signs and symptoms for which to seek higher level of care. Health Concerns Section Related Observation LastModified by Organization Detai ls LastModified Time None Recorded Concern Status LastModified by Organization Details LastModified Time None Recorded Advance Directives Directive None Recorded Payers Encounter Date Sequence Insurance Name Policy Number Policy Smith Covered Member ID Smith Member ID Guarantor Name 10/13/[address] [facility] - DOS ON OR AFTER 2023 - DUAL ELIGIBLE - PENITENTIARY OPTIONS AND ONE CARE (MEDICARE REPLACEMENT/ADV ANTAGE - HMO) Yolanda Choi [id number] Yolanda Choi 01/04/[address] [facility] - DOS ON OR AFTER 2023 - DUAL ELIGIBLE - PENITENTIARY OPTIONS AND ONE CARE (MEDICARE REPLACEMENT/ADV ANTAGE - HMO) Yolanda Choi [id number] Yolnada Choi 01/09/2024 1 [facility] - DOS ON OR AFTER 2023 - DUAL ELIGIBLE - PENITENTIARY OPTIONS AND ONE CARE (MEDICARE REPLACEMENT/ADV ANTAGE - HMO) Yolanda Snell Jimbo [id number] Yolanda Snell Bruceleo 05/08/2024 1 [facility] - DOS ON OR AFTER 2023 - DUAL ELIGIBLE - PENITENTIARY OPTIONS AND ONE CARE (MEDICARE REPLACEMENT/ADV ANTAGE - HMO) Yolanda Snell Jimbo [id number] Yolanda Snell Bruceleo 05/10/2024 1 [facility] - DOS ON OR AFTER 2023 - DUAL ELIGIBLE - PENITENTIARY OPTIONS AND ONE CARE (MEDICARE REPLACEMENT/ADV ANTAGE - HMO) Yolanda Snell Jimbo [id number] Yolanda Snell Bruceleo Notes Date Note Type Note Provider Name and Address Organization Details Recorded Time 10/13/2023 text/html HPI: 63 y/o female called to PCP office with reports of worsening cough over the last 2 days. Patient reports on going fever, chills, sore throat, productive cough (green phlegm) and audible wheezing per patient. Patient denies SOB and CP at this time. Patient speaking in full sentences but does appear to be labored. Patient denies sick contacts at this time. .................... .................... .................... .................... .................... .................... .................... . [facility] Nursing Assessment: Comments: Reviewed - Corina ELLIOTT .................... .................... .................... .................... .................... .................... .................... . Washroom Operator Note From David Cano: Pt co cough and sore throat with chills yesterday with fever. Took thera flu with relief of fever. Pt sts green mucus. Pt denies nausea vomiting diarrhea headache or dizziness. Baseline vitals assessed. Covid/flu swab negative, strep test positive. Lungs clear bilaterally. [facility] contacted and RX for augmentin called in for picker and packer. Pt instructed to call back tomorrow if does receive her antibiotics. Pt education on signs indicating the ER. Washroom Operator Allergies: Bactrim, Morphine, Silvadene, Levofloxacin, Ciprofloxacin .................... .................... .................... .................... .................... .................... .................... . Disposition: FulfilledSEGMD: As above. Patient used her albuterol inhaler and her wheezing stopped.-Patient with PMH COPD/DM/HTN/CHF/SP WA. She is status post left leg BKA Gayatri Myers MD [address] [facility],[address], [place], [address], [employer] 10/14/2023 06:12:30 01/04/2024 text/html HPI: Yolanda is a 63 year old female with diabetes complicated by hyperglycemia, previous foot ulcerations with LLE BKA, neuropathy, retinopathy, and cataracts as well as HTN, HTL, diastolic heart failure, obesity, asthma, allergies, GERD, arthritis, depression, and insomnia. C/o nasal congestion x3 days, mild cough with known Covid exposure; denies additional symptoms. Treating with Flonase and scheduled antihistamines with no improvement. [facility] visit requested for evaluation, covid testing. .................... .................... .................... .................... .................... .................... .................... . [facility] Nurse Triage Notes (Jennifer Guevara): Comments: HPI reviewed. No further information required to process visit. .................... .................... .................... .................... .................... .................... .................... . Washroom Operator Note From Fred Robins: Dispatched to the call address for the female with cold like symptoms looking for a Covid Test. Pt states she had a Covid contact last week as well as she went outside without her hat on and now has nasal congestion x3 days. Pt denies SoB, CP, body aches, fevers, chills, cough, ear/throat pain or any other symptom besides nasal congestion. Pt states she has been using Flonase but that every time she uses it the medication just comes out of her nose. Pt was found sitting on her bed, CAOx4, airway open and patent, breathing non labored, able to speak in full sentences, -JVD, -HEENT, skin PWD with good turgor, abd soft non tender/distended, pupils PERRL, lung sounds clear and equal bilaterally. Covid test (-). It was noted that Pts Flonase almost 1 year ago. Pt was asked to show this tube rebuilder how she was self administering the medication. Pt placed the tip of the applicator deep into her nare. Pt was educated on proper application. C consulted. Script for new Flonase called into preferred pharmacy. Red flags discussed. ALL times are approx. .................... .................... .................... .................... .................... .................... .................... . Disposition: Fulfilled ORALIA APONTE MD [address] [place] [address],[address], [place], [address], [employer] 01/04/2024 22:46:17 01/09/2024 text/html HPI: Seen by [facility] 01/04 for URI- CP called to follow up today and patient is stating she not better but worse. Loss of taste, waking up from sleep with difficulty breathing needing to use inhaler, intermittent chest pain. Patient declined ED visit, would like ENEFpro to do an EKG and prescribe something for congestion/symptoms. .................... .................... .................... .................... .................... .................... .................... . [facility] Nurse Triage Notes (Veronica Holliday): Comments: CRC RN DID NOt need further info SEGMD: Patient exposed to COVID last week/seen by our service on 01/04/24 complaining of nasal congestion for 3 days with a mild cough and denied other symptoms. COVID and flu test were negative. Pt was using an Flonase /new Rx sent to the pharmacy -which she did not receive until yesterday, also advised to use her albuterol.. Patient is now saying she has been sick since September. I saw her on 10/13/2023 with what appears to be a bacterial bronchitis and prescribed Augmentin Augmentin and Mucinex DM. She states she was better for a while. She reports she wakes up/s/p lying flat, coughing and feels short of breath, so she uses her inhaler multiple times. Medic discovered she does not have an albuterol she has been using her Symbicort as a rescue inhaler. She saw her PCP on who allegedly told her to go to the pharmacy and asked the pharmacist what she should take for cough cold- Given [facility] cough w/ phenylephrine. She denies fever, chills, sweats, nausea vomiting diarrhea to us. She denies chest pain to [facility], although she was apparently complaining of chest pain to her provider earlier so they requested an EKG................. .................... .................... .................... .................... .................... .................... .... Washroom Operator Note From Jurgen Leija: Pt reports URI sx including sinus and chest congestion, sinus tenderness and sore throat for over one month. Pt denies CP, SOB, VIGIL, f/n/v/d. Pt sts she saw her PCP on 12/27 and they advised her to go to the pharmacy and ask the pharmacist what to take to treat her sx. Pt is alert, NAD. VSS. Afebrile. Non focal neuro exam. Wheelchair at baseline. Bilateral sinus tenderness. Lungs CTA. Benign ABD exam. No LE edema. Rapid covid, flu and strep negative. After leaving the pt? s side, MIH had to go back into the home to perform an EKG at the PCP? s request. EKG was unremarkable. Pt treated with azithromycin 500 mg. Pt educated on prescriptions, told to d/c the current OTC med, educated on additional supportive care measures and to f/u with PCP. Pt instructed to seek emergent medical care for new or worsening sx, which are reviewed with her. .................... .................... .................... .................... .................... .................... .................... . Disposition: Fulfilled Gayatri Myers MD [address] [place] [address],[address], [place], [address], [employer] 01/09/2024 16:20:35 05/08/2024 text/html HPI: 63 year old female with type 2 diabetses complicated by retinopathy, neuropathy, hyperglycemia, left BKA, and past right foot ulcers as well as HTN, HLD, diastolic heart failure, asthma, GERD, arthritis, depression, and obesity. Oylanda states she went to [place] [facility] today where her BP was 169/80 and she was told to call her PCP. 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 I looked at the last cardiology note from mid April-they switched her from metoprolol to carvedilol. She has not picked up her medicine yet. She has taken all meds today, including the metoprolol. She says that since her apt earlier in the day, her legs and feet are now more swollen. She is elevating her feet, but complains of tightness and redness. Sending Inst[facility] for possible diuresis and assessment. .................... .................... .................... .................... .................... .................... .................... . CRC Nurse Triage Notes (Lanny Leach): Comments: CRC RN did not require any additional information to process this visit. Washroom Operator POC Test Results from Jurgen Leija [facility] (18:33:16) pH: 7.43 pH units pCO2: 35.7 mmHg pO2: 54.7 mmHg Na: 139 mmol/L K: 3.9 mmol/L iCa: 1.12 mmol/L Cl: 106 mmol/L TCO2: 23.9 mEq/L Hct: 34 % Hb: 11.4 g/dL Glu: 383 mg/dL Lac: 1.9 mmol/L Cr: 0.9 mg/dL BUN: 12 mg/dL A .................... .................... .................... .................... .................... .................... .................... . Washroom Operator Note From Jurgen Leija: Pt reports hx of CHF and takes spironolactone 25 mg qd. Pt notes increased RLE edema (left BKA) over the past two days. Pt denies any CP, SOB, f/n/v/d. Pt is alert, NAD. VSS. Afebrile. Non focal neuro exam. Lungs CTA. Benign ABD exam. +2 RLE edema. Unremarkable POC labs. Pt treated with furosemide 40 mg PO and an additional dose of 40 mg was left for her to take tomorrow morning. Inst[facility] to f/u morning. Red flags reviewed. .................... .................... .................... .................... .................... .................... .................... . Disposition: Mary Nieves MD [address] [place] [address],[address], [place], [address], [facility] [employer] 05/09/2024 00:11:01 05/10/2024 text/html HPI: 63 year old female with type 2 diabetes complicated by retinopathy, neuropathy, hyperglycemia, left BKA, and past right foot ulcers as well as HTN, HLD, diastolic heart failure, asthma, GERD, arthritis, depression, and obesity. She was seen by [facility] a few days ago for edema where she was treated w Lasix. [facility] was supposed to go out today to redraw electrolytes and check for CHF. I advised her if symptoms were worse and [facility] finds it necessary for her to go to the ER, she verbalized she would go. Please assess for CHF and redraw electrolytes. Please see last [facility] visit summary .................... .................... .................... .................... .................... .................... .................... . CRC Nurse Triage Notes (Veronica Holliday): Comments: CRC RN DID NOT NEED FURTHER INFO Washroom Operator POC Test Results from Murphy Nascimento - [facility] iSTAT Chem8+ (1) [14:46] Na: 139 mEq/L K: 3.9 mEq/L Cl: 102 mEq/L iCa: 1.07 mmol/L TCO2: 27 mmol/L Glu: 197 mg/dL BUN: 13 mg/dL Crea: 0.8 mg/dL Hct: 35 % Hb: 11.9 g/dL A Attachments uploaded as part of this test result can be found under Documents section. .................... .................... .................... .................... .................... .................... .................... . Washroom Operator Note From Murphy Nascimento: Dispatched to above address for lab check follow up for CHF. On arrival patient, 63 y/o F, met SC8 at the door, sitting in wheelchair, AOX4, airway patent, speaking in full sentences, good color, in no apparent distress. Patient states she was seen a few days ago for pedal edema, was prescribe Lasix PO for x2 days, [facility] requesting follow up labs. Patient states she has a little headache today, had an episode of chest discomfort this morning that went away after about 10 minutes, feels generally fatigued, denies any current chest pain. Patients vital signs checked. Secondary assessment, pupils PERRL, airway patent, no JVD, trachea midline, equal chest rise and fall, lungs clear all hawkins, abdomen soft non tender, no signs of trauma, good radial pulse, skin pink warm and dry, +1 edema on R lower leg, L BKA. [facility] contacted, advised of patient complaints and exam findings. [facility] ordered ISTAT checked. Blood draw preformed, ISTAT checked, results uploaded. [facility] contacted, advised of test results. [facility] ordered 40mg Lasix PO, will prescribe additional dose for tomorrow. Patient administered Lasix. Patient advised of [facility] recommendations, home care and red flags. Patient has no additional questions or concerns at this time. SC8 clear. EOR. .................... .................... .................... .................... .................... .................... .................... . Disposition: Fulfilled Velasquez Eric MD [address] [facility],[address], [place], [address], [employer] 05/10/2024 18:45:48 OBGyn Episode No OBEpisode recorded.
== END 2025-01-09 12:09 | disposition home or self-care (01) ==
PROVIDERS: PCP Internal Medicine; Visit Provider Nurse Practitioner Adult Health
DX: E11.9 Type 2 diabetes mellitus without complications (principal)
CPT/HCPCS: 99214; G2211

== ENCOUNTER → 2025-01-09 11:24 | Outpatient (BNVA) | payer OTHER, SELFPAY | PROVIDERS: PCP Internal Medicine; Visit Provider Nurse Practitioner Adult Health | DX: E11.319 Type 2 diabetes mellitus with unspecified diabetic retinopathy without macular edema (principal); E11.40 Type 2 diabetes mellitus with diabetic neuropathy, unspecified; Z96.41 Presence of insulin pump (external) (internal) | CPT/HCPCS: 82947; 99212 ==

== ENCOUNTER 2025-05-03 12:16 | Outpatient (AMB) | payer OTHER, SELFPAY ==
--- NOTE | 2025-05-03 08:48 | A.OFFVIS_ITS ---
Vital Signs 05/03/25 13:11 Height 5 ft 6 in BMI Reason not done Patient refused/unable BP 120/70 Blood Pressure Location Rt brachial Position Sitting Pulse 98 Pulse Source Pulse Oximeter Pulse Oximetry (%) 99 Oxygen Delivery Method Room Air Comment Patient in wheel chairwalter stated 230 Intake Visit Reasons: Type 2 dm Intake Note: Patient presents today for a follow-up on Type 2 Diabetes Mellitus: Last Diabetic eye exam was on: DUE Last Podiatry exam was on: Does not see a Adult Daycare Coordinator Most recent HbA1c: 7.6%, 05/03/2026 Random Glucose- 152 mg/dL, Today Warehouse Assistant Required: Yes Warehouse Assistant Language: Plasterer Apprentice Services: Warehouse Assistant Offered & Declined Accompanied by: Self / Same As Patient Allergies ciprofloxacin Allergy (Severe, Verified 01/09/25 11:43) Anaphylaxis kiwi Allergy (Severe, Verified 01/09/25 11:43) Angioedema morphine Allergy (Intermediate, Verified 01/09/25 11:43) Itching atorvastatin (From Lipitor) Adverse Reaction (Mild, Verified 01/09/25 11:43) myalgia metformin Adverse Reaction (Mild, Verified 01/09/25 11:43) Abdominal Pain HPI Comments Details: 64 year old female presents for f/u visit for type 2 diabetes. She was last seen 12/2024. A1C 05/03/25 7/6%, 11/20/24 8.6% Initially diagnosed with T2DM in 1980 with gestational . Was initially started on treatment with insulin while in [place]. 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 She has been seen by the Bariatric Surgeon at [facility] earlier this year and followed the diet for 1 week but had difficulties with this. She had a CABG x4 at [facility] and had a complicated postoperative stay including multiple ICU stays. She was in a coma for part of this time. Went to rehab afterwards and was rehospitalized with a lower GI bleed. Current regimen: Mounjaro 7.5 mg weekly Back up pump failure plan Lantus 50 units daily Novolog 15-20 units tid Dexcom average glucose: 222 14 day continuous glucose monitor report reviewed Glucose Managment indicator 8.6 % Days with CGM data 93 % TIme in ranges: 33 % very high (above 250) 31 % high ?(181-250) 35 % in range ?(70-180] 1 % low (69-55) 0 % ?very low (below 54) Interpretation running 70 points higher than target with significant postprandial highs Total daily dose of insulin 54.1 45% basal 24.4 units 55 % bolus 29.7 units Total carbs 129 Control IQ 84% of the time manual 16 She has been off the pump for a few days. She had difficulty with the an occlusion. She tried to initiate a pump and was unable to. She was asked to contact pump company directly. If unable to get pump started than she should take Lantus 50 units daily and cover her meals with Humalog 15-20 t.i.d. Basal rate 12 AM? to 12 AM? 2.2 units / hr Bolus setting Insulin Carbohydrate Ratio (s) 12 AM? to 12 AM? 1:3 Correction Factor / Sensitivity Factor 12 AM? to 12 AM? 7 Active Insulin Time:?5 hours Target(s): 12 AM? to 12 AM? 110 mg/dL Last eye exam: due 03/07 needs to make appt has had injections in the past but she reports last exam in February no rx needed Nephropathy: None last EGFR > 60 measured on 06/06 no microalbumin in EHR Neuropathy: on gabapentin no numbness, tingling, cramping podiatry: HLD:not on statin had myalgias to atorvastatin, last LDL 99 measured 2024 on 04/17/24 CHF: Followed by Cardiology has CABG x4 [facility] with complications post op Followed by [facility] Medical History (Updated 05/03/25 @ 14:11 by Destinee Drake NP) Lower GI bleed CAD (coronary artery disease) Type 2 diabetes mellitus Asthma-COPD overlap syndrome Chronic diastolic CHF (congestive heart failure) HTN (hypertension) Morbid obesity Carpal tunnel syndrome GERD (gastroesophageal reflux disease) Insomnia Neuropathy Sleep apnea Insulin dependent type 2 diabetes mellitus HLD (hyperlipidemia) Diabetes mellitus Surgical History S/P S/P cholecystectomy Below-knee amputation of left lower extremity Family History Mother Dementia Diabetes Father Dementia Diabetes Social History Household Members: Children Housing: Apartment Do you presently have visiting nurse or other home services: No Alcohol intake: never Comment: D/C to home Patient Tobacco Use Status: Former Tobacco user Advance Directives Date on File: 03/07/24 service: No Physical Exam Vital Signs: Last Vital Signs Pulse 98 05/03/25 13:11 BP 120/70 05/03/25 13:11 Pulse Ox 99 05/03/25 13:11 Oxygen Delivery Method Room Air 05/03/25 13:11 Const Other: Absence of Cushingoid features. Absence of acromegalic features. Neck exam reveals nl size thyroid about 15 gms. No thyroid nodules palpable. Heart S1 S2, Reg R/R. No M/R G. Skin exam reveals absence of vitiligo or acanthosis nigricans. Trace edema. Foot exam deferred as patient declined due to compression stocking. 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 A1c 7.6%. She is feeling much better. She is having difficulty with the pump and an occlusion which was cleared and had difficulty again. She was asked to contact the pump company directly for trouble shooting. If she is not successful with this she has a follow up appointment with Kristen LOW in 2 weeks. In the interim if needed she will take Lantus 50 units once daily along with short- acting insulin 15-20 units t.i.d.. She declined foot exam today due to compression stockings. She was asked to keep them off the next time she comes in so that a provider can do a foot exam. She reports that she has no issues no ulcers or open area. The patient had an opportunity to ask questions regarding treatment plan. The patient expressed understanding and agreement with the above treatment plan. The patient is aware they should contact our office by phone for worsening glucose readings or for any low blood sugars which may warrant a change in diabetes medication. Compliance is encouraged with medications and any followup testing/consults which may have been ordered. Orders: Orders AMB Hemoglobin A1c Today E11.9 - Type 2 diabetes mellitus without complications, Z79.4 - residential (current) use of insulin Coding Level of Care Code Est Pt Level 4 (88120) Complex EM visit Add On G2211 Diagnoses Insulin dependent type 2 diabetes mellitus E11.9; Z79.4 Time Spent (min) 30 Comment Time spent reviewing labs/provider notes, face to face, chart doc
--- OUTSIDE RECORDS SUMMARY | 2025-05-03 12:19 | XMS_ITS | Data Portability ---
Author Organization [facility], Main Office Address [address] [place] [address] Care Team Providers Care Assembly Stock Supervisor Name Role Phone [facility] OTHER Assessment No assessment recorded. Plan of Treatment Reminders Order Date Submit Date Provider Last Modified By Organization Details Last Modified Time Details Appointments None record ed. Lab None record ed. Referral None record ed. Procedures None record ed. Surgeries None record ed. Imaging None record ed. Medication Orders None record ed. Patient TargetsNo targets recorded. Patient InstructionsNo instructions recorded. Reason for Referral None Reported. Problems Name Problem SNOMED Code Status Onset Date Resolution Date Notes Provider Name and Address Organization Details Recorded Time Essential hypertensi on 59300932 Active 2024 Not Available [facility] 00:41:00 Melena 5374499 Active 2024 Not Available [facility] 00:41:01 Type 1 diabetes mellitus without complicati on 498549302 Active 2024 Not Available [facility] 00:42:21 Acute kidney injury 22424276 Active 2024 Not Available [facility] 00:42:23 Closed fracture 193658059 Active 2024 Not Available [facility] 00:43:04 Morbid obesity 252164036 Active 2024 Not Available [facility] 00:44:24 Gastroesop hageal reflux disease without esophagiti s 827434364 Active 2024 Not Available [facility] 00:45:05 Hyperlipid emia 26774597 Active 2024 Not Available [facility] 00:45:06 Muscle pain 91045023 Active 2024 Not Available [facility] 00:46:28 Type 2 diabetes mellitus without complicati on 798711033 Active 2024 Not Available [facility] 00:46:29 Congestive heart failure 49496790 Active 2024 Not Available [facility] 00:47:50 Obstructiv e sleep apnea syndrome 25131052 Active 2024 Not Available [facility] 00:47:51 Atheroscle rosis of coronary artery without angina pectoris 2734920583970 03 Active 2024 Not Available [facility] 21:45:13 Cardiac MRI Active 2024 Not Available [facility] 00:49:41 Vascular surgery procedure Active 2024 Not Available [facility] 21:44:53 Muscle weakness 35085534 Active 2024 Not Available [facility] 21:46:20 Unsteady when standing 869792025 Active 2024 Not Available [facility] 21:47:01 Problem Notes None recorded. Medical Equipment None Reported. Allergies Allergen ID Allergen Name Allergen Category Reaction Reaction Severity Criticality Documentation Date Start Date Code Code System Note Provider Name and Address Organization Details Recorded Time 19768 kiwi fruit extract food Not available Not available Not available 02/22/20252024 31762 01 RxNorm Not Available [facility] 22:18:16 91566 Cipro medicatio n Not available Not available Not available 02/22/20252024 50644 3 RxNorm Not Available [facility] 22:18:59 28482 morphine medicatio n Not available Not available Not available 02/22/20252024 7052 RxNorm Not Available [facility] 22:19:41 05051 lactose food,medi cation Not available Not available Not available 02/22/20252024 6211 RxNorm Not Available [facility] 22:20:22 61823 Levaquin medicatio n Not available Not available Not available 02/22/20252024 45400 2 RxNorm Not Available [facility] 22:21:43 83644 Lipitor medicatio n Not available Not available Not available 02/22/20252024 16185 5 RxNorm Not Available [facility] 22:21:45 53318 dapaglifl ozin Not available Not available Not available Not available 02/22/20252024 92848 64 RxNorm Not Available [facility] 22:22:27 97992 metformin medicatio n Not available Not available Not available 02/22/20252024 6809 RxNorm Not Available [facility] 22:23:36 Medications Name Sig Start Date Stop Date Status Note LastModified by Organization Details LastModified Time acetaminoph en 325 mg tablet Give 2 tablet by mouth every 6 hours as needed for Mild Pain Do not exceed 3 grams in 24 hours.Tot al 650 mg AND Give 2 tablet by mouth every 6 hours as needed for Elevated Temperatu re > 101 Do not exceed 3 grams in 24 hours.Tot al 650mg 2024 active Not Available Not Available Not Avai lable insulin glargine (U-100) 100 unit/mL subcutaneou s solution Inject 25 unit subcutane ously in the morning for Type 2 DM AND Inject 25 unit subcutane ously at bedtime for Type2 DM 2024 active Not Available Not Available Not Avai lable metoprolol tartrate 100 mg tablet Give 1 tablet by mouth one time a day for HTN 2024 active Not Available Not Available Not Avai lable isosorbide mononitrate ER 30 mg tablet,exte nded release 24 hr Give 1 tablet by mouth two times a day for HTN Do not crush. Give in the morning upon arising. 2024 active Not Available Not Available Not Avai lable metoprolol succinate ER 100 mg tablet,exte nded release 24 hr Give 1 tablet by mouth one time a day for HTN Take with or immediate ly following meals. Do not crush. 2024 active Not Available Not Available Not Avai lable Children's Aspirin 81 mg chewable tablet Give 1 tablet by mouth one time a day for DVT Monitor for bleeding, bruising, and black tarry stools 2024 active Not Available Not Available Not Avai lable Flonase 50 mcg/actuati on nasal spray,suspe nsion Give 1 spray by mouth every 12 hours as needed for allergies 2024 active Not Available Not Available Not Avai lable gabapentin 800 mg tablet Give 1 tablet by mouth at bedtime for Neuropath y 2024 active Not Available Not Available Not Avai lable amlodipine 10 mg tablet Give 1 tablet by mouth one time a day for HTN 2024 active Not Available Not Available Not Avai lable Desyrel 50 mg tablet Give 1 tablet by mouth every 24 hours as needed for insomnia for 14 Days (At bedtime) 03/13 completed Not Available Not Available Not Available pravastatin 20 mg tablet Give 1 tablet by mouth at bedtime for HLD Avoid grapefrui t juice. 2024 active Not Available Not Available Not Avai lable furosemide 20 mg tablet Give 1 tablet by mouth one time a day for Heart Failure 2024 active Not Available Not Available Not Avai lable insulin lispro (U-100) 100 unit/mL subcutaneou s solution Inject 15 unit subcutane ously before meals for Type 2 DM 2024 active Not Available Not Available Not Avai lable Laxative (sennosides ) 8.6 mg tablet Give 1 tablet by mouth every 24 hours as needed for Constipat ion 2024 active Not Available Not Available Not Avai lable heparin (porcine) 5,000 unit/mL injection solution Inject 1 ml subcutane ously three times a day for DVT 2024 active Not Available Not Available Not Avai lable Allergy Relief (fexofenadi ne) 180 mg tablet Give 1 tablet by mouth one time a day for Allergies 2024 active Not Available Not Available Not Avai lable sodium phosphates 19 gram-7 gram/197 mL enema Insert 1 unit rectally every 24 hours as needed for Constipat ion Use only if Bisacodyl Supposito ry is ineffecti ve 2024 active Not Available Not Available Not Avai lable Acid Chain Mortiser Operator (omeprazole ) 20 mg capsule,del ayed release Give 1 capsule by mouth every 24 hours as needed for Dyspepsia 2024 active Not Available Not Available Not Avai lable OneLAX Bisacodyl 10 mg rectal suppository Insert 1 supposito ry rectally every 24 hours as needed for constipat ion Use if Senna is Ineffecti ve 2024 active Not Available Not Available Not Avai lable Vitals None Recorded Social History None recorded. Functional Status None recorded. Mental Status None recorded. Family History Nothing Reported. Medical History No medical history recorded. Gynecological HistoryNo gynecological history recorded. Obstetrics History GPAL:G 0 P 0 0 0 0 Immunizations Vaccine Type Date Status Note Provider Nam e and Address Organization Details Recorded Time SARS-COV-2 (COVID-19) vaccine, UNSPECIFIED 03/23/2021 completed [facility] 02/27/2025 16:13:45 SARS-COV-2 (COVID-19) vaccine, UNSPECIFIED 04/14/2021 completed [facility] 02/27/2025 16:14:07 Past Encounters Encounter ID Performer Location Encounter Start Date Encounter Closed Date Diagnosis/Indication Diagnosis SNOMED-CT Code Diagnosis ICD10 Code Diagnosis Note [id number] JAME LOZANO [address] [place] [address] 02/25/2025 09:18:41 03/06/2025 03:50:09 Rectal hemorrhage 47022678 K62.5 copious amounts of rectal bleedingwi th abd painBP 80/40chang e of condition occurred on ati t was sent back to the ED for evalher bed was being helddtr in at facility reporting pt is now in the ICU Health Concerns Section Related Observation LastModified by Organization Detai ls LastModified Time None Recorded Concern Status LastModified by Organization Details LastModified Time None Recorded Advance Directives Directive None Recorded Payers Insurance Date Sequence Insurance Name Policy Number Policy Smith Covered Member ID Smith Member ID Guarantor Name 02/25/2025 1 [facility] - DOS ON OR AFTER 2023 - MEDICARE [place]VANTAGE [place]MEDICARE REPLACEMENT/ADV ANTAGE - PPO) Yolanda Choi [id number] Yolanda Choi Notes Date Note Type Note Provider Name and Address Organization Details Recorded Time 02/25/2025 text/html This is a historical discharge summary. Pt is a 64 yo female. She was [facility] after a hospital stay at [facility]. She was quickly transferred back to [facility] for copious amount of rectal bleeding, with hypotension BP 80/40, as well as complaints of pain in the upper abdomen. Blanking Press Operator JAKE Encarnacion new order to send out to the Hospital. This change in condition started on 02/23/2025. Resident transferred to [facility] via stretcher DENILSON MACIAS, JAKE-C [address], [address], [place], [address], [facility] [employer] 02/28/2025 09:15:32 OBGyn Episode No OBEpisode recorded.
[2025-05-03 13:11] VITALS: BP 120/70; PULSE 98; O2SAT 99
[2025-05-03 13:19] LABS: Glucose, Whole Blood 152 mg/dL (60-115)
== END 2025-05-03 13:57 | disposition home or self-care (01) ==
LOC: HO.ENCR 12:17
PROVIDERS: PCP Internal Medicine; Visit Provider Nurse Practitioner Adult Health
DX: E11.9 Type 2 diabetes mellitus without complications (principal); Z79.4 Long term (current) use of insulin
CPT/HCPCS: 99214; G2211

== ENCOUNTER → 2025-05-03 12:16 | Outpatient (BNVA) | payer OTHER, SELFPAY | PROVIDERS: PCP Internal Medicine; Visit Provider Nurse Practitioner Adult Health | DX: E11.9 Type 2 diabetes mellitus without complications (principal); Z79.4 Long term (current) use of insulin; Z96.41 Presence of insulin pump (external) (internal) | CPT/HCPCS: 82947; 83036; 99212 ==

== ENCOUNTER 2025-05-23 11:23 | Outpatient (AMB) | payer OTHER, SELFPAY ==
--- OUTSIDE RECORDS SUMMARY | 2025-05-23 12:03 | XMS_ITS | Clinical Summary ---
Author Organization [address] Address [address] [place] [address] Phone Care Team Providers Care Automotive Title Clerk Name Role Phone Milady Carmen MD Primary Care Provider + Encounters Date Type Department Care Team Description 04/03/2025 Lab Requisition [facility] [address] [place] [phone] Cirilo Pugh MD Anemia, unspecified 04/02/2025 Lab Requisition [facility] [address] [place] [phone] Cirilo Pugh MD Anemia, unspecified; Chronic kidney disease, unspecified 03/30/2025 Lab Requisition [facility] [address] [place] [phone] Cirilo Pugh MD Heart failure, unspecified (CMS/HCC V24, CMS/HCC V28) 03/26/2025 Lab Requisition [facility] [address] [place] [phone] Cirilo Pugh MD Heart failure, unspecified (CMS/HCC V24, CMS/HCC V28); Acute upper respiratory infection, unspecified 03/25/2025 Lab Requisition [facility] [address] [place] [phone] Nelida Duarte PA Heart failure, unspecified (CMS/HCC V24, CMS/HCC V28) 03/21/2025 Lab Requisition [facility] [address] [place] [phone] Cirilo Pugh MD Type 2 diabetes mellitus without complications ([facility] V24, [facility] V28) 03/20/2025 Lab Requisition [facility] [address] [place] [phone] Cirilo Pugh MD Type 2 diabetes mellitus without complications ([facility] V24, [facility] V28) 03/18/2025 Lab Requisition [facility] [address] [place] [phone] Cirilo Pugh MD Gastrointestinal hemorrhage, unspecified 02/23/2025 Lab Requisition [facility] [address] [place] [phone] Jozef Camejo MD Melena from Last 3 Months Social History Tobacco Use Types Packs/Day Years Used Date Smoking Tobacco: Never Assessed Comments Unknown Sex and Gender Information Value Date Recorded Sex Assigned at Not on file Legal Sex Female 5:36 AM EST Gender Identity Not on file Sexual Orientation Not on file Plan of Treatment Health Maintenance Due Date Last Done Comments Breast Cancer Screening 1959 Diabetes: Annual Foot Exam 1969 Diabetes: Annual Retina Eye Exam 1969 Pneumococcal Vaccine: 50+ Years (1 of 2 - PCV) 1978 Cervical Cancer Screening: Pap Smear 1980 Zoster Vaccines (1 of 2) 2009 RSV Immunization Adult Patients (1 - Risk 60-74 years 1-dose series) 2019 Cholesterol Screening (Lipid Panel) 01/10/2024 Colorectal Cancer Screening: Colonoscopy 01/10/2024 Depression Screening 01/10/2024 Hepatitis C Screening 01/10/2024 Osteoporosis Screening (Bone Density Screening) 01/10/2024 Social Influencers of Health Screening 01/10/2024 COVID-19 Vaccine ( season) 2024 04/14/2021, 03/23/2021 Falls Risk Assessment 2024 Diabetes: Annual Urine Albumin-Creatinine Ratio (uACR) 03/18/2025 Diabetes: Blood Sugar Control Test (HGBA1C) 03/18/2025 Influenza Vaccine (#1) 2025 06/28/2016, 2014 Diabetes: Annual GFR (Glomerular Filtration Rate) 04/02/2026 04/02/2025, 04/01/2025, 03/26/2025, Additional history exists Hypertension/CHF/CAD Annual BMP Blood Test 04/02/2026 04/02/2025, 04/01/2025, 03/26/2025, Additional history exists DTaP,Tdap,and Td Vaccines (2 - Td or Tdap) 07/23/2030 07/23/2020 HIB Vaccines Aged Out No longer eligi [...] age to complete this topic Meningococcal B Vaccine Aged Out No l onger eligible based on patient's age to complete this topic RSV Immunization Patients Under 20 months Aged Out No longer eligible based on patient's age to complete this topic Varicella Vaccines Aged Out No longer eligible based on patient's age to complete this topic Procedures Procedure Name Priority Date/Time Associated Diagnosis Comments COMPLETE BLOOD COUNT Routine 04/03/2025 5:39 AM EDT Anemia, unspecified BASIC METABOLIC PANEL Routine 04/02/2025 5:41 AM EDT Anemia, unspecified Chronic kidney disease, unspecified COMPLETE BLOOD COUNT Routine 04/02/2025 5:41 AM EDT Anemia, unspecified Chronic kidney disease, unspecified BASIC METABOLIC PANEL Routine 04/01/2025 7:06 AM EDT Heart failure, unspecified (CMS/HCC V24, CMS/HCC V28) COMPLETE BLOOD COUNT Routine 04/01/2025 7:06 AM EDT Heart failure, unspecified (CMS/HCC V24, CMS/HCC V28) SST - GOLD Routine 03/26/2025 5:51 AM EDT Heart failure, unspecified (CMS/HCC V24, CMS/HCC V28) Acute upper respiratory infection, unspecified B-TYPE NATRIURETIC PEPTIDE Routine 03/26/2025 5:51 AM EDT Heart failure, unspecified (CMS/HCC V24, CMS/HCC V28) Acute upper respiratory infection, unspecified BASIC METABOLIC PANEL Routine 03/26/2025 5:51 AM EDT Heart failure, unspecified (CMS/HCC V24, CMS/HCC V28) Acute upper respiratory infection, unspecified COMPLETE BLOOD COUNT Routine 03/26/2025 5:51 AM EDT Heart failure, unspecified (CMS/HCC V24, CMS/HCC V28) Acute upper respiratory infection, unspecified BASIC METABOLIC PANEL Routine 03/25/2025 6:41 AM EDT Heart failure, unspecified (CMS/HCC V24, CMS/HCC V28) COMPLETE BLOOD COUNT Routine 03/25/2025 6:41 AM EDT Heart failure, unspecified (CMS/HCC V24, CMS/HCC V28) COMPLETE BLOOD COUNT Routine 03/22/2025 4:36 AM EDT Type 2 diabetes mellitus without complications (CMS/HCC V24, CMS/HCC V28) BASIC METABOLIC PANEL Routine 03/21/2025 5:23 AM EDT Type 2 diabetes mellitus without complications (CMS/HCC V24, CMS/HCC V28) CBC WITH AUTO DIFFERENTIAL Routine 03/18/2025 7:10 AM EDT Gastrointestinal hemorrhage, unspecified BASIC METABOLIC PANEL Routine 03/18/2025 7:10 AM EDT Gastrointestinal hemorrhage, unspecified CBC AND DIFFERENTIAL Routine 03/18/2025 7:10 AM EDT Gastrointestinal hemorrhage, unspecified HEMOGLOBIN AND HEMATOCRIT Routine 02/23/2025 6:15 AM EDT Melena COMPLETE BLOOD COUNT Routine 02/23/2025 6:15 AM EDT Melena from Last 3 Months Results * (ABNORMAL) Complete blood count (04/03/2025 5:39 AM EDT) Only the most recent of7 resultswithin the time period is included. [facility] Signature WBC 5.0 4.8 - 10.8 K/mcL LAB HEMETOLOGY METHOD 04/03/2025 10:51 AM [facility] RBC 3.20(L) 3.80 - 4.80 M/mcL LAB HEMETOLOGY METHOD 04/03/2025 10:51 AM [facility] Hemoglobin 7.9(L) 11.5 - 16.0 g/dL LAB HEMETOLOGY METHOD 04/03/2025 10:51 AM [facility] Hematocrit 28.2(L) 35.0 - 47.0 % LAB HEMETOLOGY METHOD 04/03/2025 10:51 AM [facility] MCV 88.1 79.0 - 98.0 FL LAB HEMETOLOGY METHOD 04/03/2025 10:51 AM [facility] MCH 24.7(L) 27.0 - 32.0 pcg LAB HEMETOLOGY METHOD 04/03/2025 10:51 AM [facility] MCHC 28.0(L) 32.0 - 37.0 g/dL LAB HEMETOLOGY METHOD 04/03/2025 10:51 AM [facility] RDW 16.6(H) 11.0 - 15.0 % LAB HEMETOLOGY METHOD 04/03/2025 10:[address] [facility] Platelets 215 130 - 400 K/mcL LAB HEMETOLOGY METHOD 04/03/2025 10:[address] [facility] MPV 10.0 7.0 - 11.0 FL LAB HEMETOLOGY METHOD 04/03/2025 10:[address] [facility] NRBC 0.0 <1.0 % LAB HEMETOLOGY METHOD 04/03/2025 10:[address] [facility] NRBC Absolute 0.00 <0.10 K/mcL LAB [facility] 04/03/2025 10:[address] [facility] Blood Venous blood specimen / Unknown Venipuncture / Unknown 04/03/2025 5:39 AM EDT 04/03/2025 9:58 AM EDT us Cirilo Pugh MD LAB BLOOD ORDERABLES Final Resu lt [facility] [address] [place] [address], * (ABNORMAL) Basic metabolic panel (04/02/2025 5:41 AM EDT) Only the most recent of6 resultswithin the time period is included. Sodium 143 133 - 145 mmol/L LAB CHEMISTRY METHOD 04/02/2025 10:28 AM [facility] Potassium 4.1 3.5 - 5.5 mmol/L LAB CHEMISTRY METHOD 04/02/2025 10:28 AM [facility] Chloride 112(H) 96 - 110 mmol/L LAB CHEMISTRY METHOD 04/02/2025 10:28 AM [facility] CO2 25 21 - 32 mmol/L LAB CHEMISTRY METHOD 04/02/2025 10:28 AM [facility] Anion Gap 6 3 - 11 LAB CHEMISTRY METHOD 04/02/2025 10:[address] [facility] Glucose 220(H) 70 - 100 mg/dL LAB CHEMISTRY METHOD 04/02/2025 10:[address] [facility] BUN 10 5 - 25 mg/dL LAB CHEMISTRY METHOD 04/02/2025 10:28 AM [facility] Creatinine 0.80 0.50 - 1.10 mg/dL LAB CHEMISTRY METHOD 04/02/2025 10:[address] [facility] eGFR 82 >=60 mL/min/1. 73m2 LAB CHEMISTRY METHOD 04/02/2025 10:[address] [facility] Comment:Calculation based on the Chronic Kidney Disease Epidemiology Collaboration (CKD-EPI) equation refit without adjustment for race. BUN/Creatinine Ratio 12.5 LAB CHEMISTRY METHOD 04/02/2025 10:28 AM [facility] Calcium 8.3(L) 8.5 - 10.5 mg/dL LAB CHEMISTRY METHOD 04/02/2025 10:[address] [facility] Blood Venous blood specimen / Unknown Venipuncture / Unknown 04/02/2025 5:41 AM EDT 04/02/2025 9:21 AM EDT us Cirilo Pugh MD LAB BLOOD ORDERABLES Final Resu lt [facility] [address] [place] [address], * SST tube (03/26/2025 5:51 AM EDT) Extra Tube Hold for add-ons. 03/26/2025 11:[address] [facility] Comment:Auto resulted. Blood Venous blood specimen / Unknown Venipuncture / Unknown 03/26/2025 5:51 AM EDT 03/26/2025 9:25 AM EDT Cirilo Pugh MD LAB BLOOD ORDERABLES Final Resu lt Performing Organization Address City/[facility]/ZIP Co de Phone Number [facility] [address] [place] [address], [place] [phone] * (ABNORMAL) B-type natriuretic peptide (03/26/2025 5:51 AM EDT) Pathologist [facility] BNP 275(H) <=100 pcg/mL LAB CHEMISTRY METHOD 03/26/2025 10:[address] [facility] Blood Venous blood specimen / Unknown Venipuncture / Unknown 03/26/2025 5:51 AM EDT 03/26/2025 8:58 AM EDT Cirilo Pugh MD LAB BLOOD ORDERABLES Final Resu lt Performing Organization Address [facility]/ZIP Co de Phone Number [facility] [address] [place] [address], [place] [phone] * (ABNORMAL) CBC auto differential (03/18/2025 7:10 AM EDT) [facility] WBC 6.3 4.8 - 10.8 K/[facility] LAB HEMETOLOGY METHOD 03/18/2025 1:[address] [facility] RBC 3.40(L) 3.80 - 4.80 M/[facility] LAB HEMETOLOGY METHOD 03/18/2025 1:[address] [facility] Hemoglobin 8.5(L) 11.5 - 16.0 g/dL LAB HEMETOLOGY METHOD 03/18/2025 1:[address] [facility] Hematocrit 30.1(L) 35.0 - 47.0 % LAB HEMETOLOGY METHOD 03/18/2025 1:[address] [facility] MCV 89.3 79.0 - 98.0 FL LAB HEMETOLOGY METHOD 03/18/2025 1:[address] [facility] MCH 25.2(L) 27.0 - 32.0 pcg LAB HEMETOLOGY METHOD 03/18/2025 1:[address] [facility] MCHC 28.2(L) 32.0 - 37.0 g/dL LAB HEMETOLOGY METHOD 03/18/2025 1:[address] [facility] RDW 19.0(H) 11.0 - 15.0 % LAB HEMETOLOGY METHOD 03/18/2025 1:[address] [facility] Platelets 304 130 - 400 K/mcL LAB HEMETOLOGY METHOD 03/18/2025 1:[address] [facility] MPV 9.8 7.0 - 11.0 FL LAB HEMETOLOGY METHOD 03/18[facility]2025 [facility] NRBC 0.0 <1.0 % LAB HEMETOLOGY METHOD 03/18/2025 1:[address] [facility] NRBC Absolute 0.00 <0.10 K/mcL LAB HEMETOLOGY METHOD 03/18/2025 1:[facility] Neutrophils Relative 54.4 % LAB HEMETOLOGY METHOD 03/18/2025 1:[facility] Lymphocytes Relative 31.9 % LAB HEMETOLOGY METHOD 03/18/2025 1:[address] [facility] Monocytes Relative 8.2 % LAB HEMETOLOGY METHOD 03/18/2025 1:[address] [facility] Eosinophils Relative 4.4 % LAB HEMETOLOGY METHOD 03/18/2025 1:[facility] Basophils Relative 0.5 % LAB HEMETOLOGY METHOD 03/18/2025 1:[address] [facility] Immature Granulocytes Relative 0.6 % LAB HEMETOLOGY METHOD 03/18/2025 1:[address] [facility] Neutrophils Absolute 3.43 1.50 - 7.00 K/mcL LAB HEMETOLOGY METHOD 03/18/2025 1:[address] [facility] Lymphocytes Absolute 2.01 1.00 - 5.00 K/mcL LAB HEMETOLOGY METHOD 03/18/2025 1:[address] [facility] Monocytes Absolute 0.52 0.20 - 1.00 K/mcL LAB HEMETOLOGY METHOD 03/18/2025 1:[address] [facility] Eosinophils Absolute 0.28 0.00 - 0.50 K/mcL LAB HEMETOLOGY METHOD 03/18/2025 1:[address] [facility] Basophils Absolute 0.03 0.00 - 0.20 K/mcL LAB HEMETOLOGY METHOD 03/18/2025 1:[address] [facility] Immature Granulocytes Absolute 0.04(H) 0.00 - 0.03 K/mcL LAB HEMETOLOGY METHOD 03/18/2025 1:[address] [facility] Blood Venous blood specimen / Unknown Venipuncture / Unknown 03/18/2025 7:10 AM EDT 03/18/2025 11:32 AM EDT us Cirilo Pugh MD LAB BLOOD ORDERABLES Final Resu lt [facility] [address] [place] [address], * (ABNORMAL) Hemoglobin and hematocrit (02/23/2025 6:15 AM EDT) Hemoglobin 6.9(L) 11.5 - 16.0 g/dL LAB HEMETOLOGY METHOD 02/23/2025 8:[address] [facility] Hematocrit 24.7(L) 35.0 - 47.0 % LAB HEMETOLOGY METHOD 02/23/2025 8:02 AM EDT [facility] Blood Venous blood specimen / Unknown Venipuncture / Unknown 02/23/2025 6:15 AM EDT 02/23/2025 7:35 AM EDT us Jozef Camejo MD LAB BLOOD ORDERABLES Final Resul t [facility] ([facility] [address] [place] [address], from Last 3 Months Insurance Member Subscriber Plan / Payer (Ef fective 2020-Present) Name:Yolanda Nash Relation to Subscriber:Self Name:Yolanda Nash Payer ID:[id number] Group ID:[id number] Type:Not on file Address: [address] [facility] [place] [address] Care Teams Automotive Title Clerk Relationship Specialty Start Date End Date Milady Carmen MD PCP - General 06/21/23
--- OUTSIDE RECORDS SUMMARY | 2025-05-23 12:03 | XMS_ITS | Clinical Summary ---
Author Organization [facility] Address [address] [place] [phone] Phone Care Team Providers Care Site Coordinator Name Role Phone Milady Carmen MD Primary Care Provider + Allergies Active Allergy Reactions Criticality Noted Date Comments Atorvastatin Other (see comments) 04/21/2016 Ciprofloxacin 07/01/2023 Dapagliflozin 07/01/2023 Kiwi Extract 07/01/2023 Other reaction(s): rash mouth lips red itchy Levofloxacin 07/01/2023 Metformin 07/01/2023 Morphine 07/01/2023 Silver Sulfadiazine 07/01/2023 Medications aspirin 81 MG chewable tablet Chew 1 tablet 1 (one) time each day Active traZODone (DESYREL) 50 MG tablet See Instructions, PRN, 1-2 tablet By Mouth Daily at bedtime, Refills 0, Maintenance, Insomnia, 05/05/23 13:23:00 EDT, Instructions Replace Required Details, Partial fill upon patient request if the prescription is for a schedule II opioid drug. 3 Active metoprolol succinate XL (TOPROL-XL) 100 MG 24 hr tablet Take 100 mg by mouth 3 Active rosuvastatin (CRESTOR) 20 MG tablet 3 Active torsemide (DEMADEX) 20 MG tablet See Instructions, take 2 tablets (40mg) twice daily for 2 days After that, take 1 tablet (20mg) daily, # 45 tablet, 0 Refills, Maintenance, 04/16/25 12:41:00 PM EDT, [facility], Partial fill upon patient request if the prescription is for a schedule II opioid drug., 168, cm, 04/10/25 10:11:00 EDT, Height, 114.9, kg, 02/23/25 22:54:00 EDT, Dry Weight 5 Active traMADol (ULTRAM) 50 MG tablet Take 50 mg by mouth 5 Active eplerenone (INSPRA) 25 MG tablet Take 25 mg by mouth 5 Active amLODIPine (NORVASC) 10 MG tablet Give 1 tablet by mouth one time a day for HTN 5 Active Active Problems Problem Noted Date Diagnosed Date Amputated below knee 07/01/2023 07/01/2023 Overview (07/01/2023): per caprice note fall 2019, done in [place] for progressive Charcot foot deformity and 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.LEFT Anemia 07/01/2023 07/01/2023 At increased risk of coronary heart disease 06/14 Binge eating disorder 07/01/2023 07/01/2023 Charcot's arthropathy 07/01/2023 07/01/2023 Methicillin resistant Staphy lococcus aureus isolated by culture 07/01/2023 Retinopathy due to diabetes mellitus 07/01/2023 Overview (07/01/2023): Per patient, diagnosed at eye doctor December 2020 H/O: Disorder 07/01/2023 07/01/2023 Hyperlipidemia 07/01/2023 07/01/2023 Hypertensive disorder 07/01/2023 07/01/2023 Microalbuminuria 07/01/2023 07/01/2023 Mixed anxiety and depressive disorder 07/01/2023 07/01/2023 Myalgia caused by statin 07/01/2023 023 Overview (07/01/2023): per 04-21-2016 note Obesity 07/01/2023 07/01/2023 Overview (07/01/2023): Initial Weight 02/09/16 237.6 lbs. Open wound 07/01/2023 07/01/2023 Type 2 diabetes mellitus 07/01/2023 023 Postmenopausal bleeding 07/01/2023 07/01/20 23 Increased frequency of urination 03/17/2023 07/01/2023 Encounters Date Type Department Care Team Description 04/22/2025 3:00 PM EDT Office Visit [facility] [address]. [address] [phone] Ha Velez MD Other acute kidney failure (HCC) (Primary Dx); Diabetes mellitus, not otherwise specified (HCC); Hypertension; Chronic kidney disease, not otherwise specified from Last 3 Months Immunizations Immunization Administration Dates Next Due Influenza, Unspecified 06/28/2016,07/01/2015 Pfizer SARS-COV-2 04/14/2021,03/23/2021 Tdap 07/23/2020 Social History Tobacco Use Types Packs/Day Years Used Date Smoking Tobacco: Never Assessed Comments Unknown Sex and Gender Information Value Date Recorded Sex Assigned at Not on file Legal Sex Female 4:18 PM EDT Gender Identity Not on file Sexual Orientation Not on file Last Filed Vital Signs Vital Sign Reading Time Taken Comments Blood Pressure 132/60 04/22/2025 3:01 PM EDT Pulse 65 04/22/2025 3:01 PM EDT Temperature - - Respiratory Rate - - Oxygen Saturation - - Inhaled Oxygen Concentration - - Weight - - Height - - Body Mass Index - - Plan of Treatment Upcoming Encounters Date Type Department Care Team (Late st Contact Info) Description 06/17/2025 1:30 PM EDT Office Visit [facility] [address] [phone] Chery Yang ARNP [address] [phone] Health Maintenance Due Date Last Done Comments Breast Cancer Screening 1960 Pneumococcal Vaccine: 50+ Years (1 of 2 - PCV) 1978 Colorectal Cancer Screening: Annual FOBT 2008 Colorectal Cancer Screening: Colonoscopy 2008 Colorectal Cancer Screening: Sigmoidoscopy 2008 Diabetes: Hemoglobin A1C 07/01/2023 Diabetes: Ophthalmology Exam 07/01/2023 Diabetes: Pedal Pulse Checked 07/01/2023 Diabetes: Sensory Foot Exam 07/01/2023 Diabetes: Visual Foot Exam 07/01/2023 Influenza Vaccine (#1) 2025 6, 07/01/2015 Hepatitis B Vaccine Aged Out No longe r eligible based on patient's age to complete this topic Insurance Care Teams Site Coordinator Relationship Specialty Start Date End Date Milady Carmen MD [address] [place] [id number] PCP - General Internal Medicine 04/22/25
--- OUTSIDE RECORDS SUMMARY | 2025-05-23 12:03 | XMS_ITS | Data Portability ---
Author Organization [employer] [facility] Address [address] [place] [address] Care Team Providers Care Gas Pumper Name Role Phone HIM CCA OTHER Assessment Encounter Date Assessment Date Assessment LastModified by Organization Details LastModified Time 10/13/2023 10/13/2023 I provided real -time medical direction via phone for this encounter, and was available for additional phone based assistance as needed. I have reviewed and agree with the Assessment and Plan as documented by the Engine Research Engineer. Patient given the opportunity to ask questions. Advised if develops ability to swallow or drooling/ CP/severe SOB/turning blue/uncontrolle d n/v/d / AMS/ syncope/ hi fever unresponsive to APAP to call 911- verbalized understanding of instructions [email or web address] Not available 10/13/2023 16:16:05 01/09/2024 01/09/2024 I provided real -time medical direction via phone for this encounter, and was available for additional phone based assistance as needed. I have reviewed and agree with the Assessment and Plan as documented by the Engine Research Engineer. We discussed the diagnostic uncertainty of home [...] verbalized understanding of instructions to the medic Not available 01/09/2024 16:20:17 05/08/2024 05/08/2024 service [...] plasma 2023 024 VALENTIN [facility] - [facility], [address] [place] [address], [id number] 4 18:02:39 rapid SARS CoV 2 Ag, QL IA, respiratory specimen 2023 024 [email or web address] 0 [facility], [address] [place] [address], [id number] 4 16:18:58 rapid flu (A+B) 2023 024 [email or web address] 0 [facility], [address] [place] [address], [id number] 4 16:19:00 rapid strep group A, throat 2023 024 [email or web address] [facility], [address] [place] [address], [id number] 4 16:19:01 rapid SARS CoV 2 Ag, QL IA, respiratory specimen 2023 024 [email or web address] [facility] [address] [place] [address], [id number] 4 19:21:10 rapid flu (A+B) 2023 024 [email or web address] [facility] - [facility], [address] [place] [address], [id number] 4 19:21:08 rapid strep group A, throat 2022 023 [email or web address] 0 [facility] - [facility], [address] [place] [address], [id number] 3 16:22:31 rapid SARS CoV 2 Ag, QL IA, respiratory specimen 2022 023 [email or web address] 0 [facility] - [facility], [address] [place] [address], [id number] 3 16:22:34 rapid flu (A+B) 2022 023 [email or web address] 0 [facility], [address] [place] [address], [id number] 3 16:22:36 Referral None recorded. Procedures None recorded. Surgeries None recorded. Imaging electrocard iogram 2023 024 [email or web address] 0 [facility], [address] [place] [address], [id number] 4 16:18:55 Medication Orders furosemide 40 mg tablet 2023 024 [facility], [address] [place] [address], [id number], 4 17:58:55 furosemide 40 mg tablet 2023 024 [email or web address] [facility], [address] [place] [address], [id number], 4 16:51:43 azithromyci n 250 mg tablet 2023 024 [facility], [address] [place] [address], [id number], 4 16:19:50 azithromyci n 250 mg tablet 2023 024 [email or web address] 0 [facility], [address] [place] [address], [id number], 4 16:13:02 albuterol sulfate HFA 90 mcg/actuati on aerosol inhaler 2023 024 [facility], [address] [place] [address], [id number], 4 16:19:49 Mucinex DM 60 mg-1,200 mg tablet,exte nded release 12 hr 2023 024 [facility], [address] [place] [address], [id number], 4 16:19:47 Flonase Allergy Relief 50 mcg/actuati on nasal spray,suspe nsion 2023 024 [facility], [address] [place] [address], [id number], 4 19:28:26 Augmentin 875 mg-125 mg tablet 2022 023 [facility], [address] [place] [address], [id number], 3 16:28:28 Mucinex DM 60 mg-1,200 mg tablet,exte nded release 12 hr 2022 023 [facility], [address] [place] [address], [id number], 3 16:28:29 Patient TargetsNo targets recorded. Patient InstructionsNo instructions recorded. Reason for Referral None Reported. Results Created Date Observation Date Name Description Value Unit Range Abnormal Flag Note LastModifiedBy Organization Detail LastModifiedTime 10/13/20 23 10/13/2023 rapid flu (A+B) Flu negati ve Not Available [facility] ed [address] [place] [address], [id number] 10/13/2023 16:19:01 10/13/20 23 10/13/2023 rapid SARS CoV 2 Ag, QL IA, respi rator y speci men rapid SARS CoV 2 Ag, QL IA, respiratory specimen negati ve Not Available [facility] ed [address] [place] [address], [id number] 10/13/2023 16:18:59 10/13/20 23 10/13/2023 rapid strep group A, throa t Strep positi ve Not Available [facility] ed [address] [place] [address], [id number] 10/13/2023 16:18:57 01/04/20 24 01/04/2024 rapid flu (A+B) Flu negati ve Not Available [facility] ed [address] [place] [address], [id number] 01/04/2024 19:20:54 01/04/20 24 01/04/2024 rapid SARS CoV 2 Ag, QL IA, respi rator y speci men rapid SARS CoV 2 Ag, QL IA, respiratory specimen negati ve Not Available [facility] ed [address] [place] [address], [id number] 01/04/2024 19:20:49 01/09/20 24 01/09/2024 rapid strep group A, throa t Strep negati ve Not Available [facility] ed [address] [place] [address], [id number] 01/09/2024 16:16:41 01/09/20 24 01/09/2024 rapid flu (A+B) Flu negati ve Not Available [facility] ed [address] [place] [address], [id number] 01/09/2024 16:16:40 01/09/20 24 01/09/2024 rapid SARS CoV 2 Ag, QL IA, respi rator y speci men rapid SARS CoV 2 Ag, QL IA, respiratory specimen negati ve Not Available [facility] ed [address] [place] [address], [id number] 01/09/2024 16:16:39 01/09/20 24 01/09/2024 dino mariscal am No observ ation record ed. [address], [phone] 01/09/2024 16:18:51 Result Notes None recorded. Problems Name Problem SNOMED Code Status Onset Date Resolution Date Notes Provider Name and Address Organization Details Recorded Time Increased frequency of urination 042525048 Active 023 Dick Nj MD [address] [place] [address],[address], [place], [phone] [address] [employer] [facility] 3 15:17:33 Problem Notes None recorded. Medical Equipment None [...] Not available Not available Not available 08/06/2022 34023 RxNorm Not Available [facility] - production 4 03:38:56 1093 metformin medicatio n Not available Not available Not available 08/06/2022 6809 RxNorm Gayatri Myers MD [address], [place], [phone], [facility] 2 16:50:48 1094 morphine medicatio n Not available Not available Not available 08/06/2022 7052 RxNorm Not Available [facility] - production 4 03:38:56 1095 Farxiga medicatio n Not available Not available Not available 08/06/2022 97653 72 RxNorm Gayatri Myers MD [address], [place], [address], [facility] 2 16:51:51 1096 Silvadene medicatio n Not available Not available Not available 08/06/2022 26093 6 RxNorm Not Available [facility] - production 4 03:38:56 7664 Bactrim medicatio n Not available Not available Not available 09/11/2024 44555 9 RxNorm Not Available [facility] - production 4 03:38:56 Medications Name Sig Start Date Stop Date Status Note LastModified by Organization Details LastModified Time comfort tch mis lanc 30g active Not Available Not Available Not Available vitamin d3 25mcg cap TAKE 1 [...] active Not Available Not Available Not Available metformin ER 500 mg tablet,exten ded [...] Not Available Not Available Comfort EZ Pen Hundred 31 gauge x 1/4 USE WITH INSULIN PENS 4 TIMES A DAY, 90 DAY SUPPLY active Not Available Not Available No t Available Lenore Alvarez [facility] spacer active Not Available Not Available Not Available Victoza 3-Paco 0.6 mg/0.1 mL (18 mg/3 mL) subcutaneous pen injector INJECT 1.8 MG SUBCUTANEOU SLY ONCE DAILY active Not Available Not Available No t Available Breo Ellipta 100 mcg-25 mcg/dose powder for inhalation TAKE 1 PUFF INHALATION ONCE A DAY active Not Available Not Available N ot Available Easy Comfort Pen Hundred 31 gauge x 5/16 active Not Available Not Available Not Available Comfort EZ Pen Hundred 33 gauge x 1/4 DIRECTED WITH INSULIN AND OZEMPIC active Not Available Not Available No t Available Farxiga 10 mg tablet active Not Available Not Available No t Available Jardiance 10 mg tablet active Not Available Not Available No t Available Flonase Allergy Relief 50 mcg/actuatio n nasal spray,suspen concha Hobart 1 spray(s) every day by intranasal route for 5 [...] Not Available Not Available Easy Comfort Pen Hundred 33 gauge x 3/16 active Not Available [...] Available No t Available FreeStyle Franca 2 Cuthbert active Not Available Not Available Not Available [...] Not Available No t Available Dexcom G7 Field Operations Coordinator USE TO CONTINUOUSL Y CHECK GLUCOSE DIRECTED FOR TYPE 2 DIABETES WHILE ON BASAL INSULIN active Not Available Not Available No t Available Dexcom G7 Sensor device USE ONE SENSOR TO CONTINUOUSL Y CHECK GLUCOSE DIRECTED FOR TYPE 2 DIABETES WHILE ON BASAL INSULIN. CHANGE SENSOR EVERY 10 DAYS active Not Available Not Available No t Available Vitals Date Recorded Oxygen saturation Oxygen saturation in Arterial blood by Pulse oximetry Body temperature Respiratory rate Heart rate Systolic And Diastolic Provider Name and Address Organization Details Last Updated DateTime 4 97 % 97 % 98.9 [degF] 16 /min 80 /min 160/90 mm[Hg] Not Available [facility] [employer] 4 19:19:40 Date Recorded Oxygen saturation Oxygen saturation in Arterial blood by Pulse oximetry Respiratory rate Body temperature Body height Body weight Heart rate Systolic And Diastolic Provider Name and Address Organization Details Last Updated DateTime 4 95 % 95 % 16 /min 98.5 [degF] 167.64 cm 765774. 472 g 72 /min 161/78 mm[Hg] Not Available [employer] [employer] 4 15:26:25 Date Recorded Oxygen saturation Oxygen saturation in Arterial blood by Pulse oximetry Respiratory rate Body temperature Heart rate Systolic And Diastolic Provider Name and Address Organization Details Last Updated DateTime 4 95 % 95 % 16 /min 97.1 [degF] 78 /min 189/79 mm[Hg] Not Available [employer] 4 18:38:38 Date Recorded Body temperature Respiratory rate Heart rate Oxygen saturation Oxygen saturation in Arterial blood by Pulse oximetry Systolic And Diastolic Provider Name and Address Organization Details Last Updated DateTime 4 98.2 [degF] 18 /min 72 /min 96 % 96 % 186/100 mm[Hg] Not Available [employer] 4 14:32:47 Date Recorded Body weight Body mass index (BMI) Body height Provider Name and Address Organization Details Last Updated DateTime 10/13/2023 489028.57 g 41.7 kg/m2 170.18 cm Gayatri Myers MD [address] [facility],[address], [place], [address], [place] [employer] 10/13/2023 16:15:12 Date Recorded Heart rate Respiratory rate Oxygen saturation Oxygen saturation in Arterial blood by Pulse oximetry Body temperature Systolic And Diastolic Provider Name and Address Organization Details Last Updated DateTime 3 82 /min 18 /min 96 % 96 % 98.1 [degF] 166/74 mm[Hg] Not Available [employer] 16:13:39 Social History None recorded. Functional Status None [...] [id number] Dick Nj MD [facility] - [facility] [address] [place], [place] [phone] 07/30/2022 11:07:20 07/30/2022 11:13:09 4037 Lela Asencio MD Main - [facility] [address] [place] [address] 0 07/31/2022 12:32:00 08/10/2022 13:49:16 Hyperkalemia 50669240 E87.5 [facility] sent for hyperkalem ia check following kayexelate . potassium increased to 7 from 6.1 yesterday. EKG with question of peaked T waves. sending to ED. Pt amenable. [id number] Gayatri Myers MD Main - [facility] [address] [place], [place] [phone] 08/06/2022 16:34:18 08/16/2022 13:48:08 Hyperkalemia 44425216 E87.5 RESOLVED- improving cellulitis RLE- pat advised to continue doxycyclin e/ stay hydrated- avoid sun exposure on antibioitc s and f/u pcp next week. [id number] Anuja Nieves MD [facility] - [facility] [address] [place] [phone] 09/08/2022 20:44:28 09/14/2022 15:20:07 Fatigue 25310237 R53.83 6895 Gayatri Myers MD Main - [facility] [address] [place] [phone] 11/22/2022 19:35:33 11/24/2022 10:38:51 Acute urinary tract infection 555337151 N39.0 patient unable to void after > 1 hr with po fluids- straight cath performed with patient's verbal permission - 75 cc cloudy urine obtainedU A reflex to C & S sent to [facility] as per Solo Saravia AWNING HANGER request-si nce patient symptomati c will start [...] immodium if needs /aware to limit diet 9077 Naif Keating MD Main - [facility] [address] [place] [address] 02/14/2023 15:19:54 02/15/2023 22:49:34 Headache 25179605 R51.9 As noted, we were called to see this patient regarding concerns of headache and hypertensi on. Evaluation in the field was performed by my contact lens polisher colleague, as noted above, I provided real-time [...] activation to ED after our visit concluded. [id number] Dick Nj MD [facility] - [address] [phone] 03/17/2023 15:09:59 03/18/2023 10:59:45 Increased frequency of urination 171831524 R35.0 This 62-year-ol d female called [facility] [...] symptoms. The patient agreed with this plan. [id number] Katey Owusu MD [facility] - [address] [phone] 06/14/2023 19:38:03 06/15/2023 11:06:12 Abdominal pain 94643413 R10.9 [id number] Lela Asencio MD [facility] - [address] [phone] 07/26/2023 20:28:55 07/28/2023 10:15:01 COVID-19 190364254 U07.1 I provided real -time medical direction via phone for this encounter, and was available for additional phone based assistance as needed. I have reviewed and agree with the Assessment and Plan as documented by the Engine Research Engineer. Patient given the opportunit y to ask questions. 63 yo w/ URI sx, tested positive for covid today. Rapid test positive as well. Reviewed labs (nl renal function) and medication list for paxlovid safety. Pt agreeable to take paxlovid. Discussed warning signs/sx. [id number] Gayatri Myers MD [facility] - [address] [phone] 10/13/2023 16:13:37 10/15/2023 11:39:43 Acute bacterial bronchitis 599270570 J20.9 Antibiotic s indicated due to dark green productive mucus -Augmentin as below-advi sed to use her albuterol inhaler 2 puffs 4 times a day while ill.- BS from her [facility] 291 postprandi al-patient not wheezing steroids not indicated at this time & as this will adversely affect her blood sugar Streptococ ken sore throat 38520784 J02.0 Patient has Tylenol 500 mg at home -advised given stated weight she may have Tylenol 500 mg - 2 pills q 6 h prn pain/fever /gargle with warm salt water-stay well-michael gutiérrez.-Medic does not have any amoxicilli n derivative s.Patient has tolerated amoxicilli n and Augmentin in the past/I prefer Augmentin due to need to cover her lungs as well-patie nt reports her daughter can curing pickling packer the prescripti on this evening. Advised her to call [facility] if she is unable to get the prescripti on by tomorrow morning or if she is not feeling better in 48 hours to call for another visit -she verbalized understand ing to the medic ORALIA APONTE MD [facility] [address] [place] [phone] 01/04/2024 19:19:38 01/05/2024 09:31:05 Viral upper respiratory tract infection 838645247 J06.9 Evaluation in the field was performed by my contact lens polisher colleague, as noted above, I provided real-time [...] . Has been using Flonase but per contact lens polisher, has .VS S, afebrile, saturating 97 % [...] concerns Gayatri Myers MD [facility] [address] [place] [phone] 01/09/2024 15:26:20 01/10/2024 10:39:43 Mild chronic obstructive pulmonary disease 767192550 J44.9 with possible sinusitis- advised to continue [...] her PCP and she verbalized understand ing. [id number] Anuja Nieves MD [facility] [address] [place], [place] [phone] 05/08/2024 18:38:33 05/09/2024 20:15:30 Edema of lower extremity 880802979 R60.0 [id number] Velasquez Eric MD Main - [facility] [address] [place], [place] [phone] 05/10/2024 14:32:45 05/11/2024 17:38:07 Edema of lower extremity 539361596 R60.0 Patient with mild edema in lower extremity on right side (has L BKA). No SOB or other signs of acute CHF exacerbati on. No known weight changes. Hypertensi ve of exam though no s/s of hypertensi ve urgency or emergency. 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 WIll give Lasix 40mg [...] Member ID Smith Member ID Guarantor Name 03/15/2025 1 [facility] - DOS PRIOR TO 2023 - DUAL ELIGIBLE (MEDICARE REPLACEMENT/ADV ANTAGE - HMO) Yolanda Choi [id number] Yolanda Choi 03/15/2025 1 [facility] - DOS ON OR AFTER 2023 - DUAL ELIGIBLE - CARE HOME OPTIONS AND ONE CARE (MEDICARE REPLACEMENT/ADV ANTAGE - HMO) Yolanda Choi [id number] Yolanda Choi Notes Date Note Type Note [...] .................... .................... .................... .................... .................... .................... . Engine Research Engineer Note From David Cano: Pt co cough and sore throat with chills yesterday with fever. Took thera flu with relief of fever. Pt sts green mucus. Pt denies nausea vomiting diarrhea headache or dizziness. Baseline vitals assessed. Covid/flu swab negative, strep test positive. Lungs clear bilaterally. [facility] contacted and RX for augmentin called in for curing pickling packer. Pt instructed to call back tomorrow if does receive her antibiotics. Pt education on signs indicating the ER. Engine Research Engineer Allergies: Bactrim, Morphine, Silvadene, Levofloxacin, Ciprofloxacin .................... .................... .................... .................... .................... .................... .................... . Disposition: FulfilledSEGMD: As above. Patient used her albuterol inhaler and her wheezing stopped.-Patient with PMH COPD/DM/HTN/CHF/SP TN. She is status post left leg BKA Gayatri Myers MD [address] [facility],[address], [place], [phone], [employer] 10/14/2023 06:12:30 01/04/2024 text/html HPI: Yolanda is [...] .................... .................... .................... .................... .................... .................... . Engine Research Engineer Note From Fred Robnis: Dispatched to the call address for the [...] ago. Pt was asked to show this contact lens polisher how she was self administering the medication. Pt placed the tip of the applicator deep into her nare. Pt was educated on proper application. C consulted. Script for new Flonase called into preferred pharmacy. Red flags discussed. ALL times are approx. .................... .................... .................... .................... .................... .................... .................... . Disposition: Fulfilled ORALIA APONTE MD [address] [place] [address],[address], [place], [phone], [employer] 01/04/2024 22:46:17 01/09/2024 text/html HPI: Seen by Garrett 01/04 for URI- CP called to follow up today and patient is stating she not better but worse. Loss of taste, waking up from sleep with difficulty breathing needing to use inhaler, intermittent chest pain. Patient declined ED visit, would like [employer] to do an EKG and prescribe something [...] to us. She denies chest pain to [facility], although she was apparently complaining of chest pain to her provider earlier so they requested an EKG................. .................... .................... .................... .................... .................... .................... .... Engine Research Engineer Note From Jurgen Leija: Pt reports URI [...] flu and strep negative. After leaving the pt s side, [facility] had to go back into the home to perform an EKG at the PCP s request. EKG was unremarkable. Pt treated with azithromycin 500 mg. Pt educated on prescriptions, told to d/c the current OTC med, educated on additional supportive care measures and to f/u with PCP. Pt instructed to seek emergent medical care for new or worsening sx, which are reviewed with her. .................... .................... .................... .................... .................... .................... .................... . 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 Yolanda states she went to [facility] today where her BP was 169/80 and she was told to call her PCP. She wants a new marketing operations consultant because she doesn't like all the pills [...] any additional information to process this visit. Engine Research Engineer POC Test Results from Jurgen Leija [facility] (18:33:16) pH: 7.43 pH units pCO2: 35.7 mmHg pO2: 54.7 mmHg Na: 139 mmol/L K: 3.9 mmol/L iCa: 1.12 mmol/L Cl: 106 mmol/L TCO2: 23.9 mEq/L Hct: 34 % Hb: 11.4 g/dL Glu: 383 mg/dL Lac: 1.9 mmol/L Cr: 0.9 mg/dL BUN: 12 mg/dL A .................... .................... .................... .................... .................... .................... .................... . Engine Research Engineer Note From Jurgen Leiaj: Pt reports hx of CHF and takes [...] to take tomorrow morning. [facility] to f/u . Red flags reviewed. .................... .................... .................... .................... .................... .................... .................... . Disposition: Fulfilled Anuja Nieves MD [address] [place] [address],[address], [place], [phone], [facility] [employer] 05/09/2024 00:11:01 05/10/2024 text/html HPI: 63 year old female with type 2 diabetes complicated by retinopathy, neuropathy, hyperglycemia, left BKA, and past right foot ulcers as well as HTN, HLD, diastolic heart failure, asthma, GERD, arthritis, depression, and obesity. She was seen by [facility] a few days ago for edema where she was treated w Lasix. [facility] was supposed to go out today to redraw electrolytes and check for CHF. I advised her if symptoms were worse and [facility] finds it necessary for her to go to the ER, she verbalized she would go. Please assess for CHF and redraw electrolytes. [facility] .................... .................... .................... .................... .................... .................... .................... . [facility] Nurse Triage Notes (Veronica Holliday): Comments: [facility] RN DID NOT NEED FURTHER INFO Engine Research Engineer POC Test Results from Murphy Nascimento [facility] iSTAT Chem8+ (1) [14:46] Na: 139 mEq/L K: 3.9 mEq/L Cl: 102 mEq/L iCa: 1.07 mmol/L TCO2: 27 mmol/L Glu: 197 mg/dL BUN: 13 mg/dL Crea: 0.8 mg/dL Hct: 35 % Hb: 11.9 g/dL A Attachments uploaded as part of this test result can be found under Documents section. .................... .................... .................... .................... .................... .................... .................... . Engine Research Engineer Note From Murphy Nascimento: Dispatched to above [...] edema on R lower leg, L BKA. [facility] contacted, advised of patient complaints and exam findings. [facility] ordered ISTAT checked. Blood draw preformed, ISTAT checked, results uploaded. [facility] contacted, advised of test results. [facility] ordered 40mg Lasix PO, will prescribe additional dose for tomorrow. Patient administered Lasix. Patient advised of [facility] recommendations, home care and red flags. Patient has no additional questions or concerns at this time. SC8 clear. EOR. .................... .................... .................... .................... .................... .................... .................... . Disposition: Fulfilled Velasquez Eric MD [address] [facility],[address], [place], [address], [employer] 05/10/2024 18:45:48 OBGyn Episode No OBEpisode recorded.
--- NOTE | 2025-05-23 12:08 | MHC.AMDMED ---
Intake Intake Visit Reasons: DM/pump issues International Marketing Specialist Required: No Allergies ciprofloxacin Allergy (Severe, Verified 01/09/25 11:43) Anaphylaxis kiwi Allergy (Severe, Verified 01/09/25 11:43) Angioedema morphine Allergy (Intermediate, Verified 01/09/25 11:43) Itching atorvastatin (From Lipitor) Adverse Reaction (Mild, Verified 01/09/25 11:43) myalgia metformin Adverse Reaction (Mild, Verified 01/09/25 11:43) Abdominal Pain PFSH Medical History (Updated 05/03/25 @ 14:11 by Destinee Drake NP) Lower GI bleed CAD (coronary artery disease) Type 2 diabetes mellitus Asthma-COPD overlap syndrome Chronic diastolic CHF (congestive heart failure) HTN (hypertension) Morbid obesity Carpal tunnel syndrome GERD (gastroesophageal reflux disease) Insomnia Neuropathy Sleep apnea Insulin dependent type 2 diabetes mellitus HLD (hyperlipidemia) Diabetes mellitus Surgical History S/P S/P cholecystectomy Below-knee amputation of left lower extremity Family History Mother Dementia Diabetes Father Dementia Diabetes Social History Household Members: Children Housing: Apartment Do you presently have visiting nurse or other home services: No Alcohol intake: never Comment: D/C to home Patient Tobacco Use Status: Former Tobacco user Advance Directives Date on File: 03/07/24 service: No Assessment & Plan Assessment & Plan (1) Type 2 diabetes mellitus: Code(s): E11.9 - Type 2 diabetes mellitus without complications Plan: Patient presents for pump training for t-Slim X2 pump and Dexcom G7 training today. Tandem ID: [email or web address] Password: [email or web address] The following topics were reviewed today: -Pump therapy basic concepts: Basal/bolus, insulin to carb ratio, correction factor, insulin on board -Device settings: Bluetooth/mobile connection, reconnected patient's insulin pump to cellphone -taking correction doses, in between meals through insulin pump ??? High Alert: 250 mg/dl ??? Low Alert: 70 mg/dl Patient recently underwent open heart surgery, and was in rehab hospital. Now that she is home she is interested in resuming insulin pump therapy. Patient reports she has lost approximately 30 lb since last visit in 09/2024. At this time insulin pump was reprogrammed with new insulin pump settings due to weight loss Insulin pump was reconnected to T connect rafy. at this time we do not have access to Dexcom G7 sensors. Once patient receives next delivery of sensors she will resume pump therapy Insulin delivery settings Program insulin to carb ratio, correction factor, target blood glucose, suspend or resume insulin delivery, bolus limit and basal limit settings Instructed patient to only use room temperature insulin, how to load cartridge or fill pod, with insulin. Fill tubing and cannula (if applicable) Inserting infusion set or starting pod Troubleshooting after starting new pod or inserting new insulin set: Occlusion, adhesive tape sensitivity, redness Check BG 2 hours after site change Safety information: Importance of a backup plan, for manual injections, proper prescriptions and emergency supplies ketone strips, and rules for testing for ketones Patient was able to insert insulin set today without difficulty. Patient understands the basic concepts of pump therapy, how to give insulin for meals and snacks, how to troubleshoot for hyper and hypoglycemia. Setting verified by [facility], New insulin pump settings Basal rate(s) (units/hour) : 12 AM? to 12 AM? 2.7 units / hr Bolus setting Insulin Carbohydrate Ratio (s) 12 AM? to 12 AM? 1:7 Correction Factor / Sensitivity Factor 12 AM? to 12 AM? 1:22 Active Insulin Time:?5 hours Target(s): 12 AM? to 12 AM? 110 mg/dL Patient will follow up with [facility] as instructed Patient will contact [facility] with questions or concerns, patient given IT number to support in any technical issues related to insulin pump Patient Instructions: Once you receive Dexcom G7 sensors resume pump therapy Follow-up with adult educator in 2 weeks Coding Level of Care Code Est Pt Level 1 (31319) Diagnoses Type 2 diabetes mellitus E11.9
== END 2025-05-23 12:11 | disposition home or self-care (01) ==
LOC: HO.ENCR 11:23
PROVIDERS: PCP Internal Medicine; Visit Provider Registered Nurse Diabetes Educator
DX: E11.9 Type 2 diabetes mellitus without complications (principal)

== ENCOUNTER → 2025-05-23 11:23 | Outpatient (BNVA) | payer OTHER, SELFPAY | PROVIDERS: PCP Internal Medicine; Visit Provider Registered Nurse Diabetes Educator | DX: Z46.81 Encounter for fitting and adjustment of insulin pump (principal); E11.9 Type 2 diabetes mellitus without complications; Z79.4 Long term (current) use of insulin | CPT/HCPCS: 99211 ==

== ENCOUNTER 2025-06-05 10:06 | Outpatient (AMB) | payer OTHER, SELFPAY ==
--- NOTE | 2025-06-05 10:31 | MHC.AMDMED ---
Intake Intake Visit Reasons: T2DM/Pump help Sponge Buffer Required: No Accompanied by: Self / Same As Patient Allergies ciprofloxacin Allergy (Severe, Verified 01/09/25 11:43) Anaphylaxis kiwi Allergy (Severe, Verified 01/09/25 11:43) Angioedema morphine Allergy (Intermediate, Verified 01/09/25 11:43) Itching atorvastatin (From Lipitor) Adverse Reaction (Mild, Verified 01/09/25 11:43) myalgia metformin Adverse Reaction (Mild, Verified 01/09/25 11:43) Abdominal Pain PFS Medical History (Updated 05/03/25 @ 14:11 by Destinee Drake NP) Lower GI bleed CAD (coronary artery disease) Type 2 diabetes mellitus Asthma-COPD overlap syndrome Chronic diastolic CHF (congestive heart failure) HTN (hypertension) Morbid obesity Carpal tunnel syndrome GERD (gastroesophageal reflux disease) Insomnia Neuropathy Sleep apnea Insulin dependent type 2 diabetes mellitus HLD (hyperlipidemia) Diabetes mellitus Surgical History S/P S/P cholecystectomy Below-knee amputation of left lower extremity Family History Mother Dementia Diabetes Father Dementia Diabetes Social History Household Members: Children Housing: Apartment Do you presently have visiting nurse or other home services: No Alcohol intake: never Comment: D/C to home Patient Tobacco Use Status: Former Tobacco user Advance Directives Date on File: 03/07/24 service: No Assessment & Plan Assessment & Plan (1) Insulin dependent type 2 diabetes mellitus: Code(s): E11.9 - Type 2 diabetes mellitus without complications; Z79.4 - computer terminal operator (current) use of insulin Plan: Patient presents for pump training for t-Slim X2 pump and Dexcom G7 training today. Tandem ID: [email or web address] Password: [email or web address] The following topics were reviewed today: -importance of accurately entering carbohydrate -troubleshooting infusion set -taking correction doses, in between meals through insulin pump ??? High Alert: 250 mg/dl ??? Low Alert: 70 mg/dl Patient reports she continues to use Lantus 50 units daily after resuming insulin pump therapy. Instructed patient to discuss using insulin pump. Patient concerned recent hyperglycemia, has been adding carbs that she is not eating 2 meals. Explained to patient it is important to be as accurate as possible when estimating carbohydrate, in order to determine adjustments to insulin pump settings. Patient understands the basic concepts of pump therapy, how to give insulin for meals and snacks, how to troubleshoot for hyper and hypoglycemia. Setting verified by [facility], See changes to insulin pump settings Basal rate(s) (units/hour) : 12 AM? to 12 AM? 2.7 units / hr New 12 AM? to 12 AM? 3.5 units / hr Bolus setting Insulin Carbohydrate Ratio (s) 12 AM? to 12 AM? 1:7 New 12 AM? to 12 AM? 1:6 Correction Factor / Sensitivity Factor 12 AM? to 12 AM? 1:22 New 12 AM? to 12 AM? 1:20 Active Insulin Time:?5 hours Target(s): 12 AM? to 12 AM? 110 mg/dL Patient will follow up with [facility] as instructed Patient will contact [facility] with questions or concerns, patient given IT number to support in any technical issues related to insulin pump Patient Instructions: Follow-up with clinical staff educator in 2 weeks Coding Level of Care Code Est Pt Level 1 (06024) Diagnoses Insulin dependent type 2 diabetes mellitus E11.9; Z79.4
--- OUTSIDE RECORDS SUMMARY | 2025-06-05 10:57 | XMS_ITS | Clinical Summary ---
Author Organization [address] Address [address] [place] [address] Phone Care Team Providers Care Wet End Tester Name Role Phone Milady Carmen MD Primary Care Provider + Encounters Date Type Department Care Team Description 04/03/2025 Lab Requisition [facility] Lab [address] [place] [phone] Cirilo Pugh MD Anemia, unspecified 04/02/2025 Lab Requisition [facility] Lab [address] [place] [phone] Cirilo Pugh MD Anemia, unspecified; Chronic kidney disease, unspecified 03/30/2025 Lab Requisition [facility] Lab [address] [place] [phone] Cirilo Pugh MD Heart failure, unspecified (CMS/HCC V24, CMS/HCC V28) 03/26/2025 Lab Requisition [facility] [address] [place] [phone] Cirilo Pugh MD Heart failure, unspecified (CMS/HCC V24, CMS/HCC V28); Acute upper respiratory infection, unspecified 03/25/2025 Lab Requisition [facility] [address] [place] [phone] Nelida Duarte PA Heart failure, unspecified (CMS/HCC V24, CMS/HCC V28) 03/21/2025 Lab Requisition [facility] [address] [place] [phone] Cirilo Pugh MD Type 2 diabetes mellitus without complications ([facility] [place] [place] V24, [facility] [place] V28) 03/20/2025 Lab Requisition [facility] [address] [place] [phone] Cirilo Pugh MD Type 2 diabetes mellitus without complications ([facility] [place] V24, [facility] [place] V28) 03/18/2025 Lab Requisition [facility] [address] [place] [phone] Cirilo Pugh MD Gastrointestinal hemorrhage, unspecified from Last 3 Months Social History Tobacco [...] Panel) 01/10/2024 Colorectal Cancer Screening: Colonoscopy 01/10/2024 Hepatitis C Screening 01/10/2024 Osteoporosis Screening (Bone Density Screening) 01/10/2024 Social Influencers of Health Screening 01/10/2024 COVID-19 Vaccine ( season) 2024 04/14/2021, 03/23/2021 Falls Risk Assessment 2024 Depression Screening 11/14/2024 Diabetes: Annual Urine Albumin-Creatinine Ratio (uACR) 03/18/2025 [...] 03/18/2025 7:10 AM EDT Gastrointestinal hemorrhage, unspecified from Last 3 Months Results * (ABNORMAL) Complete blood count (04/03/2025 5:39 AM EDT) Only the most recent of6 resultswithin the time period is included. [facility] WBC 5.0 4.8 - 10.8 K/mcL LAB HEMETOLOGY METHOD 04/03/2025 10:51 AM [facility] RBC 3.20(L) 3.80 - 4.80 M/mcL LAB HEMETOLOGY METHOD 04/03/2025 10:51 AM [facility] Hemoglobin 7.9(L) 11.5 - 16.0 g/dL LAB HEMETOLOGY METHOD 04/03/2025 10:51 AM [facility] Hematocrit 28.2(L) 35.0 - 47.0 % LAB HEMETOLOGY METHOD 04/03/2025 10:51 AM [facility] MCV 88.1 79.0 - 98.0 FL LAB HEMETOLOGY METHOD 04/03/2025 10:51 AM [facility] MCH 24.7(L) 27.0 - 32.0 pcg LAB HEMETOLOGY METHOD 04/03/2025 10:51 AM [facility] MCHC 28.0(L) 32.0 - 37.0 g/dL LAB HEMETOLOGY METHOD 04/03/2025 10:51 AM [facility] RDW 16.6(H) 11.0 - 15.0 % LAB HEMETOLOGY METHOD 04/03/2025 10:51 AM [facility] Platelets 215 130 - 400 K/mcL LAB HEMETOLOGY METHOD 04/03/2025 10:51 AM [facility] MPV 10.0 7.0 - 11.0 FL LAB HEMETOLOGY METHOD 04/03/2025 10:51 AM [facility] NRBC 0.0 <1.0 % LAB HEMETOLOGY METHOD 04/03/2025 10:51 AM EDT [facility] NRBC Absolute 0.00 <0.10 K/mcL LAB HEMETOLOGY METHOD 04/03/2025 10:51 AM EDT [facility] Blood Venous blood specimen / Unknown Venipuncture / Unknown 04/03/2025 5:39 AM EDT 04/03/2025 9:58 AM EDT us Cirilo Pugh MD LAB BLOOD ORDERABLES Final Resu lt [facility] [address] [place] [address], [place] [phone] * (ABNORMAL) Basic metabolic panel (04/02/2025 5:41 AM EDT) Only the most recent of6 resultswithin the time period is included. Sodium 143 133 - 145 mmol/L LAB CHEMISTRY METHOD 04/02/2025 10:28 AM [facility] Potassium 4.1 3.5 - 5.5 mmol/L LAB CHEMISTRY METHOD 04/02/2025 10:28 AM [facility] Chloride 112(H) 96 - 110 mmol/L LAB CHEMISTRY METHOD 04/02/2025 10:28 AM [facility] CO2 25 21 - 32 mmol/L LAB CHEMISTRY METHOD 04/02/2025 10:28 AM [facility] Anion Gap 6 3 - 11 LAB CHEMISTRY METHOD 04/02/2025 10:28 AM [facility] Glucose 220(H) 70 - 100 mg/dL LAB CHEMISTRY METHOD 04/02/2025 10:28 AM [facility] BUN 10 5 - 25 mg/dL LAB CHEMISTRY METHOD 04/02/2025 10:28 AM [facility] Creatinine 0.80 0.50 - 1.10 mg/dL LAB CHEMISTRY METHOD 04/02/2025 10:28 AM EDT [facility] eGFR 82 >=60 mL/min/1. 73m2 LAB CHEMISTRY METHOD 04/02/2025 10:28 AM EDT [facility] Comment:Calculation based on the Chronic Kidney Disease Epidemiology Collaboration (CKD-EPI) equation refit without adjustment for race. BUN/Creatinine Ratio 12.5 LAB CHEMISTRY METHOD 04/02/2025 10:28 AM EDT [facility] Calcium 8.3(L) 8.5 - 10.5 mg/dL LAB CHEMISTRY METHOD 04/02/2025 10:28 AM EDT [facility] Blood Venous blood specimen / Unknown Venipuncture / Unknown 04/02/2025 5:41 AM EDT 04/02/2025 9:21 AM EDT us Cirilo Pugh MD LAB BLOOD ORDERABLES Final Resu lt Performing Organization Address City/[facility]/ZIP Co de Phone Number [facility] [address] [place] [address], [place] [phone] * SST tube (03/26/2025 5:51 AM EDT) Extra Tube Hold for add-ons. 03/26/2025 11:01 AM EDT [facility] Comment:Auto resulted. Blood Venous blood specimen / Unknown Venipuncture / Unknown 03/26/2025 5:51 AM EDT 03/26/2025 9:25 AM EDT us Cirilo Pugh MD LAB BLOOD ORDERABLES Final Resu lt Performing Organization Address City/[facility]/ZIP Co de Phone Number [facility] [address] [place] [address], [place] [phone] * (ABNORMAL) B-type natriuretic peptide (03/26/2025 5:51 AM EDT) BNP 275(H) <=100 pcg/mL LAB CHEMISTRY METHOD 03/26/2025 10:34 AM EDT [facility] Blood Venous blood specimen / Unknown Venipuncture / Unknown 03/26/2025 5:51 AM EDT 03/26/2025 8:58 AM EDT us Cirilo Pugh MD LAB BLOOD ORDERABLES Final Resu lt [facility] [address] [place] [address], [place] [phone] * (ABNORMAL) CBC auto differential (03/18/2025 7:10 AM EDT) WBC 6.3 4.8 - 10.8 K/mcL LAB HEMETOLOGY METHOD 03/18/2025 1:55 PM EDT [facility] RBC 3.40(L) 3.80 - 4.80 M/mcL LAB HEMETOLOGY METHOD 03/18/2025 1:55 PM EDT [facility] Hemoglobin 8.5(L) 11.5 - 16.0 g/dL LAB HEMETOLOGY METHOD 03/18/2025 1:55 PM EDT [facility] Hematocrit 30.1(L) 35.0 - 47.0 % LAB HEMETOLOGY METHOD 03/18/2025 1:55 PM EDT [facility] MCV 89.3 79.0 - 98.0 FL LAB HEMETOLOGY METHOD 03/18/2025 1:55 PM EDT [facility] MCH 25.2(L) 27.0 - 32.0 pcg LAB HEMETOLOGY METHOD [facility] MCHC 28.2(L) 32.0 - 37.0 g/dL LAB HEMETOLOGY METHOD 03/18/2025 1:55 PM EDT [facility] RDW 19.0(H) 11.0 - 15.0 % LAB HEMETOLOGY METHOD 03/18/2025 1:55 PM [facility] Platelets 304 130 - 400 K/mcL LAB HEMETOLOGY METHOD 03/18/2025 1:55 PM [facility] MPV 9.8 7.0 - 11.0 FL LAB HEMETOLOGY METHOD 03/18/2025 1:55 PM [facility] NRBC 0.0 <1.0 % LAB HEMETOLOGY METHOD 03/18/2025 1:55 PM [facility] NRBC Absolute 0.00 <0.10 K/mcL LAB HEMETOLOGY METHOD 03/18/2025 1:55 PM [facility] Neutrophils Relative 54.4 % LAB HEMETOLOGY METHOD 03/18/2025 1:55 PM [facility] Lymphocytes Relative 31.9 % LAB HEMETOLOGY METHOD 03/18/2025 1:55 PM [facility] Monocytes Relative 8.2 % LAB HEMETOLOGY METHOD 03/18/2025 1:55 PM [facility] Eosinophils Relative 4.4 % LAB HEMETOLOGY METHOD 03/18/2025 1:55 PM [facility] Basophils Relative 0.5 % LAB HEMETOLOGY METHOD 03/18/2025 1:55 PM [facility] Immature Granulocytes Relative 0.6 % LAB HEMETOLOGY METHOD 03/18/2025 1:55 PM [facility] Neutrophils Absolute 3.43 1.50 - 7.00 K/mcL LAB HEMETOLOGY METHOD 03/18/2025 1:55 PM [facility] Lymphocytes Absolute 2.01 1.00 - 5.00 K/mcL LAB HEMETOLOGY METHOD 03/18/2025 1:55 PM [facility] Monocytes Absolute 0.52 0.20 - 1.00 K/mcL LAB HEMETOLOGY METHOD 03/18/2025 1:55 PM EDT [facility] Eosinophils Absolute 0.28 0.00 - 0.50 K/[facility] LAB HEMETOLOGY METHOD 03/18/2025 1:55 PM EDT [facility] Basophils Absolute 0.03 0.00 - 0.20 K/[facility] LAB HEMETOLOGY METHOD 03/18/2025 1:55 PM EDT [facility] Immature Granulocytes Absolute 0.04(H) 0.00 - 0.03 K/[facility] LAB HEMETOLOGY METHOD 03/18/2025 1:55 PM EDT [facility] Blood Venous blood specimen / Unknown Venipuncture / Unknown 03/18/2025 7:10 AM EDT 03/18/2025 11:32 AM EDT us Cirilo Pugh MD LAB BLOOD ORDERABLES Final Resu lt [facility] [address] [place] [address], from Last 3 Months Insurance [facility] [employer] Member Subscriber Plan / Payer (Ef fective 2020-Present) Name:Yolanda Nash Relation to Subscriber:Self Name:Yolanda Nash Payer ID:[id number] Group ID:[id number] Type:Not on file Address: [place] [facility] [place] [address] Care Teams Wet End Tester Relationship Specialty Start Date End Date Milady Carmen MD PCP - General 06/21/23
--- OUTSIDE RECORDS SUMMARY | 2025-06-05 10:58 | XMS_ITS | Clinical Summary ---
Author Organization [facility] Address [address] [place] [phone] Phone Care Team Providers Care Optical Laboratory Manager Name Role Phone Milady Carmen MD Primary [...] 0 Refills, Maintenance, 04/16/25 12:41:00 PM EDT, [facility], Partial fill upon patient request if [...] per caprice note fall 2019, done in [place] for progressive Charcot foot deformity and diabetic [...] Office Visit [facility] P. [address] [phone] Ha Velez MD Other acute kidney failure [...] Office Visit [facility] [address] [phone] Chery Yang ARNP [address] [phone] Health Maintenance Due Date Last Done Comments [...] to complete this topic Insurance Care Teams Optical Laboratory Manager Relationship Specialty Start Date End Date Milady Carmen MD [address] [place] [phone] PCP - General Internal Medicine 04/22/25
--- OUTSIDE RECORDS SUMMARY | 2025-06-05 10:58 | XMS_ITS | Data Portability ---
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 I have reviewed and agree with the Assessment and Plan as documented by the Pan Devulcanizer. Patient given the opportunity to ask questions. [...] Assessment and Plan as documented by the Pan Devulcanizer. We discussed the diagnostic uncertainty of home [...] verbalized understanding of instructions to the medic [email or web address] Not available 01/09/2024 16:20:17 05/08/2024 05/08/2024 service [...] plasma 2023 024 VALENTIN [facility] - [facility], [address] [place] [address], [id number] 4 18:02:39 rapid SARS CoV 2 Ag, QL IA, respiratory specimen 2023 024 [email or web address] Main - [facility], [address] [place] [address], [id number] 4 16:18:58 rapid flu (A+B) 2023 024 [email or web address] Main - [facility], [address] [place] [address], [id number] 4 16:19:00 rapid strep group A, throat 2023 024 [email or web address] Main - [facility], [address] [place] [address], [id number] 4 16:19:01 rapid SARS CoV 2 Ag, QL IA, respiratory specimen 2023 024 [email or web address] [facility] [address] [place] [address], [id number] 4 19:21:10 rapid flu (A+B) 2023 024 [email or web address] Main - [facility], [address] [place] [address], [id number] 4 19:21:08 rapid strep group A, throat 2022 023 [email or web address] 0 Main - [facility], [address] [place] [address], [id number] 3 16:22:31 rapid SARS CoV 2 Ag, QL IA, respiratory specimen 2022 023 [email or web address] 0 Main - [facility], [address] [place] [address], [id number] 3 16:22:34 rapid flu (A+B) 2022 023 [email or web address] 0 Main - [facility], [address] [place] [address], [id number] 3 16:22:36 Referral None recorded. Procedures None recorded. Surgeries None recorded. Imaging electrocard iogram 2023 024 [email or web address] 0 [facility], [address] [place] [address], [id number] 4 16:18:55 Medication Orders furosemide 40 mg tablet 2023 024 [facility], [address] [place] [address], [id number], 4 17:58:55 furosemide 40 mg tablet 2023 024 [email or web address] [facility], [address] [place] [address], [id number], 4 16:51:43 azithromyci n 250 mg tablet 2023 024 [facility], [address] [place] [address], [id number], 4 16:19:50 azithromyci n 250 mg tablet 2023 024 [email or web address] 0 [facility], [address] [place] [address], [id number], 4 16:13:02 albuterol sulfate HFA 90 mcg/actuati on aerosol inhaler 2023 024 [facility], [address] [place] [address], [id number], 4 16:19:49 Mucinex DM 60 mg-1,200 mg tablet,exte nded release 12 hr 2023 024 [facility], [address] [place] [address], [id number], 4 16:19:47 Flonase Allergy Relief 50 mcg/actuati on nasal spray,suspe nsion 2023 024 [facility], [address] [place] [address], [id number], 4 19:28:26 Augmentin 875 mg-125 mg tablet 2022 023 [facility], [address] [place] [address], [id number], 3 16:28:28 Mucinex DM 60 mg-1,200 mg tablet,exte nded release 12 hr 2022 023 [facility], [address] [place] [address], [id number], 3 16:28:29 Patient TargetsNo targets recorded. Patient InstructionsNo instructions recorded. Reason for Referral None Reported. Results Created Date Observation Date Name Description Value Unit Range Abnormal Flag Note LastModifiedBy Organization Detail LastModifiedTime 10/13/20 23 10/13/2023 rapid flu (A+B) Flu negati ve Not Available [facility] ed [address] [place] [address], [id number] 10/13/2023 16:19:01 10/13/20 23 10/13/2023 rapid SARS CoV 2 Ag, QL IA, respi rator y speci men rapid SARS CoV 2 Ag, QL IA, respiratory specimen negati ve Not Available [facility] ed [address] [place] [address], [id number] 10/13/2023 16:18:59 10/13/20 23 10/13/2023 rapid strep group A, throa t Strep positi ve Not Available [facility] ed [address] [place] [address], [id number] 10/13/2023 16:18:57 01/04/20 24 01/04/2024 rapid flu (A+B) Flu negati ve Not Available [facility] ed [address] [place] [address], [id number] 01/04/2024 19:20:54 01/04/20 24 01/04/2024 rapid SARS CoV 2 Ag, QL IA, respi rator y speci men rapid SARS CoV 2 Ag, QL IA, respiratory specimen negati ve Not Available [facility] ed [address] [place] [address], [id number] 01/04/2024 19:20:49 01/09/20 24 01/09/2024 rapid strep group A, throa t Strep negati ve Not Available [facility] ed [address] [place] [address], [id number] 01/09/2024 16:16:41 01/09/20 24 01/09/2024 rapid flu (A+B) Flu negati ve Not Available [facility] ed [address] [place] [address], [id number] 01/09/2024 16:16:40 01/09/20 24 01/09/2024 rapid SARS CoV 2 Ag, QL IA, respi rator y speci men rapid SARS CoV 2 Ag, QL IA, respiratory specimen negati ve Not Available [facility] ed [address] [place] [address], [id number] 01/09/2024 16:16:39 01/09/20 24 01/09/2024 dino mariscal am No observ ation record ed. [email or web address] [address], [phone] 01/09/2024 16:18:51 Result Notes None recorded. Problems Name Problem SNOMED Code Status Onset Date Resolution Date Notes Provider Name and Address Organization Details Recorded Time Increased frequency of urination 780338233 Active 023 Dick Nj MD [address] [place] [address],[address], [place], [address] [facility] 3 15:17:33 Problem Notes None recorded. [...] Not available Not available Not available 08/06/2022 93314 RxNorm Not Available [facility] - production 4 03:38:56 1093 metformin medicatio n Not available Not available Not available 08/06/2022 6809 RxNorm Gayatri Myers MD [address], [place], [address], [facility] 2 16:50:48 1094 morphine medicatio n Not available Not available Not available 08/06/2022 7052 RxNorm Not Available [facility] - production 4 03:38:56 1095 Farxiga medicatio n Not available Not available Not available 08/06/2022 12167 72 RxNorm Gayatri Myers MD [address], [place], [address], [facility] 2 16:51:51 1096 Silvadene medicatio n Not available Not available Not available 08/06/2022 45796 6 RxNorm Not Available [facility] - production 4 03:38:56 7664 Bactrim medicatio n Not available Not available Not available 09/11/2024 53530 9 RxNorm Not Available [facility] - production [...] Not Available Not Available Comfort EZ Pen [place] 31 gauge x 1/4 USE WITH INSULIN PENS 4 TIMES A DAY, 90 DAY SUPPLY active Not Available Not Available No t Available Lenore Alvarez [facility] spacer active Not Available Not Available Not Available Victoza 3-Paco 0.6 mg/0.1 mL (18 mg/3 mL) subcutaneous pen injector INJECT 1.8 MG SUBCUTANEOU SLY ONCE DAILY active Not Available Not Available No t Available Breo Ellipta 100 mcg-25 mcg/dose powder for inhalation TAKE 1 PUFF INHALATION ONCE A DAY active Not Available Not Available N ot Available Easy Comfort Pen [place] 31 gauge x 5/16 active Not Available Not Available Not Available Comfort EZ Pen [place] 33 gauge x 1/4 DIRECTED WITH INSULIN AND OZEMPIC active Not Available Not Available No t Available Farxiga 10 mg tablet active Not Available Not Available No t Available Jardiance 10 mg tablet active Not Available Not Available No t Available Flonase Allergy Relief 50 mcg/actuatio n nasal spray,suspen concha [place] 1 spray(s) every day by intranasal route [...] Not Available Not Available Easy Comfort Pen [place] 33 gauge x 3/16 active Not Available [...] Available No t Available FreeStyle Franca 2 [place] active Not Available Not Available Not Available [...] Not Available No t Available Dexcom G7 [employer] Department Specialist USE TO CONTINUOUSL Y CHECK GLUCOSE DIRECTED [...] /min 80 /min 160/90 mm[Hg] Not Available [facility] [employer] Device 4 19:19:40 Date Recorded Oxygen saturation Oxygen saturation in Arterial blood by Pulse oximetry Respiratory rate Body temperature Body height Body weight Heart rate Systolic And Diastolic Provider Name and Address Organization Details Last Updated DateTime 4 95 % 95 % 16 /min 98.5 [degF] 167.64 cm 828307. 472 g 72 /min 161/78 mm[Hg] Not Available [facility] [employer] [employer] 4 15:26:25 Date Recorded Oxygen saturation Oxygen saturation in Arterial blood by Pulse oximetry Respiratory rate Body temperature Heart rate Systolic And Diastolic Provider Name and Address Organization Details Last Updated DateTime 4 95 % 95 % 16 /min 97.1 [degF] 78 /min 189/79 mm[Hg] Not Available [employer] 4 18:38:38 Date Recorded Body temperature Respiratory rate Heart rate Oxygen saturation Oxygen saturation in Arterial blood by Pulse oximetry Systolic And Diastolic Provider Name and Address Organization Details Last Updated DateTime 4 98.2 [degF] 18 /min 72 /min 96 % 96 % 186/100 mm[Hg] Not Available [employer] 4 14:32:47 Date Recorded Body weight Body mass index (BMI) Body height Provider Name and Address Organization Details Last Updated DateTime 10/13/2023 157536.57 g 41.7 kg/m2 170.18 cm Gayatri Myers MD [address] [facility],[address], [place], [address], [place] - [facility] 10/13/2023 16:15:12 Date Recorded Heart rate Respiratory rate Oxygen saturation Oxygen saturation in Arterial blood by Pulse oximetry Body temperature Systolic And Diastolic Provider Name and Address Organization Details Last Updated DateTime 3 82 /min 18 /min 96 % 96 % 98.1 [degF] 166/74 mm[Hg] Not Available [facility] 16:13:39 Social History None recorded. Functional Status [...] [id number] Dick Nj MD Main - [facility] [address] [place], [place] [phone] 07/30/2022 11:07:20 07/30/2022 11:13:09 [id number] Lela Asencio MD Main - [facility] [address] [place] [address] 0 07/31/2022 12:32:00 08/10/2022 13:49:16 Hyperkalemia 54646078 E87.5 [facility] sent for hyperkalem ia check following kayexelate . potassium increased to 7 from 6.1 yesterday. EKG with question of peaked T waves. sending to ED. Pt amenable. [id number] Gayatri Myers MD Main - [facility] [address] [place], [place] [phone] 08/06/2022 16:34:18 08/16/2022 13:48:08 Hyperkalemia 88502780 E87.5 RESOLVED- improving cellulitis RLE- pat advised to continue doxycyclin e/ stay hydrated- avoid sun exposure on antibioitc s and f/u pcp next week. [id number] Anuja Nieves MD Main - [facility] [address] [place] [phone] 09/08/2022 20:44:28 09/14/2022 15:20:07 Fatigue 83824307 R53.83 6895 Gayatri Myers MD Main - [facility] [address] [place] [phone] 11/22/2022 19:35:33 11/24/2022 10:38:51 Acute urinary tract infection 139909008 N39.0 patient unable to void after > 1 hr with po fluids- straight cath performed with patient's verbal permission - 75 cc cloudy urine obtainedU A reflex to C & S sent to [facility] as per Solo Saravia [employer]RB[employer] REDEVELOPMENT SPECIALIST request-si nce patient symptomati c will start [...] Naif Keating MD Main - [facility] [address] [place] [address] 02/14/2023 15:19:54 02/15/2023 22:49:34 Headache 33505351 R51.9 As noted, we were called to see this patient regarding concerns of headache and hypertensi on. Evaluation in the field was performed by my carbide die maker colleague, as noted above, I provided real-time [...] activation to ED after our visit concluded. [id number] Dick Nj MD [facility] - [address] [phone] 03/17/2023 15:09:59 03/18/2023 10:59:45 Increased frequency of urination 892001067 R35.0 This 62-year-ol d female called [facility] [...] symptoms. The patient agreed with this plan. [id number] Katey Owusu MD [facility] - [address] [phone] 06/14/2023 19:38:03 06/15/2023 11:06:12 Abdominal pain 82322283 R10.9 [id number] Lela Asencio MD [facility] - [address] [phone] 07/26/2023 20:28:55 07/28/2023 10:15:01 COVID-19 [id number] U07.1 I provided real -time medical direction via phone for this encounter, and was available for additional phone based assistance as needed. I have reviewed and agree with the Assessment and Plan as documented by the Pan Devulcanizer. Patient given the opportunit y to ask questions. 63 yo w/ URI sx, tested positive for covid today. Rapid test positive as well. Reviewed labs (nl renal function) and medication list for paxlovid safety. Pt agreeable to take paxlovid. Discussed warning signs/sx. [id number] Gayatri Myers MD [facility] - [address] [phone] 10/13/2023 16:13:37 10/15/2023 11:39:43 Acute bacterial bronchitis 473340284 J20.9 Antibiotic s indicated due to dark green productive mucus -Augmentin as below-advi sed to use her albuterol inhaler 2 puffs 4 times a day while ill.- BS from her [facility] 291 postprandi al-patient not wheezing steroids not indicated at this time & as this will adversely affect her blood sugar Streptococ ken sore throat 25199242 J02.0 Patient has Tylenol 500 mg at [...] as well-patie nt reports her daughter can picker and sorter load and unload the prescripti on this evening. Advised her to call [facility] if she is unable to get the prescripti on by tomorrow morning or if she is not feeling better in 48 hours to call for another visit -she verbalized understand ing to the medic ORALIA APONTE MD Main - [facility] [address] [place] [phone] 01/04/2024 19:19:38 01/05/2024 09:31:05 Viral upper respiratory tract infection 890925873 J06.9 Evaluation in the field was performed by my carbide die maker colleague, as noted above, I provided real-time [...] . Has been using Flonase but per carbide die maker, has .VS S, afebrile, saturating 97 % [...] concerns Gayatri Myers MD Main - [facility] [address] [place] [phone] 01/09/2024 15:26:20 01/10/2024 10:39:43 Mild chronic obstructive pulmonary disease 620815435 J44.9 with possible sinusitis- advised to continue [...] her PCP and she verbalized understand ing. [id number] Anuja Nieves MD Main - [facility] [address] [place], [place] [phone] 05/08/2024 18:38:33 05/09/2024 20:15:30 Edema of lower extremity 121809038 R60.0 [id number] Velasquez Eric MD Main - [facility] [address] [place], [place] [phone] 05/10/2024 14:32:45 05/11/2024 17:38:07 Edema of lower extremity 820015486 R60.0 Patient with mild edema in lower extremity on right side (has L BKA). No SOB or other signs of acute CHF exacerbati on. No known weight changes. Hypertensi ve of exam though no s/s of hypertensi ve urgency or emergency. 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 WIll give Lasix 40mg [...] Smith Member ID Guarantor Name 03/15/2025 1 [facility] - DOS PRIOR TO 2023 - DUAL ELIGIBLE (MEDICARE REPLACEMENT/ADV ANTAGE - HMO) Yolanda Choi [id number] Yolanda Choi 03/15/2025 1 [facility] - DOS ON OR AFTER 2023 - DUAL ELIGIBLE - SENIOR LIVING OPTIONS AND ONE CARE (MEDICARE REPLACEMENT/ADV ANTAGE - HMO) Yolanda Choi [id number] Yolanda Choi Notes Date Note Type Note Provider Name and Address Organization Details Recorded Time 10/13/2023 text/html ROS as noted in the HPI HPI: 63 y/o female called to PCP [...] .................... .................... .................... .................... .................... .................... . Pan [employer]canizer Note From David Cano: Pt co cough and sore throat with chills yesterday with fever. Took thera flu with relief of fever. Pt sts green mucus. Pt denies nausea vomiting diarrhea headache or dizziness. Baseline vitals assessed. Covid/flu swab negative, strep test positive. Lungs clear bilaterally. C contacted and RX for augmentin called in for picker and sorter load and unload. Pt instructed to call back tomorrow if does receive her antibiotics. Pt education on signs indicating the ER. Pan [employer]izer Allergies: Bactrim, Morphine, Silvadene, Levofloxacin, Ciprofloxacin .................... .................... .................... .................... .................... .................... .................... . Disposition: FulfilledSEGMD: As above. Patient used her albuterol inhaler and her wheezing stopped.-Patient with PMH COPD/DM/HTN/CHF/SP VA. She is status post left leg BKA Gayatri Myers MD [address] [facility],[address], [place], [address], [facility] [employer] 10/14/2023 06:12:30 01/04/2024 text/html ROS as noted in the HPI HPI: Yolanda is a 63 year old [...] .................... .................... .................... .................... .................... .................... . Pan Dev[employer]canizer Note From Fred Robins: Dispatched to the [...] ago. Pt was asked to show this carbide die maker how she was self administering the medication. Pt placed the tip of the applicator deep into her nare. Pt was educated on proper application. C consulted. Script for new Flonase called into preferred pharmacy. Red flags discussed. ALL times are approx. .................... .................... .................... .................... .................... .................... .................... . Disposition: Fulfilled ORALIA APONTE MD [address] [place] [address],[address], [place], [address], [facility] [employer] 01/04/2024 22:46:17 01/09/2024 text/html ROS as noted in the HPI HPI: Seen by Garrett 01/04 for URI- CP called to follow up today and patient is stating she not better but worse. Loss of taste, waking up from sleep with difficulty breathing needing to use inhaler, intermittent chest pain. Patient declined ED visit, would like [facility] to do an EKG and prescribe something for congestion/symptoms. ................... .................... .................... .................... .................... .................... .................... .. [facility] Nurse Triage Notes (Veronica Holliday): Comments: [...] to us. She denies chest pain to [facility], although she was apparently complaining of chest pain to her provider earlier so they requested an EKG................. .................... .................... .................... .................... .................... .................... .... Pan Devulcanizer Note From Jurgen Leija: Pt reports URI [...] negative. After leaving the pt s side, [facility] had to go back into the [...] .................... . 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 Yolanda states she went to [facility] today where her BP was 169/80 and she was told to call her PCP. 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 [facility] [employer] POC Test Results from Jugren Leija [facility] (18:33:16) pH: 7.43 pH units pCO2: 35.7 mmHg pO2: 54.7 mmHg Na: 139 mmol/L K: 3.9 mmol/L iCa: 1.12 mmol/L Cl: 106 mmol/L TCO2: 23.9 mEq/L Hct: 34 % Hb: 11.4 g/dL Glu: 383 mg/dL Lac: 1.9 mmol/L Cr: 0.9 mg/dL BUN: 12 mg/dL A .................... .................... .................... .................... .................... .................... .................... . Pan [employer]izer Note From Jurgen Leija: Pt reports hx [...] .................... .................... . Disposition: Mary Nieves MD [address] [place] [address],[address], [place], [address], [facility] - [facility] 05/09/2024 00:11:01 05/10/2024 text/html ROS as noted in the HPI HPI: 63 year old female with type 2 diabetes complicated by retinopathy, neuropathy, hyperglycemia, left BKA, and past right foot ulcers as well as HTN, HLD, diastolic heart failure, asthma, GERD, arthritis, depression, and obesity. [facility] where she was [facility] w Lasix. [facility] to redraw electrolytes and check for CHF. I advised her if symptoms were worse and [facility] finds it necessary for her to go to the ER, she verbalized she would go. Please assess for CHF and redraw electrolytes. [facility] summary .................... .................... .................... .................... .................... .................... .................... . [facility] Nurse Triage Notes (Veronica Holliday): Comments: [facility] RN DID NOT NEED FURTHER INFO [facility] [employer] POC Test Results from Murphy Nascimento [facility] iSTAT Chem8+ (1) [14:46] Na: 139 mEq/L K: 3.9 mEq/L Cl: 102 mEq/L iCa: 1.07 mmol/L TCO2: 27 mmol/L Glu: 197 mg/dL BUN: 13 mg/dL Crea: 0.8 mg/dL Hct: 35 % Hb: 11.9 g/dL A Attachments uploaded as part of this test result can be found under Documents section. .................... .................... .................... .................... .................... .................... .................... . Pan Devulcanizer Note From Murphy Nascmiento: Dispatched to above address for lab check [...] edema on R lower leg, L BKA. [facility] contacted, advised of patient complaints and exam findings. [facility] ordered ISTAT checked. Blood draw preformed, ISTAT checked, results uploaded. [facility] contacted, advised of test results. [facility] ordered 40mg Lasix PO, will prescribe additional dose for tomorrow. Patient administered Lasix. Patient advised of [facility] recommendations, home care and red flags. Patient has no additional questions or concerns at this time. SC8 clear. EOR. .................... .................... .................... .................... .................... .................... .................... . Disposition: Fulfilled Velasquez Eric MD [address] [facility],[address], [place], [address], [facility] 05/10/2024 18:45:48 OBGyn Episode No OBEpisode recorded.
== END 2025-06-05 12:14 | disposition home or self-care (01) ==
LOC: HO.ENCR 10:06
PROVIDERS: PCP Internal Medicine; Visit Provider Registered Nurse Diabetes Educator
DX: E11.9 Type 2 diabetes mellitus without complications (principal); Z79.4 Long term (current) use of insulin

== ENCOUNTER → 2025-06-05 10:06 | Outpatient (BNVA) | payer OTHER, SELFPAY | PROVIDERS: PCP Internal Medicine; Visit Provider Registered Nurse Diabetes Educator | DX: E11.9 Type 2 diabetes mellitus without complications (principal); Z79.4 Long term (current) use of insulin; Z96.41 Presence of insulin pump (external) (internal); Z46.81 Encounter for fitting and adjustment of insulin pump | CPT/HCPCS: 99211 ==

== ENCOUNTER 2025-06-27 10:16 | Outpatient (AMB) | payer OTHER, SELFPAY ==
--- NOTE | 2025-06-27 10:18 | MHC.OFFVIS ---
Vital Signs 06/27/25 10:24 Height 5 ft 6 in Weight 239 lb BMI 38.6 BP 100/62 Blood Pressure Location Rt brachial Position Sitting Pulse 79 Pulse Source Pulse Oximeter Pulse Oximetry (%) 97 Oxygen Delivery Method Room Air Intake Visit Reasons: DMT2/ Pump Patient Intake Note: Patient present today to follow up on Type 2 Diabetes Mellitus. Patient receives Tandem and Dexcom G7 supplies through: [employer] Last Diabetic Eye exam: Over Due, patient states she has to make an appointment. Last Podiatry Visit: Does not see a Agile Scrum Master Random Glucose: 150 mg/dl through Dexcom view, patient refused finger stick. HgA1C: 7.6% 05/03/2025 [employer] Required: Yes [employer] Language: Plush Weaver Services: [employer] Offered & Declined Accompanied by: Self / Same As Patient Allergies ciprofloxacin Allergy (Severe, Verified 06/27/25 10:25) Anaphylaxis kiwi Allergy (Severe, Verified 06/27/25 10:25) Angioedema morphine Allergy (Intermediate, Verified 06/27/25 10:25) Itching atorvastatin (From Lipitor) Adverse Reaction (Mild, Verified 06/27/25 10:25) myalgia metformin Adverse Reaction (Mild, Verified 06/27/25 10:25) Abdominal Pain Medication List - Last Reconciled 06/27/25 by Tavon Corrales MD acetaminophen 650 mg PO Q6H PRN acetone (urine) test (Ketone Urine Test strips) As directed: When should you test for ketones? It is advisable to check for ketones under the following conditions when: Your blood glucose is higher than 250mg/dl. Feeling nauseated, throwing up, or have pains in your abdominal region. Have a cold or flu. Have general body fatigue. Feel thirsty or have a very dry mouth. Have flushed skin. Have a fruity breath or a hard time breathing. You feel perplexed or in fog. albuterol sulfate 90 mcg/actuation 2 puffs inhalation Q4-6H PRN blood sugar diagnostic (FreeStyle Lite Strips) As directed blood-glucose meter (FreeStyle Lite Meter kit) As directed blood-glucose sensor (Dexcom G7 Sensor device) As directed cholecalciferol (vitamin D3) 25 mcg PO DAILY 1 month diclofenac sodium 1% 2 grams topical TID PRN diphenhydramine HCl 2% (Benadryl) 1 appl topical TID PRN fexofenadine 180 mg PO DAILY fluticasone furoate-vilanterol 100-25 mcg/dose (Breo Ellipta) 1 ea inhalation DAILY fluticasone propionate 50 mcg/actuation 1 spray intranasal BID PRN gabapentin 800 mg PO BID glucagon 3 mg/actuation (Baqsimi) 3 mg intranasal .prn PRN 30 days MDD 6mg hydroxyzine pamoate 1 cap PO TID PRN insulin aspart U-100 (Novolog U-100 Insulin aspart) up to 150 units per day via continuous infusion via continuous subcutaneous infusion every morning; 30 days MDD 150 units insulin glargine (Lantus U-100 Insulin) 50 units subcut BID ipratropium-albuterol 0.5 mg-3 mg(2.5 mg base)/3 mL 3 mL inhalation RQ4H WHILE AWAKE lisinopril 20 mg PO DAILY metoprolol succinate ER 100 mg PO DAILY montelukast 10 mg PO DAILY naproxen 375 mg PO DAILY PRN olopatadine 0.1% 1 drp ophthalmic (eye) BID PRN omeprazole 1 cap PO DAILY@0630 spironolactone 25 mg PO DAILY tirzepatide (Mounjaro) 7.5 mg (0.5 mL) subcut QWEEK 28 days trazodone 50 mg PO BEDTIME HPI Comments Details: 64 year old female presents for f/u visit for type 2 diabetes. She was last seen y Destinee oJ NP . Initially diagnosed with T2DM in 1980 with gestational . Was initially started on treatment with insulin while in [place]. 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 She has been seen by the Bariatric Surgeon at [facility] earlier this year and followed the diet for 1 week but had difficulties with this. She had a CABG x4 at [facility] and had a complicated postoperative stay including multiple ICU stays. She was in a coma for part of this time. Went to rehab afterwards and was rehospitalized with a lower GI bleed. Current regimen: Mounjaro 7.5 mg weekly Back up pump failure plan Lantus 50 units daily Novolog 15-20 units tid T- Slim X2 Dexcom average glucose: 186 14 day continuous glucose monitor report reviewed Glucose Managment indicator 7.7 % Days with CGM data 93 % TIme in ranges: 14 % very high (above 250) 31 % high ?(181-250) 55 % in range ?(70-180] 0 % low (69-55) 0 % ?very low (below 54) Interpretation post-breakfast elevation with persistent elevation throughout the day Total daily dose of insulin 120.3 65% basal 77.7 units 35 % bolus 42.6units Total carbs 126 Control IQ 90% of the time manual 16 occasional hypoglycemia - if doesn't eat dinner Basal rate 12 AM? to 12 AM?3.5 units / hr Bolus setting Insulin Carbohydrate Ratio (s) 12 AM? to 12 AM? 1:6 Correction Factor / Sensitivity Factor 12 AM? to 12 AM? 20Active Insulin Time:?5 hours Target(s): 12 AM? to 12 AM? 110 mg/dL Last eye exam: allyssa has had injections in the past but she reports last exam in February no rx needed Nephropathy: None last EGFR > 60 measured on 06/06 no microalbumin in EHR Neuropathy: on gabapentin no numbness, tingling, cramping podiatry: HLD:not on statin had myalgias to atorvastatin, last LDL 99 measured 2024 on 04/17/24 CHF: Followed by Cardiology has CABG x4 [facility] with complications post op Followed by GI Medicine [facility] Medical History (Updated 05/03/25 @ 14:11 by Destinee Drake NP) Lower GI bleed CAD (coronary artery disease) Type 2 diabetes mellitus Asthma-COPD overlap syndrome Chronic diastolic CHF (congestive heart failure) HTN (hypertension) Morbid obesity Carpal tunnel syndrome GERD (gastroesophageal reflux disease) Insomnia Neuropathy Sleep apnea Insulin dependent type 2 diabetes mellitus HLD (hyperlipidemia) Diabetes mellitus Surgical History S/P S/P cholecystectomy Below-knee amputation of left lower extremity Family History Mother Dementia Diabetes Father Dementia Diabetes Social History Household Members: Children Housing: Apartment Do you presently have visiting nurse or other home services: No Alcohol intake: never Comment: D/C to home Patient Tobacco Use Status: Former Tobacco user Advance Directives Date on File: 03/07/24 service: No Physical Exam Vital Signs: Last Vital Signs Pulse 79 06/27/25 10:24 BP 100/62 06/27/25 10:24 Pulse Ox 97 06/27/25 10:24 Oxygen Delivery Method Room Air 06/27/25 10:24 BMI result Body Mass Index 38.6 Const Other: Absence of Cushingoid features. Absence of acromegalic features. Neck exam reveals nl size thyroid about 15 gms. No thyroid nodules palpable. Heart S1 S2, Reg R/R. No M/R G. Skin exam reveals absence of vitiligo or acanthosis nigricans. Trace edema. Foot exam R LE with compression stocking. Left lower extremity has 1+ pulses. No skin breakdown. There was vibratory loss by tuning fork examination. There are sensory loss by monofilament examination Assessment & Plan Assessment & Plan (1) Insulin dependent type 2 diabetes mellitus: Code(s): E11.9 - Type 2 diabetes mellitus without complications; Z79.4 - director long term care (current) use of insulin Category: Medical Plan: This is a 64-year-old female with a history of type 2 diabetes being treated with Mounjaro and an insulin pump T-slim X 2 with fair glycemic control and known microvascular macrovascular complications namely retinopathy, neuropathy and CAD status post CABG Plan is to increase the insulin: Carbohydrate to 1:5 before breakfast. This change we made by the nursing educator next week or so. We will also check lipid profile microalbumin to creatinine ratio. We will make appointments and referrals to podiatry and ophthalmology/retinal specialist. We will also increase Mounjaro to 10 mg Q weekly. Once again went over the side effects of Mounjaro including but not limited to nausea, vomiting rare risk of pancreatitis Orders: Orders Lipid Panel Today E11.9 - Type 2 diabetes mellitus without complications, Z79.4 - skilled nursing (current) use of insulin Microalbumin, Random (w Creat) Today E11.9 - Type 2 diabetes mellitus without complications, Z79.4 - director long term care (current) use of insulin Referrals Ophthalmology Referral E11.9 - Type 2 diabetes mellitus without complications, Z79.4 - skilled nursing (current) use of insulin Podiatry Referral E11.9 - Type 2 diabetes mellitus without complications, Z79.4 - director long term care (current) use of insulin Medications: New tirzepatide (Mounjaro) 10 mg (0.5 mL) subcut QWEEK 2 mL 4RF Discontinued tirzepatide (Mounjaro) Discontinued Reason: Doctor's Order 7.5 mg (0.5 mL) subcut QWEEK 28 days 2 mL 8RF E11.9 - Type 2 diabetes mellitus without complications Coding Level of Care Code Est Pt Level 4 (25021) Complex EM visit Add On G2211 Diagnoses Insulin dependent type 2 diabetes mellitus E11.9; Z79.4
[2025-06-27 10:24] VITALS: BP 100/62; PULSE 79; O2SAT 97; BMI 38.6
--- OUTSIDE RECORDS SUMMARY | 2025-06-27 11:00 | XMS_ITS | Clinical Summary ---
Author Organization [facility] Address [address] [place] [address] Phone Care Team Providers Care Digital Marketing Strategist Name Role Phone Milady Carmen MD Primary Care Provider + Encounters Date Type Department Care Team Description 04/03/2025 Lab Requisition [facility] Lab [address] [place] [phone] Cirilo Pugh MD Anemia, unspecified 04/02/2025 Lab Requisition [facility] Lab [address] [place] [phone] Cirilo Pugh MD Anemia, unspecified; Chronic kidney disease, unspecified 03/30/2025 Lab Requisition [facility] Lab [address] [place] [phone] Cirilo Pugh MD Heart failure, unspecified (CMS/HCC V24, CMS/HCC V28) from Last 3 Months Social History Tobacco [...] Heart failure, unspecified (CMS/HCC V24, CMS/HCC V28) from Last 3 Months Results * (ABNORMAL) Complete blood count (04/03/2025 5:39 AM EDT) Only the most recent of3 resultswithin the time period is included. [facility] WBC 5.0 4.8 - 10.8 K/mcL LAB HEMETOLOGY METHOD 04/03/2025 10:51 AM [facility] LAB RBC 3.20(L) 3.80 - 4.80 M/mcL LAB HEMETOLOGY METHOD 04/03/2025 10:51 AM [facility] LAB Hemoglobin 7.9(L) 11.5 - 16.0 g/dL LAB HEMETOLOGY METHOD 04/03/2025 10:51 AM [facility] LAB Hematocrit 28.2(L) 35.0 - 47.0 % LAB HEMETOLOGY METHOD 04/03/2025 10:51 AM [facility] MCV 88.1 79.0 - 98.0 FL LAB HEMETOLOGY METHOD 04/03/2025 10:51 AM [facility] MCH 24.7(L) 27.0 - 32.0 pcg LAB HEMETOLOGY METHOD 04/03/2025 10:51 AM [facility] LAB MCHC 28.0(L) 32.0 - 37.0 g/dL LAB HEMETOLOGY METHOD 04/03/2025 10:51 AM EDT [facility] RDW 16.6(H) 11.0 - 15.0 % [facility] 04/03/2025 10:51 AM EDT [facility] Platelets 215 130 - 400 K/mcL LAB [facility] METHOD 04/03/2025 10:51 AM EDT [facility] MPV 10.0 7.0 - 11.0 FL [facility] 04/03/2025 10:51 AM EDT [facility] NRBC 0.0 <1.0 % LAB [facility] METHOD 04/03/2025 10:51 AM EDT [facility] NRBC Absolute 0.00 <0.10 K/mcL LAB [facility] METHOD 04/03/2025 10:51 AM EDT [facility] Blood Venous blood specimen / Unknown Venipuncture / Unknown 04/03/2025 5:39 AM EDT 04/03/2025 9:58 AM EDT us Cirilo Pugh MD LAB BLOOD ORDERABLES Final Resu lt [facility] [address] [place] [address], * (ABNORMAL) Basic metabolic panel (04/02/2025 5:41 AM EDT) Only the most recent of2 resultswithin the time period is included. Sodium 143 133 - 145 mmol/L LAB CHEMISTRY METHOD 04/02/2025 10:28 AM EDT [facility] Potassium 4.1 3.5 - 5.5 mmol/L LAB CHEMISTRY METHOD 04/02/2025 10:28 AM EDT [facility] Chloride 112(H) 96 - 110 mmol/L LAB CHEMISTRY METHOD 04/02/2025 10:28 AM [facility] CO2 25 21 - 32 mmol/L LAB CHEMISTRY METHOD 04/02/2025 10:28 AM [facility] Anion Gap 6 3 - 11 LAB CHEMISTRY METHOD 04/02/2025 10:28 AM [facility] Glucose 220(H) 70 - 100 mg/dL LAB CHEMISTRY METHOD 04/02/2025 10:28 AM [facility] BUN 10 5 - 25 mg/dL LAB CHEMISTRY METHOD 04/02/2025 10:28 AM [facility] Creatinine 0.80 0.50 - 1.10 mg/dL LAB CHEMISTRY METHOD 04/02/2025 10:28 AM [facility] LAB eGFR 82 >=60 mL/min/1. 73m2 LAB CHEMISTRY METHOD 04/02/2025 10:28 AM [facility] Comment:Calculation based on the Chronic Kidney Disease Epidemiology Collaboration (CKD-EPI) equation refit without adjustment for race. BUN/Creatinine Ratio 12.5 LAB CHEMISTRY METHOD 04/02/2025 10:28 AM [facility] Calcium 8.3(L) 8.5 - 10.5 mg/dL LAB CHEMISTRY METHOD 04/02/2025 10:28 AM [facility] Blood Venous blood specimen / Unknown Venipuncture / Unknown 04/02/2025 5:41 AM EDT 04/02/2025 9:21 AM EDT us Cirilo Pugh MD LAB BLOOD ORDERABLES Final Resu lt [facility] [address] [place] [address], from Last 3 Months Insurance [facility] Member Subscriber Plan / Payer (Ef fective 2020-Present) Name:Yolanda Nash Relation to Subscriber:Self Name:Yolanda Nash Payer ID:[id number] Group ID:[id number] Type:Not on file Address: [place] [address] [place] [id number] Care Teams Digital Marketing Strategist Relationship Specialty Start Date End Date Milady Carmen MD PCP - General 06/21/23
--- OUTSIDE RECORDS SUMMARY | 2025-06-27 11:00 | XMS_ITS | Clinical Summary ---
Author Organization [facility] Address [address] [place] [phone] Phone Care Team Providers Care Wastewater Plant Civil Engineer Name Role Phone Milady Carmen MD Primary [...] 0 Refills, Maintenance, 04/16/25 12:41:00 PM EDT, [facility], Partial fill upon patient request if [...] per caprice note fall 2019, done in [place] for progressive Charcot foot deformity and diabetic [...] Office Visit [facility] [address] [phone] aH Velez MD Other acute kidney failure (HCC) [...] Mass Index - - Plan of Treatment Health Maintenance Due Date [...] patient's age to complete this topic Insurance [facility] Care Teams Wastewater Plant Civil Engineer Relationship Specialty Start Date End Date Milady Carmen MD [address] [address] PCP - General Internal Medicine 04/22/25
== END 2025-06-27 11:19 | disposition home or self-care (01) ==
PROVIDERS: PCP Internal Medicine; Visit Provider Internal Medicine Endocrinology, Diabetes & Metabolism
DX: E11.9 Type 2 diabetes mellitus without complications (principal); Z79.4 Long term (current) use of insulin
CPT/HCPCS: 99214; G2211

== ENCOUNTER → 2025-06-27 10:16 | Outpatient (BNVA) | payer OTHER, SELFPAY | PROVIDERS: PCP Internal Medicine; Visit Provider Internal Medicine Endocrinology, Diabetes & Metabolism | DX: E11.9 Type 2 diabetes mellitus without complications (principal); Z79.4 Long term (current) use of insulin | CPT/HCPCS: 99212 ==

== ENCOUNTER 2025-08-12 10:45 | Outpatient (AMB) | payer OTHER, SELFPAY ==
--- OUTSIDE RECORDS SUMMARY | 2025-08-07 15:15 | XMS_ITS | Encounter Summary ---
Author Organization [facility] Address [address] [place] [phone] Phone Care Team Providers Care Edge Roller Name Role Phone Milady Carmen MD Primary Care Provider + Reason for Visit * Reason Comments Acute Renal Failure Encounter Details Date Type Department Care Team ([facility] st Contact Info) Description 08/07/2025 3:15 PM EDT Office Visit [facility] [address] [phone] Chery Yang ARNP [address] [phone] Chronic kidney disease, not otherwise specified (Primary Dx); Hypertension Social History Tobacco Use Types Packs/Day Years Used Date Smoking Tobacco: Never Smokeless Tobacco: Never Tobacco Cessation:Counseling Given: Not Answered Alcohol Use Standard Drinks/Week Comments Never 0 (1 standard drink = 0.6 oz pur e alcohol) Comments Unknown Sex and Gender Information Value Date Recorded Sex Assigned at Not on file Legal Sex Female 4:18 PM EDT Gender Identity Not on file Sexual Orientation Not on file documented as of this encounter Last Filed Vital Signs Vital Sign Reading Time Taken Comments Blood Pressure 130/60 08/07/2025 3:13 PM EDT Pulse 77 08/07/2025 3:13 PM EDT Temperature - - Respiratory Rate - - Oxygen Saturation - - Inhaled Oxygen Concentration - - Weight 109 kg (239 lb 3.2 oz) 08/07/2025 3:13 PM EDT Height - - Body Mass Index - - documented in this encounter Patient Instructions * Patient Instructions* Chery Yang ARNP - 08/07/2025 3:15 PM EDT Blood pressure monitoring education: Monitor home blood pressure values after sitting for 5 minutes with back and arm support. Keep a log. Bring your log and blood pressure cuff to your next visit. documented in this encounter Plan of Treatment Upcoming Encounters Date Type Department Care Team (Late st Contact Info) Description 02/03/2026 10:30 AM EDT Office Visit [facility] [address] [phone] Ha Velez MD [address] [phone] Scheduled Orders Name Type Priority Associated Diagnoses Orde r Schedule PTH, intact Lab Routine Chronic kidney disease, not otherwise specified Hypertension Expected: 08/07/2025, Expires: 09/06/2026 Renal function panel Lab Routine Chronic kidney disease, not otherwise specified Hypertension Expected: 08/07/2025, Expires: 09/06/2026 CBC Lab Routine Chronic kidney disease, not otherwise specified Hypertension Expected: 08/07/2025, Expires: 09/06/2026 Ferritin Lab Routine Chronic kidney disease, not otherwise specified Hypertension Expected: 08/07/2025, Expires: 09/06/2026 Iron Panel (Fe, TIBC, TSAT) Lab Routine Chronic kidney disease, not otherwise specified Hypertension Expected: 08/07/2025, Expires: 09/06/2026 Magnesium Lab Routine Chronic kidney disease, not otherwise specified Hypertension Expected: 08/07/2025, Expires: 09/06/2026 CBC Lab Routine Chronic kidney disease, not otherwise specified Hypertension Expected: 01/12/2026, Expires: 02/11/2026 Magnesium Lab Routine Chronic kidney disease, not otherwise specified Hypertension Expected: 01/12/2026, Expires: 02/11/2026 PTH, intact Lab Routine Chronic kidney disease, not otherwise specified Hypertension Expected: 01/12/2026, Expires: 02/11/2026 Renal function panel Lab Routine Chronic kidney disease, not otherwise specified Hypertension Expected: 01/12/2026, Expires: 02/11/2026 Urine Albumin / Creatinine Ratio Lab Routine Chronic kidney disease, not otherwise specified Hypertension Expected: 01/12/2026, Expires: 02/11/2026 Urine Protein / creatinine ratio Lab Routine Chronic kidney disease, not otherwise specified Hypertension Expected: 01/12/2026, Expires: 02/11/2026 documented as of this encounter Visit Diagnoses Diagnosis Chronic kidney disease, not otherwise specified- Primary Hypertension documented in this encounter Care Teams Edge Roller Relationship Specialty Start Date End Date Milady Carmen MD [address] [place] [address] PCP - General Internal Medicine 04/22/25 documented as of this encounter
--- NOTE | 2025-08-12 11:08 | MHC.AMDMED ---
Intake Intake Visit Reasons: 60 mins/ Pump Allergies ciprofloxacin Allergy (Severe, Verified 06/27/25 10:25) Anaphylaxis kiwi Allergy (Severe, Verified 06/27/25 10:25) Angioedema morphine Allergy (Intermediate, Verified 06/27/25 10:25) Itching atorvastatin (From Lipitor) Adverse Reaction (Mild, Verified 06/27/25 10:25) myalgia metformin Adverse Reaction (Mild, Verified 06/27/25 10:25) Abdominal Pain HPI Comprehensive Diabetes Asmnt Most Recent Diabetes Results: Cholesterol, (<200) 174 mg/dL 04/17/24 HDL Cholesterol, (>40) 44 mg/dL 04/17/24 Triglycerides, (<150) 156 mg/dL H 04/17/24 Creatinine, (0.5-1.4) 0.84 mg/dL 05/29/24 BUN, (9-16) 20 mg/dL H 05/29/24 Sodium, (135-145) 141 mmol/L 05/29/24 Potassium, (3.3-5.1) 4.7 mmol/L 05/29/24 Chloride, (96-108) 113 mmol/L H 05/29/24 Carbon Dioxide, (22-29) 17 mmol/L L 05/29/24 Calcium, (8.4-10.2) 8.8 mg/dL Δ 05/29/24 AST, (5-31) 33 U/L H 05/29/24 ALT, (0-31) 21 U/L 05/29/24 Total Protein, (6.5-8.0) 7.1 g/dL 05/29/24 Albumin, (3.5-5.0) 3.5 g/dL 05/29/24 [facility] Medical History (Updated 05/03/25 @ 14:11 by Destinee Drake NP) Lower GI bleed CAD (coronary artery disease) Type 2 diabetes mellitus Asthma-COPD overlap syndrome Chronic diastolic CHF (congestive heart failure) HTN (hypertension) Morbid obesity Carpal tunnel syndrome GERD (gastroesophageal reflux disease) Insomnia Neuropathy Sleep apnea Insulin dependent type 2 diabetes mellitus HLD (hyperlipidemia) Diabetes mellitus Surgical History S/P S/P cholecystectomy Below-knee amputation of left lower extremity Family History Mother Dementia Diabetes Father Dementia Diabetes Social History Household Members: Children Housing: Apartment Do you presently have visiting nurse or other home services: No Alcohol intake: never Comment: D/C to home Patient Tobacco Use Status: Former Tobacco user Advance Directives Date on File: 03/07/24 service: No Assessment & Plan Assessment & Plan (1) Insulin dependent type 2 diabetes mellitus: Code(s): E11.9 - Type 2 diabetes mellitus without complications; Z79.4 - technician terminal and repeater (current) use of insulin Plan Patient presents for pump training for t-Slim X2 pump and Dexcom G7 training today. Tandem ID: [email or web address] Password: [email or web address] The following topics were reviewed today: -importance of accurately entering carbohydrate -sleep schedule ??? High Alert: 250 mg/dl ??? Low Alert: 70 mg/dl Patient reports she is having overnight hypoglycemia. We reduced overnight basal rate plus initiated sleep schedule Patient is still having postprandial hyperglycemia. Changed insulin to carb ratio Explained to patient it is important to be as accurate as possible when estimating carbohydrate, in order to determine adjustments to insulin pump settings. Patient understands the basic concepts of pump therapy, how to give insulin for meals and snacks, how to troubleshoot for hyper and hypoglycemia. Setting verified by CDCES, See changes to insulin pump settings Basal rate(s) (units/hour) : 12 AM? to 12 AM? 2.7 units / hr New 12 AM? to 6 AM? 3.0 units / hr 6 AM to 12 AM 3.5 units / hr Bolus setting Insulin Carbohydrate Ratio (s) 12 AM? to 12 AM? 1:6 New 12 AM? to 12 AM? 1:5 Correction Factor / Sensitivity Factor 12 AM? to 12 AM? 1:20 Active Insulin Time:?5 hours Coding Level of Care Code Est Pt Level 1 (34578) Diagnoses Insulin dependent type 2 diabetes mellitus E11.9; Z79.4
--- OUTSIDE RECORDS SUMMARY | 2025-08-12 12:16 | XMS_ITS | Encounter Summary ---
Author Organization [facility] Address [address] [place] [address] Care Team Providers Care Usps Letter Carrier Name Role Phone Milady Carmen MD Primary Care Provider + Encounter Details Date Type Department Care Team (Latest Contact Info) Description 03/21/2025 Lab Requisition [facility] - Main Lab [address] [place] [address] Cirilo Pugh MD [address] [place] [id number] Type 2 diabetes mellitus without complications (CMS/HCC V24, CMS/HCC V28) Social History Tobacco Use Types Packs/Day Years Used Date Smoking Tobacco: Never Assessed Comments Unknown Sex and Gender Information Value Date Recorded Sex Assigned at Not on file Legal Sex Female 5:36 AM EST Gender Identity Not on file Sexual Orientation Not on file documented as of this encounter Plan of Treatment Not on file documented as of this encounter Procedures Procedure Name Priority Date/Time Associated Diagnosis Comments COMPLETE BLOOD COUNT Routine 03/22/2025 4:36 AM EDT Type 2 diabetes mellitus without complications (CMS/HCC V24, CMS/HCC V28) documented in this encounter Results * (ABNORMAL) Complete blood count (03/22/2025 4:36 AM EDT) WBC 6.1 4.8 - 10.8 K/[facility] LAB HEMETOLOGY METHOD 03/22/2025 7:46 AM EDT [facility] RBC 3.10(L) 3.80 - 4.80 /[facility] LAB HEMETOLOGY METHOD 03/22/2025 7:46 AM [facility] LAB Hemoglobin 8.0(L) 11.5 - 16.0 g/dL LAB HEMETOLOGY METHOD 03/22/2025 7:46 AM [facility] LAB Hematocrit 27.9(L) 35.0 - 47.0 % LAB HEMETOLOGY METHOD 03/22/2025 7:46 AM [facility] LAB MCV 89.4 79.0 - 98.0 FL LAB HEMETOLOGY METHOD 03/22/2025 7:46 AM [facility] LAB MCH 25.6(L) 27.0 - 32.0 pcg LAB HEMETOLOGY METHOD 03/22/2025 7:46 AM [facility] LAB MCHC 28.7(L) 32.0 - 37.0 g/dL LAB HEMETOLOGY METHOD 03/22/2025 7:46 AM [facility] LAB RDW 18.1(H) 11.0 - 15.0 % LAB HEMETOLOGY METHOD 03/22/2025 7:46 AM [facility] LAB Platelets 244 130 - 400 K/mcL LAB HEMETOLOGY METHOD 03/22/2025 7:46 AM [facility] LAB MPV 9.7 7.0 - 11.0 FL LAB HEMETOLOGY METHOD 03/22/2025 7:46 AM [facility] LAB NRBC 0.0 <1.0 % LAB HEMETOLOGY METHOD 03/22/2025 7:46 AM [facility] LAB NRBC Absolute 0.00 <0.10 K/mcL LAB HEMETOLOGY METHOD 03/22/2025 7:46 AM [facility] LAB Blood Venous blood specimen / Unknown Venipuncture / Unknown 03/22/2025 4:36 AM EDT 03/22/2025 7:35 AM EDT us Rami A Ashkar MD LAB BLOOD ORDERABLES Final Resu lt [facility] LAB [address] [place] [address], documented in this encounter Visit Diagnoses Diagnosis Type 2 diabetes mellitus without complications (CMS/HCC V24, CMS/HCC V28) documented in this encounter Care Teams Usps Letter Carrier Relationship Specialty Start Date End Date Milady Carmen MD [address] [place] [id number] PCP - General Internal Medicine 07/02/25 documented as of this encounter
--- OUTSIDE RECORDS SUMMARY | 2025-08-12 12:16 | XMS_ITS | Encounter Summary ---
Author Organization [facility] Address [address] [place] [address] Care Team Providers Care Director Loan Name Role Phone Milady Carmen MD Primary Care Provider + Encounter Details Date Type Department Care Team (Latest Contact Info) Description 03/18/2025 Lab Requisition [facility] - Main Lab [address] [place] [address] Cirilo Pugh MD [address] [place] [phone] Gastrointestinal hemorrhage, unspecified Social History Tobacco Use Types Packs/Day Years [...] Procedure Name Priority Date/Time Associated Diagnosis Comments CBC WITH AUTO DIFFERENTIAL Routine 03/18/2025 7:10 AM EDT Gastrointestinal hemorrhage, unspecified CBC AND DIFFERENTIAL Routine 03/18/2025 7:10 AM EDT Gastrointestinal hemorrhage, unspecified BASIC METABOLIC PANEL Routine 03/18/2025 7:10 AM EDT Gastrointestinal hemorrhage, unspecified documented in this encounter Results * (ABNORMAL) CBC auto differential (03/18/2025 7:10 AM EDT) WBC 6.3 4.8 - 10.8 K/[facility] LAB HEMETOLOGY METHOD 03/18/2025 1:[address] [facility] LAB RBC 3.40(L) 3.80 - 4.80 M/mcL LAB HEMETOLOGY METHOD 03/18/2025 1:[address] [facility] Hemoglobin 8.5(L) 11.5 - 16.0 g/dL LAB HEMETOLOGY METHOD 03/18/2025 1:[address] [facility] LAB Hematocrit 30.1(L) 35.0 - 47.0 % LAB HEMETOLOGY METHOD 03/18/2025 1:[address] [facility] LAB MCV 89.3 79.0 - 98.0 FL LAB HEMETOLOGY METHOD 03/18/2025 1:[address] [facility] LAB MCH 25.2(L) 27.0 - 32.0 pcg LAB HEMETOLOGY METHOD 03/18/2025 1:[address] [facility] LAB MCHC 28.2(L) 32.0 - 37.0 g/dL LAB HEMETOLOGY METHOD 03/18/2025 1:[address] [facility] LAB RDW 19.0(H) 11.0 - 15.0 % LAB HEMETOLOGY METHOD 03/18/2025 1:[address] [facility] LAB Platelets 304 130 - 400 K/mcL LAB HEMETOLOGY METHOD 03/18/2025 1:[address] [facility] LAB MPV 9.8 7.0 - 11.0 FL LAB HEMETOLOGY METHOD 03/18/2025 1:[address] [facility] NRBC 0.0 <1.0 % LAB HEMETOLOGY METHOD 03/18/2025 1:[address] [facility] NRBC Absolute 0.00 <0.10 K/mcL LAB HEMETOLOGY METHOD 03/18/2025 1:[address] [facility] Neutrophils Relative 54.4 % LAB HEMETOLOGY METHOD 03/18/2025 1:[address] [facility] Lymphocytes Relative 31.9 % LAB HEMETOLOGY METHOD 03/18/2025 1:[address] [facility] Monocytes Relative 8.2 % LAB HEMETOLOGY METHOD 03/18/2025 1:[address] [facility] Eosinophils Relative 4.4 % LAB HEMETOLOGY METHOD 03/18/2025 1:[address] [facility] Basophils Relative 0.5 % LAB HEMETOLOGY METHOD 03/18/2025 1:[address] [facility] Immature Granulocytes Relative 0.6 % LAB HEMETOLOGY METHOD 03/18/2025 1:[address] [facility] Neutrophils Absolute 3.43 1.50 - 7.00 K/mcL LAB HEMETOLOGY METHOD 03/18/2025 1:[address] [facility] Lymphocytes Absolute 2.01 1.00 - 5.00 K/mcL LAB HEMETOLOGY METHOD 03/18/2025 1:[address] [facility] Monocytes Absolute 0.52 0.20 - 1.00 K/mcL LAB HEMETOLOGY METHOD 03/18/2025 1:[address] [facility] Eosinophils Absolute 0.28 0.00 - 0.50 K/mcL LAB HEMETOLOGY METHOD 03/18/2025 1:[address] [facility] Basophils Absolute 0.03 0.00 - 0.20 K/mcL LAB HEMETOLOGY METHOD 03/18/2025 1:[address] [facility] Immature Granulocytes Absolute 0.04(H) 0.00 - 0.03 K/mcL LAB HEMETOLOGY METHOD 03/18/2025 1:[address] [facility] Blood Venous blood specimen / Unknown Venipuncture / Unknown 03/18/2025 7:10 AM EDT 03/18/2025 11:32 AM EDT us Cirilo Pugh MD LAB BLOOD ORDERABLES Final Resu lt [facility] [address] [place] [address], * (ABNORMAL) Basic metabolic panel (03/18/2025 7:10 AM EDT) Sodium 135 133 - 145 mmol/L LAB CHEMISTR[facility] Potassium 4.2 3.5 - 5.5 mmol/L LAB CHEMISTRY METHOD 03/18/2025 1:[address] [facility] Chloride 98 96 - 110 mmol/L LAB CHEMISTRY METHOD 03/18/2025 1:[address] [facility] CO2 28 21 - 32 mmol/L LAB CHEMISTRY METHOD 03/18/2025 1:[address] [facility] Anion Gap 9 3 - 11 LAB CHEMISTRY METHOD 03/18/2025 1:[address] [facility] Glucose 291(H) 70 - 100 mg/dL LAB CHEMISTRY METHOD 03/18/2025 1:[address] [facility] BUN 49(H) 5 - 25 mg/dL LAB CHEMISTRY METHOD 03/18/2025 1:[address] [facility] Creatinine 1.39(H) 0.50 - 1.10 mg/dL LAB CHEMISTRY METHOD 03/18/2025 1:[address] [facility] eGFR 42(L) >=60 mL/min/1. 73m2 LAB CHEMISTRY METHOD 03/18/2025 1:[address] [facility] Comment:Calculation based on the Chronic Kidney Disease Epidemiology Collaboration (CKD-EPI) equation refit without adjustment for race. BUN/Creatinine Ratio 35.3 LAB CHEMISTRY METHOD 03/18/2025 1:[address] [facility] Calcium 8.6 8.5 - 10.5 mg/dL LAB CHEMISTRY METHOD 03/18/2025 1:[address] [facility] Blood Venous blood specimen / Unknown Venipuncture / Unknown 03/18/2025 7:10 AM EDT 03/18/2025 11:32 AM EDT us Cirilo Puhg MD LAB BLOOD ORDERABLES Final Resu lt [facility] [address] [place] [address], documented in this encounter Visit Diagnoses Diagnosis Gastrointestinal hemorrhage, unspecified documented in this encounter Care Teams Director Loan Relationship Specialty Start Date End Date Mliady Carmen MD [address] [place] [address] PCP - General Internal Medicine 07/02/25 documented as of this encounter
--- OUTSIDE RECORDS SUMMARY | 2025-08-12 12:16 | XMS_ITS | Encounter Summary ---
Author Organization [facility] Address [address] [place] [address] Care Team Providers Care Emergency Room Doctor Name Role Phone Milady Carmen MD Primary Care Provider + Encounter Details Date Type Department Care Team (Late st Contact Info) Description 03/26/2025 Lab Requisition [facility] - Main Lab [address] [facility] [place] [address] Cirilo Pugh MD [address] [place] [address] Heart failure, unspecified (CMS/HCC V24, CMS/HCC V28); Acute upper respiratory infection, unspecified Social History Tobacco Use Types Packs/Day [...] Procedure Name Priority Date/Time Associated Diagnosis Comments SST - GOLD Routine 03/26/2025 5:51 AM [...] CMS/HCC V28) Acute upper respiratory infection, unspecified documented in this encounter Results * SST tube (03/26/2025 5:51 AM EDT) Pathologist [facility] Extra Tube Hold for add-ons. 03/26/2025 11:01 AM EDT [facility] Comment:Auto resulted. Blood Venous blood specimen / Unknown Venipuncture / Unknown 03/26/2025 5:51 AM EDT 03/26/2025 9:25 AM EDT Cirilo Pugh MD LAB BLOOD ORDERABLES Final Resu lt Performing Organization Address City/[facility]/ZIP Co de Phone Number [facility] [address] [place] [address], * (ABNORMAL) B-type natriuretic peptide (03/26/2025 5:51 AM EDT) [facility] BNP 275(H) <=100 pcg/mL LAB CHEMISTRY METHOD 03/26/2025 10:34 AM EDT [facility] Blood Venous blood specimen / Unknown Venipuncture / Unknown 03/26/2025 5:51 AM EDT 03/26/2025 8:58 AM EDT Cirilo Pugh MD LAB BLOOD ORDERABLES Final Resu lt [facility] [address] [place] [address], * (ABNORMAL) Basic metabolic panel (03/26/2025 5:51 AM EDT) Pathologist [facility] Sodium 135 133 - 145 mmol/L LAB CHEMISTRY METHOD 03/26/2025 9:53 AM EDT [facility] Potassium 5.8(H) 3.5 - 5.5 mmol/L LAB CHEMISTRY METHOD 03/26/2025 9:53 AM T [facility] Chloride 106 96 - 110 mmol/L LAB CHEMISTRY METHOD 03/26/2025 9:53 AM [facility] CO2 23 21 - 32 mmol/L LAB CHEMISTRY METHOD 03/26/2025 9:53 AM [facility] Anion Gap 6 3 - 11 LAB CHEMISTRY METHOD 03/26/2025 9:53 AM [facility] Glucose 294(H) 70 - 100 mg/dL LAB CHEMISTRY METHOD 03/26/2025 9:53 AM [facility] BUN 32(H) 5 - 25 mg/dL LAB CHEMISTRY METHOD 03/26/2025 9:53 AM [facility] Creatinine 1.27(H) 0.50 - 1.10 mg/dL LAB CHEMISTRY METHOD 03/26/2025 9:53 AM [facility] eGFR 47(L) >=60 mL/min/1. 73m2 LAB CHEMISTRY METHOD 03/26/2025 9:53 AM [facility] Comment:Calculation based on the Chronic Kidney Disease Epidemiology Collaboration (CKD-EPI) equation refit without adjustment for race. BUN/Creatinine Ratio 25.2 LAB CHEMISTRY METHOD 03/26/2025 9:53 AM [facility] Calcium 8.3(L) 8.5 - 10.5 mg/dL LAB CHEMISTRY METHOD 03/26/2025 9:53 AM [facility] Blood Venous blood specimen / Unknown Venipuncture / Unknown 03/26/2025 5:51 AM EDT 03/26/2025 8:58 AM EDT us Cirilo Pugh MD LAB BLOOD ORDERABLES Final Resu lt [facility] [address] [place] [address], * (ABNORMAL) Complete blood count (03/26/2025 5:51 AM EDT) [facility] WBC 5.7 4.8 - 10.8 K/mcL LAB HEMETOLOGY METHOD 03/26/2025 10:01 AM [facility] RBC 3.20(L) 3.80 - 4.80 M/mcL LAB HEMETOLOGY METHOD 03/26/2025 10:01 AM [facility] Hemoglobin 8.2(L) 11.5 - 16.0 g/dL LAB HEMETOLOGY METHOD 03/26/2025 10:01 AM [facility] Hematocrit 29.9(L) 35.0 - 47.0 % LAB HEMETOLOGY METHOD 03/26/2025 10:01 AM [facility] LAB MCV 93.1 79.0 - 98.0 FL LAB HEMETOLOGY METHOD 03/26/2025 10:01 AM [facility] MCH 25.5(L) 27.0 - 32.0 pcg LAB HEMETOLOGY METHOD 03/26/2025 10:01 AM [facility] MCHC 27.4(L) 32.0 - 37.0 g/dL LAB HEMETOLOGY METHOD 03/26/2025 10:01 AM [facility] RDW 17.7(H) 11.0 - 15.0 % LAB HEMETOLOGY METHOD 03/26/2025 10:01 AM [facility] LAB Platelets 239 130 - 400 K/mcL LAB HEMETOLOGY METHOD 03/26/2025 10:01 AM [facility] LAB MPV 10.2 7.0 - 11.0 FL LAB HEMETOLOGY METHOD 03/26/2025 10:01 AM [facility] NRBC 0.0 <1.0 % LAB HEMETOLOGY METHOD 03/26/2025 10:01 AM EDT [facility] NRBC Absolute 0.00 <0.10 K/mcL LAB HEMETOLOGY METHOD 03/26/2025 10:01 AM EDT [facility] Blood Venous blood specimen / Unknown Venipuncture / Unknown 03/26/2025 5:51 AM EDT 03/26/2025 8:58 AM EDT us Cirilo Pugh MD LAB BLOOD ORDERABLES Final Resu lt [facility] [address] [place] [address], documented in this encounter Visit Diagnoses Diagnosis Heart failure, unspecified (CMS/HCC V24, CMS/HCC V28) Heart failure, unspecified Acute upper respiratory infection, unspecified documented in this encounter Care Teams Emergency Room Doctor Relationship Specialty Start Date End Date Milady Carmen MD [address] [place] [address] PCP - General Internal Medicine 07/02/25 documented as of this encounter
--- OUTSIDE RECORDS SUMMARY | 2025-08-12 12:16 | XMS_ITS | Encounter Summary ---
Author Organization [facility] Address [address] [place] [address] Care Team Providers Care Military Science Teacher Name Role Phone Milady Carmen MD Primary Care Provider + Encounter Details Date Type Department Care Team (Late st Contact Info) Description 04/03/2025 Lab Requisition [facility] - Main Lab [address] [place] [address] Cirilo Pugh MD [address] [place] [address] Anemia, unspecified Social History Tobacco Use Types Packs/Day [...] Routine 04/03/2025 5:39 AM EDT Anemia, unspecified documented in this encounter Results * (ABNORMAL) Complete blood count (04/03/2025 5:39 AM EDT) WBC 5.0 4.8 - 10.8 K/mcL LAB HEMETOLOGY METHOD 04/03/2025 10:51 AM EDT [facility] RBC 3.20(L) 3.80 - 4.80 M/[facility] LAB HEMETOLOGY METHOD 04/03/2025 10:51 AM EDT [facility] Hemoglobin 7.9(L) 11.5 - 16.0 g/dL LAB HEMETOLOGY METHOD 04/03/2025 10:51 AM EDT [facility] LAB Hematocrit 28.2(L) 35.0 - 47.0 % LAB HEMETOLOGY METHOD 04/03/2025 10:51 AM EDT [facility] LAB MCV 88.1 79.0 - 98.0 FL LAB HEMETOLOGY METHOD 04/03/2025 10:51 AM EDT [facility] LAB MCH 24.7(L) 27.0 - 32.0 pcg LAB HEMETOLOGY METHOD 04/03/2025 10:51 AM EDT [facility] LAB MCHC 28.0(L) 32.0 - 37.0 g/dL LAB HEMETOLOGY METHOD 04/03/2025 10:51 AM [facility] RDW 16.6(H) 11.0 - 15.0 % LAB HEMETOLOGY METHOD 04/03/2025 10:51 AM EDT [facility] LAB Platelets 215 130 - 400 K/mcL LAB HEMETOLOGY METHOD 04/03/2025 10:51 AM T [facility] LAB MPV 10.0 7.0 - 11.0 FL LAB HEMETOLOGY METHOD 04/03/2025 10:51 AM [facility] NRBC 0.0 <1.0 % LAB HEMETOLOGY METHOD 04/03/2025 10:51 AM EDT [facility] LAB NRBC Absolute 0.00 <0.10 K/mcL LAB HEMETOLOGY METHOD 04/03/2025 10:51 AM [facility] Blood Venous blood specimen / Unknown Venipuncture / Unknown 04/03/2025 5:39 AM EDT 04/03/2025 9:58 AM EDT us Cirilo Pugh MD LAB BLOOD ORDERABLES Final Resu lt [facility] [address] [place] [address], documented in this encounter Visit Diagnoses Diagnosis Anemia, unspecified documented in this encounter Care Teams Military Science Teacher Relationship Specialty Start Date End Date Milady Carmen MD [address] [place] [phone] PCP - General Internal Medicine 07/02/25 documented as of this encounter
--- OUTSIDE RECORDS SUMMARY | 2025-08-12 12:16 | XMS_ITS | Data Portability ---
Author Organization [facility], Main Office Address [address] [place] [address] [address] [place] [address] Care Team Providers Care Auto Accessories Installer Name Role Phone [facility] OTHER Assessment No assessment recorded. Plan [...] Name and Address Organization Details Recorded Time Unsteady when standing 509854022 Active 2024 Not Available [facility] 21:47:01 Essential hypertensi on 63089745 Active 2024 Not Available [facility] 00:41:00 Melena 0113584 Active 2024 Not Available [facility] 00:41:01 Type 1 diabetes mellitus without complicati on 663122452 Active 2024 Not Available [facility] 00:42:21 Acute kidney injury 88197291 Active 2024 Not Available [facility] 00:42:23 Closed fracture 669459810 Active 2024 Not Available [facility] 00:43:04 Morbid obesity 431004495 Active 2024 Not Available [facility] 00:44:24 Gastroesop hageal reflux disease without esophagiti s 192019433 Active 2024 Not Available [facility] 00:45:05 Hyperlipid emia 92215925 Active 2024 Not Available [facility] 00:45:06 Muscle pain 19008327 Active 2024 Not Available [facility] 00:46:28 Type 2 diabetes mellitus without complicati on 136478758 Active 2024 Not Available [facility] 00:46:29 Congestive heart failure 68077067 Active 2024 Not Available [facility] 00:47:50 Obstructiv e sleep apnea syndrome 65017488 Active 2024 Not Available [facility] 00:47:51 Atheroscle rosis of coronary artery without angina pectoris 4277570850180 03 Active 2024 Not Available [facility] 5 21:45:13 Cardiac MRI Active 2024 Not Available [facility] 00:49:41 Vascular surgery procedure Active 2024 Not Available [facility] 21:44:53 Muscle weakness 80006116 Active 2024 Not Available [facility] 21:46:20 Problem Notes None recorded. Medical Equipment None Reported. Allergies Allergen ID Allergen Name Allergen Category Reaction Reaction Severity Criticality Documentation Date Start Date Code Code System Note Provider Name and Address Organization Details Recorded Time 51585 kiwi fruit extract food Not available Not available Not available 02/22/20252024 27390 01 RxNorm Not Available [facility] 22:18:16 60386 Cipro medicatio n Not available Not available Not available 02/22/2025202456 3 RxNorm Not Available [facility] 22:18:59 45359 morphine medicatio n Not available Not available Not available 02/22/20252024 7052 RxNorm Not Available [facility] 22:19:41 74493 lactose food,medi cation Not available Not available Not available 02/22/20252024 6211 RxNorm Not Available [facility] 22:20:22 72189 Levaquin medicatio n Not available Not available Not available 02/22/20252024 70883 2 RxNorm Not Available [facility] 22:21:43 76328 Lipitor medicatio n Not available Not available Not available 02/22/20252024 46504 5 RxNorm Not Available [facility] 22:21:45 64552 dapaglifl ozin Not available Not available Not available Not available 02/22/20252024 31243 64 RxNorm Not Available [facility] 22:22:27 07185 metformin medicatio n Not available Not available [...] Available Not Available Not Avai lable Acid [facility] System Director (omeprazole ) 20 mg capsule,del ayed release [...] Time SARS-COV-2 (COVID-19) vaccine, UNSPECIFIED 03/23/2021 completed [facility] 02/27/2025 16:13:45 SARS-COV-2 (COVID-19) vaccine, UNSPECIFIED 04/14/2021 completed [facility] 02/27/2025 16:14:07 Past Encounters Encounter ID Performer Location Encounter Start Date Encounter Closed Date Diagnosis/Indication Diagnosis SNOMED-CT Code Diagnosis ICD10 Code Diagnosis IMO Codes Diagnosis Note [id number] JAME [place]ZANO [address] [place] [address] 02/25/2025 09:18:41 03/06/2025 03:50:09 Rectal hemorrhage 89495787 K62.5 [id number] copious amounts of rectal bleedingwi th abd [...] Smith Member ID Guarantor Name 02/25/[address] [facility] - DOS ON OR AFTER 2023 - MEDICARE ADVANTAGE [place] (MEDICARE REPLACEMENT/ADV ANTAGE - PPO) Yolanda Choi [id number] Yolanda Choi Notes Date Note Type Note Provider Name and Address Organization Details Recorded Time 02/25/2025 text/html This is a historical discharge summary. Pt is a 64 yo female. She was admitted to [facility] to complete STR after a hospital stay at [facility]. She was quickly transferred back to [facility] for copious amount of rectal bleeding, with hypotension BP 80/40, as well as complaints of pain in the upper abdomen. Back Office Medical Assistant JAKE Encarnacion new order to send out to the Hospital. This change in condition started on 02/23/2025. Resident transferred to [facility] via rah MACIAS NP-C [address] [facility], [address], [place], [address], [facility] - [facility] 02/28/2025 09:15:32 OBGyn Episode No OBEpisode recorded.
--- OUTSIDE RECORDS SUMMARY | 2025-08-12 12:16 | XMS_ITS | Encounter Summary ---
Author Organization [facility] Address [address] [place] [address] Care Team Providers Care Professor In Family Studies Name Role Phone Milady Carmen MD Primary Care Provider + Encounter Details Date Type Department Care Team (Late st Contact Info) Description 03/25/2025 Lab Requisition [facility] - Main Lab [address] [place] [address] Nelida Duarte PA [address] [facility] [address] [place] [phone] Heart failure, unspecified (CMS/HCC V24, CMS/HCC V28) Social History Tobacco [...] Associated Diagnosis Comments COMPLETE BLOOD COUNT Routine 03/25/2025 6:41 AM EDT Heart failure, unspecified (CMS/HCC V24, CMS/HCC V28) BASIC METABOLIC PANEL Routine 03/25/2025 6:41 AM EDT Heart failure, unspecified (CMS/HCC V24, CMS/HCC V28) documented in this encounter Results * (ABNORMAL) Basic metabolic panel (03/25/2025 6:41 AM EDT) Sodium 140 133 - 145 mmol/L LAB CHEMISTRY METHOD 03/25/2025 10:37 AM EDT [facility] Potassium 5.2 3.5 - 5.5 mmol/L LAB CHEMISTRY METHOD 03/25/2025 10:37 AM [facility] Chloride 111(H) 96 - 110 mmol/L LAB CHEMISTRY METHOD 03/25/2025 10:37 AM [facility] LAB CO2 24 21 - 32 mmol/L LAB CHEMISTRY METHOD 03/25/2025 10:37 AM [facility] LAB Anion Gap 5 3 - 11 LAB CHEMISTRY METHOD 03/25/2025 10:37 AM [facility] LAB Glucose 190(H) 70 - 100 mg/dL LAB CHEMISTRY METHOD 03/25/2025 10:37 AM [facility] BUN 30(H) 5 - 25 mg/dL LAB CHEMISTRY METHOD 03/25/2025 10:37 AM [facility] LAB Creatinine 1.07 0.50 - 1.10 mg/dL LAB CHEMISTRY METHOD 03/25/2025 10:37 AM [facility] LAB eGFR 58(L) >=60 mL/min/1. 73m2 LAB CHEMISTRY METHOD 03/25/2025 10:37 AM [facility] LAB Comment:Calculation based on the Chronic Kidney Disease Epidemiology Collaboration (CKD-EPI) equation refit without adjustment for race. BUN/Creatinine Ratio 28.0 LAB CHEMISTRY METHOD 03/25/2025 10:37 AM [facility] LAB Calcium 8.3(L) 8.5 - 10.5 mg/dL LAB CHEMISTRY METHOD 03/25/2025 10:37 AM [facility] LAB Blood Venous blood specimen / Unknown Venipuncture / Unknown 03/25/2025 6:41 AM EDT 03/25/2025 9:24 AM EDT us Nelida VARGAS LAB BLOOD ORDERABLES Final Re sult [facility] [address] [place] [address], * (ABNORMAL) Complete blood count (03/25/2025 6:41 AM EDT) [facility] WBC 5.3 4.8 - 10.8 K/mcL LAB HEMETOLOGY METHOD 03/25/2025 10:04 AM [facility] RBC 3.30(L) 3.80 - 4.80 M/mcL LAB HEMETOLOGY METHOD 03/25/2025 10:04 AM [facility] Hemoglobin 8.3(L) 11.5 - 16.0 g/dL LAB HEMETOLOGY METHOD 03/25/2025 10:04 AM [facility] LAB Hematocrit 29.9(L) 35.0 - 47.0 % LAB HEMETOLOGY METHOD 03/25/2025 10:04 AM [facility] LAB MCV 91.2 79.0 - 98.0 FL LAB HEMETOLOGY METHOD 03/25/2025 10:04 AM [facility] LAB MCH 25.3(L) 27.0 - 32.0 pcg LAB HEMETOLOGY METHOD 03/25/2025 10:04 AM [facility] LAB MCHC 27.8(L) 32.0 - 37.0 g/dL LAB HEMETOLOGY METHOD 03/25/2025 10:04 AM [facility] LAB RDW 17.4(H) 11.0 - 15.0 % LAB HEMETOLOGY METHOD 03/25/2025 10:04 AM [facility] LAB Platelets 252 130 - 400 K/mcL LAB HEMETOLOGY METHOD 03/25/2025 10:04 AM [facility] LAB MPV 10.3 7.0 - 11.0 FL LAB HEMETOLOGY METHOD 03/25/2025 10:04 AM [facility] LAB NRBC 0.0 <1.0 % LAB HEMETOLOGY METHOD 03/25/2025 10:04 AM EDT [facility] LAB NRBC Absolute 0.00 <0.10 K/mcL LAB HEMETOLOGY METHOD 03/25/2025 10:04 AM EDT [facility] LAB Blood Venous blood specimen / Unknown Venipuncture / Unknown 03/25/2025 6:41 AM EDT 03/25/2025 9:24 AM EDT us Nelida VARGAS LAB BLOOD ORDERABLES Final Re sult [facility] [address] [place] [address], documented in this encounter Visit Diagnoses Diagnosis Heart failure, unspecified (CMS/HCC V24, CMS/HCC V28) Heart failure, unspecified documented in this encounter Care Teams Professor In Family Studies Relationship Specialty Start Date End Date Milady Carmen MD [address] [place] [phone] PCP - General Internal Medicine 07/02/25 documented as of this encounter
--- OUTSIDE RECORDS SUMMARY | 2025-08-12 12:16 | XMS_ITS | Encounter Summary ---
Author Organization [facility] Address [address] [place] [address] Care Team Providers Care Hemodialysis Lab Technician Name Role Phone iMlady Carmen MD Primary Care Provider + Encounter Details Date Type Department Care Team (Late st Contact Info) Description 02/23/2025 Lab Requisition [facility] - Main Lab [address] [place] [address] Jozef Camejo MD [address] [place] [phone] Melena Social History Tobacco Use Types Packs/Day Years [...] Procedure Name Priority Date/Time Associated Diagnosis Comments HEMOGLOBIN AND HEMATOCRIT Routine 02/23/2025 6:15 AM EDT Melena COMPLETE BLOOD COUNT Routine 02/23/2025 6:15 AM EDT Melena documented in this encounter Results * (ABNORMAL) Hemoglobin and hematocrit (02/23/2025 6:15 AM EDT) Hemoglobin 6.9(L) 11.5 - 16.0 g/dL LAB HEMETOLOGY METHOD 02/23/2025 8:02 AM EDT [facility] Hematocrit 24.7(L) 35.0 - 47.0 % LAB HEMETOLOGY METHOD 02/23/2025 8:[address] [facility] LAB Blood Venous blood specimen / Unknown Venipuncture / Unknown 02/23/2025 6:15 AM EDT 02/23/2025 7:35 AM EDT us Jozef Camejo MD LAB BLOOD ORDERABLES Final Resul t [facility] [address] [place] [address], * (ABNORMAL) Complete blood count (02/23/2025 6:15 AM EDT) WBC 4.8 4.8 - 10.8 K/mcL LAB HEMETOLOGY METHOD 02/23/2025 8:[address] [facility] RBC 2.80(L) 3.80 - 4.80 M/mcL LAB HEMETOLOGY METHOD 02/23/2025 8:[address] [facility] Hemoglobin 6.9(L) 11.5 - 16.0 g/dL LAB HEMETOLOGY METHOD 02/23/2025 8:[address] [facility] LAB Hematocrit 24.7(L) 35.0 - 47.0 % LAB HEMETOLOGY METHOD 02/23/2025 8:[address] [facility] LAB MCV 88.8 79.0 - 98.0 FL LAB HEMETOLOGY METHOD 02/23/2025 8:[address] [facility] MCH 24.8(L) 27.0 - 32.0 pcg LAB HEMETOLOGY METHOD 02/23/2025 8:[address] [facility] MCHC 27.9(L) 32.0 - 37.0 g/dL LAB HEMETOLOGY METHOD 02/23/2025 8:[address] [facility] LAB RDW 21.4(H) 11.0 - 15.0 % LAB HEMETOLOGY METHOD 02/23/2025 8:02 AM EDT [facility] Platelets 259 130 - 400 K/mcL LAB HEMETOLOGY METHOD 02/23/2025 8:02 AM EDT [facility] MPV 10.0 7.0 - 11.0 FL LAB HEMETOLOGY METHOD 02/23/2025 8:02 AM EDT [facility] NRBC 0.0 <1.0 % LAB HEMETOLOGY METHOD 02/23/2025 8:02 AM EDT [facility] NRBC Absolute 0.00 <0.10 K/mcL LAB HEMETOLOGY METHOD 02/23/2025 8:02 AM EDT [facility] Blood Venous blood specimen / Unknown Venipuncture / Unknown 02/23/2025 6:15 AM EDT 02/23/2025 7:35 AM EDT us Jozef Camejo MD LAB BLOOD ORDERABLES Final Resul t [facility] [address] [place] [address], documented in this encounter Visit Diagnoses Diagnosis Melena Blood in stool documented in this encounter Care Teams Hemodialysis Lab Technician Relationship Specialty Start Date End Date Milady Carmen MD [address] [place] [phone] PCP - General Internal Medicine 07/02/25 documented as of this encounter
--- OUTSIDE RECORDS SUMMARY | 2025-08-12 12:16 | XMS_ITS | Clinical Summary ---
Author Organization [address] Address [address] [place] [address] Phone Care Team Providers Care Exchange Consultant Name Role Phone Milady Carmen MD Primary [...] Last Done Comments Breast Cancer Screening 1959 Colorectal Cancer Screening: Colonoscopy 1959 Diabetes: Annual Foot Exam 1969 Diabetes: Annual Retina Eye Exam 1969 Pneumococcal Vaccine: 50+ Years (1 of 2 - PCV) 1978 Cervical Cancer Screening: Pap Smear 1980 Zoster Vaccines (1 of 2) 2009 RSV Immunization Adult Patients (1 - Risk 60-74 years 1-dose series) 2019 Cholesterol Screening (Lipid Panel) 01/10/2024 Hepatitis C Screening 01/10/2024 Osteoporosis Screening (Bone Density Screening) 01/10/2024 Social Influencers of Health Screening 01/10/2024 Falls Risk Assessment 2024 Depression Screening 11/14/2024 Diabetes: Annual Urine Albumin-Creatinine Ratio (uACR) 03/18/2025 Diabetes: Blood Sugar Control Test (HGBA1C) 03/18/2025 COVID-19 Vaccine ( season) 2025 04/14/2021, 03/23/2021 Influenza Vaccine (#1) 2025 06/28/2016, 2014 Diabetes: [...] Procedure Name Priority Date/Time Associated Diagnosis Comments BASIC METABOLIC PANEL Routine 04/02/2025 5:41 AM EDT Anemia, unspecified Chronic kidney disease, unspecified from Last 3 Months or Most Recently Relevant to Health Maintenance Results * (ABNORMAL) Basic metabolic panel (04/02/2025 5:41 AM EDT) Sodium 143 133 - 145 mmol/L LAB CHEMISTRY METHOD 04/02/2025 10:28 AM [facility] Potassium 4.1 3.5 - 5.5 mmol/L LAB CHEMISTRY METHOD 04/02/2025 10:28 AM [facility] Chloride 112(H) 96 - 110 mmol/L LAB CHEMISTRY METHOD 04/02/2025 10:28 AM [facility] CO2 25 21 - 32 mmol/L LAB CHEMISTRY METHOD 04/02/2025 10:28 AM [facility] Anion Gap 6 3 - 11 LAB CHEMISTRY METHOD 04/02/2025 10:28 AM [facility] Glucose 220(H) 70 - 100 mg/dL LAB CHEMISTRY METHOD 04/02/2025 10:28 AM [facility] BUN 10 5 - 25 mg/dL LAB CHEMISTRY METHOD 04/02/2025 10:28 AM [facility] Creatinine 0.80 0.50 - 1.10 mg/dL LAB CHEMISTRY METHOD 04/02/2025 10:28 AM [facility] eGFR 82 >=60 mL/min/1. 73m2 LAB CHEMISTRY METHOD 04/02/2025 10:28 AM [facility] Comment:Calculation based on the Chronic Kidney Disease Epidemiology Collaboration (CKD-EPI) equation refit without adjustment for race. BUN/Creatinine Ratio 12.5 LAB CHEMISTRY METHOD 04/02/2025 10:28 AM [facility] Calcium 8.3(L) 8.5 - 10.5 mg/dL LAB CHEMISTRY METHOD 04/02/2025 10:28 AM [facility] Blood Venous blood specimen / Unknown Venipuncture / Unknown 04/02/2025 5:41 AM EDT 04/02/2025 9:21 AM EDT us Cirilo Pugh MD LAB BLOOD ORDERABLES Final Resu lt [facility] [address] [place] [address], from Last 3 Months or Most Recently Relevant to Health Maintenance [place] [address] [place] [address] Member Subscriber Plan / Payer (Ef fective 2020-Present) Name:Yolanda Nash Relation to Subscriber:Self Name:Yolanda Nash Payer ID:[id number] Group ID:[id number] Type:Not on file Address: [place] [address] [address] [phone] Care Teams Exchange Consultant Relationship Specialty Start Date End Date Milady Carmen MD [address] [place] [phone] PCP - General Internal Medicine 07/02/25
--- OUTSIDE RECORDS SUMMARY | 2025-08-12 12:16 | XMS_ITS | Encounter Summary ---
Author Organization [facility] Address [address] [place] [address] Care Team Providers Care Machinist Class B Name Role Phone Milady Carmen MD Primary Care Provider + Encounter Details Date Type Department Care Team (Late st Contact Info) Description 04/02/2025 Lab Requisition [facility] - Main Lab [address] [place] [address] Cirilo Pugh MD [address] [place] [phone] Anemia, unspecified; Chronic kidney disease, unspecified Social History Tobacco Use Types Packs/Day [...] Associated Diagnosis Comments COMPLETE BLOOD COUNT Routine 04/02/2025 5:41 AM EDT Anemia, unspecified Chronic kidney disease, unspecified BASIC METABOLIC PANEL Routine 04/02/2025 5:41 AM EDT Anemia, unspecified Chronic kidney disease, unspecified documented in this encounter Results * (ABNORMAL) Basic metabolic panel (04/02/2025 5:41 AM EDT) Sodium 143 133 - 145 mmol/L LAB CHEMISTRY METHOD 04/02/2025 10:28 AM EDT [facility] Potassium 4.1 3.5 - 5.5 mmol/L LAB CHEMISTRY METHOD 04/02/2025 10:28 AM [facility] Chloride 112(H) 96 - 110 mmol/L LAB CHEMISTRY METHOD 04/02/2025 10:28 AM [facility] CO2 25 21 - 32 mmol/L LAB CHEMISTRY METHOD 04/02/2025 10:28 AM [facility] Anion Gap 6 3 - 11 LAB CHEMISTRY METHOD 04/02/2025 10:28 AM [facility] Glucose 220(H) 70 - 100 mg/dL LAB CHEMISTRY METHOD 04/02/2025 10:28 AM [facility] BUN 10 5 - 25 mg/dL LAB CHEMISTRY METHOD 04/02/2025 10:28 AM [facility] Creatinine 0.80 0.50 - 1.10 mg/dL LAB CHEMISTRY METHOD 04/02/2025 10:28 AM [facility] eGFR 82 >=60 mL/min/1. 73m2 LAB CHEMISTRY METHOD 04/02/2025 10:28 AM [facility] Comment:Calculation based on the Chronic Kidney Disease Epidemiology Collaboration (CKD-EPI) equation refit without adjustment for race. BUN/Creatinine Ratio 12.5 LAB CHEMISTRY METHOD 04/02/2025 10:28 AM [facility] Calcium 8.3(L) 8.5 - 10.5 mg/dL LAB CHEMISTRY METHOD 04/02/2025 10:28 AM [facility] Blood Venous blood specimen / Unknown Venipuncture / Unknown 04/02/2025 5:41 AM EDT 04/02/2025 9:21 AM EDT us Cirilo Pugh MD LAB BLOOD ORDERABLES Final Resu lt [facility] [address] [place] [address], * (ABNORMAL) Complete blood count (04/02/2025 5:41 AM EDT) [facility] WBC 4.9 4.8 - 10.8 K/mcL LAB HEMETOLOGY METHOD 04/02/2025 9:43 AM [facility] RBC 3.20(L) 3.80 - 4.80 M/mcL LAB HEMETOLOGY METHOD 04/02/2025 9:43 AM [facility] Hemoglobin 7.7(L) 11.5 - 16.0 g/dL LAB HEMETOLOGY METHOD 04/02/2025 9:43 AM [facility] Hematocrit 27.8(L) 35.0 - 47.0 % LAB HEMETOLOGY METHOD 04/02/2025 9:43 AM [facility] MCV 87.7 79.0 - 98.0 FL LAB HEMETOLOGY METHOD 04/02/2025 9:43 AM [facility] MCH 24.3(L) 27.0 - 32.0 pcg LAB HEMETOLOGY METHOD 04/02/2025 9:43 AM [facility] MCHC 27.7(L) 32.0 - 37.0 g/dL LAB HEMETOLOGY METHOD 04/02/2025 9:43 AM [facility] RDW 17.0(H) 11.0 - 15.0 % LAB HEMETOLOGY METHOD 04/02/2025 9:43 AM [facility] Platelets 211 130 - 400 K/mcL LAB HEMETOLOGY METHOD 04/02/2025 9:43 AM [facility] MPV 9.9 7.0 - 11.0 FL LAB HEMETOLOGY METHOD 04/02/2025 9:43 AM [facility] NRBC 0.0 <1.0 % LAB HEMETOLOGY METHOD 04/02/2025 9:43 AM [facility] NRBC Absolute 0.00 <0.10 K/mcL LAB HEMETOLOGY METHOD 04/02/2025 9:43 AM EDT [facility] Blood Venous blood specimen / Unknown Venipuncture / Unknown 04/02/2025 5:41 AM EDT 04/02/2025 9:21 AM EDT us Cirilo Pugh MD LAB BLOOD ORDERABLES Final Resu lt [facility] [address] [place] [address], documented in this encounter Visit Diagnoses Diagnosis Anemia, unspecified Chronic kidney disease, unspecified documented in this encounter Care Teams Machinist Class B Relationship Specialty Start Date End Date Milady Carmen MD [address] [place] [phone] PCP - General Internal Medicine 07/02/25 documented as of this encounter
--- OUTSIDE RECORDS SUMMARY | 2025-08-12 12:16 | XMS_ITS | Encounter Summary ---
Author Organization [facility] Address [address] [place] [address] Care Team Providers Care Administrative Services Coordinator Name Role Phone Milady Carmen MD Primary Care Provider + Encounter Details Date Type Department Care Team (Late st Contact Info) Description 03/30/2025 Lab Requisition [facility] - Main Lab [address] [place] [address] Cirilo Pugh MD [address] [place] [phone] Heart failure, unspecified (CMS/HCC V24, CMS/HCC V28) [...] Associated Diagnosis Comments COMPLETE BLOOD COUNT Routine 04/01/2025 7:06 AM EDT Heart failure, unspecified (CMS/HCC V24, CMS/HCC V28) BASIC METABOLIC PANEL Routine 04/01/2025 7:06 AM EDT Heart failure, unspecified (CMS/HCC V24, CMS/HCC V28) documented in this encounter Results * (ABNORMAL) Basic metabolic panel (04/01/2025 7:06 AM EDT) Sodium 137 133 - 145 mmol/L LAB CHEMISTRY METHOD 04/01/2025 11:38 AM EDT [facility] Potassium 4.4 3.5 - 5.5 mmol/L LAB CHEMISTRY METHOD 04/01/2025 11:38 AM [facility] Chloride 109 96 - 110 mmol/L LAB CHEMISTRY METHOD 04/01/2025 11:38 AM [facility] CO2 23 21 - 32 mmol/L LAB CHEMISTRY METHOD 04/01/2025 11:38 AM [facility] Anion Gap 5 3 - 11 LAB CHEMISTRY METHOD 04/01/2025 11:38 AM [facility] Glucose 195(H) 70 - 100 mg/dL LAB CHEMISTRY METHOD 04/01/2025 11:38 AM [facility] BUN 14 5 - 25 mg/dL LAB CHEMISTRY METHOD 04/01/2025 11:38 AM [facility] Comment:Results verified by repeat testing Creatinine 0.72 0.50 - 1.10 mg/dL LAB CHEMISTRY METHOD 04/01/2025 11:38 AM [facility] eGFR 93 >=60 mL/min/1. 73m2 LAB CHEMISTRY METHOD 04/01/2025 11:38 AM [facility] Comment:Calculation based on the Chronic Kidney Disease Epidemiology Collaboration (CKD-EPI) equation refit without adjustment for race. BUN/Creatinine Ratio 19.4 LAB CHEMISTRY METHOD 04/01/2025 11:38 AM [facility] Calcium 8.5 8.5 - 10.5 mg/dL LAB CHEMISTRY METHOD 04/01/2025 11:38 AM [facility] Blood Venous blood specimen / Unknown Venipuncture / Unknown 04/01/2025 7:06 AM EDT 04/01/2025 10:10 AM EDT us Cirilo Pugh MD LAB BLOOD ORDERABLES Final Resu lt [facility] [address] [place] [address], * (ABNORMAL) Complete blood count (04/01/2025 7:06 AM EDT) [facility] WBC 5.1 4.8 - 10.8 K/mcL LAB HEMETOLOGY METHOD 04/01/2025 11:38 AM [facility] RBC 3.20(L) 3.80 - 4.80 M/mcL LAB HEMETOLOGY METHOD 04/01/2025 11:38 AM T [facility] Hemoglobin 7.9(L) 11.5 - 16.0 g/dL LAB HEMETOLOGY METHOD 04/01/2025 11:38 AM [facility] Hematocrit 28.0(L) 35.0 - 47.0 % LAB HEMETOLOGY METHOD 04/01/2025 11:38 AM [facility] MCV 87.5 79.0 - 98.0 FL LAB HEMETOLOGY METHOD 04/01/2025 11:38 AM [facility] MCH 24.7(L) 27.0 - 32.0 pcg LAB HEMETOLOGY METHOD 04/01/2025 11:38 AM [facility] MCHC 28.2(L) 32.0 - 37.0 g/dL LAB HEMETOLOGY METHOD 04/01/2025 11:38 AM [facility] RDW 17.1(H) 11.0 - 15.0 % LAB HEMETOLOGY METHOD 04/01/2025 11:38 AM [facility] Platelets 226 130 - 400 K/mcL LAB HEMETOLOGY METHOD 04/01/2025 11:38 AM [facility] MPV 10.1 7.0 - 11.0 FL LAB HEMETOLOGY METHOD 04/01/2025 11:38 AM [facility] NRBC 0.0 <1.0 % LAB HEMETOLOGY METHOD 04/01/2025 11:38 AM EDT [facility] NRBC Absolute 0.00 <0.10 K/mcL LAB HEMETOLOGY METHOD 04/01/2025 11:38 AM EDT [facility] Blood Venous blood specimen / Unknown Venipuncture / Unknown 04/01/2025 7:06 AM EDT 04/01/2025 10:09 AM EDT us Cirilo Pugh MD LAB BLOOD ORDERABLES Final Resu lt [facility] [address] [place] [address], documented in this encounter Visit Diagnoses Diagnosis Heart failure, unspecified (CMS/HCC V24, CMS/HCC V28) Heart failure, unspecified documented in this encounter Care Teams Administrative Services Coordinator Relationship Specialty Start Date End Date Milady Carmen MD [address] [place] [phone] PCP - General Internal Medicine 07/02/25 documented as of this encounter
--- OUTSIDE RECORDS SUMMARY | 2025-08-12 12:16 | XMS_ITS | Encounter Summary ---
Author Organization [facility] Address [address] [place] [address] Care Team Providers Care Sack Cleaner Name Role Phone Milady Carmen MD Primary Care Provider + Encounter Details Date Type Department Care Team (Latest Contact Info) Description 03/20/2025 Lab Requisition [facility] - Main Lab [address] [facility] [place] [address] Cirilo Pugh MD [address] [place] [phone] Type 2 diabetes mellitus without complications (CMS/HCC [...] Associated Diagnosis Comments BASIC METABOLIC PANEL Routine 03/21/2025 5:23 AM EDT Type 2 diabetes mellitus without complications (CMS/HCC V24, CMS/HCC V28) documented in this encounter Results * (ABNORMAL) Basic metabolic panel (03/21/2025 5:23 AM EDT) Sodium 134 133 - 145 mmol/L LAB CHEMISTRY METHOD 03/21/2025 11:36 AM EDT [facility] Potassium 5.2 3.5 - 5.5 mmol/L LAB CHEMISTRY METHOD 03/21/2025 11:36 AM EDT [facility] Comment:Hemolysis present Chloride 107 96 - 110 mmol/L LAB CHEMISTRY METHOD 03/21/2025 11:36 AM T [facility] CO2 19(L) 21 - 32 mmol/L LAB CHEMISTRY METHOD 03/21/2025 11:36 AM [facility] Anion Gap 8 3 - 11 LAB CHEMISTRY METHOD 03/21/2025 11:36 AM [facility] Glucose 259(H) 70 - 100 mg/dL LAB CHEMISTRY METHOD 03/21/2025 11:36 AM [facility] BUN 40(H) 5 - 25 mg/dL LAB CHEMISTRY METHOD 03/21/2025 11:36 AM [facility] Creatinine 1.49(H) 0.50 - 1.10 mg/dL LAB CHEMISTRY METHOD 03/21/2025 11:36 AM [facility] eGFR 39(L) >=60 mL/min/1. 73m2 LAB CHEMISTRY METHOD 03/21/2025 11:36 AM [facility] Comment:Calculation based on the Chronic Kidney Disease Epidemiology Collaboration (CKD-EPI) equation refit without adjustment for race. BUN/Creatinine Ratio 26.8 LAB CHEMISTRY METHOD 03/21/2025 11:36 AM [facility] Calcium 8.3(L) 8.5 - 10.5 mg/dL LAB CHEMISTRY METHOD 03/21/2025 11:36 AM [facility] Blood Venous blood specimen / Unknown Venipuncture / Unknown 03/21/2025 5:23 AM EDT 03/21/2025 8:30 AM EDT us Cirilo Pugh MD LAB BLOOD ORDERABLES Final Resu lt [facility] [address] [place] [address], [place] [phone] documented in this encounter Visit Diagnoses Diagnosis Type 2 diabetes mellitus without complications (CMS/[facility] V24, CMS/[facility] V28) documented in this encounter Care Teams Sack Cleaner Relationship Specialty Start Date End Date Milady Carmen MD [address] [place] [address] PCP - General Internal Medicine 07/02/25 documented as of this encounter
--- OUTSIDE RECORDS SUMMARY | 2025-08-12 12:16 | XMS_ITS | Clinical Summary ---
Author Organization [facility] Address [address] [place] [phone] Phone Care Team Providers Care Slitting Machine Operator Name Role Phone Milady Carmen MD Primary [...] is for a schedule II opioid drug. 05/05/20 Active torsemide (DEMADEX) 20 MG tablet See Instructions, take 2 tablets (40mg) twice daily for 2 days After that, take 1 tablet (20mg) daily, # 45 tablet, 0 Refills, Maintenance, 04/16/25 12:41:00 PM EDT, [facility], Partial fill upon patient request if the prescription is for a schedule II opioid drug., 168, cm, 04/10/25 10:11:00 EDT, Height, 114.9, kg, 02/23/25 22:54:00 EDT, Dry Weight 04/16/20 Active traMADol (ULTRAM) 50 MG tablet Take 50 mg by mouth 03/27/20 25 Active eplerenone (INSPRA) 25 MG tablet Take 25 mg by mouth 11/30/19 25 Active amLODIPine (NORVASC) 10 MG tablet Give 1 tablet by mouth one time a day for HTN 01/09/20 25 Active metoprolol succinate XL (TOPROL XL) 25 MG 24 hr tablet Take 25 mg by mouth 1 (one) time each day Do not crush or chew. Active metoprolol succinate XL (TOPROL-XL) 100 MG 24 hr tablet Take 100 mg by mouth 05/05/20 23 025 Discontinued( Dose adjustment (does not appear on AVS)) rosuvastatin (CRESTOR) 20 MG tablet 08/25/20 025 Discontinued( Med List Maintenance) Active Problems Problem Noted Date Diagnosed Date Chronic kidney disease, not otherwise specified 08/07/2025 Amputated below knee 07/01/2023 07/01/2023 Overview (07/01/2023): per caprice note fall 2019, done in [place] for progressive Charcot foot deformity and diabetic [...] H/O: Disorder 07/01/2023 07/01/2023 Hyperlipidemia 07/01/2023 07/01/2023 Hypertension 07/01/2023 07/01/2023 Microalbuminuria 07/01/2023 07/01/2023 Mixed anxiety and depressive disorder 07/01/2023 07/01/2023 Myalgia caused by statin 07/01/2023 023 Overview (07/01/2023): per 04-21-2016 note Obesity 07/01/2023 07/01/2023 Overview (07/01/2023): Initial Weight 02/09/16 237.6 lbs. Open wound 07/01/2023 07/01/2023 Type 2 diabetes mellitus 07/01/2023 023 Postmenopausal bleeding 07/01/2023 07/01/20 23 Increased frequency of urination 03/17/2023 07/01/2023 Encounters Date Type Department Care Team Description 08/07/2025 3:15 PM EDT Office Visit [facility] [address] [phone] Chery Yang ARNP Chronic kidney disease, not otherwise specified (Primary Dx); Hypertension from Last 3 Months Immunizations Immunization Administration Dates Next Due Influenza, Unspecified 06/28/2016,07/01/2015 Pfizer SARS-COV-2 04/14/2021,03/23/2021 Tdap 07/23/2020 Family History Medical History Relation Comments Diabetes Father Hypertension Father Diabetes Mother Heart disease Mother Hypertension Mother Cancer Sister Relation Status Comments Father Mother Sister Social History Tobacco Use Types Packs/Day Years [...] Office Visit [facility] [address] [phone] Ha Velez MD [address] [place] [phone] Health Maintenance Due Date Last Done Comments [...] Procedure Name Priority Date/Time Associated Diagnosis Comments URINE ALBUMIN / CREATININE RATIO Routine 06/28/2025 2:34 PM EDT Chronic kidney disease, not otherwise specified from Last 3 Months Results * (ABNORMAL) urine albumin / creatinine ratio (06/28/2025 2:34 PM EDT) Creatinine, Ur 52.2 Not Estab. mg/dL [facility] Albumin, Urine 16.1 Not Estab. ug/mL [facility] Albumin/Creatin ine Ratio 31(H) 0 - 29 mg/g creat [facility] Comment: Normal: 0 - 29 Moderately increased: 30 - 300 Severely increased: >300 Urine Urine specimen obtained by clean catch procedure / Unknown 06/28/2025 2:34 PM EDT 06/28/2025 us Ha Velez MD LAB URINE ORDERABLES Final Resul t [facility] [address] [place] [phone] from Last [address] [place] [address] Care Teams Slitting Machine Operator Relationship Specialty Start Date End Date Milady Carmen MD [address] [place] [id number] PCP - General Internal Medicine 04/22/25
== END 2025-08-12 12:46 | disposition home or self-care (01) ==
LOC: HO.ENCR 10:46
PROVIDERS: PCP Internal Medicine; Visit Provider Registered Nurse Diabetes Educator
DX: E11.9 Type 2 diabetes mellitus without complications (principal); Z79.4 Long term (current) use of insulin

== ENCOUNTER → 2025-08-12 10:45 | Outpatient (BNVA) | payer OTHER, SELFPAY | PROVIDERS: PCP Internal Medicine; Visit Provider Registered Nurse Diabetes Educator | DX: E11.9 Type 2 diabetes mellitus without complications (principal); Z79.4 Long term (current) use of insulin | CPT/HCPCS: 99211 ==

== ENCOUNTER 2025-10-03 10:45 | Outpatient (AMB) | payer OTHER, SELFPAY ==
--- NOTE | 2025-10-03 11:23 | A.OFFVIS_ITS ---
Intake Intake Visit Reasons: 60 min Allergies ciprofloxacin Allergy (Severe, Verified 06/27/25 10:25) Anaphylaxis kiwi Allergy (Severe, Verified 06/27/25 10:25) Angioedema morphine Allergy (Intermediate, Verified 06/27/25 10:25) Itching atorvastatin (From Lipitor) Adverse Reaction (Mild, Verified 06/27/25 10:25) myalgia metformin Adverse Reaction (Mild, Verified 06/27/25 10:25) Abdominal Pain PFSH Medical History (Updated 05/03/25 @ 14:11 by Destinee Drake NP) Lower GI bleed CAD (coronary artery disease) Type 2 diabetes mellitus Asthma-COPD overlap syndrome Chronic diastolic CHF (congestive heart failure) HTN (hypertension) Morbid obesity Carpal tunnel syndrome GERD (gastroesophageal reflux disease) Insomnia Neuropathy Sleep apnea Insulin dependent type 2 diabetes mellitus HLD (hyperlipidemia) Diabetes mellitus Surgical History S/P S/P cholecystectomy Below-knee amputation of left lower extremity Family History Mother Dementia Diabetes Father Dementia Diabetes Social History Household Members: Children Housing: Apartment Do you presently have visiting nurse or other home services: No Alcohol intake: never Comment: D/C to home Patient Tobacco Use Status: Former Tobacco user Advance Directives Date on File: 03/07/24 service: No Assessment & Plan Assessment & Plan (1) Type 2 diabetes mellitus: Code(s): E11.9 - Type 2 diabetes mellitus without complications Plan: Plan Patient presents for pump training for t-Slim X2 pump and Dexcom G7 training today. Tandem ID: [email or web address] Password: [email or web address] The following topics were reviewed today: -importance of accurately entering carbohydrate -U 100 insulin verses U 200 ??? High Alert: 250 mg/dl ??? Low Alert: 70 mg/dl Patient is using NovoLog U 100 up to 150 units daily in insulin pump. At today's visit we discussed switching from NovoLog U 100 to Humalog U 200, message sent to provider Reviewed with patient carbohydrate lists and portion sizes of carbohydrates. Patient given healthy plate handout and common Russian foods handout to help estimate correctly the amount of carbohydrate she is actually eating. Discussed again the importance of taking correction through insulin pump, not relying on insulin pump auto correction if glucose levels are above target Patient is still having postprandial hyperglycemia. Changed insulin to carb ratio Explained to patient it is important to be as accurate as possible when estimating carbohydrate, in order to determine adjustments to insulin pump settings. Patient understands the basic concepts of pump therapy, how to give insulin for meals and snacks, how to troubleshoot for hyper and hypoglycemia. Setting verified by CDCES, See changes to insulin pump settings Basal rate(s) (units/hour) : 12 AM? to 6 AM? 3.0 units / hr 6 AM to 12 AM 3.5 units / hr New 6 AM to 12 AM 3.75 units / hr Bolus setting Insulin Carbohydrate Ratio (s) 12 AM? to 12 AM? 1:5 New 6 AM to 12 AM 1:4 Correction Factor / Sensitivity Factor 12 AM? to 12 AM? 1:20 New 6 AM to 12 AM 1:15 Active Insulin Time:?5 hours Patient Instructions: Follow-up with diabetes education nurse in 1 month Coding Level of Care Code Est Pt Level 1 (50664) Diagnoses Type 2 diabetes mellitus E11.9
--- OUTSIDE RECORDS SUMMARY | 2025-10-03 16:14 | XMS_ITS | Encounter Summary ---
Author Organization [facility] Address [address] [place] [address] Care Team Providers Care Casing Wringer Operator Name Role Phone Milady Carmen MD Primary Care Provider + Encounter Details Date Type Department Care Team (Late st Contact Info) Description 04/02/2025 Lab Requisition [facility] - Main Lab [address] [place] [address] Cirilo Pugh MD [address] [place] [id number] Anemia, unspecified; Chronic kidney disease, unspecified Social [...] LAB CHEMISTRY METHOD 04/02/2025 10:28 AM EDT [facility] ([facility] LAB Potassium 4.1 3.5 - 5.5 mmol/L LAB CHEMISTRY METHOD 04/02/2025 10:28 AM [facility] LAB Chloride 112(H) 96 - 110 mmol/L LAB CHEMISTRY METHOD 04/02/2025 10:28 AM [facility] LAB CO2 25 21 - 32 mmol/L LAB CHEMISTRY METHOD 04/02/2025 10:28 AM [facility] LAB Anion Gap 6 3 - 11 LAB CHEMISTRY METHOD 04/02/2025 10:28 AM [facility] LAB Glucose 220(H) 70 - 100 mg/dL LAB CHEMISTRY METHOD 04/02/2025 10:28 AM [facility] BUN 10 5 - 25 mg/dL LAB CHEMISTRY METHOD 04/02/2025 10:28 AM [facility] LAB Creatinine 0.80 0.50 - 1.10 mg/dL LAB CHEMISTRY METHOD 04/02/2025 10:28 AM [facility] LAB eGFR 82 >=60 mL/min/1. 73m2 LAB CHEMISTRY METHOD 04/02/2025 10:28 AM [facility] LAB Comment:Calculation based on the Chronic Kidney Disease Epidemiology Collaboration (CKD-EPI) equation refit without adjustment for race. BUN/Creatinine Ratio 12.5 LAB CHEMISTRY METHOD 04/02/2025 10:28 AM [facility] LAB Calcium 8.3(L) 8.5 - 10.5 mg/dL LAB CHEMISTRY METHOD 04/02/2025 10:28 AM [facility] LAB Blood Venous blood specimen / Unknown Venipuncture / Unknown 04/02/2025 5:41 AM EDT 04/02/2025 9:21 AM EDT us Cirilo Pugh MD LAB BLOOD ORDERABLES Final Resu lt [facility] LAB [address] [place] [address], * (ABNORMAL) Complete blood count (04/02/2025 5:41 AM EDT) [facility] WBC 4.9 4.8 - 10.8 K/mcL LAB HEMETOLOGY METHOD 04/02/2025 9:43 AM [facility] RBC 3.20(L) 3.80 - 4.80 M/mcL LAB HEMETOLOGY METHOD 04/02/2025 9:43 AM [facility] LAB Hemoglobin 7.7(L) 11.5 - 16.0 g/dL LAB HEMETOLOGY METHOD 04/02/2025 9:43 AM [facility] LAB Hematocrit 27.8(L) 35.0 - 47.0 % LAB HEMETOLOGY METHOD 04/02/2025 9:43 AM [facility] MCV 87.7 79.0 - 98.0 FL LAB HEMETOLOGY METHOD 04/02/2025 9:43 AM [facility] MCH 24.3(L) 27.0 - 32.0 pcg LAB HEMETOLOGY METHOD 04/02/2025 9:43 AM [facility] MCHC 27.7(L) 32.0 - 37.0 g/dL LAB HEMETOLOGY METHOD 04/02/2025 9:43 AM [facility] RDW 17.0(H) 11.0 - 15.0 % LAB HEMETOLOGY METHOD 04/02/2025 9:43 AM [facility] Platelets 211 130 - 400 K/mcL LAB HEMETOLOGY METHOD 04/02/2025 9:43 AM [facility] MPV 9.9 7.0 - 11.0 FL LAB HEMETOLOGY METHOD 04/02/2025 9:43 AM [facility] LAB NRBC 0.0 <1.0 % LAB HEMETOLOGY METHOD 04/02/2025 9:43 AM [facility] LAB NRBC Absolute 0.00 <0.10 K/mcL LAB HEMETOLOGY METHOD 04/02/2025 9:43 AM EDT [facility] LAB Blood Venous blood specimen / Unknown Venipuncture / Unknown 04/02/2025 5:41 AM EDT 04/02/2025 9:21 AM EDT us Cirilo Pugh MD LAB BLOOD ORDERABLES Final Resu lt [facility] LAB [address] [place] [address], documented in this encounter Visit Diagnoses Diagnosis Anemia, unspecified Chronic kidney disease, unspecified documented in this encounter Care Teams Casing Wringer Operator Relationship Specialty Start Date End Date Milady Carmen MD [address] [place] [id number] PCP - General Internal Medicine 07/02/25 documented as of this encounter
--- OUTSIDE RECORDS SUMMARY | 2025-10-03 16:14 | XMS_ITS | Data Portability ---
Author Organization [facility], Main Office Address [address] [place] [address] [address] [place] [address] Care Team Providers Care Solar Manager Name Role Phone [facility] OTHER Assessment No assessment recorded. Plan [...] Organization Details Recorded Time Unsteady when standing 272195498 Active 2024 Not Available [facility] 21:47:01 Essential hypertensi on 46190856 Active 2024 Not Available [facility] 00:41:00 Melena 5740641 Active 2024 Not Available [facility] 00:41:01 Type 1 diabetes mellitus without complicati on 185145342 Active 2024 Not Available [facility] 00:42:21 Acute kidney injury 44246474 Active 2024 Not Available [facility] 00:42:23 Closed fracture 103375643 Active 2024 Not Available [facility] 00:43:04 Morbid obesity 385340170 Active 2024 Not Available [facility] 00:44:24 Gastroesop hageal reflux disease without esophagiti s 209802082 Active 2024 Not Available [facility] 00:45:05 Hyperlipid emia 42583116 Active 2024 Not Available [facility] 00:45:06 Muscle pain 83562716 Active 2024 Not Available [facility] 00:46:28 Type 2 diabetes mellitus without complicati on 436287113 Active 2024 Not Available [facility] 00:46:29 Congestive heart failure 45602773 Active 2024 Not Available [facility] 00:47:50 Obstructiv e sleep apnea syndrome 39433580 Active 2024 Not Available [facility] 00:47:51 Atheroscle rosis of coronary artery without angina pectoris 1913656227945 03 Active 2024 Not Available [facility] 5 21:45:13 Cardiac MRI Active 2024 Not Available [facility] 00:49:41 Vascular surgery procedure Active 2024 Not Available [facility] 21:44:53 Muscle weakness 68970428 Active 2024 Not Available [facility] 21:46:20 Problem Notes None recorded. Medical Equipment None Reported. Allergies Allergen ID Allergen Name Allergen Category Reaction Reaction Severity Criticality Documentation Date Start Date Code Code System Note Provider Name and Address Organization Details Recorded Time 47842 kiwi fruit extract food Not available Not available Not available 02/22/20252024 97126 01 RxNorm Not Available [facility] 22:18:16 72362 Cipro medicatio n Not available Not available Not available 02/22/2025202456 3 RxNorm Not Available [facility] 22:18:59 47952 morphine medicatio n Not available Not available Not available 02/22/20252024 7052 RxNorm Not Available [facility] 22:19:41 75663 lactose food,medi cation Not available Not available Not available 02/22/20252024 6211 RxNorm Not Available [facility] 22:20:22 43953 Levaquin medicatio n Not available Not available Not available 02/22/20252024 46388 2 RxNorm Not Available [facility] 22:21:43 75699 Lipitor medicatio n Not available Not available Not available 02/22/20252024 86509 5 RxNorm Not Available [facility] 22:21:45 45493 dapaglifl ozin Not available Not available Not available Not available 02/22/20252024 17599 64 RxNorm Not Available [facility] 22:22:27 33125 metformin medicatio n Not available Not available [...] Available Not Available Not Avai lable Acid Professor Of Nursing (omeprazole ) 20 mg capsule,del ayed release [...] Time SARS-COV-2 (COVID-19) vaccine, UNSPECIFIED 03/23/[address] [facility] 02/27/2025 16:13:45 SARS-COV-2 (COVID-19) vaccine, UNSPECIFIED 04/14/[address] [facility] 02/27/2025 16:14:07 Past Encounters Encounter ID Performer Location Encounter Start Date Encounter Closed Date Diagnosis/Indication Diagnosis SNOMED-CT Code Diagnosis ICD10 Code Diagnosis IMO Codes Diagnosis Note [id number] JAME LOZANO [address] [place] [address] 02/25/2025 09:18:41 03/06/2025 03:50:09 Rectal hemorrhage 73680951 K62.5 885795 copious amounts of rectal bleedingwi th abd [...] Smith Member ID Guarantor Name 02/25/2025 1 [facility] - DOS ON OR AFTER 2023 - MEDICARE ADVANTAGE [place] (MEDICARE REPLACEMENT/ADV ANTAGE - PPO) Yolanda Choi [id number] Yolanda Choi Notes Date Note Type Note Provider Name and Address Organization Details Recorded Time 02/25/2025 text/html This is a historical discharge summary. Pt is a 64 yo female. She was admitted to [facility] to complete STR after a hospital stay [place] [facility] She was quickly transferred back [place] [facility] for copious amount of rectal bleeding, with hypotension BP 80/40, as well as complaints of pain in the upper abdomen. Conductor Pullman JAKE Encarnacion new order to send out to the Hospital. This change in condition started on 02/23/2025. Resident transferred to [facility] via rah MACIAS NP-C [address], [address], [place], [address], [facility] 02/28/2025 09:15:32 OBGyn Episode No OBEpisode recorded.
--- OUTSIDE RECORDS SUMMARY | 2025-10-03 16:14 | XMS_ITS | Encounter Summary ---
Author Organization [facility] Address [address] [place] [address] Care Team Providers Care Enrollment Eligibility Representative Name Role Phone Milady Carmen MD Primary Care Provider + Encounter Details Date Type Department Care Team (Latest Contact Info) Description 03/20/[address] [facility] - Main Lab [address] [facility] [place] [address] Cirilo Pugh MD [address] [place] [address] Type 2 diabetes mellitus without complications (CMS/HCC [...] LAB CHEMISTRY METHOD 03/21/2025 11:[address] [facility] Potassium 5.2 3.5 - 5.5 mmol/L LAB CHEMISTRY METHOD 03/21/2025 11:[address] [facility] LAB Comment:Hemolysis present Chloride 107 96 - 110 mmol/L LAB CHEMISTRY METHOD 03/21/2025 11:[address] [facility] CO2 19(L) 21 - 32 mmol/L LAB CHEMISTRY METHOD 03/21/2025 11:36 AM [facility] LAB Anion Gap 8 3 - 11 LAB CHEMISTRY METHOD 03/21/2025 11:36 AM [facility] LAB Glucose 259(H) 70 - 100 mg/dL LAB CHEMISTRY METHOD 03/21/2025 11:36 AM [facility] BUN 40(H) 5 - 25 mg/dL LAB CHEMISTRY METHOD 03/21/2025 11:36 AM [facility] Creatinine 1.49(H) 0.50 - 1.10 mg/dL LAB CHEMISTRY METHOD 03/21/2025 11:36 AM [facility] LAB eGFR 39(L) >=60 mL/min/1. 73m2 LAB CHEMISTRY METHOD 03/21/2025 11:36 AM [facility] LAB Comment:Calculation based on the Chronic Kidney Disease Epidemiology Collaboration (CKD-EPI) equation refit without adjustment for race. BUN/Creatinine Ratio 26.8 LAB CHEMISTRY METHOD 03/21/2025 11:36 AM [facility] Calcium 8.3(L) 8.5 - 10.5 mg/dL LAB CHEMISTRY METHOD 03/21/2025 11:36 AM [facility] Blood Venous blood specimen / Unknown Venipuncture / Unknown 03/21/2025 5:23 AM EDT 03/21/2025 8:30 AM EDT us Cirilo Pugh MD LAB BLOOD ORDERABLES Final Resu lt [facility] [address] [place] [address], [place] [phone] documented in this encounter Visit Diagnoses Diagnosis Type 2 diabetes mellitus without complications (CMS/[facility] V24, CMS/[facility] V28) documented in this encounter Care Teams Enrollment Eligibility Representative Relationship Specialty Start Date End Date Milady Carmen MD [address] [place] [address] PCP - General Internal Medicine 07/02/25 documented as of this encounter
--- OUTSIDE RECORDS SUMMARY | 2025-10-03 16:14 | XMS_ITS | Patient Health Record ---
Author Organization [facility] n Address [address] [place] [address] Care Team Providers Care Bottle Carrier Name Role Phone Laurie Harman Primary Care Provider [phone] Alejandro Null Unavailable [phone] Allergies Allergen (clinical drug ingredient) Drug/Non Drug Allergy documented on EMR Reaction Allergy Type Onset Date Status Cipro y Morphina (uncoded) rash Allergy Active Reason For Referral No Information Medications Medication SIG (Take, Route, Frequency, Duration) Notes Start Date End Date Status traMADol HCl 50 mg Tablet 2 tablet as ne eded Orally every 6 hrs; Duration: 05/02/2014 Active Enalapril Maleate 20 MG Tablet 1 tablet Orally Twice a day; Duration: 30 day(s) Active Trental 400 MG Tablet Extended Release 1 tablet with meals Orally Twice a day; Duration: 30 day(s) Active Augmentin 875-125 MG Tablet 1 tablet Ora lly Twice a day; Duration: 07/05/2013 Active metFORMIN HCl 1000 MG Tablet 1 tablet wi th meals Orally Twice a day; Duration: 30 day(s) Active Bactroban 2 % Ointment 1 application to affected area Externally Three times a day; Duration: 30 days 01/17/2014 Active Naproxen Sodium 550 MG Tablet 1 tablet O rally Twice a day; Duration: 30 day(s) 12/07/2013 Active Clindamycin HCl 150 MG Capsule 1 capsule Orally every 8 hours; Duration: 12/27/2013 Active hydroCHLOROthiazide 25 MG Tablet 1 tablet Orally Once a day; Duration: 30 day(s) 11/30/2013 Active Lopressor 50 mg Tablet 1 tablet Orally O nce a day; Duration: 30 day(s) Active Keflex 500 MG Capsule 1 capsule Orally Twice a day; Duration: 10 days 04/22/2014 Active Aspirin 81 MG Tablet Delayed Release 1 tablet Orally Once a day; Duration: 30 day(s) Active Insulin Syringe 28G X 1/2 0.5 ML Miscellaneous as directed bid bid; Duration: 30 days 01/17/2014 Active Ketoconazole 2 % Cream 1 application to affected area Externally bid; Duration: 10 days 09/25/2013 Active Lantus 100 UNIT/ML Solution 60 units Sub cutaneous Once a day; Duration: 30 day(s) Active Gabapentin 800 MG Tablet 1 tablet Orally tid; Duration: 30 day(s) Active Ultram 50 mg Tablet 1 tablet as needed Orally every 6 hrs; Duration: 30 days 09/25/2013 Active Zantac 300 mg Tablet 1 tablet Orally daily; Duration: 30 days 11/30/2013 Active Clindamycin HCl 300 mg Capsule 1 capsule Orally every 8 hours prn; Duration: 10/25/2013 Active HumaLOG 100 UNIT/ML Solution 30 unit s/c Subcutaneous TID; Duration: 30 days 11/30/2013 Active Social History Social History Drugs/Alcohol: Social Info Question Answer Notes Drugs Have you used drugs other than those for medical reasons in the past 12 months? No Tobacco Use: Social Info Question Answer Notes Tobacco use other than smoking: Are you an other tobac co user? 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 Problem Type II diabetes mellitus uncontrolled (113162695) Diabetes mellitus without mention of complication, type II or unspecified type, uncontrolled (250.02) Active confirmed Problem 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 Problem Arthralgia of the ankle and/or foot (563029117) Pain in joint, ankle and foot (719.47) Active confirmed Plan Of Treatment Pending Test Test Name Order Date X ray : Foot, right 05/06/2014 Hemoglobin A1c 01/17/2014 Microalbumin, 24 hr Urine 01/17/2014 LIPID PANEL 01/17/2014 -CMP 01/17/2014 Mammogram, Screening 01/17/2014 Ultrasound : Kidneys and Bladder 014 Urinalysis 05/02/2014 culture of ulcer 03/12/2014 Future Test Test Name Order Date Hemoglobin A1c 12/07/2013 -*CBC W/AUTO DIFF 12/07/2013 TSH Free T4 12/07/2013 LIPID PANEL 12/07/2013 -CMP 12/07/2013 Urinalysis 12/07/2013 Insurance Providers Payer Name Payer Address Payer Phone Subscriber Number Group Number Insured Name Patient Relationship to Insured Coverage Start Date Coverage End Date [facility] [employer] [address] [place] [address] [id number] Yolanda Nash Self - patient is the insured 2 Medical (General) History Medical History History ICD Code Menopausal Syndrome,Date of Onset:2011 Diabetes Mellitus Type II,Date of Onset: 1977 Hypertension,Date of Onset:1989 Arthritis Rheumatoid,Date of Onset:2011 Surgical History Surgery Date(Month/Year) section,Resolve Date:1986 Vesicula,Resolve Date:1986
--- OUTSIDE RECORDS SUMMARY | 2025-10-03 16:14 | XMS_ITS | Data Portability ---
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 I have reviewed and agree with the Assessment and Plan as documented by the Collaborative Physician. Patient given the opportunity to ask questions. [...] Assessment and Plan as documented by the Collaborative Physician. We discussed the diagnostic uncertainty of home [...] verbalized understanding of instructions to the medic [email or web address] Not available 01/09/2024 16:20:17 05/08/2024 05/08/2024 service [...] plasma 2023 024 VALENTIN [facility] - [facility], [address] [place] [address], [id number] 4 18:02:39 rapid SARS CoV 2 Ag, QL IA, respiratory specimen 2023 024 [email or web address] Main - [facility], [address] [place] [address], [id number] 4 16:18:58 rapid flu (A+B) 2023 024 [email or web address] 0 Main - [facility], [address] [place] [address], [id number] 4 16:19:00 rapid strep group A, throat 2023 024 [email or web address] 0 Main - [facility], [address] [place] [address], [id number] 4 16:19:01 rapid SARS CoV 2 Ag, QL IA, respiratory specimen 2023 024 [email or web address] [facility] [address] [place] [address], [id number] 4 19:21:10 rapid flu (A+B) 2023 024 [email or web address] Main - [facility], [address] [place] [address], [id number] 4 19:21:08 rapid strep group A, throat 2022 023 [email or web address] 0 Main - [facility], [address] [place] [address], [id number] 3 16:22:31 rapid SARS CoV 2 Ag, QL IA, respiratory specimen 2022 023 [email or web address] 0 Main - [facility], [address] [place] [address], [id number] 3 16:22:34 rapid flu (A+B) 2022 023 [email or web address] 0 Main - [facility], [address] [place] [address], [id number] 3 16:22:36 Referral None recorded. Procedures None recorded. Surgeries None recorded. Imaging electrocard iogram 2023 024 [email or web address] 0 [facility], [address] [place] [address], [id number] 4 16:18:55 Medication Orders furosemide 40 mg tablet 2023 024 [facility], [address] [place] [address], [id number], 4 17:58:55 furosemide 40 mg tablet 2023 024 [email or web address] [facility], [address] [place] [address], [id number], 4 16:51:43 azithromyci n 250 mg tablet 2023 024 [facility], [address] [place] [address], [id number], 4 16:19:50 azithromyci n 250 mg tablet 2023 024 [email or web address] 0 [facility], [address] [place] [address], [id number], 4 16:13:02 albuterol sulfate HFA 90 mcg/actuati on aerosol inhaler 2023 024 [facility], [address] [place] [address], [id number], 4 16:19:49 Mucinex DM 60 mg-1,200 mg tablet,exte nded release 12 hr 2023 024 [facility], [address] [place] [address], [id number], 4 16:19:47 Flonase Allergy Relief 50 mcg/actuati on nasal spray,suspe nsion 2023 024 [facility], [address] [place] [address], [id number], 4 19:28:26 Augmentin 875 mg-125 mg tablet 2022 023 [facility], [address] [place] [address], [id number], 3 16:28:28 Mucinex DM 60 mg-1,200 mg tablet,exte nded release 12 hr 2022 023 [facility], [address] [place] [address], [id number], 3 16:28:29 Patient TargetsNo targets recorded. Patient InstructionsNo instructions recorded. Reason for Referral None Reported. Results Created Date Observation Date Name Description Value Unit Range Abnormal Flag Note LastModifiedBy Organization Detail LastModifiedTime 10/13/20 23 10/13/2023 rapid flu (A+B) Flu negati ve Not Available [facility] - [facility] ed [address] [place] [address], [id number] 10/13/2023 16:19:01 10/13/20 23 10/13/2023 rapid SARS CoV 2 Ag, QL IA, respi rator y speci men rapid SARS CoV 2 Ag, QL IA, respiratory specimen negati ve Not Available [facility] - [facility] ed [address] [place] [address], [id number] 10/13/2023 16:18:59 10/13/20 23 10/13/2023 rapid strep group A, throa t Strep positi ve Not Available [facility] - [facility] ed [address] [place] [address], [phone] 10/13/2023 16:18:57 01/04/20 24 01/04/2024 rapid flu (A+B) Flu negati ve Not Available [facility] - [facility] ed [address] [place] [address], [id number] 01/04/2024 19:20:54 01/04/20 24 01/04/2024 rapid SARS CoV 2 Ag, QL IA, respi rator y speci men rapid SARS CoV 2 Ag, QL IA, respiratory specimen negati ve Not Available [facility] ed [address] [place] [address], [id number] 01/04/2024 19:20:49 01/09/20 24 01/09/2024 rapid strep group A, throa t Strep negati ve Not Available [facility] ed [address] [place] [address], [id number] 01/09/2024 16:16:41 01/09/20 24 01/09/2024 rapid flu (A+B) Flu negati ve Not Available [facility] ed [address] [place] [address], [id number] 01/09/2024 16:16:40 01/09/20 24 01/09/2024 rapid SARS CoV 2 Ag, QL IA, respi rator y speci men rapid SARS CoV 2 Ag, QL IA, respiratory specimen negati ve Not Available [facility] ed [address] [place] [address], [phone] 01/09/2024 16:16:39 01/09/20 24 01/09/2024 dino mariscal am No observ ation record ed. [email or web address] [address], [phone] 01/09/2024 16:18:51 Result Notes None recorded. Problems Name Problem SNOMED Code Status Onset Date Resolution Date Notes Provider Name and Address Organization Details Recorded Time Increased frequency of urination 303603135 Active 023 Dick Nj MD [address] [place] [address],[address], [place], [address] [employer] [facility] 3 15:17:33 Problem Notes None recorded. Medical [...] Not available Not available Not available 08/06/2022 84405 RxNorm Not Available [facility] - production 4 03:38:56 1093 metformin medicatio n Not available Not available Not available 08/06/2022 6809 RxNorm Gayatri Myers MD [address], [place], [address], [employer] 2 16:50:48 1094 morphine medicatio n Not available Not available Not available 08/06/2022 7052 RxNorm Not Available [facility] - production 4 03:38:56 1095 Farxiga medicatio n Not available Not available Not available 08/06/2022 49315 72 RxNorm Gayatri Myers MD [address], [place], [address], [employer] 2 16:51:51 1096 Silvadene medicatio n Not available Not available Not available 08/06/2022 83140 6 RxNorm Not Available [facility] - production 4 03:38:56 7664 Bactrim medicatio n Not available Not available Not available 09/11/2024 02011 9 RxNorm Not Available [facility] - production [...] Not Available Not Available Comfort EZ Pen Alsip 31 gauge x 1/4 USE WITH INSULIN PENS 4 TIMES A DAY, 90 DAY SUPPLY active Not Available Not Available No t Available Lenore Alvarez [facility] spacer active Not Available Not Available Not Available Victoza 3-Paco 0.6 mg/0.1 mL (18 mg/3 mL) subcutaneous pen injector INJECT 1.8 MG SUBCUTANEOU SLY ONCE DAILY active Not Available Not Available No t Available Breo Ellipta 100 mcg-25 mcg/dose powder for inhalation TAKE 1 PUFF INHALATION ONCE A DAY active Not Available Not Available N ot Available Easy Comfort Pen Alsip 31 gauge x 5/16 active Not Available Not Available Not Available Comfort EZ Pen Alsip 33 gauge x 1/4 DIRECTED WITH INSULIN AND OZEMPIC active Not Available Not Available No t Available Farxiga 10 mg tablet active Not Available Not Available No t Available Jardiance 10 mg tablet active Not Available Not Available No t Available Flonase Allergy Relief 50 mcg/actuatio n nasal spray,suspen concha [place] 1 spray(s) every day by intranasal route [...] Not Available Not Available Easy Comfort Pen Alsip 33 gauge x 3/16 active Not Available [...] Available No t Available FreeStyle Franca [place] active Not Available Not Available Not Available [...] Not Available No t Available Dexcom G7 Library Serials Assistant USE TO CONTINUOUSL Y CHECK GLUCOSE DIRECTED FOR TYPE 2 DIABETES WHILE ON BASAL INSULIN active Not Available Not Available No t Available Dexcom G7 Sensor device USE ONE SENSOR TO CONTINUOUSL Y CHECK GLUCOSE DIRECTED FOR TYPE 2 DIABETES WHILE ON BASAL INSULIN. CHANGE SENSOR EVERY 10 DAYS active Not Available Not Available No t Available Vitals Date Recorded Oxygen saturation Body temperature Respiratory rate Heart rate Systolic And Diastolic Provider Name and Address Organization Details Last Updated DateTime 4 97 % 98.9 [degF] 16 /min 80 /min 160/90 mm[Hg] Not Available [employer] 4 19:19:40 Date Recorded Oxygen saturation Respiratory rate Body temperature Body height Body weight Heart rate Systolic And Diastolic Provider Name and Address Organization Details Last Updated DateTime 4 95 % 16 /min 98.5 [degF] 167.64 cm 589182. 472 g 72 /min 161/78 mm[Hg] Not Available [email or web address] 4 15:26:25 Date Recorded Oxygen saturation Respiratory rate Body temperature Heart rate Systolic And Diastolic Provider Name and Address Organization Details Last Updated DateTime 4 95 % 16 /min 97.1 [degF] 78 /min 189/79 mm[Hg] Not Available [email or web address] 4 18:38:38 Date Recorded Body temperature Respiratory rate Heart rate Oxygen saturation Systolic And Diastolic Provider Name and Address Organization Details Last Updated DateTime 4 98.2 [degF] 18 /min 72 /min 96 % 186/100 mm[Hg] Not Available [email or web address] 4 14:32:47 Date Recorded Body weight Body mass index (BMI) Body height Provider Name and Address Organization Details Last Updated DateTime 10/13/2023 523322.57 g 41.7 kg/m2 170.18 cm Gayatri Myers MD [address] [place] [address],[address] [place], [address], [place] [facility] [employer] 10/13/2023 16:15:12 Date Recorded Heart rate Respiratory rate Oxygen saturation Body temperature Systolic And Diastolic Provider Name and Address Organization Details Last Updated DateTime 3 82 /min 18 /min 96 % 98.1 [degF] 166/74 mm[Hg] Not Available [email or web address] 3 16:13:39 Social History None recorded. Functional Status None recorded. Mental Status None recorded. Family History Nothing Reported. Medical History No medical history recorded. Gynecological HistoryNo gynecological history recorded. Obstetrics History GPAL:G 0 P 0 0 0 0 Past Encounters Encounter ID Performer Location Encounter Start Date Encounter Closed Date Diagnosis/Indication Diagnosis SNOMED-CT Code Diagnosis ICD10 Code Diagnosis IMO Codes Diagnosis Note [id number] Dick Nj MD [facility] - [facility] [address] [place] [address] 0 07/30/2022 11:07:20 07/30/2022 11:13:09 [id number] Lela Asencio MD Main - [facility] [address] [place] [address] 0 07/31/2022 12:32:00 08/10/2022 13:49:16 Hyperkalemia 60196400 E87.5 [facility] sent for hyperkalem ia check following kayexelate . potassium increased to 7 from 6.1 yesterday. EKG with question of peaked T waves. sending to ED. Pt amenable. [id number] Gayatri Myers MD Main - [facility] [address] [place] [address] 0 08/06/2022 16:34:18 08/16/2022 13:48:08 Hyperkalemia 69066688 E87.5 RESOLVED- improving cellulitis RLE- pat advised to continue doxycyclin e/ stay hydrated- avoid sun exposure on antibioitc s and f/u pcp next week. [id number] Anuja Nieves MD Main - [facility] [address] [place] [address] 0 09/08/2022 20:44:28 09/14/2022 15:20:07 Fatigue 80434300 R53.83 [id number] Gayatri Myers MD Main - [facility] [address] [place] [address] 0 11/22/2022 19:35:33 11/24/2022 10:38:51 Acute urinary tract infection 968867938 N39.0 patient unable to void after > 1 hr with po fluids- straight cath performed with patient's verbal permission - 75 cc cloudy urine obtainedU A reflex to C & S sent to [facility] as per Solo Saravia LOADER request-si nce patient symptomati c will start [...] immodium if needs /aware to limit diet [id number] Naif Keating MD Main - [facility] [address] [place] [phone] 02/14/2023 15:19:54 02/15/2023 22:49:34 Headache 22267481 R51.9 As noted, we were called to see this patient regarding concerns of headache and hypertensi on. Evaluation in the field was performed by my teacher asst colleague, as noted above, I provided real-time [...] activation to ED after our visit concluded. [id number] Dick Nj MD Main - [facility] [address] [place] [phone] 03/17/2023 15:09:59 03/18/2023 10:59:45 Increased frequency of urination 073817582 R35.0 This 62-year-ol d female called [facility] [...] symptoms. The patient agreed with this plan. [id number] [facility] [address] [place] [phone] 06/14/2023 19:38:03 06/15/2023 11:06:12 Abdominal pain 20548776 R10.9 [id number] Lela Asencio MD Main - [address] [address] 07/26/2023 20:28:55 07/28/2023 10:15:01 COVID-19 [id number] U07.1 I provided real -time medical direction via phone for this encounter, and was available for additional phone based assistance as needed. I have reviewed and agree with the Assessment and Plan as documented by the Collaborative Physician. Patient given the opportunit y to ask questions. 63 yo w/ URI sx, tested positive for covid today. Rapid test positive as well. Reviewed labs (nl renal function) and medication list for paxlovid safety. Pt agreeable to take paxlovid. Discussed warning signs/sx. [id number] [facility]atri [facility] [address] [place] [phone] 10/13/2023 16:13:37 10/15/2023 11:39:43 Acute bacterial bronchitis 676076334 J20.9 Antibiotic s indicated due to dark green productive mucus -Augmentin as below-advi sed to use her albuterol inhaler 2 puffs 4 times a day while ill.- BS from her [facility] 291 postprandi al-patient not wheezing steroids not indicated at this time & as this will adversely affect her blood sugar Streptococ ken sore throat 32821246 J02.0 Patient has Tylenol 500 mg at [...] as well-saeed nt reports her daughter can pick up man the prescripti on this evening. Advised her to call [facility] if she is unable to get the prescripti on by tomorrow morning or if she is not feeling better in 48 hours to call for another visit -she verbalized understand ing to the medic ORALIA APONTE MD Main - [facility] [address] [place] [phone] 01/04/2024 19:19:38 01/05/2024 09:31:05 Viral upper respiratory tract infection 670852187 J06.9 Evaluation in the field was performed by my teacher asst colleague, as noted above, I provided real-time [...] . Has been using Flonase but per teacher asst, has .VS S, afebrile, saturating 97 % [...] concerns Gayatri Myers MD Main - [facility] [address] [place] [phone] 01/09/2024 15:26:20 01/10/2024 10:39:43 Mild chronic obstructive pulmonary disease 629238120 J44.9 with possible sinusitis- advised to continue using her Flonase as directed/p rescribedD o not use her Symbicort as a rescue inhaler is to be used once daily as prescribed , will give her an albuterol rescue inhaler.Willard crews is to just stop the [facility] cough [...] her PCP and she verbalized understand ing. [id number] Anuja Nieves MD Main - [facility] [address] [place] [phone] 05/08/2024 18:38:33 05/09/2024 20:15:30 Edema of lower extremity 030355728 R60.0 [id number] Velasquez Eric MD Main - [facility] [address] [place] [phone] 05/10/2024 14:32:45 05/11/2024 17:38:07 Edema of lower extremity 832832886 R60.0 Patient with mild edema in lower extremity on right side (has L BKA). No SOB or other signs of acute CHF exacerbati on. No known weight changes. Hypertensi ve of exam though no s/s of hypertensi ve urgency or emergency. 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 WIll give Lasix 40mg [...] Smith Member ID Guarantor Name 03/15/2025 1 [facility] - DOS PRIOR TO 2023 - DUAL ELIGIBLE (MEDICARE REPLACEMENT/ADV ANTAGE - HMO) Yolanda Snell Jimbo [id number] Yolanda Hodges Channing Choi 03/15/2025 1 [facility] - DOS ON OR AFTER 2023 - DUAL ELIGIBLE - SHELTER OPTIONS AND ONE CARE (MEDICARE REPLACEMENT/ADV ANTAGE - HMO) Yolanda Snell Jimbo [id number] Yolanda Hodges Channing Choi Notes Date Note Type Note Provider [...] .................... .................... .................... .................... .................... .................... . PSYCHIATRIC Nursing Assessment: Comments: Reviewed - Corina ELLIOTT .................... .................... .................... .................... .................... .................... .................... . Collaborative Physician Note From David Cano: Pt co cough and sore throat with chills yesterday with fever. Took thera flu with relief of fever. Pt sts green mucus. Pt denies nausea vomiting diarrhea headache or dizziness. Baseline vitals assessed. Covid/flu swab negative, strep test positive. Lungs clear bilaterally. C contacted and RX for augmentin called in for pick up man. Pt instructed to call back tomorrow if does receive her antibiotics. Pt education on signs indicating the ER. Collaborative Physician Allergies: Bactrim, Morphine, Silvadene, Levofloxacin, Ciprofloxacin .................... .................... .................... .................... .................... .................... .................... . Disposition: FulfilledSEGMD: As above. Patient used her albuterol inhaler and her wheezing stopped.-Patient with PMH COPD/DM/HTN/CHF/SP SD. She is status post left leg BKA Gayatri Myers MD [address] [place] [address],[address], [place], [address], [facility] - [facility] 10/14/2023 06:12:30 01/04/2024 text/html ROS as noted [...] .................... .................... .................... .................... .................... .................... . Collaborative Physician Note From Fred Robins: Dispatched to the [...] ago. Pt was asked to show this teacher asst how she was self administering the medication. Pt placed the tip of the applicator deep into her nare. Pt was educated on proper application. [facility] consulted. Script for new Flonase called into preferred pharmacy. Red flags discussed. ALL times are approx. .................... .................... .................... .................... .................... .................... .................... . Disposition: Fulfilled ORALIA APONTE MD [address] [place] [address],[address], [place], [phone], [facility] 01/04/2024 22:46:17 01/09/2024 text/html ROS as noted in the HPI HPI: Seen by Garrett 01/04 for URI- CP called to follow up today and patient is stating she not better but worse. Loss of taste, waking up from sleep with difficulty breathing needing to use inhaler, intermittent chest pain. Patient declined ED visit, would like [facility] to do an EKG and prescribe something [...] to us. She denies chest pain to [facility], although she was apparently complaining of chest pain to her provider earlier so they requested an EKG................. .................... .................... .................... .................... .................... .................... .... Collaborative Physician Note From Jurgen Leija: Pt reports URI [...] negative. After leaving the pt s side, [facility] had to go back into the [...] .................... . 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 Yolanda states she went to [facility] today where her BP was 169/80 and she was told to call her PCP. 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 Collaborative Physician POC Test Results from Jurgen Leija [facility] (18:33:16) pH: 7.43 pH units pCO2: 35.7 mmHg pO2: 54.7 mmHg Na: 139 mmol/L K: 3.9 mmol/L iCa: 1.12 mmol/L Cl: 106 mmol/L TCO2: 23.9 mEq/L Hct: 34 % Hb: 11.4 g/dL Glu: 383 mg/dL Lac: 1.9 mmol/L Cr: 0.9 mg/dL BUN: 12 mg/dL A .................... .................... .................... .................... .................... .................... .................... . Collaborative Physician Note From Jurgen Leija: Pt reports hx [...] .................... .................... . Disposition: Mary Nieves MD [address] [place] [address],[address], [place], [address], [facility] - [facility] 05/09/2024 00:11:01 05/10/2024 text/html ROS as noted in the HPI HPI: 63 year old female with type 2 diabetes complicated by retinopathy, neuropathy, hyperglycemia, left BKA, and past right foot ulcers as well as HTN, HLD, diastolic heart failure, asthma, GERD, arthritis, depression, and obesity. [facility] where she was treated w Lasix. [facility] was supposed to go out today to redraw electrolytes and check for CHF. I advised her if symptoms were worse and community health finds it necessary for her to go to the ER, she verbalized she would go. Please assess for CHF and redraw electrolytes. [facility] .................... .................... .................... .................... .................... .................... .................... . [facility] Nurse Triage Notes (Veronica Holliday): Comments: [facility] RN DID NOT NEED FURTHER INFO Collaborative Physician POC Test Results from Murphy Nascimento - [facility] iSTAT Chem8+ (1) [14:46] Na: 139 mEq/L K: 3.9 mEq/L Cl: 102 mEq/L iCa: 1.07 mmol/L TCO2: 27 mmol/L Glu: 197 mg/dL BUN: 13 mg/dL Crea: 0.8 mg/dL Hct: 35 % Hb: 11.9 g/dL A Attachments uploaded as part of this test result can be found under Documents section. .................... .................... .................... .................... .................... .................... .................... . Collaborative Physician Note From Murphy Nascimento: Dispatched to above [...] edema on R lower leg, L BKA. [facility] contacted, advised of patient complaints and exam findings. [facility] ordered ISTAT checked. Blood draw preformed, ISTAT checked, results uploaded. [facility] contacted, advised of test results. [facility] ordered 40mg Lasix PO, will prescribe additional dose for tomorrow. Patient administered Lasix. Patient advised of [facility] recommendations, home care and red flags. Patient has no additional questions or concerns at this time. SC8 clear. EOR. .................... .................... .................... .................... .................... .................... .................... . Disposition: Fulfilled Velasquez Eric MD [address] [place] [address],[address], [place], [phone], [employer] 05/10/2024 18:45:48 OBGyn Episode No OBEpisode recorded.
--- OUTSIDE RECORDS SUMMARY | 2025-10-03 16:14 | XMS_ITS | Encounter Summary ---
Author Organization [facility] Address [address] [place] [address] Care Team Providers Care Deputy Fire Chief Name Role Phone Milady Carmen MD Primary Care Provider + Encounter Details Date Type Department Care Team (Late st Contact Info) Description 02/23/2025 Lab Requisition [facility] - Main Lab [address] [place] [address] Jozef Camejo MD [address] [place] [phone] Melena Social History Tobacco Use Types [...] LAB HEMETOLOGY METHOD 02/23/2025 8:02 AM EDT [facility] LAB Hematocrit 24.7(L) 35.0 - 47.0 % LAB HEMETOLOGY METHOD 02/23/2025 8:02 AM [facility] LAB Blood Venous blood specimen / Unknown Venipuncture / Unknown 02/23/2025 6:15 AM EDT 02/23/2025 7:35 AM EDT us Jozef Camejo MD LAB BLOOD ORDERABLES Final Resul t [facility] LAB [address] [place] [address], * (ABNORMAL) Complete blood count (02/23/2025 6:15 AM EDT) WBC 4.8 4.8 - 10.8 K/mcL LAB HEMETOLOGY METHOD 02/23/2025 8:02 AM [facility] LAB RBC 2.80(L) 3.80 - 4.80 M/mcL LAB HEMETOLOGY METHOD 02/23/2025 8:02 AM [facility] LAB Hemoglobin 6.9(L) 11.5 - 16.0 g/dL LAB HEMETOLOGY METHOD 02/23/2025 8:02 AM [facility] LAB Hematocrit 24.7(L) 35.0 - 47.0 % LAB HEMETOLOGY METHOD 02/23/2025 8:02 AM [facility] LAB MCV 88.8 79.0 - 98.0 FL LAB HEMETOLOGY METHOD 02/23/2025 8:02 AM [facility] LAB MCH 24.8(L) 27.0 - 32.0 pcg LAB HEMETOLOGY METHOD 02/23/2025 8:02 AM [facility] LAB MCHC 27.9(L) 32.0 - 37.0 g/dL LAB HEMETOLOGY METHOD 02/23/2025 8:02 AM [facility] LAB RDW 21.4(H) 11.0 - 15.0 % LAB HEMETOLOGY METHOD 02/23/2025 8:02 AM EDT [facility] LAB Platelets 259 130 - 400 K/mcL LAB HEMETOLOGY METHOD 02/23/2025 8:02 AM EDT [facility] LAB MPV 10.0 7.0 - 11.0 FL LAB HEMETOLOGY METHOD 02/23/2025 8:02 AM EDT [facility] LAB NRBC 0.0 <1.0 % LAB HEMETOLOGY METHOD 02/23/2025 8:02 AM EDT [facility] LAB NRBC Absolute 0.00 <0.10 K/mcL LAB HEMETOLOGY METHOD 02/23/2025 8:02 AM EDT [facility] LAB Blood Venous blood specimen / Unknown Venipuncture / Unknown 02/23/2025 6:15 AM EDT 02/23/2025 7:35 AM EDT us Jozef Camejo MD LAB BLOOD ORDERABLES Final Resul t [facility] [address] [place] [address], documented in this encounter Visit Diagnoses Diagnosis Melena Blood in stool documented in this encounter Care Teams Deputy Fire Chief Relationship Specialty Start Date End Date Milady Carmen MD [address] [place] [phone] PCP - General Internal Medicine 07/02/25 documented as of this encounter
--- OUTSIDE RECORDS SUMMARY | 2025-10-03 16:14 | XMS_ITS | Encounter Summary ---
Author Organization [facility] Address [address] [place] [address] Care Team Providers Care Fur Dresser Name Role Phone Milady Carmen MD Primary Care Provider + Encounter Details Date Type Department Care Team (Late st Contact Info) Description 04/03/2025 Lab Requisition [facility] - Main Lab [address] [place] [phone] Cirilo Pugh MD [address] [place] [phone] Anemia, unspecified Social History Tobacco Use Types [...] LAB HEMETOLOGY METHOD 04/03/2025 10:51 AM EDT [facility] LAB RBC 3.20(L) 3.80 - 4.80 M[facility] LAB HEMETOLOGY METHOD 04/03/2025 10:51 AM EDT [facility] LAB Hemoglobin 7.9(L) 11.5 - 16.0 g/dL LAB HEMETOLOGY METHOD 04/03/2025 10:51 AM EDT [facility] LAB Hematocrit 28.2(L) 35.0 - 47.0 % LAB HEMETOLOGY METHOD 04/03/2025 10:51 AM EDT [facility] LAB MCV 88.1 79.0 - 98.0 FL LAB HEMETOLOGY METHOD 04/03/2025 10:51 AM EDT [facility] LAB MCH 24.7(L) 27.0 - 32.0 pcg LAB HEMETOLOGY METHOD 04/03/2025 10:51 AM EDT [facility] LAB MCHC 28.0(L) 32.0 - 37.0 g/dL LAB HEMETOLOGY METHOD 04/03/2025 10:51 AM [facility] LAB RDW 16.6(H) 11.0 - 15.0 % LAB HEMETOLOGY METHOD 04/03/2025 10:51 AM EDT [facility] LAB Platelets 215 130 - 400 K/mcL LAB HEMETOLOGY METHOD 04/03/2025 10:51 AM T [facility] LAB MPV 10.0 7.0 - 11.0 FL LAB HEMETOLOGY METHOD 04/03/2025 10:51 AM [facility] LAB NRBC 0.0 <1.0 % LAB HEMETOLOGY METHOD 04/03/2025 10:51 AM EDT [facility] LAB NRBC Absolute 0.00 <0.10 K/mcL LAB HEMETOLOGY METHOD 04/03/2025 10:51 AM [facility] LAB Blood Venous blood specimen / Unknown Venipuncture / Unknown 04/03/2025 5:39 AM EDT 04/03/2025 9:58 AM EDT us Cirilo Pugh MD LAB BLOOD ORDERABLES Final Resu lt [facility] [address] [place] [address], documented in this encounter Visit Diagnoses Diagnosis Anemia, unspecified documented in this encounter Care Teams Fur Dresser Relationship Specialty Start Date End Date Milady Carmen MD [address] [place] [phone] PCP - General Internal Medicine 07/02/25 documented as of this encounter
--- OUTSIDE RECORDS SUMMARY | 2025-10-03 16:14 | XMS_ITS | Encounter Summary ---
Author Organization [facility] Address [address] [place] [address] Care Team Providers Care Level Vial Sealer Name Role Phone Milady Carmen MD Primary Care Provider + Encounter Details Date Type Department Care Team (Late st Contact Info) Description 03/30/2025 Lab Requisition [facility] - Main Lab [address] [place] [address] Cirilo Pugh MD [address] [place] [phone] Heart failure, unspecified (CMS/HCC V24, CMS/HCC V28) [...] LAB CHEMISTRY METHOD 04/01/2025 11:38 AM EDT [facility] Potassium 4.4 3.5 - 5.5 mmol/L LAB CHEMISTRY METHOD 04/01/2025 11:38 AM [facility] LAB Chloride 109 96 - 110 mmol/L LAB CHEMISTRY METHOD 04/01/2025 11:38 AM [facility] LAB CO2 23 21 - 32 mmol/L LAB CHEMISTRY METHOD 04/01/2025 11:38 AM [facility] LAB Anion Gap 5 3 - 11 LAB CHEMISTRY METHOD 04/01/2025 11:38 AM [facility] LAB Glucose 195(H) 70 - 100 mg/dL LAB CHEMISTRY METHOD 04/01/2025 11:38 AM [facility] LAB BUN 14 5 - 25 mg/dL LAB CHEMISTRY METHOD 04/01/2025 11:38 AM [facility] LAB Comment:Results verified by repeat testing Creatinine 0.72 0.50 - 1.10 mg/dL LAB CHEMISTRY METHOD 04/01/2025 11:38 AM [facility] LAB eGFR 93 >=60 mL/min/1. 73m2 LAB CHEMISTRY METHOD 04/01/2025 11:38 AM [facility] LAB Comment:Calculation based on the Chronic Kidney Disease Epidemiology Collaboration (CKD-EPI) equation refit without adjustment for race. BUN/Creatinine Ratio 19.4 LAB CHEMISTRY METHOD 04/01/2025 11:38 AM [facility] LAB Calcium 8.5 8.5 - 10.5 mg/dL LAB CHEMISTRY METHOD 04/01/2025 11:38 AM [facility] LAB Blood Venous blood specimen / Unknown Venipuncture / Unknown 04/01/2025 7:06 AM EDT 04/01/2025 10:10 AM EDT us Cirilo Pugh MD LAB BLOOD ORDERABLES Final Resu lt [facility] [address] [place] [address], * (ABNORMAL) Complete blood count (04/01/2025 7:06 AM EDT) [facility] WBC 5.1 4.8 - 10.8 K/mcL LAB HEMETOLOGY METHOD 04/01/2025 11:38 AM [facility] LAB RBC 3.20(L) 3.80 - 4.80 M/mcL LAB HEMETOLOGY METHOD 04/01/2025 11:38 AM T [facility] LAB Hemoglobin 7.9(L) 11.5 - 16.0 g/dL LAB HEMETOLOGY METHOD 04/01/2025 11:38 AM [facility] LAB Hematocrit 28.0(L) 35.0 - 47.0 % LAB HEMETOLOGY METHOD 04/01/2025 11:38 AM [facility] LAB MCV 87.5 79.0 - 98.0 FL LAB HEMETOLOGY METHOD 04/01/2025 11:38 AM [facility] LAB MCH 24.7(L) 27.0 - 32.0 pcg LAB HEMETOLOGY METHOD 04/01/2025 11:38 AM [facility] LAB MCHC 28.2(L) 32.0 - 37.0 g/dL LAB HEMETOLOGY METHOD 04/01/2025 11:38 AM [facility] LAB RDW 17.1(H) 11.0 - 15.0 % LAB HEMETOLOGY METHOD 04/01/2025 11:38 AM [facility] LAB Platelets 226 130 - 400 K/mcL LAB HEMETOLOGY METHOD 04/01/2025 11:38 AM [facility] LAB MPV 10.1 7.0 - 11.0 FL LAB HEMETOLOGY METHOD 04/01/2025 11:38 AM [facility] LAB NRBC 0.0 <1.0 % LAB HEMETOLOGY METHOD 04/01/2025 11:38 AM EDT [facility] LAB NRBC Absolute 0.00 <0.10 K/mcL LAB HEMETOLOGY METHOD 04/01/2025 11:38 AM EDT [facility] LAB Blood Venous blood specimen / Unknown Venipuncture / Unknown 04/01/2025 7:06 AM EDT 04/01/2025 10:09 AM EDT us Cirilo Pugh MD LAB BLOOD ORDERABLES Final Resu lt [facility] LAB [address] [place] [address], documented in this encounter Visit Diagnoses Diagnosis Heart failure, unspecified (CMS/HCC V24, CMS/HCC V28) Heart failure, unspecified documented in this encounter Care Teams Level Vial Sealer Relationship Specialty Start Date End Date Milady Carmen MD [address] [place] [phone] PCP - General Internal Medicine 07/02/25 documented as of this encounter
--- OUTSIDE RECORDS SUMMARY | 2025-10-03 16:14 | XMS_ITS | Clinical Summary ---
Author Organization [facility] Address [address] [place] [phone] Phone Care Team Providers Care Natural Sciences Manager Name Role Phone Milady Carmen MD [...] a schedule II opioid drug. 3 Active torsemide (DEMADEX) 20 MG tablet See Instructions, take 2 tablets (40mg) twice daily for 2 days After that, take 1 tablet (20mg) daily, # 45 tablet, 0 Refills, Maintenance, 04/16/25 12:41:00 PM EDT, [facility], Partial fill upon patient request if [...] time a day for HTN 5 Active metoprolol succinate XL (TOPROL XL) 25 MG 24 hr tablet Take 25 mg by mouth 1 (one) time each day Do not crush or chew. 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.LEFT Anemia 07/01/2023 07/01/2023 At increased risk of coronary heart disease 06/14 Binge eating disorder, unspecified 07/01/2023 Charcot's arthropathy 07/01/2023 07/01/2023 Methicillin resistant [...] Encounters Date Type Department Care Team Description 09/12/2025 Orders Only [facility] [address] [phone] Chery Yang ARNP Other iron deficiency anemia (Primary Dx); Anemia, not otherwise specified 08/07/2025 3:15 PM EDT Office Visit [facility] [address] [phone] Chery Yang ARNP Chronic kidney disease, not otherwise specified (Primary Dx); Hypertension; Anemia, not otherwise specified from Last 3 Months [...] Office Visit [facility] [address] [phone] Ha Velez MD [address] [facility] [address] [place] [address] Health Maintenance Due Date Last Done Comments [...] Procedure Name Priority Date/Time Associated Diagnosis Comments MAGNESIUM Routine 09/11/2025 11:02 AM EDT Chronic kidney disease, not otherwise specified Hypertension IRON PANEL (FE, TIBC, TSAT) Routine 09/11/2025 11:02 AM EDT Chronic kidney disease, not otherwise specified Hypertension FERRITIN Routine 09/11/2025 11:02 AM EDT Chronic kidney disease, not otherwise specified Hypertension CBC Routine 09/11/2025 11:02 AM EDT Chronic kidney disease, not otherwise specified Hypertension RENAL FUNCTION PANEL Routine 09/11/2025 11:02 AM EDT Chronic kidney disease, not otherwise specified Hypertension PTH, INTACT Routine 09/11/2025 11:02 AM EDT Chronic kidney disease, not otherwise specified Hypertension from Last 3 Months Results * (ABNORMAL) Iron Panel (Fe, TIBC, TSAT) (09/11/2025 11:02 AM EDT) TIBC 421 250 - 450 ug/dL [facility] UIBC 390(H) 118 - 369 ug/dL [facility] Iron 31 27 - 139 ug/dL [facility] Iron Saturation (TSat) 7(LL) 15 - 55 % [facility] Blood Venous blood / Unknown 09/11/2025 11:02 AM EDT 09/11/2025 Chery Yang [facility] LAB BLOOD ORDERABLES Final Result [facility] [address] [place] [address] * (ABNORMAL) CBC (09/11/2025 11:02 AM EDT) WBC 8.3 3.4 - 10.8 x10E3/uL [facility] RBC 4.42 3.77 - 5.28 x10E6/uL [facility] Hemoglobin 9.4(L) 11.1 - 15.9 g/dL [facility] Hematocrit 31.7(L) 34.0 - 46.6 % [facility] MCV 72(L) 79 - 97 fL [facility] MCH 21.3(L) 26.6 - 33.0 pg [facility] MCHC 29.7(L) 31.5 - 35.7 g/dL [facility] RDW 16.5(H) 11.7 - 15.4 % [facility] Platelets 256 150 - 450 x10E3/uL [facility] Blood Venous blood / Unknown 09/11/2025 11:02 AM EDT 09/11/2025 Chery [facility] LAB BLOOD ORDERABLES Final Result [facility] [address] [place] [address] * (ABNORMAL) PTH, intact (09/11/2025 11:02 AM EDT) PTH 91(H) 15 - 65 pg/mL [facility] Blood Venous blood / Unknown 09/11/2025 11:02 AM EDT 09/11/2025 Chery [facility] LAB BLOOD ORDERABLES Final Result Performing Organization Address City/[facility]/ZIP Co de Phone Number [facility] [address] [place] [address] * Magnesium (09/11/2025 11:02 AM EDT) Magnesium 2.0 1.6 - 2.3 mg/dL [facility] Blood Venous blood / Unknown 09/11/2025 11:02 AM EDT 09/11/2025 Chery [facility] LAB BLOOD ORDERABLES Final Result Performing Organization Address City/[facility]/ZIP Co de Phone Number [facility] [address] [place] [address] * Ferritin (09/11/2025 11:02 AM EDT) Ferritin 16 15 - 150 ng/mL [facility] Blood Venous blood / Unknown 09/11/2025 11:02 AM EDT 09/11/2025 Chery [facility] LAB BLOOD ORDERABLES Final Result [facility] [address] [place] [address] * (ABNORMAL) Renal function panel (09/11/2025 11:02 AM EDT) Glucose 136(H) 70 - 99 mg/dL [facility] BUN 29(H) 8 - 27 mg/dL [facility] Creatinine 0.88 0.57 - 1.00 mg/dL [facility] eGFR CKD-EPI CR 2020 72 >59 mL/min/1.7 3 [facility] BUN/Creatinine Ratio 33(H) 12 - 28 [facility] Sodium 140 134 - 144 mmol/L [facility] Potassium 3.6 3.5 - 5.2 mmol/L [facility] Chloride 100 96 - 106 mmol/L [facility] Bicarbonate (CO2) 26 20 - 29 mmol/L [facility] Calcium 9.1 8.7 - 10.3 mg/dL [facility] Albumin 3.7(L) 3.9 - 4.9 g/dL [facility] Phosphorus 3.6 3.0 - 4.3 mg/dL [facility] Blood Venous blood / Unknown 09/11/2025 11:02 AM EDT 09/11/2025 [facility] LAB BLOOD ORDERABLES Final Result [facility] [address] [place] [address] from Last [address] [place], [place] [address] Care Teams Natural Sciences Manager Relationship Specialty Start Date End Date Milady Carmen MD [address] [place] [phone] PCP - General Internal Medicine 04/22/25
--- OUTSIDE RECORDS SUMMARY | 2025-10-03 16:14 | XMS_ITS | Encounter Summary ---
Author Organization [facility] Address [address] [place] [address] Care Team Providers Care Data Security Consultant Name Role Phone Milady Carmen MD Primary Care Provider + Encounter Details Date Type Department Care Team (Late st Contact Info) Description 03/26/[address] [facility] - Main Lab [address] [facility] [place] [phone] Cirilo Pugh MD [address] [place] [phone] Heart failure, unspecified (CMS/HCC V24, CMS/HCC V28); [...] tube (03/26/2025 5:51 AM EDT) Pathologist [facility] Extra Tube Hold for add-ons. 03/26/2025 11:01 AM EDT [facility] Comment:Auto resulted. Blood Venous blood specimen / Unknown Venipuncture / Unknown 03/26/2025 5:51 AM EDT 03/26/2025 9:25 AM EDT Cirilo Pugh MD LAB BLOOD ORDERABLES Final Resu lt Performing Organization Address City/[facility]/ZIP Co de Phone Number [facility] [address] [place] [address], * (ABNORMAL) B-type natriuretic peptide (03/26/2025 5:51 AM EDT) [facility] BNP 275(H) <=100 pcg/mL LAB CHEMISTRY METHOD 03/26/2025 10:34 AM EDT [facility] Blood Venous blood specimen / Unknown Venipuncture / Unknown 03/26/2025 5:51 AM EDT 03/26/2025 8:58 AM EDT Cirilo Pugh MD LAB BLOOD ORDERABLES Final Resu lt [facility] [address] [place] [address], * (ABNORMAL) Basic metabolic panel (03/26/2025 5:51 AM EDT) Pathologist [facility] Sodium 135 133 - 145 mmol/L LAB CHEMISTRY METHOD 03/26/2025 9:53 AM EDT [facility] Potassium 5.8(H) 3.5 - 5.5 mmol/L LAB CHEMISTRY METHOD 03/26/2025 9:53 AM T [facility] Chloride 106 96 - 110 mmol/L LAB CHEMISTRY METHOD 03/26/2025 9:53 AM [facility] CO2 23 21 - 32 mmol/L LAB CHEMISTRY METHOD 03/26/2025 9:53 AM [facility] Anion Gap 6 3 - 11 LAB CHEMISTRY METHOD 03/26/2025 9:53 AM [facility] Glucose 294(H) 70 - 100 mg/dL LAB CHEMISTRY METHOD 03/26/2025 9:53 AM [facility] BUN 32(H) 5 - 25 mg/dL LAB CHEMISTRY METHOD 03/26/2025 9:53 AM [facility] Creatinine 1.27(H) 0.50 - 1.10 mg/dL LAB CHEMISTRY METHOD 03/26/2025 9:53 AM [facility] eGFR 47(L) >=60 mL/min/1. 73m2 LAB CHEMISTRY METHOD 03/26/2025 9:53 AM [facility] Comment:Calculation based on the Chronic Kidney Disease Epidemiology Collaboration (CKD-EPI) equation refit without adjustment for race. BUN/Creatinine Ratio 25.2 LAB CHEMISTRY METHOD 03/26/2025 9:53 AM [facility] Calcium 8.3(L) 8.5 - 10.5 mg/dL LAB CHEMISTRY METHOD 03/26/2025 9:53 AM [facility] Blood Venous blood specimen / Unknown Venipuncture / Unknown 03/26/2025 5:51 AM EDT 03/26/2025 8:58 AM EDT us Cirilo Pugh MD LAB BLOOD ORDERABLES Final Resu lt [facility] [address] [place] [address], * (ABNORMAL) Complete blood count (03/26/2025 5:51 AM EDT) [facility] WBC 5.7 4.8 - 10.8 K/mcL LAB HEMETOLOGY METHOD 03/26/2025 10:01 AM [facility] RBC 3.20(L) 3.80 - 4.80 M/mcL LAB HEMETOLOGY METHOD 03/26/2025 10:01 AM [facility] Hemoglobin 8.2(L) 11.5 - 16.0 g/dL LAB HEMETOLOGY METHOD 03/26/2025 10:01 AM [facility] Hematocrit 29.9(L) 35.0 - 47.0 % LAB HEMETOLOGY METHOD 03/26/2025 10:01 AM [facility] MCV 93.1 79.0 - 98.0 FL LAB HEMETOLOGY METHOD 03/26/2025 10:01 AM [facility] MCH 25.5(L) 27.0 - 32.0 pcg LAB HEMETOLOGY METHOD 03/26/2025 10:01 AM [facility] MCHC 27.4(L) 32.0 - 37.0 g/dL LAB HEMETOLOGY METHOD 03/26/2025 10:01 AM [facility] RDW 17.7(H) 11.0 - 15.0 % LAB HEMETOLOGY METHOD 03/26/2025 10:01 AM [facility] Platelets 239 130 - 400 K/mcL LAB HEMETOLOGY METHOD 03/26/2025 10:01 AM [facility] MPV 10.2 7.0 - 11.0 FL LAB HEMETOLOGY METHOD 03/26/2025 10:01 AM [facility] NRBC 0.0 <1.0 % LAB HEMETOLOGY METHOD 03/26/2025 10:01 AM EDT [facility] NRBC Absolute 0.00 <0.10 K/mcL LAB HEMETOLOGY METHOD 03/26/2025 10:01 AM EDT [facility] Blood Venous blood specimen / Unknown Venipuncture / Unknown 03/26/2025 5:51 AM EDT 03/26/2025 8:58 AM EDT us Cirilo Pugh MD LAB BLOOD ORDERABLES Final Resu lt [facility] [address] [place] [address], documented in this encounter Visit Diagnoses Diagnosis Heart failure, unspecified (CMS/HCC V24, CMS/HCC V28) Heart failure, unspecified Acute upper respiratory infection, unspecified documented in this encounter Care Teams Data Security Consultant Relationship Specialty Start Date End Date Milady Carmen MD [address] [place] [phone] PCP - General Internal Medicine 07/02/25 documented as of this encounter
--- OUTSIDE RECORDS SUMMARY | 2025-10-03 16:14 | XMS_ITS | Encounter Summary ---
Author Organization [facility] Address [address] [place] [address] Care Team Providers Care Evs Attendant Name Role Phone Milady Carmen MD Primary Care Provider + Encounter Details Date Type Department Care Team (Latest Contact Info) Description 03/18/2025 Lab Requisition [facility] - Main Lab [address] [place] [address] Cirilo Pugh MD [address] [place] [id number] Gastrointestinal hemorrhage, unspecified Social History Tobacco Use [...] AM EDT) WBC 6.3 4.8 - 10.8 K/[facility] LAB HEMETOLOGY METHOD 03/18/2025 1:55 PM [facility] LAB RBC 3.40(L) 3.80 - 4.80 M/mcL LAB HEMETOLOGY METHOD 03/18/2025 1:55 PM [facility] LAB Hemoglobin 8.5(L) 11.5 - 16.0 g/dL LAB HEMETOLOGY METHOD 03/18/2025 1:55 PM [facility] LAB Hematocrit 30.1(L) 35.0 - 47.0 % LAB HEMETOLOGY METHOD 03/18/2025 1:55 PM [facility] LAB MCV 89.3 79.0 - 98.0 FL LAB HEMETOLOGY METHOD 03/18/2025 1:55 PM [facility] LAB MCH 25.2(L) 27.0 - 32.0 pcg LAB HEMETOLOGY METHOD 03/18/2025 1:55 PM [facility] LAB MCHC 28.2(L) 32.0 - 37.0 g/dL LAB HEMETOLOGY METHOD 03/18/2025 1:55 PM [facility] LAB RDW 19.0(H) 11.0 - 15.0 % LAB HEMETOLOGY METHOD 03/18/2025 1:55 PM [facility] LAB Platelets 304 130 - 400 K/mcL LAB HEMETOLOGY METHOD 03/18/2025 1:55 PM [facility] LAB MPV 9.8 7.0 - 11.0 FL LAB HEMETOLOGY METHOD 03/18/2025 1:55 PM [facility] LAB NRBC 0.0 <1.0 % LAB HEMETOLOGY METHOD 03/18/2025 1:55 PM [facility] LAB NRBC Absolute 0.00 <0.10 K/mcL LAB HEMETOLOGY METHOD 03/18/2025 1:55 PM [facility] LAB Neutrophils Relative 54.4 % LAB HEMETOLOGY METHOD 03/18/2025 1:55 PM EDT [facility] LAB Lymphocytes Relative 31.9 % LAB HEMETOLOGY METHOD 03/18/2025 1:55 PM [facility] LAB Monocytes Relative 8.2 % LAB HEMETOLOGY METHOD 03/18/2025 1:55 PM [facility] LAB Eosinophils Relative 4.4 % LAB HEMETOLOGY METHOD 03/18/2025 1:55 PM [facility] LAB Basophils Relative 0.5 % LAB HEMETOLOGY METHOD 03/18/2025 1:55 PM [facility] LAB Immature Granulocytes Relative 0.6 % LAB HEMETOLOGY METHOD 03/18/2025 1:55 PM [facility] LAB Neutrophils Absolute 3.43 1.50 - 7.00 K/mcL LAB HEMETOLOGY METHOD 03/18/2025 1:55 PM [facility] LAB Lymphocytes Absolute 2.01 1.00 - 5.00 K/mcL LAB HEMETOLOGY METHOD 03/18/2025 1:55 PM [facility] LAB Monocytes Absolute 0.52 0.20 - 1.00 K/mcL LAB HEMETOLOGY METHOD 03/18/2025 1:55 PM [facility] LAB Eosinophils Absolute 0.28 0.00 - 0.50 K/mcL LAB HEMETOLOGY METHOD 03/18/2025 1:55 PM [facility] LAB Basophils Absolute 0.03 0.00 - 0.20 K/mcL LAB HEMETOLOGY METHOD 03/18/2025 1:55 PM [facility] LAB Immature Granulocytes Absolute 0.04(H) 0.00 - 0.03 K/mcL LAB HEMETOLOGY METHOD 03/18/2025 1:55 PM [facility] LAB Blood Venous blood specimen / Unknown Venipuncture / Unknown 03/18/2025 7:10 AM EDT 03/18/2025 11:32 AM EDT us Cirilo Pugh MD LAB BLOOD ORDERABLES Final Resu lt [facility] LAB [address] [place] [address], * (ABNORMAL) Basic metabolic panel (03/18/2025 7:10 AM EDT) Sodium 135 133 - 145 mmol/L LAB CHEMISTRY [facility] Potassium 4.2 3.5 - 5.5 mmol/L LAB CHEMISTRY METHOD 03/18/2025 1:28 PM [facility] LAB Chloride 98 96 - 110 mmol/L LAB CHEMISTRY METHOD 03/18/2025 1:28 PM [facility] LAB CO2 28 21 - 32 mmol/L LAB CHEMISTRY METHOD 03/18/2025 1:28 PM [facility] LAB Anion Gap 9 3 - 11 LAB CHEMISTRY METHOD 03/18/2025 1:28 PM [facility] LAB Glucose 291(H) 70 - 100 mg/dL LAB CHEMISTRY METHOD 03/18/2025 1:28 PM [facility] LAB BUN 49(H) 5 - 25 mg/dL LAB CHEMISTRY METHOD 03/18/2025 1:28 PM [facility] LAB Creatinine 1.39(H) 0.50 - 1.10 mg/dL LAB CHEMISTRY METHOD 03/18/2025 1:28 PM [facility] LAB eGFR 42(L) >=60 mL/min/1. 73m2 LAB CHEMISTRY METHOD 03/18/2025 1:28 PM [facility] LAB Comment:Calculation based on the Chronic Kidney Disease Epidemiology Collaboration (CKD-EPI) equation refit without adjustment for race. BUN/Creatinine Ratio 35.3 LAB CHEMISTRY METHOD 03/18/2025 1:28 PM [facility] LAB Calcium 8.6 8.5 - 10.5 mg/dL LAB CHEMISTRY METHOD 03/18/2025 1:28 PM EDT [facility] LAB Blood Venous blood specimen / Unknown Venipuncture / Unknown 03/18/2025 7:10 AM EDT 03/18/2025 11:32 AM EDT us Cirilo Pugh MD LAB BLOOD ORDERABLES Final Resu lt [facility] LAB [address] [place] [address], documented in this encounter Visit Diagnoses Diagnosis Gastrointestinal hemorrhage, unspecified documented in this encounter Care Teams Evs Attendant Relationship Specialty Start Date End Date Milady Carmen MD [address] [place] [id number] PCP - General Internal Medicine 07/02/25 documented as of this encounter
--- OUTSIDE RECORDS SUMMARY | 2025-10-03 16:14 | XMS_ITS | Clinical Summary ---
Author Organization [address] Address [address] [place] [address] Phone Care Team Providers Care Administrative Support Coordinator Name Role Phone Milady Carmen MD [...] Years (1 of 2 - PCV) 1978 RSV Immunization Adult Patients (1 - Risk 50-74 years 1-dose series) 2009 Zoster Vaccines (1 of 2) 2009 Cholesterol Screening (Lipid Panel) 01/10/2024 Hepatitis C [...] LAB CHEMISTRY METHOD 04/02/2025 10:28 AM EDT [facility] LAB Potassium 4.1 3.5 - 5.5 mmol/L LAB CHEMISTRY METHOD 04/02/2025 10:28 AM T [facility] LAB Chloride 112(H) 96 - 110 mmol/L LAB CHEMISTRY METHOD 04/02/2025 10:28 AM [facility] LAB CO2 25 21 - 32 mmol/L LAB CHEMISTRY METHOD 04/02/2025 10:28 AM [facility] LAB Anion Gap 6 3 - 11 LAB CHEMISTRY METHOD 04/02/2025 10:28 AM [facility] LAB Glucose 220(H) 70 - 100 mg/dL LAB CHEMISTRY METHOD 04/02/2025 10:28 AM [facility] LAB BUN 10 5 - 25 mg/dL LAB CHEMISTRY METHOD 04/02/2025 10:28 AM [facility] LAB Creatinine 0.80 0.50 - 1.10 mg/dL LAB CHEMISTRY METHOD 04/02/2025 10:28 AM [facility] LAB eGFR 82 >=60 mL/min/1. 73m2 LAB CHEMISTRY METHOD 04/02/2025 10:28 AM [facility] LAB Comment:Calculation based on the Chronic Kidney Disease Epidemiology Collaboration (CKD-EPI) equation refit without adjustment for race. BUN/Creatinine Ratio 12.5 LAB CHEMISTRY METHOD 04/02/2025 10:28 AM [facility] LAB Calcium 8.3(L) 8.5 - 10.5 mg/dL LAB CHEMISTRY METHOD 04/02/2025 10:28 AM [facility] LAB Blood Venous blood specimen / Unknown Venipuncture / Unknown 04/02/2025 5:41 AM EDT 04/02/2025 9:21 AM EDT us Cirilo Pugh MD LAB BLOOD ORDERABLES Final Resu lt [facility] LAB [address] [place] [address], [place] [phone] from Last 3 Months or Most Recently Relevant to Health Maintenance Insurance [facility] Member Subscriber Plan / Payer (Ef fective 2020-Present) Name:Yolanda Nash Relation to Subscriber:Self Name:Yolanda Nash Payer ID:[id number] Group ID:[id number] Type:Not on file Address: [place] [address] [address] [id number] Care Teams Administrative Support Coordinator Relationship Specialty Start Date End Date Milady Carmen MD [address] [place] [address] PCP - General Internal Medicine 07/02/25
--- OUTSIDE RECORDS SUMMARY | 2025-10-03 16:15 | XMS_ITS | Encounter Summary ---
Author Organization [facility] Address [address] [place] [address] Care Team Providers Care Director Of Architecture Name Role Phone Milady Carmen MD Primary Care Provider + Encounter Details Date Type Department Care Team (Latest Contact Info) Description 03/21/2025 Lab Requisition [facility] - Main Lab [address] [place] [address] Cirilo Pugh MD [address] [place] [phone] Type 2 diabetes mellitus without complications (CMS/HCC [...] AM EDT) WBC 6.1 4.8 - 10.8 K/[facility] LAB HEMETOLOGY METHOD 03/22/2025 7:46 AM EDT [facility] LAB RBC 3.10(L) 3.80 - 4.80 /[facility] LAB HEMETOLOGY METHOD 03/22/2025 7:46 AM [facility] LAB Hemoglobin 8.0(L) 11.5 - 16.0 g/dL LAB HEMETOLOGY METHOD 03/22/2025 7:46 AM [facility] LAB Hematocrit 27.9(L) 35.0 - 47.0 % LAB HEMETOLOGY METHOD 03/22/2025 7:46 AM [facility] LAB MCV 89.4 79.0 - 98.0 FL LAB HEMETOLOGY METHOD 03/22/2025 7:46 AM [facility] LAB MCH 25.6(L) 27.0 - 32.0 pcg LAB HEMETOLOGY METHOD 03/22/2025 7:46 AM [facility] LAB MCHC 28.7(L) 32.0 - 37.0 g/dL LAB HEMETOLOGY METHOD 03/22/2025 7:46 AM [facility] LAB RDW 18.1(H) 11.0 - 15.0 % LAB HEMETOLOGY METHOD 03/22/2025 7:46 AM [facility] LAB Platelets 244 130 - 400 K/mcL LAB HEMETOLOGY METHOD 03/22/2025 7:46 AM [facility] LAB MPV 9.7 7.0 - 11.0 FL LAB HEMETOLOGY METHOD 03/22/2025 7:46 AM [facility] LAB NRBC 0.0 <1.0 % LAB HEMETOLOGY METHOD 03/22/2025 7:46 AM [facility] LAB NRBC Absolute 0.00 <0.10 K/mcL LAB HEMETOLOGY METHOD 03/22/2025 7:46 AM [facility] LAB Blood Venous blood specimen / Unknown Venipuncture / Unknown 03/22/2025 4:36 AM EDT 03/22/2025 7:35 AM EDT us Rami A Ashkar MD LAB BLOOD ORDERABLES Final Resu lt [facility] [address] [place] [address], documented in this encounter Visit Diagnoses Diagnosis Type 2 diabetes mellitus without complications (CMS/HCC V24, CMS/HCC V28) documented in this encounter Care Teams Director Of Architecture Relationship Specialty Start Date End Date Milady Carmen MD [address] [place] [id number] PCP - General Internal Medicine 07/02/25 documented as of this encounter
--- OUTSIDE RECORDS SUMMARY | 2025-10-03 16:15 | XMS_ITS | Encounter Summary ---
Author Organization [facility] Address [address] [place] [address] Care Team Providers Care Technical Rep Name Role Phone Milady Carmen MD Primary Care Provider + Encounter Details Date Type Department Care Team (Late st Contact Info) Description 03/25/2025 Lab Requisition [facility] - Main Lab [address] [place] [address] Nelida Duarte PA [address] [facility] [address] [place] [phone] Heart failure, unspecified (CMS/HCC V24, CMS/HCC V28) [...] CHEMISTRY METHOD 03/25/2025 10:37 AM EDT [facility] LAB Potassium 5.2 3.5 - 5.5 mmol/L LAB CHEMISTRY METHOD 03/25/2025 10:37 AM [facility] LAB Chloride 111(H) 96 - 110 mmol/L LAB CHEMISTRY METHOD 03/25/2025 10:37 AM [facility] LAB CO2 24 21 - 32 mmol/L LAB CHEMISTRY METHOD 03/25/2025 10:37 AM [facility] LAB Anion Gap 5 3 - 11 LAB CHEMISTRY METHOD 03/25/2025 10:37 AM [facility] LAB Glucose 190(H) 70 - 100 mg/dL LAB CHEMISTRY METHOD 03/25/2025 10:37 AM [facility] LAB BUN 30(H) 5 - 25 mg/dL LAB CHEMISTRY METHOD 03/25/2025 10:37 AM [facility] LAB Creatinine 1.07 0.50 - 1.10 mg/dL LAB CHEMISTRY METHOD 03/25/2025 10:37 AM [facility] LAB eGFR 58(L) >=60 mL/min/1. 73m2 LAB CHEMISTRY METHOD 03/25/2025 10:37 AM [facility] LAB Comment:Calculation based on the Chronic Kidney Disease Epidemiology Collaboration (CKD-EPI) equation refit without adjustment for race. BUN/Creatinine Ratio 28.0 LAB CHEMISTRY METHOD 03/25/2025 10:37 AM [facility] LAB Calcium 8.3(L) 8.5 - 10.5 mg/dL LAB CHEMISTRY METHOD 03/25/2025 10:37 AM [facility] LAB Blood Venous blood specimen / Unknown Venipuncture / Unknown 03/25/2025 6:41 AM EDT 03/25/2025 9:24 AM EDT us Nelida VARGAS LAB BLOOD ORDERABLES Final Re sult [facility] LAB [address] [place] [address], * (ABNORMAL) Complete blood count (03/25/2025 6:41 AM EDT) [facility] WBC 5.3 4.8 - 10.8 K/mcL LAB HEMETOLOGY METHOD 03/25/2025 10:04 AM [facility] LAB RBC 3.30(L) 3.80 - 4.80 M/mcL LAB HEMETOLOGY METHOD 03/25/2025 10:04 AM [facility] LAB Hemoglobin 8.3(L) 11.5 - 16.0 g/dL LAB HEMETOLOGY METHOD 03/25/2025 10:04 AM [facility] LAB Hematocrit 29.9(L) 35.0 - 47.0 % LAB HEMETOLOGY METHOD 03/25/2025 10:04 AM [facility] LAB MCV 91.2 79.0 - 98.0 FL LAB HEMETOLOGY METHOD 03/25/2025 10:04 AM [facility] LAB MCH 25.3(L) 27.0 - 32.0 pcg LAB HEMETOLOGY METHOD 03/25/2025 10:04 AM [facility] LAB MCHC 27.8(L) 32.0 - 37.0 g/dL LAB HEMETOLOGY METHOD 03/25/2025 10:04 AM [facility] LAB RDW 17.4(H) 11.0 - 15.0 % LAB HEMETOLOGY METHOD 03/25/2025 10:04 AM [facility] LAB Platelets 252 130 - 400 K/mcL LAB HEMETOLOGY METHOD 03/25/2025 10:04 AM [facility] LAB MPV 10.3 7.0 - 11.0 FL LAB HEMETOLOGY METHOD 03/25/2025 10:04 AM [facility] LAB NRBC 0.0 <1.0 % LAB HEMETOLOGY METHOD 03/25/2025 10:04 AM EDT [facility] LAB NRBC Absolute 0.00 <0.10 K/mcL LAB HEMETOLOGY METHOD 03/25/2025 10:04 AM EDT [facility] LAB Blood Venous blood specimen / Unknown Venipuncture / Unknown 03/25/2025 6:41 AM EDT 03/25/2025 9:24 AM EDT us Nelida VARGAS LAB BLOOD ORDERABLES Final Re sult [facility] LAB [address] [place] [address], documented in this encounter Visit Diagnoses Diagnosis Heart failure, unspecified (CMS/HCC V24, CMS/HCC V28) Heart failure, unspecified documented in this encounter Care Teams Technical Rep Relationship Specialty Start Date End Date Milady Carmen MD [address] [place] [id number] PCP - General Internal Medicine 07/02/25 documented as of this encounter
== END 2025-10-03 11:33 | disposition home or self-care (01) ==
LOC: HO.ENCR 10:45
PROVIDERS: PCP Internal Medicine; Visit Provider Registered Nurse Diabetes Educator
DX: E11.9 Type 2 diabetes mellitus without complications (principal)

== ENCOUNTER 2025-10-03 10:45 | Outpatient (REF) | payer OTHER, SELFPAY ==
--- OUTSIDE RECORDS SUMMARY | 2025-09-27 23:59 | XMS_ITS | Continuity of Care Document ---
Author Organization [facility] Address [address] [place] [address]- Care Team Providers Care Gaming Investigator Name Role Phone Milady Carmen MD Primary Care Physician Encounter [facility] Date(s): 08/28/25 - 09/27/25 [facility] [place] [address] [place], [place] [address] Attending Physician: Admtr, Ar8 Admitting Physician: Admtr, ArWayne Referring Physician: Admtr, Ar8 Encounter Type: Triage Allergies, Adverse Reactions, Alerts Substance Criticality Severity Reaction Reaction Severity Status morphine Unable to assess criticality Persistent Mild rash all over face Active atorvastatin Myalgia Active metFORMIN 1 dizzy gas diarrhea cramps Active Kiwi Unable to assess criticality Unknown rash mouth lips red itchy Active dapagliflozin vaginal yeast infectio Active Cipro Unable to assess criticality Persistent Mild rash all over Active Levaquin Active 1Patient with dizzy, gas, diarrhea, stomach cramps Immunizations Given and Recorded Vaccine Date Status Refusal Reason SARS-CoV-2 (COVID-19) mRNA BNT-162b2 vac 04/14/21 Recorded SARS-CoV-2 (COVID-19) mRNA BNT-162b2 vac 03/23/21 Recorded tetanus/diphtheria/pertussis, acel(Tdap) 07/23/20 Given influenza virus vaccine, inactivated 06/28/16 Jose rded influenza virus vaccine, inactivated 07/01/15 Jose rded Medications acetaminophen 325 mg oral tablet 975 mg, By Mouth, Every 6 hours, PRN, Refills 0, Maintenance, Pain , Mild, 03/15/25 8:29:00 AM EDT, Partial fill upon patient request if the prescription is for a schedule II opioid drug. Start Date: 03/15/25 Status: Ordered Medication Dispense Status: Completed Total Allowed Fills: 1 Fills Dispensed: 0 Albuterol (Eqv-ProAir HFA) 90 mcg/inh inhalation aerosol 2 inhalation = 180 mcg, Inhalation, Every 6 hours, PRN as needed for shortness of breath or wheezing, # 18 Gm, 6 Refills, Maintenance, 08/28/25 11:47:00 AM EDT, Aerosol, [id number], Partial fill upon patient request if the prescription is for a schedule II opioid drug., 2 inhalation Inhalation Every 6 hours,PRN:as needed for shortness of breath or wheezing, 168, cm, 08/28/25 11:10:00 EDT, Height, 114.9, kg, 02/23/25 22:54:00 EDT, Dry Weight Start Date: 08/28/25 Status: Ordered Medication Dispense Status: Completed Quantity: 18.0 Unit: g Total Allowed Fills: 7 Fills Dispensed: 0 amLODIPine 5 mg oral tablet 1 tablet = 5 mg, By Mouth, Daily, # 30 tablet, 5 Refills, Maintenance, 07/31/25 3:49:00 PM EDT, Tablet, [facility], Partial fill upon patient request if the prescription is for a schedule II opioid drug., 168, cm, 07/16/25 10:23:00 EDT, Height, 114.9, kg, 02/23/25 22:54:00 EDT, Dry Weight Start Date: 07/31/25 Status: Ordered Medication Dispense Status: Completed Quantity: 30.0 Unit: tablet Total Allowed Fills: 6 Fills Dispensed: 0 aspirin 81 mg oral tablet, chewable 81 mg, By Mouth, Daily, Refills 0, Maintenance, 02/22/25 2:47:00 PM EDT, Partial fill upon patient request if the prescription is for a schedule II opioid drug. Start Date: 02/22/25 Status: Ordered Medication Dispense Status: Completed Total Allowed Fills: 1 Fills Dispensed: 0 docusate sodium 100 mg oral capsule 200 mg, 2, capsule, By Mouth, 2 times a day, Refills 0, Maintenance, 03/15/25 8:31:00 AM EDT, Partialfill upon patient request if the prescription is for a schedule II opioid drug. Start Date: 03/15/25 Status: Ordered Medication Dispense Status: Completed Total Allowed Fills: 1 Fills Dispensed: 0 famotidine 20 mg oral tablet 20 mg, By Mouth, Daily, Refills 0, Maintenance, 03/15/25 8:31:00 AM EDT, Partial fill upon patient request if the prescription is for a schedule II opioid drug. Start Date: 03/15/25 Status: Ordered Medication Dispense Status: Completed Total Allowed Fills: 1 Fills Dispensed: 0 finerenone 20 mg oral tablet 1 tablet = 20 mg, By Mouth, Daily, # 30 tablet, 6 Refills, Maintenance, 09/24/25 3:54:00 PM EST, Tablet, [facility], replaces eplerenone, 168, cm, 09/17/25 11:38:00 EST, Height, 114.9, kg, 02/23/25 22:54:00 EDT, Dry Weight Start Date: 09/24/25 Stop Date: 04/22/26 Status: Ordered Medication Dispense Status: Completed Quantity: 30.0 Unit: tablet Total Allowed Fills: 7 Fills Dispensed: 0 Indications: Heart failure, unspecified; gabapentin 800 mg oral tablet 1 tablet = 800 mg, By Mouth, Daily at bedtime, TAKE 1 TABLET BY MOUTH DAILY Start Date: 05/05/23 Status: Ordered Medication Dispense Status: Completed Total Allowed Fills: 1 Fills Dispensed: 0 melatonin 3 mg oral tablet = 3 mg, By Mouth, Daily at bedtime, PRN Insomnia, 0 Refills, Maintenance, 03/15/25 8:32:00 AM EDT, Tablet, Partial fill upon patient request if the prescription is for a schedule II opioid drug. Start Date: 03/15/25 Status: Ordered Medication Dispense Status: Completed Total Allowed Fills: 1 Fills Dispensed: 0 Metoprolol Succinate ER 25 mg oral tablet, extended release 25 mg, 1, tablet, By Mouth, Daily at bedtime, # 90 tablet, Refills 3, Tot. Refills 3, Maintenance, 05/03/25 11:31:00 AM EDT, Route to Pharmacy Electronically, [facility], Partial fill upon patient request if the prescription is for a schedule II opioid drug., 168, cm, 05/03/25 11:10:00 EDT, Height, 114.9, kg, 02/23/25 22:54:00 EDT, Dry Weight Start Date: 05/03/25 Status: Ordered Medication Dispense Status: Completed Quantity: 90.0 Unit: tablet Total Allowed Fills: 4 Fills Dispensed: 0 MiraLax oral powder for reconstitution = 17 Gm, By Mouth, Daily at bedtime, (dissolve in water or juice)\, # 527 Gm, 11 Refills, Maintenance, 04/30/25 11:45:00 AM EDT, [facility], Partial fill upon patient request if the prescription is for a schedule II opioid drug., 17 Gm By Mouth Daily at bedtime,Instr:(dissolve in water or juice)\, 168, cm, 04/30/25 10:52:00 EDT, Height, 114.9, kg, 02/23/25 22:54:00 EDT, Dry Weight Start Date: 04/30/25 Status: Ordered Medication Dispense Status: Completed Quantity: 527.0 Unit: g Total Allowed Fills: 12 Fills Dispensed: 0 Indications: Constipation, unspecified; omeprazole 20 mg oral enteric coated capsule See Instructions, TAKE 1 CAPSULE BY MOUTH DAILY FOR 30 DAYS NEEDED FOR DYSPEPSIA, # 30 capsule, 2 Refills, 04/29/22 12:38:00 PM EDT, [facility], 170, cm, 04/08/22 15:34:00 EDT, Height, 116.7, kg, 03/18/22 8:56:00 EDT, Dry Weight Start Date: 04/29/22 Status: Ordered Medication Dispense Status: Completed Quantity: 30.0 Unit: capsule Total Allowed Fills: 3 Fills Dispensed: 0 Robitussin DM Liquid 10 mL, By Mouth, Every 4 hours, PRN Cough, 0 Refills, Maintenance, 03/15/25 8:32:00 AM EDT, Syrup, Partial fill upon patient request if the prescription is for a schedule II opioid drug. Start Date: 03/15/25 Status: Ordered Medication Dispense Status: Completed Total Allowed Fills: 1 Fills Dispensed: 0 SAFETY LANCET 30G/PRESSURE ACT SAFETY LANCET 30G/PRESSURE ACT, See Instructions, # 200 each, 9 Refills, Maintenance, USE DIRECTED TO CHECK BLOOD SUGAR UP TO 5 TIMES PER DAY FOR TYPE 2 DIABETES E11.9, 08/14/25 5:06:00 PM EDT, 168, cm, 07/16/25 10:23:00 EDT, Height, 114.9, kg, 02/23/25 22:54:00 EDT, Dry Weight Start Date: 08/14/25 Status: Ordered Medication Dispense Status: Completed Quantity: 200.0 Unit: each Total Allowed Fills: 1 Fills Dispensed: 0 torsemide 20 mg oral tablet 2 tablet = 40 mg, By Mouth, 2 times a day, may take an additional 40mg twice daily when instructed by clinic. increased dose, # 140 tablet, 5 Refills, Maintenance, 04/25/25 1:58:00 PM [facility] dose, 168, cm, 04/10/25 10:11:00 EDT, Height, 114.9, kg, 02/23/25 22:54:00 EDT,Dry Weight Start Date: 04/25/25 Status: Ordered Medication Dispense Status: Completed Quantity: 140.0 Unit: tablet Total Allowed Fills: 6 Fills Dispensed: 0 traMADol 50 mg oral tablet 1 tablet = 50 mg, By Mouth, Every 12 hours, PRN for pain, # 30 tablet, 0 Refills, Maintenance, 03/27/25 11:57:00 AM EDT, Tablet, Partial fill upon patient request if the prescription is for a scheduleII opioid drug. Start Date: 03/27/25 Status: Ordered Medication Dispense Status: Completed Quantity: 30.0 Unit: tablet Total Allowed Fills: 1 Fills Dispensed: 0 traZODone 50 mg oral tablet 50 mg, By Mouth, Daily at bedtime, PRN, Refills 0, Maintenance, Insomnia, 03/15/25 8:31:00 AM EDT, Partial fill upon patient request if the prescription is for a schedule II opioid drug. Start Date: 03/15/25 Status: Ordered Medication Dispense Status: Completed Total Allowed Fills: 1 Fills Dispensed: 0 Vashe Topical Solution 475 mL, Topically, Every 12 hours, 0 Refills, Maintenance, Solution Start Date: 02/22/25 Status: Ordered Medication Dispense Status: Completed Total Allowed Fills: 1 Fills Dispensed: 0 Problem List Condition Confirmation Course Effective Dates Status H ealth Status Informant Amputation, below knee 1, 2 Confirmed Active Anemia Confirmed Active Cardiac risk 12% calcualted 2020 using 2020 lipids Confirmed 2020 Active Binge-eating disorder, mild Confirmed Active Charcot ankle Confirmed Active MRSA (methicillin resistant staph aureus) culture positive Confirmed Active Dysthymia Confirmed Active H/O tinnitus Confirmed Active (HFpEF) heart failure with preserved ejection fraction Confirmed Active S/P CABG x 4 Confirmed Active Hyperlipidemia Confirmed Active HTN (hypertension) Confirmed Active Microalbuminuria Confirmed Active Anxiety and depression Confirmed Active Myalgia due to statin 3 Confirmed Active Obesity 4 Confirmed Active DAVEY (obstructive sleep apnea) Confirmed Active Open wound Confirmed Active *Loren Nava [facility] Signal Manager [phone]/Health chcf, active care coordination/Health chcf, active care coordination Confirmed Active Postmenopausal bleeding Confirmed Active Diabetic retinopathy 5 Confirmed Active Severe obesity (BMI 35.0-39.9) with comorbidity Confirmed Active Tobacco dependence due to cigarettes Confirmed Active Diabetes mellitus Confirmed Active 1per vascualr note fall 2019, done in [place] for progressive Charcot foot deformity and 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. 2LEFT 3per - note 4Initial Weight 02/09/16 237.6 lbs. 5Per patient, diagnosed at eye doctor December 2020 Social History Social History Type Response Sexual Other sexual concern s: . Tobacco Other: Quit Smoking in 2007. Sex Sex Representation Female (finding) Patient Care team information Care Team Personnel Name: Dee Dailey RN Position: [facility] RN Member Role: Primary Care Nurse Name: Eveline Velazquez NP Position: [facility] Associate Professional Member Role: Primary Care Nurse Address: [address] [place] [address] [place] [address]- Telecom: Name: Viktoriya Vega RN Position: [facility] RN Member Role: Primary Care Nurse Name: Milady Carmen MD Position: [facility] Physician - Primary Care Member Role: PCP Address: [address] [place] [address]- Telecom: Name: Mercy Raymond RN Position: [facility] RN Member Role: Primary Care Nurse Name: Audra Rincon RN Position: [facility] RN Member Role: Primary Care Nurse Name: Chiqui Damon RN Position: [facility] RN Supv Member Role: Primary Care Nurse Name: Billy Smith RN Position: [facility] RN Member Role: Primary Care Nurse Name: Antonia Mak RN Position: [facility] RN Member Role: Primary Care Nurse Name: Erika Watkins RN Position: [facility] RN Member Role: Primary Care Nurse Name: Cassidy Cerrato Position: [facility] RN Supv Member Role: Primary Care Nurse Name: Gregoria Fair RN Position: [facility] RN Member Role: Primary Care Nurse Name: Chery Ledesma RN Position: [facility] ED RN W/OE and Tasks Member Role: Primary Care Nurse Name: Terence Vazquez RN Position: [facility] RN Member Role: Primary Care Nurse Name: Kat Karimi RN Position: [facility] RN Member Role: Primary Care Nurse Name: Umair Wlaton RN Position: [facility] RN Member Role: Primary Care Nurse Name: Tavon Ny III, RN Position: [facility] RN Member Role: Primary Care Nurse Name: Shavonne Jarvis MD Position: [facility] Renal MD Member Role: Lifetime Consulting Physician Address: [address] [facility] Telecom: Name: Dino Webster MD Position: [facility] Renal MD Member Role: Lifetime Consulting Physician Address: [address] [facility] [address] [facility] [address] Telecom: Name: Ivis Jones RN Position: [facility] RN Member Role: Primary Care Nurse Name: Juan Zepeda RN Position: [facility] RN Member Role: Primary Care Nurse Name: Mila Lai RN Position: [facility] RN Member Role: Primary Care Nurse Name: Rossy Larson RN Position: [facility] AMB Nurse Member Role: Primary Care Nurse Name: Chas Calvo MD Position: [facility] Renal MD Member Role: Lifetime Consulting Physician Address: [address] [facility] [address] [facility] [address] Telecom: Name: Kristi Sánchez RN Position: [facility] RN Member Role: Primary Care Nurse Name: Neftaly Philippe RN Position: S RN Member Role: Primary Care Nurse Name: Randi Collins RN Position: S RN Member Role: Primary Care Nurse Name: Angela Izaguirre RN Position: S RN Member Role: Primary Care Nurse Care Team Related Persons Name: GATITO SANTIAGO Name: JOSÉ MIGUEL SHARP Name: MILADY ANG Name: ZOHAIB MAX Insurance Providers Guarantor name: VIJAY MANSOOR [facility] Health Plan Information #: 1 Payer: [facility] Payer Identifier: Member Number: [id number] Group Number: [id number] Subscriber Identifier: NA Relationship to Subscriber: self Coverage Type: Medicare Managed Care (Includes Medicare Advantage Plans) Coverage Verification Date: NA Telecom: NA Address: NA [facility] Information #: 2 Payer: [facility] Payer Identifier: NA Member Number: [id number] Group Number: [id number] Subscriber Identifier: NA Relationship to Subscriber: self Coverage Type: Medicare Managed Care (Includes Medicare Advantage Plans) Coverage Verification Date: NA Telecom: NA Address: NA
[2025-10-03 13:21] LABS: Cholesterol 124 mg/dL (<200); HDL Cholesterol 38 mg/dL (>40); Triglycerides 196 mg/dL (<150)
[2025-10-03 13:59] LABS: Microalbum/Creatinine Ratio Ur 18.6 ug/mg cr (<30)
== END 2025-10-03 10:46 | disposition home or self-care (01) ==
LOC: HO.LAB 10:45
PROVIDERS: Internal Medicine Endocrinology, Diabetes & Metabolism; PCP Internal Medicine; Visit Provider Registered Nurse Diabetes Educator
DX: E11.9 Type 2 diabetes mellitus without complications (principal); Z79.4 Long term (current) use of insulin
CPT/HCPCS: 36415; 80061; 82043; 82570; 99211

== ENCOUNTER 2025-10-21 11:07 | Outpatient (AMB) | payer OTHER, SELFPAY ==
--- NOTE | 2025-10-21 11:11 | A.OFFVIS_ITS ---
Vital Signs 10/21/25 11:18 Height 5 ft 6 in Weight 250 lb 7.122 oz BMI 40.4 BP 134/56 L Blood Pressure Location Rt brachial Position Sitting Pulse 81 Pulse Source Pulse Oximeter Pulse Oximetry (%) 97 Oxygen Delivery Method Room Air Intake Visit Reasons: DMT2/ Pump Patient Intake Note: Patient present today to follow up on Type 2 Diabetes Mellitus. Patient receives Tandem and Dexcom G7 supplies through: [employer] Last Diabetic Eye exam: Over Due, patient states she has to make an appointment. Last Podiatry Visit: Does not see a Spray Foam Installer Random Glucose: 203 mg/dl HgA1C: 8.3% 10/21/2025 Senior Hardware Design Engineer Required: Yes Senior Hardware Design Engineer Language: [employer] Services: Senior Hardware Design Engineer Present Senior Hardware Design Engineer Name: [facility] Information Interpreted: non-clinical & clinical Accompanied by: Self / Same As Patient Allergies ciprofloxacin Allergy (Severe, Verified 10/21/25 11:16) Anaphylaxis kiwi Allergy (Severe, Verified 10/21/25 11:16) Angioedema morphine Allergy (Intermediate, Verified 10/21/25 11:16) Itching atorvastatin (From Lipitor) Adverse Reaction (Mild, Verified 10/21/25 11:16) myalgia metformin Adverse Reaction (Mild, Verified 10/21/25 11:16) Abdominal Pain Medication List - Last Reconciled 10/21/25 by Tavon Corrales MD acetaminophen 650 mg PO Q6H PRN acetone (urine) test (Ketone Urine Test strips) As directed: When should you test for ketones? It is advisable to check for ketones under the following conditions when: Your blood glucose is higher than 250mg/dl. Feeling nauseated, throwing up, or have pains in your abdominal region. Have a cold or flu. Have general body fatigue. Feel thirsty or have a very dry mouth. Have flushed skin. Have a fruity breath or a hard time breathing. You feel perplexed or in fog. albuterol sulfate 90 mcg/actuation 2 puffs inhalation Q4-6H PRN blood sugar diagnostic (FreeStyle Lite Strips) As directed blood-glucose meter (FreeStyle Lite Meter kit) As directed blood-glucose sensor (Dexcom G7 Sensor device) As directed change every 10 days cholecalciferol (vitamin D3) 25 mcg PO DAILY 1 month diclofenac sodium 1% 2 grams topical TID PRN diphenhydramine HCl 2% (Benadryl) 1 appl topical TID PRN fexofenadine 180 mg PO DAILY fluticasone furoate-vilanterol 100-25 mcg/dose (Breo Ellipta) 1 ea inhalation DAILY fluticasone propionate 50 mcg/actuation 1 spray intranasal BID PRN gabapentin 800 mg PO BID glucagon 3 mg/actuation (Baqsimi) 3 mg intranasal .prn PRN 30 days MDD 6mg hydroxyzine pamoate 1 cap PO TID PRN insulin aspart U-100 (Novolog U-100 Insulin aspart) up to 150 units per day via continuous infusion via continuous subcutaneous infusion every morning; 30 days MDD 150 units insulin glargine (Lantus U-100 Insulin) 50 units (0.5 mL) subcut BID insulin lispro (Humalog KwikPen U-200 Insulin) Humalog U 200, infuse up to 180 units per day via insulin pump, subcutaneously; ipratropium-albuterol 0.5 mg-3 mg(2.5 mg base)/3 mL 3 mL inhalation RQ4H WHILE AWAKE lisinopril 20 mg PO DAILY metoprolol succinate ER 100 mg PO DAILY montelukast 10 mg PO DAILY naproxen 375 mg PO DAILY PRN olopatadine 0.1% 1 drp ophthalmic (eye) BID PRN omeprazole 1 cap PO DAILY@0630 spironolactone 25 mg PO DAILY tirzepatide (Mounjaro) 10 mg (0.5 mL) subcut QWEEK trazodone 50 mg PO BEDTIME HPI Comments Details: 64 year old female presents for f/u visit for type 2 diabetes. Initially diagnosed with T2DM in 1980 with gestational . Was initially started on treatment with insulin while in [place]. 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 She has been seen by the Bariatric Surgeon at [facility] earlier this year and followed the diet for 1 week but had difficulties with this. She had a CABG x4 at [facility] and had a complicated postoperative stay including multiple ICU stays. She was in a coma for part of this time. Went to rehab afterwards and was rehospitalized with a lower GI bleed. Current regimen: Mounjaro 10 mg weekly Back up pump failure plan Lantus 50 units daily takes daily in addition to pump Novolog 15-20 units tid T- Slim X2 Dexcom average glucose: 270 14 day continuous glucose monitor report reviewed Glucose Managment indicator Days with CGM data 34 % TIme in ranges: 55 % very high (above 250) 30 % high ?(181-250) 15 % in range ?(70-180] 0 % low (69-55) 0 % ?very low (below 54) Interpretation post-breakfast AND POST DINNER elevation with persistent elevation throughout the day Total daily dose of insulin 164.8 60% basal 98 units 40 % bolus 666units Total carbs 120 Control IQ 90% of the time manual 16 occasional hypoglycemia - if doesn't eat dinner Basal rate 00:00 to 06:00 equals 3.0 units/hour, 06:00 to 00:00 3.75 units prior Bolus setting Insulin Carbohydrate Ratio (s) 12 AM? to 6AM? 1:6 6A= 1:4 Correction Factor / Sensitivity Factor 12 AM? to 12 AM? 20Active Insulin Time:?5 hours Target(s): 12 AM? to 12 AM? 110 mg/dL Last eye exam: 1 wks ago appt has had injections in the past but she reports last exam no rx needed Nephropathy: None Neuropathy: on gabapentin no numbness, tingling, cramping podiatry: HLD:not on statin had myalgias to atorvastatin, last LDL 99 measured 2024 on 04/17/24 CHF: Followed by Cardiology has CABG x4 [facility] with complications post op Followed by GI Medicine Was hospitalized at [facility] because of hyperglycemia pt states due to [place] Medical History (Updated 05/03/25 @ 14:11 by Destinee Drake NP) Lower GI bleed CAD (coronary artery disease) Type 2 diabetes mellitus Asthma-COPD overlap syndrome Chronic diastolic CHF (congestive heart failure) HTN (hypertension) Morbid obesity Carpal tunnel syndrome GERD (gastroesophageal reflux disease) Insomnia Neuropathy Sleep apnea Insulin dependent type 2 diabetes mellitus HLD (hyperlipidemia) Diabetes mellitus Surgical History S/P S/P cholecystectomy Below-knee amputation of left lower extremity Family History Mother Dementia Diabetes Father Dementia Diabetes Social History Household Members: Children Housing: Apartment Do you presently have visiting nurse or other home services: No Alcohol intake: never Comment: D/C to home Patient Tobacco Use Status: Former Tobacco user Advance Directives Date on File: 03/07/24 service: No Physical Exam Vital Signs: Last Vital Signs Pulse 81 10/21/25 11:18 BP 134/56 L 10/21/25 11:18 Pulse Ox 97 10/21/25 11:18 Oxygen Delivery Method Room Air 10/21/25 11:18 BMI result Body Mass Index 40.4 Const Other: Absence of Cushingoid features. Absence of acromegalic features. Neck exam reveals nl size thyroid about 15 gms. No thyroid nodules palpable. Heart S1 S2, Reg R/R. No M/R G. Skin exam reveals absence of vitiligo or acanthosis nigricans. Trace edema. Foot exam R LE with compression stocking. L BKA with prostesis No skin breakdown. There was vibratory loss by tuning fork examination. There are sensory loss by monofilament examination Results AMB Hemoglobin A1c AMB Hemoglobin A1c 8.3 % Last Edit by PAULINO Robertson on 10/21/25 11:46 Results Reviewed Results Reviewed: Laboratory Last Values Glucose (Clinic) 203 mg/dL (60-115) H 10/21/25 11:21 Hgb A1c (Clinic) 8.3 % (4.0-6.0) H 10/21/25 11:26 Assessment & Plan Assessment & Plan (1) Insulin dependent type 2 diabetes mellitus: Code(s): E11.9 - Type 2 diabetes mellitus without complications; Z79.4 - detention (current) use of insulin Category: Medical Plan: This is a 64-year-old female with a history of type 2 diabetes being treated with Mounjaro and an insulin pump T-slim X 2 with poor worsened glycemic control and known microvascular macrovascular complications namely retinopathy, neuropathy and CAD status post CABG Plan is to tighten the insilin/carb to 1:5 at 12 AM and 1:3 at 6 AM and correction factor at 12 A to 1:18 and 6A to 1:12 She is going to f/u with CDE next wk. 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
[2025-10-21 11:18] VITALS: BP 134/56; PULSE 81; O2SAT 97; BMI 40.4
[2025-10-21 11:28] LABS: Glucose, Whole Blood 203 mg/dL (60-115)
== END 2025-10-21 11:44 | disposition home or self-care (01) ==
LOC: HO.ENCR 11:07
PROVIDERS: PCP Internal Medicine; Visit Provider Internal Medicine Endocrinology, Diabetes & Metabolism
DX: E11.9 Type 2 diabetes mellitus without complications (principal); Z79.4 Long term (current) use of insulin
CPT/HCPCS: 99214

== ENCOUNTER → 2025-10-21 11:07 | Outpatient (BNVA) | payer OTHER, SELFPAY | PROVIDERS: PCP Internal Medicine; Visit Provider Internal Medicine Endocrinology, Diabetes & Metabolism | DX: E11.65 Type 2 diabetes mellitus with hyperglycemia (principal); Z96.41 Presence of insulin pump (external) (internal); Z79.85 Long-term (current) use of injectable non-insulin antidiabetic drugs; Z87.891 Personal history of nicotine dependence; E66.9 Obesity, unspecified; Z68.41 Body mass index [BMI] 40.0-44.9, adult | CPT/HCPCS: 82947; 83036; 99212 ==

== ENCOUNTER 2025-10-30 10:55 | Outpatient (AMB) | payer OTHER, SELFPAY ==
--- NOTE | 2025-10-30 11:26 | MHC.AMDMED ---
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: No Accompanied by: Self / Same As Patient Allergies ciprofloxacin Allergy (Severe, Verified 10/21/25 11:16) Anaphylaxis kiwi Allergy (Severe, Verified 10/21/25 11:16) Angioedema morphine Allergy (Intermediate, Verified 10/21/25 11:16) Itching atorvastatin (From Lipitor) Adverse Reaction (Mild, Verified 10/21/25 11:16) myalgia metformin Adverse Reaction (Mild, Verified 10/21/25 11:16) Abdominal Pain HPI Comprehensive Diabetes Asmnt Most Recent Diabetes Results: Microalb/Creat Ratio, (<30) 18.6 ug/mg cr 10/03/25 Cholesterol, (<200) 124 mg/dL 10/03/25 HDL Cholesterol, (>40) 38 mg/dL L 10/03/25 Triglycerides, (<150) 196 mg/dL H 10/03/25 [facility] Medical History (Updated 05/03/25 @ 14:11 by Destinee Drake NP) Lower GI bleed CAD (coronary artery disease) Type 2 diabetes mellitus Asthma-COPD overlap syndrome Chronic diastolic CHF (congestive heart failure) HTN (hypertension) Morbid obesity Carpal tunnel syndrome GERD (gastroesophageal reflux disease) Insomnia Neuropathy Sleep apnea Insulin dependent type 2 diabetes mellitus HLD (hyperlipidemia) Diabetes mellitus Surgical History S/P S/P cholecystectomy Below-knee amputation of left lower extremity Family History Mother Dementia Diabetes Father Dementia Diabetes Social History Household Members: Children Housing: Apartment Do you presently have visiting nurse or other home services: No Alcohol intake: never Comment: D/C to home Patient Tobacco Use Status: Former Tobacco user Advance Directives Date on File: 03/07/24 service: No Assessment & Plan Assessment & Plan (1) Insulin dependent type 2 diabetes mellitus: Code(s): E11.9 - Type 2 diabetes mellitus without complications; 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 Tandem ID: [email or web address] The following topics were reviewed today: -importance of accurately entering carbohydrate -Humalog U 100 versus Humalog U 200 Patient continues NovoLog U 100. At today's visit we called patient's pharmacy to confirm that she could package pick up Humalog U 200. Pharmacist confirm that patient will be able to package pick up new prescription today Patient's average glucose has improved but still remains above target. Patient is not consistently entering carbohydrates into insulin pump when eating which is causing postprandial hyperglycemia Encourage patient to always add carbohydrates before eating into insulin pump. If she forgets to enter carbs prior to meal, she can always add manual correction after meal. Do not add carbohydrates more than 30 minutes post meal Patient's pump is in warranty through January 2028, so at this time patient will need to stick with T slim Patient understands the basic concepts of pump therapy, how to give insulin for meals and snacks, how to troubleshoot for hyper and hypoglycemia. Setting verified by CDCES, No changes to insulin pump settings Basal rate(s) (units/hour) : 12 AM? to 6 AM? 3.0 units / hr 6 AM to 12 AM 3.75 units / hr Bolus setting Insulin Carbohydrate Ratio (s) 12 AM? to 12 AM? 1:5 6 AM to 12 AM 1:3 Correction Factor / Sensitivity Factor 12 AM? to 12 AM? 1:18 6 AM to 12 AM 1:12 Coding Level of Care Code Est Pt Level 1 (30215) Diagnoses Insulin dependent type 2 diabetes mellitus E11.9; Z79.4
--- OUTSIDE RECORDS SUMMARY | 2025-10-30 14:13 | XMS_ITS | Clinical Summary ---
Author Organization [address] Address [address] [place] [address] Phone Care Team Providers Care Salvage Mechanic Name Role Phone Milady Carmen MD Primary [...] LAB CHEMISTRY METHOD 04/02/2025 10:28 AM EDT [facility] Potassium 4.1 3.5 - 5.5 mmol/L LAB CHEMISTRY METHOD 04/02/2025 10:28 AM T [facility] Chloride 112(H) 96 - [...] MD LAB BLOOD ORDERABLES Final Resu lt [facility] [address] [place] [address], [place] [phone] from Last 3 Months or Most Recently Relevant to Health Maintenance Insurance [facility] Member Subscriber Plan / Payer (Ef fective 2020-Present) Name:Yolanda Nash Relation to Subscriber:Self Name:Yolanda Nash Payer ID:[id number] Group ID:[id number] Type:Not on file Address: [place] [address] [address] [id number] Care Teams Salvage Mechanic Relationship Specialty Start Date End Date Milady Carmen MD [address] [place] [address] PCP - General Internal Medicine 07/02/25
--- OUTSIDE RECORDS SUMMARY | 2025-10-30 14:13 | XMS_ITS | Encounter Summary ---
Author Organization [facility] Address [address] [place] [address] Care Team Providers Care Sociology Research Assistant Name Role Phone Milady Carmen MD Primary Care Provider + Encounter Details Date Type Department Care Team (Late st Contact Info) Description 03/26/[address] [facility] - Main Lab [address] [facility] [place] [phone] Cirilo Pugh MD [address] [place] [phone] Heart failure, unspecified (CMS/HCC V24, CMS/HCC V28); [...] SST tube (03/26/2025 5:51 AM EDT) Pathologist [facility] Extra Tube Hold for add-ons. 03/26/2025 11:01 AM EDT [facility] Comment:Auto resulted. Blood Venous blood specimen / Unknown Venipuncture / Unknown 03/26/2025 5:51 AM EDT 03/26/2025 9:25 AM EDT Cirilo Pugh MD LAB BLOOD ORDERABLES Final Resu lt Performing Organization Address City/[facility]/ZIP Co de Phone Number [facility] [address] [place] [address], * (ABNORMAL) B-type natriuretic peptide (03/26/2025 5:51 AM EDT) [facility] BNP 275(H) <=100 pcg/mL LAB CHEMISTRY METHOD 03/26/2025 10:34 AM EDT [facility] Blood Venous blood specimen / Unknown Venipuncture / Unknown 03/26/2025 5:51 AM EDT 03/26/2025 8:58 AM EDT Cirilo Pugh MD LAB BLOOD ORDERABLES Final Resu lt [facility] [address] [place] [address], * (ABNORMAL) Basic metabolic panel (03/26/2025 5:51 AM EDT) Pathologist [facility] Sodium 135 133 - 145 mmol/L LAB CHEMISTRY METHOD 03/26/2025 9:53 AM EDT [facility] Potassium 5.8(H) 3.5 - 5.5 mmol/L LAB CHEMISTRY METHOD 03/26/2025 9:53 AM T [facility] Chloride 106 96 - 110 mmol/L LAB CHEMISTRY METHOD 03/26/2025 9:53 AM [facility] CO2 23 21 - 32 mmol/L LAB CHEMISTRY METHOD 03/26/2025 9:53 AM [facility] Anion Gap 6 3 - 11 LAB CHEMISTRY METHOD 03/26/2025 9:53 AM [facility] Glucose 294(H) 70 - 100 mg/dL LAB CHEMISTRY METHOD 03/26/2025 9:53 AM [facility] BUN 32(H) 5 - 25 mg/dL LAB CHEMISTRY METHOD 03/26/2025 9:53 AM [facility] Creatinine 1.27(H) 0.50 - 1.10 mg/dL LAB CHEMISTRY METHOD 03/26/2025 9:53 AM [facility] eGFR 47(L) >=60 mL/min/1. 73m2 LAB CHEMISTRY METHOD 03/26/2025 9:53 AM [facility] Comment:Calculation based on the Chronic Kidney Disease Epidemiology Collaboration (CKD-EPI) equation refit without adjustment for race. BUN/Creatinine Ratio 25.2 LAB CHEMISTRY METHOD 03/26/2025 9:53 AM [facility] Calcium 8.3(L) 8.5 - 10.5 mg/dL LAB CHEMISTRY METHOD 03/26/2025 9:53 AM [facility] Blood Venous blood specimen / Unknown Venipuncture / Unknown 03/26/2025 5:51 AM EDT 03/26/2025 8:58 AM EDT us Cirilo Pugh MD LAB BLOOD ORDERABLES Final Resu lt [facility] [address] [place] [address], * (ABNORMAL) Complete blood count (03/26/2025 5:51 AM EDT) [facility] WBC 5.7 4.8 - 10.8 K/mcL LAB HEMETOLOGY METHOD 03/26/2025 10:01 AM [facility] RBC 3.20(L) 3.80 - 4.80 M/mcL LAB HEMETOLOGY METHOD 03/26/2025 10:01 AM [facility] Hemoglobin 8.2(L) 11.5 - 16.0 g/dL LAB HEMETOLOGY METHOD 03/26/2025 10:01 AM [facility] Hematocrit 29.9(L) 35.0 - 47.0 % LAB HEMETOLOGY METHOD 03/26/2025 10:01 AM [facility] MCV 93.1 79.0 - 98.0 FL LAB HEMETOLOGY METHOD 03/26/2025 10:01 AM [facility] MCH 25.5(L) 27.0 - 32.0 pcg LAB HEMETOLOGY METHOD 03/26/2025 10:01 AM [facility] MCHC 27.4(L) 32.0 - 37.0 g/dL LAB HEMETOLOGY METHOD 03/26/2025 10:01 AM [facility] RDW 17.7(H) 11.0 - 15.0 % LAB HEMETOLOGY METHOD 03/26/2025 10:01 AM [facility] Platelets 239 130 - 400 K/mcL LAB HEMETOLOGY METHOD 03/26/2025 10:01 AM [facility] MPV 10.2 7.0 - 11.0 FL LAB HEMETOLOGY METHOD 03/26/2025 10:01 AM [facility] NRBC 0.0 <1.0 % LAB HEMETOLOGY METHOD 03/26/2025 10:01 AM EDT [facility] NRBC Absolute 0.00 <0.10 K/mcL LAB HEMETOLOGY METHOD 03/26/2025 10:01 AM EDT [facility] Blood Venous blood specimen / Unknown Venipuncture / Unknown 03/26/2025 5:51 AM EDT 03/26/2025 8:58 AM EDT us Cirilo Pugh MD LAB BLOOD ORDERABLES Final Resu lt [facility] [address] [place] [address], documented in this encounter Visit Diagnoses Diagnosis Heart failure, unspecified (CMS/HCC V24, CMS/HCC V28) Heart failure, unspecified Acute upper respiratory infection, unspecified documented in this encounter Care Teams Sociology Research Assistant Relationship Specialty Start Date End Date Milady Carmen MD [address] [place] [address] PCP - General Internal Medicine 07/02/25 documented as of this encounter
--- OUTSIDE RECORDS SUMMARY | 2025-10-30 14:13 | XMS_ITS | Encounter Summary ---
Author Organization [facility] Address [address] [place] [address] Care Team Providers Care Pelletizer Tender Name Role Phone Milady Carmen MD Primary Care Provider + Encounter Details Date Type Department Care Team (Late st Contact Info) Description 04/03/2025 Lab Requisition [facility] - Main Lab [address] [place] [address] Cirilo Pugh MD [address] [place] [phone] Anemia, unspecified Social History Tobacco Use Types [...] LAB HEMETOLOGY METHOD 04/03/2025 10:51 AM EDT [facility] RBC 3.20(L) 3.80 - 4.80 M/[facility] LAB HEMETOLOGY METHOD 04/03/2025 10:51 AM EDT [facility] Hemoglobin 7.9(L) 11.5 - 16.0 g/dL LAB HEMETOLOGY METHOD 04/03/2025 10:51 AM EDT [facility] Hematocrit 28.2(L) 35.0 - 47.0 % LAB HEMETOLOGY METHOD 04/03/2025 10:51 AM EDT [facility] MCV 88.1 79.0 - 98.0 FL LAB HEMETOLOGY METHOD 04/03/2025 10:51 AM EDT [facility] MCH 24.7(L) 27.0 - 32.0 pcg LAB HEMETOLOGY METHOD 04/03/2025 10:51 AM EDT [facility] MCHC 28.0(L) 32.0 - 37.0 g/dL LAB HEMETOLOGY METHOD 04/03/2025 10:51 AM [facility] RDW 16.6(H) 11.0 - 15.0 % LAB HEMETOLOGY METHOD 04/03/2025 10:51 AM EDT [facility] Platelets 215 130 - 400 K/mcL LAB HEMETOLOGY METHOD 04/03/2025 10:51 AM T [facility] MPV 10.0 7.0 - 11.0 FL LAB HEMETOLOGY METHOD 04/03/2025 10:51 AM [facility] NRBC 0.0 <1.0 % LAB HEMETOLOGY METHOD 04/03/2025 10:51 AM EDT [facility] NRBC Absolute 0.00 <0.10 K/mcL LAB HEMETOLOGY METHOD 04/03/2025 10:51 AM [facility] Blood Venous blood specimen / Unknown Venipuncture / Unknown 04/03/2025 5:39 AM EDT 04/03/2025 9:58 AM EDT us Cirilo Pugh MD LAB BLOOD ORDERABLES Final Resu lt [facility] [address] [place] [address], documented in this encounter Visit Diagnoses Diagnosis Anemia, unspecified documented in this encounter Care Teams Pelletizer Tender Relationship Specialty Start Date End Date Milady Carmen MD [address] [place] [phone] PCP - General Internal Medicine 07/02/25 documented as of this encounter
--- OUTSIDE RECORDS SUMMARY | 2025-10-30 14:13 | XMS_ITS | Encounter Summary ---
Author Organization [facility] Address [address] [place] [address] Care Team Providers Care Card Mounter Name Role Phone Milady Carmen MD Primary Care Provider + Encounter Details Date Type Department Care Team (Late st Contact Info) Description 04/02/2025 Lab Requisition [facility] - Main Lab [address] [place] [address] Cirilo Pugh MD [address] [place] [phone] Anemia, unspecified; Chronic kidney disease, unspecified Social [...] LAB CHEMISTRY METHOD 04/02/2025 10:28 AM EDT [facility] Potassium 4.1 3.5 - 5.5 mmol/L LAB CHEMISTRY METHOD 04/02/2025 10:28 AM [facility] Chloride 112(H) 96 - 110 mmol/L LAB CHEMISTRY METHOD 04/02/2025 10:28 AM [facility] CO2 25 21 - 32 mmol/L LAB CHEMISTRY METHOD 04/02/2025 10:28 AM [facility] Anion Gap 6 3 - 11 LAB CHEMISTRY METHOD 04/02/2025 10:28 AM [facility] Glucose 220(H) 70 - 100 mg/dL LAB CHEMISTRY METHOD 04/02/2025 10:28 AM [facility] BUN 10 5 - 25 mg/dL LAB CHEMISTRY METHOD 04/02/2025 10:28 AM [facility] Creatinine 0.80 0.50 - 1.10 mg/dL LAB CHEMISTRY METHOD 04/02/2025 10:28 AM [facility] eGFR 82 >=60 mL/min/1. 73m2 LAB CHEMISTRY METHOD 04/02/2025 10:28 AM [facility] Comment:Calculation based on the Chronic Kidney Disease Epidemiology Collaboration (CKD-EPI) equation refit without adjustment for race. BUN/Creatinine Ratio 12.5 LAB CHEMISTRY METHOD 04/02/2025 10:28 AM [facility] Calcium 8.3(L) 8.5 - 10.5 mg/dL LAB CHEMISTRY METHOD 04/02/2025 10:28 AM [facility] Blood Venous blood specimen / Unknown Venipuncture / Unknown 04/02/2025 5:41 AM EDT 04/02/2025 9:21 AM EDT us Cirilo Pugh MD LAB BLOOD ORDERABLES Final Resu lt [facility] [address] [place] [address], * (ABNORMAL) Complete blood count (04/02/2025 5:41 AM EDT) [facility] WBC 4.9 4.8 - 10.8 K/mcL LAB HEMETOLOGY METHOD 04/02/2025 9:43 AM [facility] RBC 3.20(L) 3.80 - 4.80 M/mcL LAB HEMETOLOGY METHOD 04/02/2025 9:43 AM [facility] Hemoglobin 7.7(L) 11.5 - 16.0 g/dL LAB HEMETOLOGY METHOD 04/02/2025 9:43 AM [facility] Hematocrit 27.8(L) 35.0 - 47.0 % LAB HEMETOLOGY METHOD 04/02/2025 9:43 AM [facility] MCV 87.7 79.0 - 98.0 FL LAB HEMETOLOGY METHOD 04/02/2025 9:43 AM [facility] MCH 24.3(L) 27.0 - 32.0 pcg LAB HEMETOLOGY METHOD 04/02/2025 9:43 AM [facility] MCHC 27.7(L) 32.0 - 37.0 g/dL LAB HEMETOLOGY METHOD 04/02/2025 9:43 AM [facility] RDW 17.0(H) 11.0 - 15.0 % LAB HEMETOLOGY METHOD 04/02/2025 9:43 AM [facility] Platelets 211 130 - 400 K/mcL LAB HEMETOLOGY METHOD 04/02/2025 9:43 AM [facility] MPV 9.9 7.0 - 11.0 FL LAB HEMETOLOGY METHOD 04/02/2025 9:43 AM [facility] NRBC 0.0 <1.0 % LAB HEMETOLOGY METHOD 04/02/2025 9:43 AM [facility] NRBC Absolute 0.00 <0.10 K/mcL LAB HEMETOLOGY METHOD 04/02/2025 9:43 AM EDT [facility] Blood Venous blood specimen / Unknown Venipuncture / Unknown 04/02/2025 5:41 AM EDT 04/02/2025 9:21 AM EDT us Cirilo Pugh MD LAB BLOOD ORDERABLES Final Resu lt [facility] [address] [place] [address], documented in this encounter Visit Diagnoses Diagnosis Anemia, unspecified Chronic kidney disease, unspecified documented in this encounter Care Teams Card Mounter Relationship Specialty Start Date End Date Milady Carmen MD [address] [place] [phone] PCP - General Internal Medicine 07/02/25 documented as of this encounter
--- OUTSIDE RECORDS SUMMARY | 2025-10-30 14:13 | XMS_ITS | Encounter Summary ---
Author Organization [facility] Address [address] [place] [address] Care Team Providers Care Electric Motor Assembler Name Role Phone Milady Carmen MD Primary Care Provider + Encounter Details Date Type Department Care Team (Late st Contact Info) Description 03/30/2025 Lab Requisition [facility] - Main Lab [address] [place] [address] Cirilo Pugh MD [address] [place] [phone] Heart failure, unspecified (CMS/HCC V24, CMS/HCC V28) [...] LAB CHEMISTRY METHOD 04/01/2025 11:38 AM EDT [facility] Potassium 4.4 3.5 - 5.5 mmol/L LAB CHEMISTRY METHOD 04/01/2025 11:38 AM [facility] Chloride 109 96 - 110 mmol/L LAB CHEMISTRY METHOD 04/01/2025 11:38 AM [facility] CO2 23 21 - 32 mmol/L LAB CHEMISTRY METHOD 04/01/2025 11:38 AM [facility] Anion Gap 5 3 - 11 LAB CHEMISTRY METHOD 04/01/2025 11:38 AM [facility] Glucose 195(H) 70 - 100 mg/dL LAB CHEMISTRY METHOD 04/01/2025 11:38 AM [facility] BUN 14 5 - 25 mg/dL LAB CHEMISTRY METHOD 04/01/2025 11:38 AM [facility] Comment:Results verified by repeat testing Creatinine 0.72 0.50 - 1.10 mg/dL LAB CHEMISTRY METHOD 04/01/2025 11:38 AM [facility] eGFR 93 >=60 mL/min/1. 73m2 LAB CHEMISTRY METHOD 04/01/2025 11:38 AM [facility] Comment:Calculation based on the Chronic Kidney Disease Epidemiology Collaboration (CKD-EPI) equation refit without adjustment for race. BUN/Creatinine Ratio 19.4 LAB CHEMISTRY METHOD 04/01/2025 11:38 AM [facility] Calcium 8.5 8.5 - 10.5 mg/dL LAB CHEMISTRY METHOD 04/01/2025 11:38 AM [facility] Blood Venous blood specimen / Unknown Venipuncture / Unknown 04/01/2025 7:06 AM EDT 04/01/2025 10:10 AM EDT us Cirilo Pugh MD LAB BLOOD ORDERABLES Final Resu lt [facility] [address] [place] [address], * (ABNORMAL) Complete blood count (04/01/2025 7:06 AM EDT) [facility] WBC 5.1 4.8 - 10.8 K/mcL LAB HEMETOLOGY METHOD 04/01/2025 11:38 AM [facility] RBC 3.20(L) 3.80 - 4.80 M/mcL LAB HEMETOLOGY METHOD 04/01/2025 11:38 AM T [facility] Hemoglobin 7.9(L) 11.5 - 16.0 g/dL LAB HEMETOLOGY METHOD 04/01/2025 11:38 AM [facility] Hematocrit 28.0(L) 35.0 - 47.0 % LAB HEMETOLOGY METHOD 04/01/2025 11:38 AM [facility] MCV 87.5 79.0 - 98.0 FL LAB HEMETOLOGY METHOD 04/01/2025 11:38 AM [facility] MCH 24.7(L) 27.0 - 32.0 pcg LAB HEMETOLOGY METHOD 04/01/2025 11:38 AM [facility] MCHC 28.2(L) 32.0 - 37.0 g/dL LAB HEMETOLOGY METHOD 04/01/2025 11:38 AM [facility] RDW 17.1(H) 11.0 - 15.0 % LAB HEMETOLOGY METHOD 04/01/2025 11:38 AM [facility] Platelets 226 130 - 400 K/mcL LAB HEMETOLOGY METHOD 04/01/2025 11:38 AM [facility] MPV 10.1 7.0 - 11.0 FL LAB HEMETOLOGY METHOD 04/01/2025 11:38 AM [facility] NRBC 0.0 <1.0 % LAB HEMETOLOGY METHOD 04/01/2025 11:38 AM EDT [facility] NRBC Absolute 0.00 <0.10 K/mcL LAB HEMETOLOGY METHOD 04/01/2025 11:38 AM EDT [facility] Blood Venous blood specimen / Unknown Venipuncture / Unknown 04/01/2025 7:06 AM EDT 04/01/2025 10:09 AM EDT us Cirilo Pugh MD LAB BLOOD ORDERABLES Final Resu lt [facility] [address] [place] [address], documented in this encounter Visit Diagnoses Diagnosis Heart failure, unspecified (CMS/HCC V24, CMS/HCC V28) Heart failure, unspecified documented in this encounter Care Teams Electric Motor Assembler Relationship Specialty Start Date End Date Milady Carmen MD [address] [place] [address] PCP - General Internal Medicine 07/02/25 documented as of this encounter
--- OUTSIDE RECORDS SUMMARY | 2025-10-30 14:13 | XMS_ITS | Encounter Summary ---
Author Organization [facility] Address [address] [place] [address] Care Team Providers Care Management Manager Name Role Phone Milady Carmen MD Primary Care Provider + Encounter Details Date Type Department Care Team (Late st Contact Info) Description 02/23/2025 Lab Requisition [facility] - Main Lab [address] [place] [address] Jozef Camejo MD [address] [place] [phone] Melena Social History Tobacco Use Types [...] LAB HEMETOLOGY METHOD 02/23/2025 8:[address] [facility] Hematocrit 24.7(L) 35.0 - 47.0 % LAB HEMETOLOGY METHOD 02/23/2025 8:02 AM [facility] Blood Venous blood specimen / Unknown Venipuncture / Unknown 02/23/2025 6:15 AM EDT 02/23/2025 7:35 AM EDT us Jozef Camejo MD LAB BLOOD ORDERABLES Final Resul t [facility] [address] [place] [address], * (ABNORMAL) Complete blood count (02/23/2025 6:15 AM EDT) WBC 4.8 4.8 - 10.8 K/mcL LAB HEMETOLOGY METHOD 02/23/2025 8:02 AM [facility] RBC 2.80(L) 3.80 - 4.80 M/mcL LAB HEMETOLOGY METHOD 02/23/2025 8:02 AM [facility] Hemoglobin 6.9(L) 11.5 - 16.0 g/dL LAB HEMETOLOGY METHOD 02/23/2025 8:02 AM [facility] Hematocrit 24.7(L) 35.0 - 47.0 % LAB HEMETOLOGY METHOD 02/23/2025 8:02 AM [facility] MCV 88.8 79.0 - 98.0 FL LAB HEMETOLOGY METHOD 02/23/2025 8:02 AM [facility] MCH 24.8(L) 27.0 - 32.0 pcg LAB HEMETOLOGY METHOD 02/23/2025 8:02 AM [facility] MCHC 27.9(L) 32.0 - 37.0 g/dL LAB HEMETOLOGY METHOD 02/23/2025 8:02 AM [facility] RDW 21.4(H) 11.0 - 15.0 % LAB HEMETOLOGY METHOD 02/23/2025 8:02 AM EDT [facility] Platelets 259 130 - 400 K/mcL LAB HEMETOLOGY METHOD 02/23/2025 8:02 AM EDT [facility] MPV 10.0 7.0 - 11.0 FL LAB HEMETOLOGY METHOD 02/23/2025 8:02 AM EDT [facility] NRBC 0.0 <1.0 % LAB HEMETOLOGY METHOD 02/23/2025 8:02 AM EDT [facility] NRBC Absolute 0.00 <0.10 K/mcL LAB HEMETOLOGY METHOD 02/23/2025 8:02 AM EDT [facility] Blood Venous blood specimen / Unknown Venipuncture / Unknown 02/23/2025 6:15 AM EDT 02/23/2025 7:35 AM EDT us Jozef Camejo MD LAB BLOOD ORDERABLES Final Resul t [facility] [address] [place] [address], documented in this encounter Visit Diagnoses Diagnosis Melena Blood in stool documented in this encounter Care Teams Management Manager Relationship Specialty Start Date End Date Milady Carmen MD [address] [place] [phone] PCP - General Internal Medicine 07/02/25 documented as of this encounter
--- OUTSIDE RECORDS SUMMARY | 2025-10-30 14:14 | XMS_ITS | Encounter Summary ---
Author Organization [facility] Address [address] [place] [address] Care Team Providers Care Field Map Editor Name Role Phone Milady Carmen MD Primary Care Provider + Encounter Details Date Type Department Care Team (Latest Contact Info) Description 03/18/[address] [facility] - Main Lab [address] [place] [address] Cirilo Pugh MD [address] [place] [phone] Gastrointestinal hemorrhage, unspecified Social History Tobacco Use [...] AM EDT) WBC 6.3 4.8 - 10.8 K/[facility] LAB HEMETOLOGY METHOD 03/18/2025 1:55 PM [facility] LAB RBC 3.40(L) 3.80 - 4.80 M/mcL LAB HEMETOLOGY METHOD 03/18/2025 1:55 PM [facility] LAB Hemoglobin 8.5(L) 11.5 - 16.0 g/dL LAB HEMETOLOGY METHOD 03/18/2025 1:55 PM [facility] LAB Hematocrit 30.1(L) 35.0 - 47.0 % LAB HEMETOLOGY METHOD 03/18/2025 1:55 PM [facility] LAB MCV 89.3 79.0 - 98.0 FL LAB HEMETOLOGY METHOD 03/18/2025 1:55 PM [facility] LAB MCH 25.2(L) 27.0 - 32.0 pcg LAB HEMETOLOGY METHOD 03/18/2025 1:55 PM [facility] LAB MCHC 28.2(L) 32.0 - 37.0 g/dL LAB HEMETOLOGY METHOD 03/18/2025 1:55 PM [facility] LAB RDW 19.0(H) 11.0 - 15.0 % LAB HEMETOLOGY METHOD 03/18/2025 1:55 PM [facility] LAB Platelets 304 130 - 400 K/mcL LAB HEMETOLOGY METHOD 03/18/2025 1:55 PM [facility] LAB MPV 9.8 7.0 - 11.0 FL LAB HEMETOLOGY METHOD 03/18/2025 1:55 PM [facility] LAB NRBC 0.0 <1.0 % LAB HEMETOLOGY METHOD 03/18/2025 1:55 PM [facility] LAB NRBC Absolute 0.00 <0.10 K/mcL LAB HEMETOLOGY METHOD 03/18/2025 1:55 PM [facility] LAB Neutrophils Relative 54.4 % LAB HEMETOLOGY METHOD 03/18/2025 1:55 PM EDT [facility] LAB Lymphocytes Relative 31.9 % LAB HEMETOLOGY METHOD 03/18/2025 1:55 PM [facility] Monocytes Relative 8.2 % LAB HEMETOLOGY METHOD 03/18/2025 1:55 PM [facility] LAB Eosinophils Relative 4.4 % LAB HEMETOLOGY METHOD 03/18/2025 1:55 PM [facility] Basophils Relative 0.5 % LAB HEMETOLOGY METHOD 03/18/2025 1:55 PM [facility] LAB Immature Granulocytes Relative 0.6 % LAB HEMETOLOGY METHOD 03/18/2025 1:55 PM [facility] LAB Neutrophils Absolute 3.43 1.50 - 7.00 K/mcL LAB HEMETOLOGY METHOD 03/18/2025 1:55 PM [facility] LAB Lymphocytes Absolute 2.01 1.00 - 5.00 K/mcL LAB HEMETOLOGY METHOD 03/18/2025 1:55 PM [facility] LAB Monocytes Absolute 0.52 0.20 - 1.00 K/mcL LAB HEMETOLOGY METHOD 03/18/2025 1:55 PM [facility] LAB Eosinophils Absolute 0.28 0.00 - 0.50 K/mcL LAB HEMETOLOGY METHOD 03/18/2025 1:55 PM [facility] LAB Basophils Absolute 0.03 0.00 - 0.20 K/mcL LAB HEMETOLOGY METHOD 03/18/2025 1:55 PM [facility] LAB Immature Granulocytes Absolute 0.04(H) 0.00 - 0.03 K/mcL LAB HEMETOLOGY METHOD 03/18/2025 1:55 PM [facility] LAB Blood Venous blood specimen / Unknown Venipuncture / Unknown 03/18/2025 7:10 AM EDT 03/18/2025 11:32 AM EDT us Cirilo Pugh MD LAB BLOOD ORDERABLES Final Resu lt [facility] LAB [address] [place] [address], * (ABNORMAL) Basic metabolic panel (03/18/2025 7:10 AM EDT) Sodium 135 133 - 145 mmol/L LAB CHEMISTRY METHOD [facility] Potassium 4.2 3.5 - 5.5 mmol/L LAB CHEMISTRY METHOD 03/18/2025 1:28 PM [facility] LAB Chloride 98 96 - 110 mmol/L LAB CHEMISTRY METHOD 03/18/2025 1:28 PM [facility] LAB CO2 28 21 - 32 mmol/L LAB CHEMISTRY METHOD 03/18/2025 1:28 PM [facility] LAB Anion Gap 9 3 - 11 LAB CHEMISTRY METHOD 03/18/2025 1:28 PM [facility] LAB Glucose 291(H) 70 - 100 mg/dL LAB CHEMISTRY METHOD 03/18/2025 1:28 PM [facility] LAB BUN 49(H) 5 - 25 mg/dL LAB CHEMISTRY METHOD 03/18/2025 1:28 PM [facility] LAB Creatinine 1.39(H) 0.50 - 1.10 mg/dL LAB CHEMISTRY METHOD 03/18/2025 1:28 PM [facility] LAB eGFR 42(L) >=60 mL/min/1. 73m2 LAB CHEMISTRY METHOD 03/18/2025 1:28 PM [facility] LAB Comment:Calculation based on the Chronic Kidney Disease Epidemiology Collaboration (CKD-EPI) equation refit without adjustment for race. BUN/Creatinine Ratio 35.3 LAB CHEMISTRY METHOD 03/18/2025 1:28 PM [facility] LAB Calcium 8.6 8.5 - 10.5 mg/dL LAB CHEMISTRY METHOD 03/18/2025 1:28 PM EDT [facility] LAB Blood Venous blood specimen / Unknown Venipuncture / Unknown 03/18/2025 7:10 AM EDT 03/18/2025 11:32 AM EDT us Cirilo Pugh MD LAB BLOOD ORDERABLES Final Resu lt [facility] [address] [place] [address], documented in this encounter Visit Diagnoses Diagnosis Gastrointestinal hemorrhage, unspecified documented in this encounter Care Teams Field Map Editor Relationship Specialty Start Date End Date Milady Carmen MD [address] [place] [phone] PCP - General Internal Medicine 07/02/25 documented as of this encounter
--- OUTSIDE RECORDS SUMMARY | 2025-10-30 14:14 | XMS_ITS | Encounter Summary ---
Author Organization [facility] Address [address] [place] [address] Care Team Providers Care Gas Main Fitter Name Role Phone Milady Carmen MD Primary Care Provider + Encounter Details Date Type Department Care Team (Late st Contact Info) Description 03/25/[address] [facility] - Main Lab [address] [place] [address] Nelida Duarte PA [address] [facility] [address] [place] [phone] Heart failure, unspecified (CMS/HCC V24, CMS/HCC V28) [...] CHEMISTRY METHOD 03/25/2025 10:37 AM EDT [facility] LAB Potassium 5.2 3.5 - 5.5 mmol/L LAB CHEMISTRY METHOD 03/25/2025 10:37 AM [facility] LAB Chloride 111(H) 96 - 110 mmol/L LAB CHEMISTRY METHOD 03/25/2025 10:37 AM [facility] LAB CO2 24 21 - 32 mmol/L LAB CHEMISTRY METHOD 03/25/2025 10:37 AM [facility] LAB Anion Gap 5 3 - 11 LAB CHEMISTRY METHOD 03/25/2025 10:37 AM [facility] LAB Glucose 190(H) 70 - 100 mg/dL LAB CHEMISTRY METHOD 03/25/2025 10:37 AM [facility] BUN 30(H) 5 - 25 mg/dL LAB CHEMISTRY METHOD 03/25/2025 10:37 AM [facility] LAB Creatinine 1.07 0.50 - 1.10 mg/dL LAB CHEMISTRY METHOD 03/25/2025 10:37 AM [facility] LAB eGFR 58(L) >=60 mL/min/1. 73m2 LAB CHEMISTRY METHOD 03/25/2025 10:37 AM [facility] LAB Comment:Calculation based on the Chronic Kidney Disease Epidemiology Collaboration (CKD-EPI) equation refit without adjustment for race. BUN/Creatinine Ratio 28.0 LAB CHEMISTRY METHOD 03/25/2025 10:37 AM [facility] LAB Calcium 8.3(L) 8.5 - 10.5 mg/dL LAB CHEMISTRY METHOD 03/25/2025 10:37 AM [facility] LAB Blood Venous blood specimen / Unknown Venipuncture / Unknown 03/25/2025 6:41 AM EDT 03/25/2025 9:24 AM EDT us Nelida VARGAS LAB BLOOD ORDERABLES Final Re sult [facility] [address] [place] [address], * (ABNORMAL) Complete blood count (03/25/2025 6:41 AM EDT) [facility] WBC 5.3 4.8 - 10.8 K/mcL LAB HEMETOLOGY METHOD 03/25/2025 10:04 AM [facility] RBC 3.30(L) 3.80 - 4.80 M/mcL LAB HEMETOLOGY METHOD 03/25/2025 10:04 AM [facility] LAB Hemoglobin 8.3(L) 11.5 - 16.0 g/dL LAB HEMETOLOGY METHOD 03/25/2025 10:04 AM [facility] LAB Hematocrit 29.9(L) 35.0 - 47.0 % LAB HEMETOLOGY METHOD 03/25/2025 10:04 AM [facility] LAB MCV 91.2 79.0 - 98.0 FL LAB HEMETOLOGY METHOD 03/25/2025 10:04 AM [facility] LAB MCH 25.3(L) 27.0 - 32.0 pcg LAB HEMETOLOGY METHOD 03/25/2025 10:04 AM [facility] LAB MCHC 27.8(L) 32.0 - 37.0 g/dL LAB HEMETOLOGY METHOD 03/25/2025 10:04 AM [facility] LAB RDW 17.4(H) 11.0 - 15.0 % LAB HEMETOLOGY METHOD 03/25/2025 10:04 AM [facility] LAB Platelets 252 130 - 400 K/mcL LAB HEMETOLOGY METHOD 03/25/2025 10:04 AM [facility] LAB MPV 10.3 7.0 - 11.0 FL LAB HEMETOLOGY METHOD 03/25/2025 10:04 AM [facility] LAB NRBC 0.0 <1.0 % LAB [...] Re sult [facility] [address] [place] [address], documented in this encounter Visit Diagnoses Diagnosis Heart failure, unspecified (CMS/HCC V24, CMS/HCC V28) Heart failure, unspecified documented in this encounter Care Teams Gas Main Fitter Relationship Specialty Start Date End Date Milady Carmen MD [address] [place] [phone] PCP - General Internal Medicine 07/02/25 documented as of this encounter
--- OUTSIDE RECORDS SUMMARY | 2025-10-30 14:14 | XMS_ITS | Encounter Summary ---
Author Organization [facility] Address [address] [place] [address] Care Team Providers Care Embryology Professor Name Role Phone Milady Carmen MD Primary Care Provider + Encounter Details Date Type Department Care Team (Latest Contact Info) Description 03/20/2025 Lab Requisition [facility] - Main Lab [address] [facility] [employer] [place] [address] Cirilo Pugh MD [address] [place] [phone] Type 2 diabetes mellitus without complications (CMS/HCC [...] LAB CHEMISTRY METHOD 03/21/2025 11:36 AM EDT [facility] LAB Potassium 5.2 3.5 - 5.5 mmol/L LAB CHEMISTRY METHOD 03/21/2025 11:36 AM EDT [facility] LAB Comment:Hemolysis present Chloride 107 96 - 110 mmol/L LAB CHEMISTRY METHOD 03/21/2025 11:36 AM T [facility] LAB CO2 19(L) 21 - 32 mmol/L LAB CHEMISTRY METHOD 03/21/2025 11:36 AM [facility] LAB Anion Gap 8 3 - 11 LAB CHEMISTRY METHOD 03/21/2025 11:36 AM [facility] Glucose 259(H) 70 - 100 mg/dL LAB CHEMISTRY METHOD 03/21/2025 11:36 AM [facility] BUN 40(H) 5 - 25 mg/dL LAB CHEMISTRY METHOD 03/21/2025 11:36 AM [facility] Creatinine 1.49(H) 0.50 - 1.10 mg/dL LAB CHEMISTRY METHOD 03/21/2025 11:36 AM [facility] LAB eGFR 39(L) >=60 mL/min/1. 73m2 LAB CHEMISTRY METHOD 03/21/2025 11:36 AM [facility] LAB Comment:Calculation based on the Chronic Kidney Disease Epidemiology Collaboration (CKD-EPI) equation refit without adjustment for race. BUN/Creatinine Ratio 26.8 LAB CHEMISTRY METHOD 03/21/2025 11:36 AM [facility] Calcium 8.3(L) 8.5 - 10.5 mg/dL LAB CHEMISTRY METHOD 03/21/2025 11:36 AM [facility] LAB Blood Venous blood specimen / Unknown Venipuncture / Unknown 03/21/2025 5:23 AM EDT 03/21/2025 8:30 AM EDT us Cirilo Pugh MD LAB BLOOD ORDERABLES Final Resu lt [facility] [address] [place] [address], [place] [phone] documented in this encounter Visit Diagnoses Diagnosis Type 2 diabetes mellitus without complications (CMS/[facility] V24, CMS/[facility] V28) documented in this encounter Care Teams Embryology Professor Relationship Specialty Start Date End Date Milady Carmen MD [address] [place] [address] PCP - General Internal Medicine 07/02/25 documented as of this encounter
--- OUTSIDE RECORDS SUMMARY | 2025-10-30 14:14 | XMS_ITS | Encounter Summary ---
Author Organization [facility] Address [address] [place] [address] Care Team Providers Care Varnish Remover Name Role Phone Milady Carmen MD Primary Care Provider + Encounter Details Date Type Department Care Team (Latest Contact Info) Description 03/21/2025 Lab Requisition [facility] - Main Lab [address] [place] [address] Cirilo Pugh MD [address] [place] [phone] Type 2 diabetes mellitus without complications (CMS/HCC [...] AM EDT) WBC 6.1 4.8 - 10.8 K/[facility] LAB HEMETOLOGY METHOD 03/22/2025 7:46 AM EDT [facility] RBC 3.10(L) 3.80 - 4.80 /[facility] LAB HEMETOLOGY METHOD 03/22/2025 7:46 AM [facility] LAB Hemoglobin 8.0(L) 11.5 - 16.0 g/dL LAB HEMETOLOGY METHOD 03/22/2025 7:46 AM [facility] LAB Hematocrit 27.9(L) 35.0 - 47.0 % LAB HEMETOLOGY METHOD 03/22/2025 7:46 AM [facility] LAB MCV 89.4 79.0 - 98.0 FL LAB HEMETOLOGY METHOD 03/22/2025 7:46 AM [facility] LAB MCH 25.6(L) 27.0 - 32.0 pcg LAB HEMETOLOGY METHOD 03/22/2025 7:46 AM [facility] LAB MCHC 28.7(L) 32.0 - 37.0 g/dL LAB HEMETOLOGY METHOD 03/22/2025 7:46 AM [facility] LAB RDW 18.1(H) 11.0 - 15.0 % LAB HEMETOLOGY METHOD 03/22/2025 7:46 AM [facility] LAB Platelets 244 130 - 400 K/mcL LAB HEMETOLOGY METHOD 03/22/2025 7:46 AM [facility] LAB MPV 9.7 7.0 - 11.0 FL LAB HEMETOLOGY METHOD 03/22/2025 7:46 AM [facility] LAB NRBC 0.0 <1.0 % LAB HEMETOLOGY METHOD 03/22/2025 7:46 AM [facility] LAB NRBC Absolute 0.00 <0.10 K/mcL LAB HEMETOLOGY METHOD 03/22/2025 7:46 AM [facility] LAB Blood Venous blood specimen / Unknown Venipuncture / Unknown 03/22/2025 4:36 AM EDT 03/22/2025 7:35 AM EDT us Rami A Ashkar MD LAB BLOOD ORDERABLES Final Resu lt [facility] [address] [place] [address], documented in this encounter Visit Diagnoses Diagnosis Type 2 diabetes mellitus without complications (CMS/HCC V24, CMS/HCC V28) documented in this encounter Care Teams Varnish Remover Relationship Specialty Start Date End Date Milady Carmen MD [address] [place] [phone] PCP - General Internal Medicine 07/02/25 documented as of this encounter
== END 2025-10-30 11:41 | disposition home or self-care (01) ==
LOC: HO.ENCR 10:55
PROVIDERS: PCP Internal Medicine; Visit Provider Registered Nurse Diabetes Educator
DX: E11.9 Type 2 diabetes mellitus without complications (principal); Z79.4 Long term (current) use of insulin

== ENCOUNTER → 2025-10-30 10:55 | Outpatient (BNVA) | payer OTHER, SELFPAY | PROVIDERS: PCP Internal Medicine; Visit Provider Registered Nurse Diabetes Educator | DX: E11.9 Type 2 diabetes mellitus without complications (principal); Z79.4 Long term (current) use of insulin; Z96.41 Presence of insulin pump (external) (internal); Z46.81 Encounter for fitting and adjustment of insulin pump | CPT/HCPCS: 99211 ==